=== PATIENT | male | born 1940 | race Caucasian/White ===

== ENCOUNTER 2017-05-16 08:00 | Outpatient (CLI) | payer MEDICARE, OTHER ==
[2017-05-16 19:02] LABS: BASOPHILS % (AUTO) 0.8 %; EOSINOPHILS # (AUTO) 0.1 10^3/uL (0.0-0.7); EOSINOPHILS % (AUTO) 2.8 %; HCT - HEMATOCRIT 45.5 % (42.0-52.0); HGB - HEMOGLOBIN 15.3 g/dL (14.0-18.0); LYMPHOCYTES # (AUTO) 0.7 10^3/uL (1.5-3.5); LYMPHOCYTES % (AUTO) 12.6 %; MEAN CORPUSCULAR HEMOGLOBIN 33.6 pg (27.0-31.0); MEAN CORPUSCULAR HGB CONC 33.7 g/dL (32.0-36.0); MEAN CORPUSCULAR VOLUME 99.6 fL (80.0-94.0); MEAN PLATELET VOLUME 8.8 fL (7.4-11.4); MONOCYTES # (AUTO) 0.6 10^3/uL (0.0-1.0); MONOCYTES % (AUTO) 12.2 %; NEUTROPHILS # (AUTO) 3.8 10^3/uL (1.5-6.6); NEUTROPHILS % (AUTO) 71.6 %; NUCLEATED RED BLOOD CELLS AUTO 0.1 /100WBC; RED BLOOD COUNT 4.57 10^6/uL (4.70-6.10); RED CELL DISTRIBUTION WIDTH 13.9 % (12.0-15.0); UNCORRECTED WHITE BLOOD COUNT 5.3 x10^3/uL; WHITE BLOOD COUNT 5.3 x10^3/uL (4.8-10.8)
[2017-05-16 19:17] LABS: ALBUMIN/GLOBULIN RATIO 1.4 (1.0-2.2); BILIRUBIN,TOTAL 1.1 mg/dL (0.2-1.0); BUN - BLOOD UREA NITROGEN 26 mg/dL (6-20); CALCIUM 9.3 mg/dL (8.5-10.3); CARBON DIOXIDE - CO2 28 mmol/L (21-32); CHLORIDE 99 mmol/L (101-111); CREATININE 1.3 mg/dL (0.6-1.2); GFR - MDRD 53 (>89); GLUCOSE 100 mg/dL (70-100); POTASSIUM 3.3 mmol/L (3.5-5.0); SODIUM 138 mmol/L (135-145); TOTAL PROTEIN 7.3 g/dL (6.7-8.2)
== END 2017-05-16 08:01 | disposition home or self-care (01) ==
LOC: LAB.R 08:00
PROVIDERS: ATTEND Physician Assistant Medical
DX: M25.50 Pain in unspecified joint (principal); M25.511 Pain in right shoulder
CPT/HCPCS: 80053; 85025; 85651; 86140; 86430

== ENCOUNTER 2017-05-17 12:45 | Outpatient (CLI) | payer MEDICARE, OTHER ==
--- NOTE | 2017-05-17 17:34 | XRAY Report ---
TWO-VIEW RIGHT SHOULDER: 05/17/2017 CLINICAL INDICATION: Pain. FINDINGS: Oblique and scapular Y views of the right shoulder demonstrate no evidence of fracture or dislocation. The joint spaces appear unremarkable. No radiopaque foreign body is seen in the soft t issues. IMPRESSION: NORMAL RIGHT SHOULDER. JOB #: [id number] EXT JOB #:[id number]
== END 2017-05-17 12:46 | disposition home or self-care (01) ==
LOC: DI 12:45
PROVIDERS: ATTEND Physician Assistant Medical
DX: M25.511 Pain in right shoulder (principal)

== ENCOUNTER 2017-06-16 09:27 | Outpatient (CLI) | payer MEDICARE, OTHER ==
[2017-06-19 20:02] LABS: ANA SCREEN POSITIVE (NEGATIVE)
== END 2017-06-16 09:28 | disposition home or self-care (01) ==
LOC: LAB.R 09:27
PROVIDERS: ATTEND Internal Medicine
DX: M25.50 Pain in unspecified joint (principal)
CPT/HCPCS: 85651; 86038; 86140; 86200; 86430

== ENCOUNTER 2017-09-29 08:15 | Outpatient (CLI) | payer MEDICARE, OTHER ==
[2017-09-29 09:07] LABS: ALBUMIN 3.9 g/dL (3.2-5.5); ALBUMIN/GLOBULIN RATIO 1.4 (1.0-2.2); BASOPHILS % (AUTO) 0.5 %; CALCIUM 9.3 mg/dL (8.5-10.3); CREATININE 1.4 mg/dL (0.6-1.2); EOSINOPHILS # (AUTO) 0.2 10^3/uL (0.0-0.7); EOSINOPHILS % (AUTO) 2.6 %; HGB - HEMOGLOBIN 15.1 g/dL (14.0-18.0); LYMPHOCYTES # (AUTO) 0.4 10^3/uL (1.5-3.5); MEAN CORPUSCULAR HEMOGLOBIN 33.5 pg (27.0-31.0); MEAN CORPUSCULAR HGB CONC 34.1 g/dL (32.0-36.0); MEAN CORPUSCULAR VOLUME 98.4 fL (80.0-94.0); MEAN PLATELET VOLUME 8.2 fL (7.4-11.4); MONOCYTES # (AUTO) 0.7 10^3/uL (0.0-1.0); MONOCYTES % (AUTO) 10.6 %; NEUTROPHILS % (AUTO) 79.3 %; PLT - PLATELET COUNT 243 10^3/uL (130-450); RED CELL DISTRIBUTION WIDTH 13.7 % (12.0-15.0); TOTAL PROTEIN 6.7 g/dL (6.7-8.2); WHITE BLOOD COUNT 6.3 x10^3/uL (4.8-10.8)
== END 2017-09-29 08:16 | disposition home or self-care (01) ==
LOC: LAB 08:15
PROVIDERS: ATTEND Internal Medicine Rheumatology
DX: M06.09 Rheumatoid arthritis without rheumatoid factor, multiple sites (principal)
CPT/HCPCS: 36415; 80053; 85025

== ENCOUNTER 2017-12-17 07:12 | Inpatient (IN) | payer MEDICARE, OTHER ==
--- NOTE | 2017-12-17 07:20 | ED Physician Documentation ---
PD HPI ABD PAIN - Stated complaint Stated Complaint: ABD PX - History of Present Illness Timing - onset: Last night, Yesterday Timing - details: Gradual onset, Still present, Waxing and waning Quality: Cramping, Aching, Pain Location: Periumbilical, Suprapubic Radiation: No: Chest, Lower back, Left flank, Right flank Improved by: No: Eating Worsened by: No: Eating, Moving, Breathing Associated symptoms: Nausea, Vomiting (few times overnight). No: Fever, Hematemesis, Diarrhea, Constipation, Melena, Hematuria (has urostomy due to prior bladder cancer and surgery. Has had Urostomy for about 10 years without problems.), Loss of appetite Similar symptoms before: Has not had sx before Recently seen: Not recently seen Review of Systems Constitutional: denies: Fever, Chills Nose: denies: Rhinorrhea / runny nose, Congestion Throat: denies: Sore throat Cardiac: denies: Chest pain / pressure Respiratory: denies: Cough GI: reports: Abdominal Pain, Nausea, Vomiting. denies: Abdominal Swelling, Constipation, Diarrhea : denies: Hematuria, Discharge Skin: denies: Rash, Lesions Musculoskeletal: denies: Neck pain, Back pain, Extremity swelling Neurologic: denies: Generalized weakness, Focal weakness, Numbness PD PAST MEDICAL HISTORY - Past Medical History Cardiovascular: None Respiratory: None Neuro: None Endocrine/Autoimmune: None : Other (bladder resection with urostomy) - Present Medications Home Medications: Ambulatory Orders Medication Instructions Recorded Confirmed Amlodipine Besylate [Norvasc] 10 mg PO DAILY 12/17/17 12/17/17 Aspirin [Aspirin EC] 81 mg PO DAILY 12/17/17 12/17/17 Etanercept [Enbrel Sureclick] 50 mg SUBQ Q7D 12/17/17 12/17/17 Metoprolol Succinate 50 mg PO DAILY 12/17/17 12/17/17 Omeprazole 20 mg PO QDAC 12/17/17 12/17/17 Prednisone 10 mg PO DAILY 12/17/17 12/17/17 Telmisartan 80 mg PO DAILY 12/17/17 12/17/17 hydroCHLOROthiazide [Hydrodiuril] 12.5 mg PO DAILY 12/17/17 12/17/17 - Allergies Allergies/Adverse Reactions: Allergies Allergy/AdvReac Type Severity Reaction Status Date / Time No Known Drug Allergies Allergy Verified 12/17/17 13:21 PD ED PE NORMAL - Vitals Vital signs reviewed: Yes - General General: Alert and oriented X 3, Well developed/nourished - HEENT HEENT: Moist mucous membranes, Pharynx benign - Neck Neck: Supple, no meningeal sign, No adenopathy - Cardiac Cardiac: RRR, No murmur - Respiratory Respiratory: Clear bilaterally - Abdomen Abdomen: Normal bowel sounds, Soft, Non distended, No organomegaly, Other ( urostomy draining clear yellow urine. No signs of infection around the stoma opening. Lower abd tender to palpation with some guarding. Midl rebound tender RLQ and suprapubic area. No percussion tenderness. ) Results - Vitals Vitals: Vital Signs - 24 hr 12/17/17 07:18 Temperature 36.7 C Heart Rate 107 H Respiratory 16 Rate Blood Pressure 161/99 H O2 Saturation 97 Oxygen O2 Source Room air - Labs Labs: Laboratory Tests 12/17/17 12/17/17 12/17/17 07:52 07:52 07:52 WBC 8.4 RBC 4.92 Hgb 16.9 Hct 49.3 MCV 100.2 H MCH 34.4 H MCHC 34.3 RDW 14.3 Plt Count 286 MPV 8.4 Neut # 7.1 H Lymph # 0.4 L [place] # 0.8 Eos # 0.0 Baso # 0.0 Absolute Nucleated RBC 0.01 Nucleated RBC % 0.1 Sodium 137 Potassium 3.7 Chloride 100 L Carbon Dioxide 26 Anion Gap 11.0 BUN 21 H Creatinine 1.3 H Estimated GFR (MDRD) 53 L Glucose 128 H Lactic Acid Calcium 9.3 Total Bilirubin 1.0 AST 25 ALT 19 Alkaline Phosphatase 52 Total Protein 7.4 Albumin 4.6 Globulin 2.8 Albumin/Globulin Ratio 1.6 Lipase 24 Urine Color YELLOW Urine Clarity CLEAR Urine pH 7.0 Ur Specific Perry 1.015 Urine Protein 30 H Urine Glucose (UA) NEGATIVE Urine Ketones NEGATIVE Urine Occult Blood MODERATE H Urine Nitrite NEGATIVE Urine Bilirubin NEGATIVE Urine Urobilinogen 0.2 (NORMAL) Ur Leukocyte Esterase NEGATIVE Urine RBC 11-25 H Urine WBC 6-10 H Ur Squamous Epith Cells FEW Squamous Urine Bacteria Few Ur Microscopic Review INDICATED Urine Culture Comments INDICATED 12/17/17 08:03 WBC RBC Hgb Hct MCV MCH MCHC RDW Plt Count MPV Neut # Lymph # [place] # Eos # Baso # Absolute Nucleated RBC Nucleated RBC % Sodium Potassium Chloride Carbon Dioxide Anion Gap BUN Creatinine Estimated GFR (MDRD) Glucose Lactic Acid 1.1 Calcium Total Bilirubin AST ALT Alkaline Phosphatase Total Protein Albumin Globulin Albumin/Globulin Ratio Lipase Urine Color Urine Clarity Urine pH Ur Specific Perry Urine Protein Urine Glucose (UA) Urine Ketones Urine Occult Blood Urine Nitrite Urine Bilirubin Urine Urobilinogen Ur Leukocyte Esterase Urine RBC Urine WBC Ur Squamous Epith Cells Urine Bacteria Ur Microscopic Review Urine Culture Comments - Rads (name of study) abd CT Radiology: Prelim report reviewed (appendix not seen. Inflammatory changes around cecum. Dilated small bowel above point of cecum and decompressed distal c /w SBO. Still consider appendicitis per [facility]. ), EMP read contemporaneously PD MEDICAL DECISION MAKING - ED course Complexity details: reviewed results, considered differential, d/w patient, d/w specialty development consultant (Dr. Dorothea Real - who says that the Urostomy surgery would typically involve appendectomy as well, so would treat as SBO and not likely appendix. ) Departure - Departure Disposition: [facility] DC/Xfer Clinical Impression: Small bowel obstruction due to postoperative adhesions Abdominal pain Qualifiers: Abdominal location: lower abdomen, unspecified Qualified Code(s): R10.30 - Lower abdominal pain, unspecified Condition: Stable Record reviewed to determine appropriate education?: Yes Discharge Date/Time: 12/17/17 11:18
[2017-12-17] MEDS ORDERED: ONDANSETRON 4 MG/2 ML VIAL IVP STA (07:42)
[2017-12-17] MEDS ORDERED: SODIUM CHLORIDE 0.9% 1,000 ML IV ONE (07:42)
[2017-12-17] MEDS ORDERED: ACETAMINOPHEN 1,000 MG/100 ML 100 ML IV STA (07:42)
[2017-12-17 08:05] LABS: BASOPHILS % (AUTO) 0.5 %; BILIRUBIN,URINE NEGATIVE (NEGATIVE); EOSINOPHILS % (AUTO) 0.2 %; GLUCOSE, URINE (UA) NEGATIVE (NEGATIVE); HGB - HEMOGLOBIN 16.9 g/dL (14.0-18.0); KETONES,URINE (UA) NEGATIVE (NEGATIVE); LEUKOCYTE ESTERASE, URINE NEGATIVE (NEGATIVE); LYMPHOCYTES # (AUTO) 0.4 10^3/uL (1.5-3.5); LYMPHOCYTES % (AUTO) 5.2 %; MEAN CORPUSCULAR HEMOGLOBIN 34.4 pg (27.0-31.0); MEAN CORPUSCULAR HGB CONC 34.3 g/dL (32.0-36.0); MEAN CORPUSCULAR VOLUME 100.2 fL (80.0-94.0); MEAN PLATELET VOLUME 8.4 fL (7.4-11.4); MONOCYTES # (AUTO) 0.8 10^3/uL (0.0-1.0); MONOCYTES % (AUTO) 9.7 %; NEUTROPHILS # (AUTO) 7.1 10^3/uL (1.5-6.6); NEUTROPHILS % (AUTO) 84.4 %; NITRITE,URINE NEGATIVE (NEGATIVE); OCCULT BLOOD,URINE MODERATE (NEGATIVE); PLT - PLATELET COUNT 286 10^3/uL (130-450); PROTEIN,URINE 30 mg/dL (NEGATIVE); RED BLOOD COUNT 4.92 10^6/uL (4.70-6.10); RED CELL DISTRIBUTION WIDTH 14.3 % (12.0-15.0); UROBILINOGEN,URINE 0.2 (NORMAL) E.U./dL (NORMAL); WHITE BLOOD COUNT 8.4 x10^3/uL (4.8-10.8)
[2017-12-17 08:06] LABS: CLARITY,URINE CLEAR (CLEAR)
[2017-12-17 08:13] LABS: BACTERIA,URINE Few /HPF (None Seen); SQUAMOUS EPITHELIAL CELL,UR FEW Squamous (<= Few)
[2017-12-17 08:15] LABS: ALBUMIN 4.6 g/dL (3.2-5.5); ALBUMIN/GLOBULIN RATIO 1.6 (1.0-2.2); CALCIUM 9.3 mg/dL (8.5-10.3); CREATININE 1.3 mg/dL (0.6-1.2); TOTAL PROTEIN 7.4 g/dL (6.7-8.2)
[2017-12-17] MEDS ORDERED: IOPAMIDOL-300 100 ML VIAL ONE (08:29)
[2017-12-17] MEDS ORDERED: IOPAMIDOL-300 100 ML VIAL IVP ONE (08:43)
--- NOTE | 2017-12-17 09:25 | CT Report ---
EXAM: CT ABDOMEN AND PELVIS EXAM DATE: 12/17/2017 08:46 AM. CLINICAL HISTORY: Lower abd pain since last evening. History of bladder cancer 15 years ago. COMPARISONS: 08/13/2015. TECHNIQUE: Routine helical CT imaging was performed through the abdomen and pelvis. IV contrast: 75 c c Isovue-300. Enteric contrast: No. Reconstructions: Coronal and sagittal. In accordance with CT protocol optimization, one or more of the following dose reduction techniques w ere utilized for this exam: automated exposure control, adjustment of mA and/or KV based on patient s ize, or use of iterative reconstructive technique. FINDINGS: Lung Bases: There is a 7 mm ovoid nodule at the left lung base adjacent to the minor fissure (series 3 image 6), which was not present on 08/13/2015 Liver: Normal. No masses. Gallbladder/Bile Ducts: Unremarkable. Spleen: Normal. Pancreas: Normal. Adrenal Glands: Normal. Kidneys: There is a nonobstructing punctate calyceal calculus in the interpolar region of the right k idney measuring less than 2 mm (series 3 image 24), unchanged compared to the prior exam. No masses o r hydronephrosis. Peritoneal Cavity/Bowel: There are mildly dilated loops of small bowel in the left side of the abdome n measuring up to 3.0 cm in diameter (series 5 image 15). There is mild adjacent mesenteric fat stran ding, particularly in the pelvis. There appears to be a transition point right lower quadrant adjacen t to the site of some surgical staple lines (series 3 image 64). The distal small bowel is decompress ed. The colon is unremarkable. Colonic stool burden is average. The appendix is not visualized. There is an air-fluid adjacent to cecum to suggest acute appendicitis. Pelvic Organs: As seen on prior exam, there are postoperative changes of cystectomy and diverting ile ostomy. There are multiple surgical clips in the pelvis. No pelvic adenopathy or free fluid. Vasculature: There is moderate atherosclerotic calcification of the abdominal aorta and iliac arterie s. No aneurysm. Bones: No acute osseous abnormality. No lytic or sclerotic lesion. There are mild to moderate degener ative disk changes of the lumbar spine. Other: There are small bilateral fat-containing inguinal hernias. IMPRESSION: 1. Dilated proximal small bowel with a transition point in the right lower quadrant. Findings are sug gestive of small bowel obstruction, likely secondary to adhesions or stricture adjacent to the site o f bowel anastomosis. There is no mesenteric fat stranding adjacent to loops of small bowel in the pel vis. 2. Postoperative changes of cystectomy and diverting ileostomy, unchanged. 3. Right kidney nonobstructing calyceal calculus measuring less than 2 mm, unchanged. 4. Incidentally noted 7 mm solid pulmonary nodule at the left lung base, not present on the prior exa m. Recommend follow-up of the described nodule(s) according to the following guidelines: Fleischner Society Recommendations 2017 MacMahon et al. Radiology 2017 Solid Nodules-Low Risk Patients: <6 mm (single or multiple) - No routine follow-up* 6-8 mm (single) -CT at 6-12 months, then consider CT at 18-24 months 6-8mm (multiple) -CT at 3-6 months, then consider at CT 18-24 months >8 mm (single) -Consider CT, PET/CT, or tissue sampling at 3 months >8 mm (multiple) -CT at 3-6 months, then consider CT at 18-24 months Solid Nodules-High Risk Patients: <6 mm (single or multiple) -Optional CT at 12 months* 6-8 mm (single) -CT at 6-12 months, then CT at 18-24 months 6-8mm (multiple) -CT at 3-6 months, then CT at 18-24 months >8 mm (single) -Consider CT, PET/CT, or tissue sampling at 3 months >8 mm (multiple) -CT at 3-6 months, then at 18-24 months *Nodules < 6mm do not require routine follow-up, but suspicious nodule morphology, upper lobe locatio n, or both may warrant 12 month follow-up [facility] Referring Provider Line: [phone] SITE ID: [id number]
[2017-12-17] MEDS ORDERED: MORPHINE 10 MG/ML VIAL IVP STA (10:20)
[2017-12-17] MEDS ORDERED: SODIUM CHLORIDE FLUSH 0.9% 10 ML SYRINGE IVP PRN (10:41)
--- NOTE | 2017-12-17 11:52 | HISTORY & PHYSICAL EXAMINATION ---
Chief Complaint - Chief Complaint Chief Complaint: abdominal pain. History of Present Illness - Admitted From Admitted From:: ED - History Obtained From Records Reviewed: yes History obtained from: chart review, patient and . Exam Limitations: none - History of Present Illness HPI Comment/Other: Godfrey Byrd is a 77-year old white male with a past medical history of hypertension, hyperlipidemia, CABG x3 vessels in the year ~1999, history of tobacco dependence, RA, current alcohol use, urostomy due to bladder cancer. The patient presented to the ED after about a one week history of low abdominal pain that became worse last evening accompanied by nausea, vomiting and he states that he could not consume his usual amount of wine. Imaging shows a likely SBO and the patient will be admitted for bowel rest and consult to surgery, Dr. Real. 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) Neuro: reports: None Endocrine/Autoimmune: reports: Other (+RA) GI: reports: None [employer] OUTFITTER: reports: None : reports: Other (urostomy d/t bladder CA) HEENT: reports: Chronic vision loss Psych: reports: Other (alcohol dependence.) Musculoskeletal: reports: None Derm: reports: Psoriasis MRSA Hx?: No - Past Surgical History General: reports: Appendectomy, Bowel surgery (urostomy) Cardiovascular: reports: CABG - Family & Social History Family History: Mother: , CVA/TIA ( ), Father: , Alcoholism, Sister: , Parkinson's Disease Living arrangement: At home Living Situation: With spouse/s.o. Social History Notes: The patient is retired, but remains busy at home with projects. He has a history of tobacco dependence-quit in 1999. Denies illicit drug use. Admits to 2-4 alcoholic drinks per day, but states that he could quit if he wanted to. He requests to be a FULL code. - Substance History Use: Uses substance without health or social issues: Alcohol Use Issues: Sleep Disorder Abuse: Recurrent use of substance despite neg consequences: Alcohol Abuse Issues: Sleep Disorder Dependence: Experiences withdrawal or developed tolerances: Alcohol Dependence Issues: Sleep Disorder - POLST Patient has POLST: No POLST Status: Full Code Meds/Allgy - Home Medications Home Medications: Ambulatory Orders Medication Instructions Recorded Confirmed Amlodipine Besylate [Norvasc] 10 mg PO DAILY 12/17/17 12/17/17 Aspirin [Aspirin EC] 81 mg PO DAILY 12/17/17 12/17/17 Etanercept [Enbrel Sureclick] 50 mg SUBQ Q7D 12/17/17 12/17/17 Metoprolol Succinate 50 mg PO DAILY 12/17/17 12/17/17 Omeprazole 20 mg PO QDAC 12/17/17 12/17/17 Prednisone 10 mg PO DAILY 12/17/17 12/17/17 Telmisartan 80 mg PO DAILY 12/17/17 12/17/17 hydroCHLOROthiazide [Hydrodiuril] 12.5 mg PO DAILY 12/17/17 12/17/17 - Allergies Allergies/Adverse Reactions: Allergies Allergy/AdvReac Type Severity Reaction Status Date / Time No Known Drug Allergies Allergy Verified 12/17/17 13:21 Review of Systems - Constitutional Constitutional: reports: Fatigue, Weight loss (Greater than 15 pounds in the past few months.) - Eyes Eyes: reports: Vision loss, Corrective lenses - Ears, Nose & Throat Ears, Nose & Throat: reports: Hearing loss, Dentures - Gastrointestinal Gastrointestinal: reports: Abdominal pain, Change in bowel habits, Nausea, Vomiting, Reflux/heartburn, Poor appetite - Genitourinary Genitourinary: reports: Nocturia - Musculoskeletal Musculoskeletal: reports: Joint swelling (related to RA) - Integumentary Integumentary: reports: Dryness - Neurological Neurological: reports: General weakness, 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) - All Other Systems All Other Systems: reports: Reviewed and negative Exam - Vital Signs Reviewed Vital Signs: Yes Vital Signs: Vital Signs x48h Temp Pulse Pulse Resp BP BP Pulse Ox 12/17/17 11:18 36.3 C L 75 20 167/73 H 98 12/17/17 11:01 71 15 136/87 H 98 - Physical Exam General Appearance: positive: No acute distress, Alert, Anxious (looking at watch frequently during this exam.) Eyes Bilateral: positive: PERRL ENT: positive: ENT inspection nml, Pharynx nml, No signs of dehydration Neck: positive: Nml inspection, Thyroid nml, No JVD, Trachea midline Respiratory: positive: Chest non-tender, No respiratory distress, Breath sounds nml Cardiovascular: positive: Regular rate & rhythm, Systolic murmur (history of rheumatic fever as a child.) Peripheral Pulses: positive: 1+ Abdomen: positive: Tenderness, Guarding, Abnml bowel sounds, Other (urostomy device-CDI, tenderness in both lower quadrants.) Back: positive: Nml inspection Skin: positive: No rash, Warm, Dry Neurologic/Psychiatric: positive: Oriented x3, CN's nml (2-12), Motor nml, Sensation nml, Depressed mood/affect Reflexes: Bicep (R): 3+, Bicep (L): 3+ Conclusion/Plan - Problem List (1) Abdominal pain Conclusion/Plan: The patient began to have progressive abdominal pain while out patient and he went to see his PCP for this who recommended further work up. The patient admits to not taking this advise. A month passed without any abdominal pain. For the past few days the patient admits to increased discomfort which led to him coming to the ED. Once in the ED he was having uncontrolled nausea with vomiting. Plan: Admit to I/P and manage symptoms. Qualifiers: Abdominal location: lower abdomen, unspecified Qualified Code(s): R10.30 - Lower abdominal pain, unspecified (2) Small bowel obstruction due to postoperative adhesions Conclusion/Plan: The patient is post-op urostomy and appendectomy. As per imaging, there are noted adhesions around surgical site, and a likely partial SBO. Plan: Consult general surgery for their recommendations and keep the patient NPO, IV fluids. (3) Tobacco dependence Conclusion/Plan: The patient admits to a history of this, but denies current use. It is suspected that he quit around the time of his CABG in 1999. Plan: Continue to monitor. (4) Rheumatoid arthritis Conclusion/Plan: The patient has a known history of [place] Enbrel at [place] and states that he has not had any new symptoms. Plan: Continue home schedule and monitor for pain. 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 He has a known lung nodule that is seen on imaging upon admission. The patient has seen Dr. Luís Carcamo-Urology for this. His devise is without current complications or signs of infection. He states that he has had no problems lately. Plan: Allow the patient to manage his own devise as at home. I/O monitoring. (6) Alcohol dependence Conclusion/Plan: The patient admits to drinking 2-4 drinks per night and they are mixed drinks. He states that he could quit if he really wanted to. Plan: Follow CBC, add CIWA if needed, and check GGT in AM. - Lab Results Lab results reviewed: Yes Fish Bones: 12/18/17 07:52 12/18/17 07:52 - Diagnostic Imaging Results Diagnostic Imaging Results: positive: Prelim report reviewed, Final report reviewed Diagnostic Imaging Results Comments: EXAM: CT ABDOMEN AND PELVIS EXAM DATE: 12/17/2017 08:46 AM. CLINICAL HISTORY: Lower abd pain since last evening. History of bladder cancer 15 years ago. COMPARISONS: 08/13/2015. TECHNIQUE: Routine helical CT imaging was performed through the abdomen and pelvis. IV contrast: 75 cc Isovue-300. Enteric contrast: No. Reconstructions: Coronal and sagittal. In accordance with CT protocol optimization, one or more of the following dose reduction techniques were utilized for this exam: automated exposure control, adjustment of mA and/or KV based on patient size, or use of iterative reconstructive technique. FINDINGS: Lung Bases: There is a 7 mm ovoid nodule at the left lung base adjacent to the minor fissure (series 3 image 6), which was not present on 08/13 Liver: Normal. No masses. Gallbladder/Bile Ducts: Unremarkable. Spleen: Normal. Pancreas: Normal. Adrenal Glands: Normal. Kidneys: There is a nonobstructing punctate calyceal calculus in the interpolar region of the right kidney measuring less than 2 mm (series 3 image 24), unchanged compared to the prior exam. No masses or hydronephrosis. Peritoneal Cavity/Bowel: There are mildly dilated loops of small bowel in the left side of the abdomen measuring up to 3.0 cm in diameter (series 5 image 15) . There is mild adjacent mesenteric fat stranding, particularly in the pelvis. There appears to be a transition point right lower quadrant adjacent to the site of some surgical staple lines (series 3 image 64). The distal small bowel is decompressed. The colon is unremarkable. Colonic stool burden is average. The appendix is not visualized. There is an air-fluid adjacent to cecum to suggest acute appendicitis. Pelvic Organs: As seen on prior exam, there are postoperative changes of cystectomy and diverting ileostomy. There are multiple surgical clips in the pelvis. No pelvic adenopathy or free fluid. Vasculature: There is moderate atherosclerotic calcification of the abdominal aorta and iliac arteries. No aneurysm. Bones: No acute osseous abnormality. No lytic or sclerotic lesion. There are mild to moderate degenerative disk changes of the lumbar spine. Other: There are small bilateral fat-containing inguinal hernias. IMPRESSION: 1. Dilated proximal small bowel with a transition point in the right lower quadrant. Findings are suggestive of small bowel obstruction, likely secondary to adhesions or stricture adjacent to the site of bowel anastomosis. There is no mesenteric fat stranding adjacent to loops of small bowel in the pelvis. 2. Postoperative changes of cystectomy and diverting ileostomy, unchanged. 3. Right kidney nonobstructing calyceal calculus measuring less than 2 mm, unchanged. 4. Incidentally noted 7 mm solid pulmonary nodule at the left lung base, not present on the prior exam. - EKG Results EKG Interpreted Independently: Yes EKG Comparison: Unchanged from prior EKG Core Measures - Anticipated LOS I expect patient to be DC'd or transferred within 96 hours.: Yes - DVT/VTE - Prophylaxis VTE/DVT Device ordered at admit?: Yes VTE/DVT Prophylaxis med ordered at admit?: No Not Ordered - Medical Reason: Contraindicated - Stroke - Rehab Assessment Rehab services assessment to be ordered?: No Not Ordered - Medical Reason: Contraindicated - AMI - Statin at Admit Aspirin Prescribed on Admit: No Not Ordered - Medical Reason: Contraindicated
[2017-12-17] MEDS ORDERED: MORPHINE 2 MG/ML SYRINGE IVP PRN (12:41)
[2017-12-17] MEDS ORDERED: ACETAMINOPHEN 1,000 MG/100 ML 100 ML IV PRN (12:41)
[2017-12-17] MEDS ORDERED: ONDANSETRON 4 MG/2 ML VIAL IVP PRN (12:41)
[2017-12-17] MEDS: PANTOPRAZOLE 40 MG VIAL IVP SCH ×2 (13:16→21:00)
[2017-12-17] MEDS: METOPROLOL SUCCINATE 50 MG TABLET PO SCH (13:16)
[2017-12-17] MEDS: SODIUM CHLORIDE 0.9% 1,000 ML IV SCH ×2 (13:16→21:00)
[2017-12-17] MEDS: SODIUM CHLORIDE FLUSH 0.9% 10 ML SYRINGE IVP SCH (13:17)
--- NOTE | 2017-12-17 20:00 | CONSULTATION NOTE ---
DATE OF SERVICE: 12/17/2017 Physician: Ron Real MD REFERRING PROVIDER: Loli Guerrero MD REASON FOR REFERRAL: Abdominal pain. HISTORY OF PRESENT ILLNESS: Patient is a 77-year-old male who presents with lower abdominal pain for the last 5 days. It has been waxing and waning since the pain first occurred. He has had nausea and vomiting when it first occurred and then a day prior to admission. He threw up essentially what he ate. The emesis was nonbilious. He has been having several bowel movements a day, but has not had any in the last 24 hours. His history is significant for having bladder cancer, undergoing resection with a urostomy tube placement. He has not had any problems with the urostomy. He has not had this similar pain in the past. PAST MEDICAL HISTORY 1. Bladder cancer. 2. Coronary artery disease. 3. Hyperlipidemia. 4. Gastroesophageal reflux disease. PAST SURGICAL HISTORY 1. Bladder resection with a urostomy tube placement. 2. Coronary artery bypass. MEDICATIONS 1. Enbrel. 2. Omeprazole. 3. Aspirin. 4. Hydrochlorothiazide. 5. Metoprolol. 6. Norvasc. 7. Prednisone. 8. Telmisartan. ALLERGIES TO MEDICATIONS: NONE. SOCIAL HISTORY: The patient is . REVIEW OF SYSTEMS Complete review of systems obtained. Pertinent positives are: GASTROINTESTINAL: Abdominal pain, nausea, vomiting. CONSTITUTIONAL: Not feeling well. MUSCULOSKELETAL: Arthritis. A 12-point review of systems was obtained with pertinent positives discussed and all others being. PHYSICAL EXAMINATION VITAL SIGNS: Temperature is 36.6, heart rate 61, blood pressure 132/74. GENERAL: Patient is lying in bed in no distress at the current time. EYES: Nonicteric. NECK: No lymphadenopathy. HEART: Regular. LUNGS: Clear. BACK: Nontender. ABDOMEN: Soft. Urostomy in the left lower quadrant. No hernias. Mild tenderness in the lower abdominal region. No peritoneal signs. Hyperactive bowel sounds. EXTREMITIES: No edema or cyanosis. NEUROLOGIC: Patient appears to be neurologically intact without any deficits. PSYCHOLOGICAL: Patient is cooperative, pleasant, appears to answer questions fully. LABORATORY DATA: Creatinine of 1.3. White blood cell count of 8.4, hemoglobin 17. IMAGING STUDIES: CT scan of the abdomen and pelvis shows dilated small bowel with a transition in the mid abdomen and pelvis. There is non-filled bowel going into the cecum. There is a small air-fluid level in the right lower quadrant. The appendix is not seen. ASSESSMENT AND PLAN: Abdominal pain, nausea and vomiting. CT scan is suggestive of a partial small-bowel obstruction. He does have stool in his colon. He has had a previous bladder resection and then he developed significant adhesions because of this. I would recommend medical therapy at this time, including n.p.o. and IV fluids. He has had pain for the last 5 days and therefore, this has been ongoing. Because of this, I would recommend getting a small- bowel series in the a.m., to see if he truly has a small-bowel obstruction. He does have a small air-fluid level near the cecum in which the appendix was not seen. There is no inflammation around this area. His white blood cell count is normal at 8. It is highly unlikely that this is inflammatory from appendicitis or cecal diverticulitis. PLAN 1. NPO. 2. IV fluids. 3. Small-bowel series in the a.m. TD: 12/17/2017 19:59 [place]
[2017-12-18] MEDS: SODIUM CHLORIDE 0.9% 1,000 ML IV SCH ×2 (04:20→11:44)
[2017-12-18] MEDS: SODIUM CHLORIDE FLUSH 0.9% 10 ML SYRINGE IVP SCH ×3 (05:38→16:49)
[2017-12-18 08:03] LABS: BASOPHILS # (AUTO) 0.1 10^3/uL (0.0-0.1); BASOPHILS % (AUTO) 1.1 %; EOSINOPHILS # (AUTO) 0.1 10^3/uL (0.0-0.7); EOSINOPHILS % (AUTO) 2.9 %; HGB - HEMOGLOBIN 15.2 g/dL (14.0-18.0); LYMPHOCYTES # (AUTO) 0.9 10^3/uL (1.5-3.5); LYMPHOCYTES % (AUTO) 18.1 %; MEAN CORPUSCULAR HEMOGLOBIN 34.6 pg (27.0-31.0); MEAN CORPUSCULAR VOLUME 101.6 fL (80.0-94.0); MEAN PLATELET VOLUME 8.1 fL (7.4-11.4); MONOCYTES # (AUTO) 0.6 10^3/uL (0.0-1.0); MONOCYTES % (AUTO) 12.7 %; NEUTROPHILS # (AUTO) 3.2 10^3/uL (1.5-6.6); NEUTROPHILS % (AUTO) 65.2 %; PLT - PLATELET COUNT 221 10^3/uL (130-450); RED BLOOD COUNT 4.41 10^6/uL (4.70-6.10); RED CELL DISTRIBUTION WIDTH 14.5 % (12.0-15.0)
[2017-12-18 08:12] LABS: ALBUMIN 3.8 g/dL (3.2-5.5); ALBUMIN/GLOBULIN RATIO 1.7 (1.0-2.2); BILIRUBIN,TOTAL 1.7 mg/dL (0.2-1.0); CALCIUM 8.5 mg/dL (8.5-10.3); CREATININE 1.1 mg/dL (0.6-1.2); TOTAL PROTEIN 6.1 g/dL (6.7-8.2)
[2017-12-18] MEDS: PANTOPRAZOLE 40 MG VIAL IVP SCH (08:20)
[2017-12-18] MEDS: METOPROLOL SUCCINATE 50 MG TABLET PO SCH (08:21)
[2017-12-18 08:33] LABS: HB2 TOTAL 16.3 g/dL; HEMOGLOBIN A1C 0.47 g/dL; HEMOGLOBIN A1C % 4.8 % (4.6-6.2)
[2017-12-18] MEDS ORDERED: POLYETHYLENE GLYCOL 3350 17 GM PACKET PO SCH (09:00)
--- NOTE | 2017-12-18 13:04 | XRAY Report ---
ACUTE ABDOMEN SERIES: 12/18/2017 CLINICAL INDICATION: Pain. COMPARISON: CT 12/17/2017. FINDINGS: Supine, upright views of the abdomen and a frontal view of the chest were obtained. The cardiac silhouette is within normal limits. Postoperative changes are stable. The lungs are clear. No effusion or pneumothorax is present. The bowel gas pattern appears unremarkable. Previously seen gaseous small bowel dilatation is no longer appreciated. No free intraperitoneal gas is seen. Postoperative changes in the pelvis are stable. IMPRESSION: NO EVIDENCE OF ACUTE CARDIOPULMONARY DISEASE. NO DEFINITE GASEOUS SMALL BOWEL DILATATION PERSISTING. NO EVIDENCE OF PERFORATION. TD: 12/18/2017 13:03
[2017-12-18] MEDS ORDERED: BARIUM SULFATE 176 GM BOTTLE PO ONE (14:21)
--- NOTE | 2017-12-18 14:53 | XRAY Report ---
SMALL BOWEL FOLLOW THROUGH: 12/18/2017 CLINICAL INDICATION: Small bowel obstruction on CT. FINDINGS: Acute abdomen series of the same day demonstrates no residual gaseous small bowel dilatation. The patient ingested barium. Contrast passes freely through the proximal and mid small bowel, through the anastomosis in the right lower quadrant, and reaches the cecum at 1 hour. There is mild dilatation of proximal and mid small bowel loops, to the dilated segment in the right lower quadrant at the site of previous anastomosis. Nondilated distal small bowel loops are then seen up to the cecum. IMPRESSION: PARTIAL SMALL-BOWEL OBSTRUCTION, WITH TRANSITION AT THE ANASTOMOTIC SUTURE LINE IN THE RIGHT LOWER QUADRANT, SIMILAR IN APPEARANCE TO CT. Fluoroscopy time: 1 minute, 4 seconds; 3 spot images obtained. TD: 12/18/2017 14:52 [place]
[2017-12-18] MEDS ORDERED: LORazepam 0.5 MG TABLET PO ONE (16:34)
[2017-12-18] MEDS ORDERED: LORazepam 2 MG/ML VIAL IVP PRN (16:46)
[2017-12-18] MEDS ORDERED: amLODIPine 5 MG TABLET PO SCH (16:47)
[2017-12-18] MEDS ORDERED: hydroCHLOROthiazide 12.5 MG CAPSULE PO SCH (17:00)
[2017-12-18 18:17] VITALS: BP 124/65
--- NOTE | 2017-12-18 18:24 | Discharge Plan ---
Discharge Plan Disposition: 01 Home, Self Care Condition: Good Diet: Regular Activity Restrictions: No Restrictions Shower Restrictions: No Driving Restrictions: No Weight Bearing: Full Weight Additional Instructions or Follow Up instructions: You were found to have a partial small bowel obstruction that improved with bowel rest and IV fluids. There is no recommended GI follow up and no further testing is necessary. Please see your PCP within one week. Resume all medications and routines as usual. No Smoking: If you smoke, Please STOP! Call for help. Follow-up with: Natanael Potts MD [Primary Care Provider] -
--- NOTE | 2017-12-18 18:27 | DISCHARGE SUMMARY ---
Discharge Summary Admit Date: 12/17/17 Discharge Date: 12/18/17 Discharging Provider: SEE Fine Primary Care Provider: Natanael Potts Code Status: Attempt Resuscitation Condition at Discharge: Good Discharge Disposition: 01 Home, Self Care - DIAGNOSES Admission Diagnoses: Unspecified intestinal obstruction, unspecified as to partial versus complete obstruction (K56.609) Unspecified abdominal pain (R10.9) Discharge Diagnoses with Status of Each Condition: Partial small bowel obstruction (K56.609)- resolved. Abdominal pain (R10.9)- resolved. 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 CKD (chronic kidney disease), stage III (N18.3)- chronic, stable. History of tobacco abuse (Z87.891)- chronic, stable. Rheumatoid arthritis (M06.9)- chronic, stable. Hypertension (I10)-chronic, stable. Current chronic use of systemic steroids (Z79.52)- chronic stable. - HPI History of Present Illness: Godfrey Byrd is a 77-year old white male with a past medical history of hypertension, hyperlipidemia, CABG x3 vessels in the year ~1999, history of tobacco dependence, RA, current alcohol use, urostomy due to bladder cancer. The patient presented to the ED after about a one week history of low abdominal pain that became worse last evening accompanied by nausea, vomiting and he states that he could not consume his usual amount of wine. Imaging shows a likely SBO and the patient will be admitted for bowel rest and consult to surgery, Dr. Real. - HOSPITAL COURSE Hospital Course: The patient was admitted to inpatient status for a partial small bowel obstruction. The patient was some what resistant to further work up. He was kept NPO, given IV fluids and had a repeat small bowel series imaging on day 2, which showed a resolution of the previous SBO. General surgery, Dr. Jaime Real was involved for a consult. The patient did not have an elevated WBC count, and this was not thought to be from appendicitis or cecal diverticulitis. The patient was resumed on a regular diet, and his pain was resolved at the time of discharge. He was taken home with is via private car. There is no recommended follow up needed as this resolved on its own. The patient did not show signs of alcohol withdrawal during his hospital stay and was encouraged to cut back on the amounts of wine consumed. He was ambulatory and he did not require oxygen. - ALLERGIES Allergies/Adverse Reactions: Allergies Allergy/AdvReac Type Severity Reaction Status Date / Time No Known Drug Allergies Allergy Verified 12/17/17 13:21 - MEDICATIONS Home Medications: Ambulatory Orders Medication Instructions Recorded Confirmed Amlodipine Besylate [Norvasc] 10 mg PO DAILY 12/17/17 12/17/17 Aspirin [Aspirin EC] 81 mg PO DAILY 12/17/17 12/17/17 Etanercept [Enbrel Sureclick] 50 mg SUBQ Q7D 12/17/17 12/17/17 Metoprolol Succinate 50 mg PO DAILY 12/17/17 12/17/17 Omeprazole 20 mg PO QDAC 12/17/17 12/17/17 Prednisone 10 mg PO DAILY 12/17/17 12/17/17 Telmisartan 80 mg PO DAILY 12/17/17 12/17/17 hydroCHLOROthiazide [Hydrodiuril] 12.5 mg PO DAILY 12/17/17 12/17/17 - PHYSICAL EXAM AT DISCHARGE General Appearance: positive: No acute distress, Alert Eyes Bilateral: positive: Normal inspection, PERRL ENT: positive: ENT inspection nml, Pharynx nml, No signs of dehydration Neck: positive: Nml inspection, Thyroid nml, No JVD, Trachea midline Respiratory: positive: Chest non-tender, No respiratory distress, Breath sounds nml Cardiovascular: positive: Regular rate & rhythm, No gallop, Systolic murmur, Decreased pulse(s) Peripheral Pulses: positive: 1+ Abdomen: positive: Non-tender, No organomegaly, Nml bowel sounds, No distention Back: positive: Nml inspection Skin: positive: No rash, Warm, Dry Extremities: positive: Non-tender, Full ROM, Nml appearance Neurologic/Psychiatric: positive: Oriented x3, CN's nml (2-12), Motor nml, Sensation nml, Mood/affect nml Reflexes: Bicep (R): 3+, Bicep (L): 3+ - LABS Result Diagrams: 12/18/17 07:52 12/18/17 07:52 - DIAGNOSTIC IMAGING Diagnostic Imaging Results: Final report reviewed Diagnostic Imaging Results Comments: EXAM: CT ABDOMEN AND PELVIS EXAM DATE: 12/17/2017 08:46 AM. CLINICAL HISTORY: Lower abd pain since last evening. History of bladder cancer 15 years ago. COMPARISONS: 08/13/2015. TECHNIQUE: Routine helical CT imaging was performed through the abdomen and pelvis. IV contrast: 75 cc Isovue-300. Enteric contrast: No. Reconstructions: Coronal and sagittal. In accordance with CT protocol optimization, one or more of the following dose reduction techniques were utilized for this exam: automated exposure control, adjustment of mA and/or KV based on patient size, or use of iterative reconstructive technique. FINDINGS: Lung Bases: There is a 7 mm ovoid nodule at the left lung base adjacent to the minor fissure (series 3 image 6), which was not present on 08/13 Liver: Normal. No masses. Gallbladder/Bile Ducts: Unremarkable. Spleen: Normal. Pancreas: Normal. Adrenal Glands: Normal. Kidneys: There is a nonobstructing punctate calyceal calculus in the interpolar region of the right kidney measuring less than 2 mm (series 3 image 24), unchanged compared to the prior exam. No masses or hydronephrosis. Peritoneal Cavity/Bowel: There are mildly dilated loops of small bowel in the left side of the abdomen measuring up to 3.0 cm in diameter (series 5 image 15) . There is mild adjacent mesenteric fat stranding, particularly in the pelvis. There appears to be a transition point right lower quadrant adjacent to the site of some surgical staple lines (series 3 image 64). The distal small bowel is decompressed. The colon is unremarkable. Colonic stool burden is average. The appendix is not visualized. There is an air-fluid adjacent to cecum to suggest acute appendicitis. Pelvic Organs: As seen on prior exam, there are postoperative changes of cystectomy and diverting ileostomy. There are multiple surgical clips in the pelvis. No pelvic adenopathy or free fluid. Vasculature: There is moderate atherosclerotic calcification of the abdominal aorta and iliac arteries. No aneurysm. Bones: No acute osseous abnormality. No lytic or sclerotic lesion. There are mild to moderate degenerative disk changes of the lumbar spine. Other: There are small bilateral fat-containing inguinal hernias. IMPRESSION: 1. Dilated proximal small bowel with a transition point in the right lower quadrant. Findings are suggestive of small bowel obstruction, likely secondary to adhesions or stricture adjacent to the site of bowel anastomosis. There is no mesenteric fat stranding adjacent to loops of small bowel in the pelvis. 2. Postoperative changes of cystectomy and diverting ileostomy, unchanged. 3. Right kidney nonobstructing calyceal calculus measuring less than 2 mm, unchanged. 4. Incidentally noted 7 mm solid pulmonary nodule at the left lung base, not present on the prior exam. Recommend follow-up of the described nodule(s) according to the following guidelines: Fleischner Society Recommendations 2017 MacMamtahon et al. Radiology 2017 Solid Nodules-Low Risk Patients: <6 mm (single or multiple) - No routine follow- up* 6-8 mm (single) -CT at 6-12 months, then consider CT at 18-24 months 6-8mm (multiple) -CT at 3-6 months, then consider at CT 18-24 months >8 mm (single) -Consider CT, PET/CT, or tissue sampling at 3 months >8 mm (multiple) -CT at 3-6 months, then consider CT at 18-24 months Solid Nodules-High Risk Patients: <6 mm (single or multiple) -Optional CT at 12 months* 6-8 mm (single) -CT at 6-12 months, then CT at 18-24 months 6-8mm (multiple) -CT at 3-6 months, then CT at 18-24 months >8 mm (single) -Consider CT, PET/CT, or tissue sampling at 3 months >8 mm (multiple) -CT at 3-6 months, then at 18-24 months *Nodules < 6mm do not require routine follow-up, but suspicious nodule morphology, upper lobe location, or both may warrant 12 month follow-up SMALL BOWEL FOLLOW THROUGH: 12/18/2017 CLINICAL INDICATION: Small bowel obstruction on CT. FINDINGS: Acute abdomen series of the same day demonstrates no residual gaseous small bowel dilatation. The patient ingested barium. Contrast passes freely through the proximal and mid small bowel, through the anastomosis in the right lower quadrant, and reaches the cecum at 1 hour. There is mild dilatation of proximal and mid small bowel loops, to the dilated segment in the right lower quadrant at the site of previous anastomosis. Nondilated distal small bowel loops are then seen up to the cecum. IMPRESSION: PARTIAL SMALL-BOWEL OBSTRUCTION, WITH TRANSITION AT THE ANASTOMOTIC SUTURE LINE IN THE RIGHT LOWER QUADRANT, SIMILAR IN APPEARANCE TO CT. Fluoroscopy time: 1 minute, 4 seconds; 3 spot images obtained. ACUTE ABDOMEN SERIES: 12/18/2017 CLINICAL INDICATION: Pain. COMPARISON: CT 12/17/2017. FINDINGS: Supine, upright views of the abdomen and a frontal view of the chest were obtained. The cardiac silhouette is within normal limits. Postoperative changes are stable. The lungs are clear. No effusion or pneumothorax is present. The bowel gas pattern appears unremarkable. Previously seen gaseous small bowel dilatation is no longer appreciated. No free intraperitoneal gas is seen. Postoperative changes in the pelvis are stable. IMPRESSION: NO EVIDENCE OF ACUTE CARDIOPULMONARY DISEASE. NO DEFINITE GASEOUS SMALL BOWEL DILATATION PERSISTING. NO EVIDENCE OF PERFORATION. - FOLLOW UP Follow Up: Disposition: 01 Home, Self Care Condition: Good Diet: Regular Activity Restrictions: No Restrictions Shower Restrictions: No Driving Restrictions: No Weight Bearing: Full Weight Additional Instructions or Follow Up instructions: You were found to have a partial small bowel obstruction that improved with bowel rest and IV fluids. There is no recommended GI follow up and no further testing is necessary. Please see your PCP within one week. Resume all medications and routines as usual. - TIME SPENT Time Spent in Discharge (Minutes): 45
[2017-12-19] MEDS ORDERED: hydroCHLOROthiazide 12.5 MG CAPSULE PO SCH (09:00)
--- NOTE | 2018-01-11 11:51 | PROVIDER PROGRESS NOTE ---
Subjective - General Admit Date: 12/17/17 - Review of Systems Gastrointestinal: positive: Flatus, Other (had a bowel movement. No c/o abdominal pain.) All Other Systems: positive: Reviewed and negative Objective - Lab Results Lab Results: 12/18/17 07:52 12/18/17 07:52 - Physical Exam Rectal: positive: Non-tender Impression/Plan - Problem List Problem List: Partial small bowel obstruction clinically has resolved. He does have some mildly dilated small bowel up to his previous small bowel anastomosis. However is is not having any current symptoms related to this. I would recommend starting liquids and advancing his diet. If he tolerates his diet, then may be discharged with f/u with PCP. Explained that his bowel obstruction has a potential to return and if his symptoms return, then will reevaluate him at that time.
== END 2017-12-18 18:00 | disposition home or self-care (01) | DRG 390 ==
LOC: ED 07:12 → MS2 10:41
PROVIDERS: ADMIT Nurse Practitioner; ATTEND Nurse Practitioner
DX: K56.50 Intestinal adhesions [bands], unspecified as to partial versus complete obstruction (principal); I12.9 Hypertensive chronic kidney disease with stage 1 through stage 4 chronic kidney disease, or unspecified chronic kidney disease; N18.3 Chronic kidney disease, stage 3 (moderate); F10.20 Alcohol dependence, uncomplicated; E78.5 Hyperlipidemia, unspecified; R91.1 Solitary pulmonary nodule; M06.9 Rheumatoid arthritis, unspecified; H91.90 Unspecified hearing loss, unspecified ear; H54.7 Unspecified visual loss; K21.9 Gastro-esophageal reflux disease without esophagitis; Z93.50 Unspecified cystostomy status; Z79.82 Long term (current) use of aspirin; Z79.52 Long term (current) use of systemic steroids; Z79.899 Other long term (current) drug therapy; Z85.51 Personal history of malignant neoplasm of bladder; Z90.6 Acquired absence of other parts of urinary tract; Z95.1 Presence of aortocoronary bypass graft; Z87.891 Personal history of nicotine dependence; Z72.89 Other problems related to lifestyle
CPT/HCPCS: 36415; 74022; 74177; 74250; 80053; 81001; 81003; 82150; 82977; 83036; 83605; 83690; 84443; 85025; 87077; 87086; 96361; 96365; 96375; 99283; 99284

== ENCOUNTER 2018-02-09 09:57 | Outpatient (CLI) | payer MEDICARE, OTHER ==
[2018-02-09 10:15] LABS: CREATININE 1.4 mg/dL (0.6-1.2)
[2018-02-09] MEDS ORDERED: IOPAMIDOL-300 100 ML VIAL ONE (11:50)
[2018-02-09] MEDS ORDERED: IOPAMIDOL-300 100 ML VIAL IVP ONE (12:33)
--- NOTE | 2018-02-09 13:26 | CT Report ---
Procedure Date: 02/09/2018 Accession Number: [id number] / [id number] Procedure: CT - IVP CPT Code: FULL RESULT: EXAM: Abdomen and pelvis without and with contrast DATE: 02/09/2018 12:44 PM CLINICAL HISTORY: Follow-up [facility] COMPARISON: 12/17/2017 TECHNIQUE: Routine helical CT imaging was performed through the abdomen and pelvis pre- and post-IV contrast. IV contrast: 100 cc Isovue-300. Enteric contrast: No. Reconstructions: Coronal and sagittal. In accordance with CT protocol optimization, one or more of the following dose reduction techniques were utilized for this exam: automated exposure control, adjustment of mA and/or KV based on patient size, or use of iterative reconstructive technique. FINDINGS: Lung Bases: Slight increase size nodule left lung base, now 1 cm Liver, Gallbladder/Bile Ducts, Spleen, Pancreas, Adrenal Glands: Unchanged. Unremarkable. Kidneys: 2 mm nonobstructing right interpolar calculus. No masses or hydronephrosis. Peritoneal Cavity/Bowel: No free fluid, free air or pathologic adenopathy. No masses or acute inflammatory process. Pelvic Organs: Postoperative cystectomy and diverting ileostomy with multiple surgical clips. Bilateral fat-containing inguinal hernias. Vasculature: No aneurysms. Aortic calcification.. Bones: Degenerative change in the spine including grade 1 anterior listhesis L4 on L5 and grade 1 retrolisthesis of L1 with respect to L2.. Other: None. IMPRESSION: 1. Slight increase in size nodule left lung base, currently 1 cm, sense 12/17/2017 not present 06/15/2015. Metastasis is not excluded. 2. Status post cystectomy and diverting right lower quadrant ileostomy. 3. No findings to suggest metastatic disease in the abdomen or pelvis. RADIA
== END 2018-02-09 09:58 | disposition home or self-care (01) ==
LOC: LAB 09:57 → DI 09:58
PROVIDERS: ATTEND Urology
DX: R91.1 Solitary pulmonary nodule (principal); Z90.6 Acquired absence of other parts of urinary tract; Z85.51 Personal history of malignant neoplasm of bladder; Z93.2 Ileostomy status
CPT/HCPCS: 36415; 74178; 82565; Q9967

== ENCOUNTER 2018-03-09 12:57 | Outpatient (CLI) | payer MEDICARE, OTHER ==
[2018-03-09] MEDS ORDERED: IOPAMIDOL-300 100 ML VIAL ONE (13:53)
[2018-03-09] MEDS: IOPAMIDOL-300 100 ML VIAL IVP ONE (13:58)
--- NOTE | 2018-03-09 14:18 | CT Report ---
Procedure Date: 03/09/2018 Accession Number: [id number] / [id number] Procedure: CT - Chest W/ CPT Code: FULL RESULT: EXAM: Chest W/ DATE: 03/09/2018 1:56 PM CLINICAL HISTORY: HISTORY OF [facility] COMPARISON: CT chest 06/15/[address] abdomen pelvis 02/09/2018. TECHNIQUE: Routine helical CT imaging was performed through the chest. IV contrast: 8 mL Isovue-300 Reconstructions: Coronal and sagittal. In accordance with CT protocol optimization, one or more of the following dose reduction techniques were utilized for this exam: automated exposure control, adjustment of mA and/or KV based on patient size, or use of iterative reconstructive technique. FINDINGS: Lungs/Pleura: Redemonstration of a 1 cm nodule in the left upper lobe, unchanged compared to 02/09/2018 new compared to May 2015. A 5 mm sarah beth fissural nodule in the left lung is felt to represent a pleural lymph node, stable dating back to 2014. There are no additional nodules in either lung. There is no pleural effusion. No consolidation. Mediastinum: The patient is status post CABG. Numerous prominent pretracheal and subcarinal lymph nodes which do not meet size criteria. Bones: No aggressive osseous lesion. Flowing anterior osteophytosis of the lower thoracic spine. Visualized Abdomen: Status post cholecystectomy. Other: None. IMPRESSION: Short-term interval stability of the left lung nodule with no new nodules identified. Since this nodule is new compared to 2014 and the patient has a history of malignancy, tissue diagnosis or PET CT characterization is recommended in the setting of prominent mediastinal lymph nodes which do not meet size criteria. RADIA
== END 2018-03-09 12:58 | disposition home or self-care (01) ==
LOC: DI 12:57
PROVIDERS: ATTEND Urology
DX: R91.1 Solitary pulmonary nodule (principal); Z85.51 Personal history of malignant neoplasm of bladder
CPT/HCPCS: 71260; Q9967

== ENCOUNTER 2018-05-29 08:00 | Outpatient (CLI) | payer MEDICARE, OTHER | END 2018-05-29 08:01 | LOC: LAB.R 08:00 | PROVIDERS: ATTEND Internal Medicine | DX: R68.89 Other general symptoms and signs (principal) | CPT/HCPCS: 84443 ==

== ENCOUNTER 2018-08-31 13:50 | Outpatient (CLI) | payer MEDICARE, OTHER ==
[2018-08-31 14:14] LABS: BASOPHILS % (AUTO) 0.8 %; EOSINOPHILS # (AUTO) 0.2 10^3/uL (0.0-0.7); EOSINOPHILS % (AUTO) 2.7 %; HGB - HEMOGLOBIN 14.5 g/dL (14.0-18.0); LYMPHOCYTES # (AUTO) 0.8 10^3/uL (1.5-3.5); LYMPHOCYTES % (AUTO) 12.8 %; MEAN CORPUSCULAR HEMOGLOBIN 35.3 pg (27.0-31.0); MEAN CORPUSCULAR HGB CONC 34.5 g/dL (32.0-36.0); MEAN CORPUSCULAR VOLUME 102.3 fL (80.0-94.0); MONOCYTES # (AUTO) 0.8 10^3/uL (0.0-1.0); MONOCYTES % (AUTO) 12.9 %; NEUTROPHILS # (AUTO) 4.3 10^3/uL (1.5-6.6); NEUTROPHILS % (AUTO) 70.8 %; PLT - PLATELET COUNT 312 10^3/uL (130-450); RED BLOOD COUNT 4.11 10^6/uL (4.70-6.10); RED CELL DISTRIBUTION WIDTH 13.4 % (12.0-15.0)
[2018-08-31 14:34] LABS: ALBUMIN 3.9 g/dL (3.2-5.5); ALBUMIN/GLOBULIN RATIO 1.5 (1.0-2.2); ALKALINE PHOSPHATASE 47 IU/L (42-121); ALT ALANINE AMINOTRANSFERASE 18 IU/L (10-60); AST ASPARTATE AMINOTRANSFERASE 22 IU/L (10-42); BUN - BLOOD UREA NITROGEN 28 mg/dL (6-20); CARBON DIOXIDE - CO2 29 mmol/L (21-32); CHLORIDE 101 mmol/L (101-111); CREATININE 1.5 mg/dL (0.6-1.2); GFR - MDRD 45 (>89); GLUCOSE 99 mg/dL (70-100); SODIUM 137 mmol/L (135-145); TOTAL PROTEIN 6.5 g/dL (6.7-8.2)
[2018-08-31 14:40] LABS: CRP - C-REACTIVE PROTEIN < 1.0 mg/dL (0-1.0)
== END 2018-08-31 13:51 | disposition home or self-care (01) ==
LOC: LAB 13:50
PROVIDERS: ATTEND Internal Medicine Rheumatology
DX: Z79.899 Other long term (current) drug therapy (principal); M06.9 Rheumatoid arthritis, unspecified
CPT/HCPCS: 36415; 80053; 85025; 86140

== ENCOUNTER 2019-09-10 22:55 | Outpatient (CLI) | payer MEDICARE, OTHER | END 2019-09-10 22:56 | disposition critical access hospital (66) | LOC: EMS 22:55 | PROVIDERS: ATTEND Surgery | DX: S09.93XA Unspecified injury of face, initial encounter (principal); W18.30XA Fall on same level, unspecified, initial encounter; Y93.01 Activity, walking, marching and hiking; Y92.008 Other place in unspecified non-institutional (private) residence as the place of occurrence of the external cause | CPT/HCPCS: A0425; A0429 ==

== ENCOUNTER 2019-09-10 23:04 | Emergency (ER) | payer MEDICARE, OTHER ==
[2019-09-10 23:12] VITALS: BP 139/100
--- NOTE | 2019-09-10 23:39 | ED Physician Documentation ---
PD HPI Fall - Stated complaint Stated Complaint: GLF - Chief complaint Chief Complaint: Trauma Hd/Nk - History obtained from History obtained from: Patient, EMS - History of Present Illness Mechanism of injury: Lost balance. No: Syncope Fall distance: Standing position (he says he has had problems with double vision and blurred vision and balance. Saw his eye doctor and told eyes were okay. Suggested to see Neurologist. Is getting appt with PMD to get referral. He says he misstepped due to not seeing ground well, and fell forward, striking left face. 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 No: Chest, Abdomen Associated symptoms: No: LOC, Amnesia, Weakness, Paresthesias, Nausea / vomiting Contributing factors: Intoxicated. No: Anticoagulated Similar symptoms before: No diagnosis (says he has double vision at times and balance problems. Symtpoms for several weeks to months.) Review of Systems Constitutional: denies: Fever, Chills Nose: denies: Rhinorrhea / runny nose, Congestion, Epistaxis Throat: denies: Sore throat Cardiac: denies: Chest pain / pressure, Palpitations Respiratory: denies: Dyspnea, Cough GI: denies: Abdominal Pain, Nausea, Vomiting, Diarrhea, Bloody / black stool Skin: reports: Abrasion (s) (left cheek) Neurologic: denies: Focal weakness, Numbness, Altered mental status Endocrine: denies: Weight loss, Easy bruising / bleeding PD PAST MEDICAL HISTORY - Past Medical History Past Medical History: Yes Cardiovascular: Hypertension, High cholesterol, Coronary artery disease, Murmur Respiratory: COPD Neuro: None Endocrine/Autoimmune: Other GI: None 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 : Other HEENT: Chronic vision loss Psych: Other Musculoskeletal: None Derm: Psoriasis - Past Surgical History Past Surgical History: Yes General: Appendectomy, Bowel surgery Cardiovascular: CABG - Present Medications Home Medications: Ambulatory Orders Medication Instructions Recorded Confirmed Amlodipine Besylate [Norvasc] 10 mg PO DAILY 12/17/17 12/17/17 Aspirin [Aspirin EC] 81 mg PO DAILY 12/17/17 12/17/17 Etanercept [Enbrel Sureclick] 50 mg SUBQ Q7D 12/17/17 12/17/17 Metoprolol Succinate 50 mg PO DAILY 12/17/17 12/17/17 Omeprazole 20 mg PO QDAC 12/17/17 12/17/17 Prednisone 10 mg PO DAILY 12/17/17 12/17/17 Telmisartan 80 mg PO DAILY 12/17/17 12/17/17 hydroCHLOROthiazide [Hydrodiuril] 12.5 mg PO DAILY 12/17/17 12/17/17 - Allergies Allergies/Adverse Reactions: Allergies Allergy/AdvReac Type Severity Reaction Status Date / Time No Known Drug Allergies Allergy Verified 09/10/19 23:12 - Social History Does the pt smoke?: No Smoking Status: Never smoker Does the pt drink ETOH?: Yes Does the pt have substance abuse?: No - Immunizations Immunizations are current?: Yes - POLST Patient has POLST: No POLST Status: Full Code PD ED PE NORMAL - Vitals Vital signs reviewed: Yes - General General: Alert and oriented X 3, No acute distress, Well developed/nourished - HEENT HEENT: PERRL, EOMI (he claims mild diplopia that does not change with eye movements. ), Pharynx benign, Other (left cheek with abrasions; no laceration. No nasal tenderness. No blood in nares. ) - Neck Neck: Supple, no meningeal sign, No bony TTP, No adenopathy - Cardiac Cardiac: RRR, No murmur - Respiratory Respiratory: Clear bilaterally, Other (no chestwall tenderness. ) - Abdomen Abdomen: Soft, Non tender - Derm Derm: Normal color, Warm and dry - Neuro Neuro: Alert and oriented X 3, outside sales account manager 2-12 intact, No motor deficit, No sensory deficit, Normal speech, Other (mild slurring of speech c/w alcohol. able to walk normally without ataxia here. ) Eye Opening: Spontaneous Motor: Obeys Commands Verbal: Oriented GCS Score: 15 Results - Vitals Vitals: Vital Signs - 24 hr 09/10/19 09/10/19 09/11/19 23:08 23:21 00:08 Temperature 36.5 C Heart Rate 61 Respiratory 17 18 17 Rate Blood Pressure 139/100 H O2 Saturation 97 09/11/19 01:07 Temperature Heart Rate Respiratory 16 Rate Blood Pressure O2 Saturation Oxygen O2 Source Room air - Labs Labs: Laboratory Tests 09/10/19 09/10/19 09/10/19 23:59 23:59 23:59 WBC 7.1 RBC 4.19 L Hgb 14.5 Hct 42.8 MCV 102.1 H MCH 34.6 H MCHC 33.9 RDW 13.3 Plt Count 227 MPV 10.0 Neut # (Auto) 5.4 Lymph # (Auto) 0.7 L Fleming # (Auto) 0.7 Eos # (Auto) 0.2 Baso # (Auto) 0.1 Absolute Nucleated RBC 0.00 Nucleated RBC % 0.0 ESR 2 Sodium 138 Potassium 3.4 L Chloride 103 Carbon Dioxide 22 Anion Gap 13.0 BUN 28 H Creatinine 1.3 H Estimated GFR (MDRD) 53 L Glucose 98 Calcium 8.8 Magnesium 2.0 Total Bilirubin 0.6 AST 26 ALT 17 Alkaline Phosphatase 42 Total Protein 6.5 L Albumin 3.9 Globulin 2.6 Albumin/Globulin Ratio 1.5 Lipase 35 Vitamin B12 TSH Ethyl Alcohol 269.3 09/10/19 23:59 WBC RBC Hgb Hct MCV MCH MCHC RDW Plt Count MPV Neut # (Auto) Lymph # (Auto) Fleming # (Auto) Eos # (Auto) Baso # (Auto) Absolute Nucleated RBC Nucleated RBC % ESR Sodium Potassium Chloride Carbon Dioxide Anion Gap BUN Creatinine Estimated GFR (MDRD) Glucose Calcium Magnesium Total Bilirubin AST ALT Alkaline Phosphatase Total Protein Albumin Globulin Albumin/Globulin Ratio Lipase Vitamin B12 128 L TSH 2.37 Ethyl Alcohol - Rads (name of study) head CT Radiology: Prelim report reviewed (no ICH nor acute changes), See rad report PD MEDICAL DECISION MAKING - ED course Complexity details: considered differential (no CT abnormality. He should follow up with Neurology/PMD regarding complaint of diplopia and some balance problems, but likely MRI and other testing. Strongly suggested that he temper his alcohol use.), d/w patient Departure - Departure Disposition: 01 Home, Self Care Clinical Impression: Double vision Fall from slip, trip, or stumble Qualifiers: Encounter type: initial encounter Qualified Code(s): W01.0XXA - Fall on same level from slipping, tripping and stumbling without subsequent striking against object, initial encounter Alcohol intoxication Qualifiers: Complication of substance-induced condition: uncomplicated Qualified Code(s): F10.920 - Alcohol use, unspecified with intoxication, uncomplicated Facial abrasion Qualifiers: Encounter type: initial encounter Qualified Code(s): S00.81XA - Abrasion of other part of head, initial encounter Condition: Stable Comments: Stay well-hydrated. Use little ointment on your facial abrasions once or twice daily to allow better healing. Tylenol if needed for pains. Avoid excess alcohol as that will worsen your balance and vision problems. Follow-up with your primary care regarding referral to neurology for further evaluation of the double vision and balance problems you have been having. Discharge Date/Time: 09/11/19 01:21
[2019-09-10] MEDS ORDERED: ACETAMINOPHEN 325 MG TABLET PO STA (23:51)
[2019-09-11 00:07] LABS: BASOPHILS # (AUTO) 0.1 10^3/uL (0.0-0.1); BASOPHILS % (AUTO) 0.8 %; EOSINOPHILS # (AUTO) 0.2 10^3/uL (0.0-0.7); EOSINOPHILS % (AUTO) 2.7 %; HGB - HEMOGLOBIN 14.5 g/dL (14.0-18.0); LYMPHOCYTES # (AUTO) 0.7 10^3/uL (1.5-3.5); LYMPHOCYTES % (AUTO) 10.3 %; MEAN CORPUSCULAR HEMOGLOBIN 34.6 pg (27.0-31.0); MEAN CORPUSCULAR HGB CONC 33.9 g/dL (32.0-36.0); MEAN CORPUSCULAR VOLUME 102.1 fL (80.0-94.0); MONOCYTES # (AUTO) 0.7 10^3/uL (0.0-1.0); MONOCYTES % (AUTO) 10.1 %; NEUTROPHILS # (AUTO) 5.4 10^3/uL (1.5-6.6); NEUTROPHILS % (AUTO) 75.7 %; PLT - PLATELET COUNT 227 10^3/uL (130-450); RED BLOOD COUNT 4.19 10^6/uL (4.70-6.10); RED CELL DISTRIBUTION WIDTH 13.3 % (12.0-15.0); WHITE BLOOD COUNT 7.1 x10^3/uL (4.8-10.8)
[2019-09-11 00:33] LABS: ALBUMIN 3.9 g/dL (3.2-5.5); ALBUMIN/GLOBULIN RATIO 1.5 (1.0-2.2); BILIRUBIN,TOTAL 0.6 mg/dL (0.2-1.0); CALCIUM 8.8 mg/dL (8.5-10.3); CREATININE 1.3 mg/dL (0.6-1.2); TOTAL PROTEIN 6.5 g/dL (6.7-8.2)
--- NOTE | 2019-09-11 00:37 | CT Report ---
Reason: fall, face injury Procedure Date: 09/11/2019 Accession Number: [id number] / [id number] Procedure: CT - HEAD WO CPT Code: Final Report FULL RESULT: EXAM: CT HEAD WITHOUT CONTRAST. EXAM DATE: 09/11/2019 12:10 AM. CLINICAL HISTORY: Fall, face injury. COMPARISON: None. TECHNIQUE: Multiaxial CT images were obtained from the foramen magnum to the vertex. Reformats: Sagittal and coronal. IV contrast: None. In accordance with CT protocol optimization, one or more of the following dose reduction techniques were utilized for this exam: automated exposure control, adjustment of mA and/or KV based on patient size, or use of iterative reconstructive technique. FINDINGS: Parenchyma: No intraparenchymal hemorrhage. No evidence of mass, midline shift, or CT findings of infarction. Sanchez-white differentiation is distinct. Extraaxial Spaces: Normal for age. No subdural or epidural collections identified. Ventricles: Normal in size and position. Sinuses and Orbits: Imaged paranasal sinuses, orbits, and mastoids show no significant abnormality. Bones: No evidence of fracture or calvarial defect. Other: None. IMPRESSION: No acute intracranial abnormality. RADIA
[2019-09-11 01:01] LABS: THYROID STIMULATING HORMONE 2.37 uIU/mL (0.34-5.60)
== END 2019-09-11 01:21 | disposition home or self-care (01) ==
LOC: EDUNIT# → ED 23:04
DX: S00.81XA Abrasion of other part of head, initial encounter (principal); W01.0XXA Fall on same level from slipping, tripping and stumbling without subsequent striking against object, initial encounter; Y93.01 Activity, walking, marching and hiking; Y92.009 Unspecified place in unspecified non-institutional (private) residence as the place of occurrence of the external cause; F10.920 Alcohol use, unspecified with intoxication, uncomplicated; H53.2 Diplopia; I10 Essential (primary) hypertension; Z79.82 Long term (current) use of aspirin
CPT/HCPCS: 36415; 70450; 80053; 82607; 83690; 83735; 84443; 85025; 85651; 99284; A9270; 80320

== ENCOUNTER 2020-03-31 06:59 | Outpatient (CLI) | payer MEDICARE, OTHER ==
[2020-03-31 07:48] LABS: CHOLESTEROL 225 mg/dL; HDL CHOLESTEROL 74 mg/dL; LDL CHOLESTEROL,CALCULATED 114 mg/dL; LDL/HDL RATIO 1.5 (<3.6); VLDL CHOLESTEROL 37 mg/dL
== END 2020-03-31 07:00 | disposition home or self-care (01) ==
LOC: LAB 06:59
PROVIDERS: ATTEND Internal Medicine Cardiovascular Disease
DX: Z95.1 Presence of aortocoronary bypass graft (principal); I25.10 Atherosclerotic heart disease of native coronary artery without angina pectoris; R21 Rash and other nonspecific skin eruption
CPT/HCPCS: 36415; 80061; 81599; 82784; 83516; 83520; 83721

== ENCOUNTER 2020-04-14 12:31 | Outpatient (CLI) | payer MEDICARE, OTHER ==
[2020-04-14 12:42] LABS: BASOPHILS # (AUTO) 0.1 10^3/uL (0.0-0.1); BASOPHILS % (AUTO) 1.1 %; EOSINOPHILS # (AUTO) 0.1 10^3/uL (0.0-0.7); EOSINOPHILS % (AUTO) 1.5 %; HGB - HEMOGLOBIN 15.2 g/dL (14.0-18.0); LYMPHOCYTES # (AUTO) 0.4 10^3/uL (1.5-3.5); LYMPHOCYTES % (AUTO) 6.4 %; MEAN CORPUSCULAR HEMOGLOBIN 34.9 pg (27.0-31.0); MEAN CORPUSCULAR HGB CONC 33.3 g/dL (32.0-36.0); MEAN CORPUSCULAR VOLUME 104.8 fL (80.0-94.0); MEAN PLATELET VOLUME 9.8 fL (7.4-11.4); MONOCYTES # (AUTO) 0.6 10^3/uL (0.0-1.0); MONOCYTES % (AUTO) 9.6 %; NEUTROPHILS # (AUTO) 5.3 10^3/uL (1.5-6.6); NEUTROPHILS % (AUTO) 80.5 %; PLT - PLATELET COUNT 257 10^3/uL (130-450); RED BLOOD COUNT 4.35 10^6/uL (4.70-6.10); RED CELL DISTRIBUTION WIDTH 13.2 % (12.0-15.0); WHITE BLOOD COUNT 6.6 x10^3/uL (4.8-10.8)
[2020-04-14 13:05] LABS: ALBUMIN 4.1 g/dL (3.2-5.5); ALBUMIN/GLOBULIN RATIO 1.7 (1.0-2.2); ALKALINE PHOSPHATASE 49 IU/L (42-121); ALT ALANINE AMINOTRANSFERASE 17 IU/L (10-60); AST ASPARTATE AMINOTRANSFERASE 22 IU/L (10-42); BILIRUBIN,TOTAL 1.2 mg/dL (0.2-1.0); BUN - BLOOD UREA NITROGEN 23 mg/dL (6-20); CALCIUM 9.1 mg/dL (8.5-10.3); CARBON DIOXIDE - CO2 31 mmol/L (21-32); CHLORIDE 101 mmol/L (101-111); CREATININE 1.2 mg/dL (0.6-1.2); GLUCOSE 108 mg/dL (70-100); SODIUM 142 mmol/L (135-145); TOTAL PROTEIN 6.5 g/dL (6.7-8.2)
[2020-04-14 13:54] LABS: CRP - C-REACTIVE PROTEIN < 1.0 mg/dL (0-1.0)
== END 2020-04-14 12:32 | disposition home or self-care (01) ==
LOC: LAB 12:31
PROVIDERS: ATTEND Internal Medicine Rheumatology
DX: M06.9 Rheumatoid arthritis, unspecified (principal); Z79.899 Other long term (current) drug therapy
CPT/HCPCS: 36415; 80053; 85025; 86140

== ENCOUNTER 2020-07-06 14:27 | Outpatient (CLI) | payer MEDICARE, OTHER | END 2020-07-06 14:28 | disposition home or self-care (01) | LOC: LAB 14:27 | PROVIDERS: ATTEND Nurse Practitioner Family | DX: M06.9 Rheumatoid arthritis, unspecified (principal); Z79.899 Other long term (current) drug therapy | CPT/HCPCS: 36415; 85651; 86140 ==

== ENCOUNTER 2020-07-07 09:03 | Outpatient (CLI) | payer MEDICARE, OTHER | END 2020-07-07 09:04 | disposition home or self-care (01) | LOC: LAB 09:03 | PROVIDERS: ATTEND Nurse Practitioner Family | DX: M06.9 Rheumatoid arthritis, unspecified (principal); Z79.899 Other long term (current) drug therapy | CPT/HCPCS: 36415; 85651; 86140 ==

== ENCOUNTER 2020-10-16 13:09 | Outpatient (CLI) | payer MEDICARE, OTHER ==
[2020-10-16 13:52] LABS: BASOPHILS # (AUTO) 0.1 10^3/uL (0.0-0.1); BASOPHILS % (AUTO) 1.2 %; EOSINOPHILS # (AUTO) 0.5 10^3/uL (0.0-0.7); EOSINOPHILS % (AUTO) 6.6 %; HCT - HEMATOCRIT 44.2 % (42.0-52.0); HGB - HEMOGLOBIN 14.5 g/dL (14.0-18.0); LYMPHOCYTES # (AUTO) 0.5 10^3/uL (1.5-3.5); LYMPHOCYTES % (AUTO) 6.8 %; MEAN CORPUSCULAR HGB CONC 32.8 g/dL (32.0-36.0); MEAN CORPUSCULAR VOLUME 100.7 fL (80.0-94.0); MONOCYTES # (AUTO) 0.7 10^3/uL (0.0-1.0); MONOCYTES % (AUTO) 10.7 %; NEUTROPHILS # (AUTO) 5.1 10^3/uL (1.5-6.6); NEUTROPHILS % (AUTO) 73.8 %; PLT - PLATELET COUNT 253 10^3/uL (130-450); RED BLOOD COUNT 4.39 10^6/uL (4.70-6.10); RED CELL DISTRIBUTION WIDTH 13.4 % (12.0-15.0); WHITE BLOOD COUNT 6.9 x10^3/uL (4.8-10.8)
[2020-10-16 14:10] LABS: BUN - BLOOD UREA NITROGEN 23 mg/dL (6-20); CALCIUM 9.7 mg/dL (8.5-10.3); CARBON DIOXIDE - CO2 27 mmol/L (21-32); CHLORIDE 100 mmol/L (101-111); CK- CREATINE KINASE 65 IU/L (22-269); CREATININE 1.3 mg/dL (0.6-1.2); GFR - MDRD 53 (>89); GLUCOSE 118 mg/dL (70-100); POTASSIUM 3.7 mmol/L (3.5-5.0); SODIUM 142 mmol/L (135-145)
[2020-10-16 14:21] LABS: CRP - C-REACTIVE PROTEIN < 1.0 mg/dL (0-1.0)
[2020-10-16 14:22] LABS: THYROID STIMULATING HORMONE 0.97 uIU/mL (0.34-5.60)
[2020-10-16 14:33] LABS: FOLATE 9.41 ng/mL (5.90 - >24.8)
[2020-10-16 20:25] LABS: ESTIMATED AVERAGE GLUCOSE 100 mg/dL (70-100); HEMOGLOBIN A1c% 5.1 % (4.27-6.07)
== END 2020-10-16 13:10 | disposition home or self-care (01) ==
LOC: LAB 13:09
DX: Z00.00 Encounter for general adult medical examination without abnormal findings (principal); R53.83 Other fatigue; N18.31 Chronic kidney disease, stage 3a; M06.9 Rheumatoid arthritis, unspecified; R63.4 Abnormal weight loss
CPT/HCPCS: 36415; 80048; 82306; 82550; 82607; 82746; 83036; 84443; 85025; 85651; 86140

== ENCOUNTER 2021-03-12 13:22 | Outpatient (CLI) | payer MEDICARE, OTHER ==
[2021-03-12 14:15] LABS: ALBUMIN 3.8 g/dL (3.2-5.5); ALBUMIN/GLOBULIN RATIO 1.4 (1.0-2.2); BILIRUBIN,TOTAL 0.8 mg/dL (0.2-1.0); CALCIUM 9.2 mg/dL (8.5-10.3); CREATININE 1.4 mg/dL (0.6-1.2); TOTAL PROTEIN 6.5 g/dL (6.7-8.2)
== END 2021-03-12 13:23 | disposition home or self-care (01) ==
LOC: LAB 13:22
PROVIDERS: ATTEND Internal Medicine
DX: Z00.00 Encounter for general adult medical examination without abnormal findings (principal)
CPT/HCPCS: 36415; 80053

== ENCOUNTER 2021-09-29 10:00 | Outpatient (CLI) | payer MEDICARE, OTHER ==
[2021-09-29 10:20] LABS: BASOPHILS # (AUTO) 0.1 10^3/uL (0.0-0.1); BASOPHILS % (AUTO) 0.8 %; EOSINOPHILS # (AUTO) 0.2 10^3/uL (0.0-0.7); EOSINOPHILS % (AUTO) 1.8 %; HCT - HEMATOCRIT 47.1 % (42.0-52.0); HGB - HEMOGLOBIN 15.6 g/dL (14.0-18.0); LYMPHOCYTES # (AUTO) 0.5 10^3/uL (1.5-3.5); LYMPHOCYTES % (AUTO) 5.3 %; MEAN CORPUSCULAR HEMOGLOBIN 32.8 pg (27.0-31.0); MEAN CORPUSCULAR HGB CONC 33.1 g/dL (32.0-36.0); MEAN CORPUSCULAR VOLUME 99.2 fL (80.0-94.0); MONOCYTES % (AUTO) 11.7 %; NEUTROPHILS % (AUTO) 79.7 %; PLT - PLATELET COUNT 249 10^3/uL (130-450); RED BLOOD COUNT 4.75 10^6/uL (4.70-6.10); RED CELL DISTRIBUTION WIDTH 13.9 % (12.0-15.0); WHITE BLOOD COUNT 8.8 x10^3/uL (4.8-10.8)
[2021-09-29 10:39] LABS: ALBUMIN/GLOBULIN RATIO 1.4 (1.0-2.2); ALKALINE PHOSPHATASE 58 IU/L (42-121); ALT ALANINE AMINOTRANSFERASE 23 IU/L (10-60); AST ASPARTATE AMINOTRANSFERASE 26 IU/L (10-42); BUN - BLOOD UREA NITROGEN 24 mg/dL (6-20); CALCIUM 9.3 mg/dL (8.5-10.3); CARBON DIOXIDE - CO2 33 mmol/L (21-32); CHLORIDE 96 mmol/L (101-111); CREATININE 1.3 mg/dL (0.6-1.2); GFR - MDRD 53 (>89); GLUCOSE 108 mg/dL (70-100); POTASSIUM 3.8 mmol/L (3.5-5.0); SODIUM 139 mmol/L (135-145); TOTAL PROTEIN 6.9 g/dL (6.7-8.2)
[2021-09-29 10:40] LABS: CRP - C-REACTIVE PROTEIN < 1.0 mg/dL (0-1.0)
== END 2021-09-29 10:01 | disposition home or self-care (01) ==
LOC: LAB 10:00
PROVIDERS: ATTEND Internal Medicine Rheumatology
DX: M25.511 Pain in right shoulder (principal); M06.9 Rheumatoid arthritis, unspecified
CPT/HCPCS: 36415; 80053; 85025; 86140

== ENCOUNTER 2021-09-29 10:10 | Outpatient (CLI) | payer MEDICARE, OTHER ==
--- NOTE | 2021-09-29 13:13 | XRAY Report ---
PROCEDURE: Shoulder 3 View BILAT INDICATIONS: BILATERAL SHOULDER PAIN TECHNIQUE: 3 views of each shoulder were acquired. COMPARISON: None. FINDINGS: Right shoulder: No fractures or dislocations. No suspicious bony lesions. Moderate acromioclavicul ar and mild glenohumeral joint degeneration. Visualized ribs appear intact. Calcific densities over t he humeral head, likely secondary to rotator cuff calcific tendinitis. Left shoulder: No fractures or dislocations. No suspicious bony lesions. Moderate acromioclavicular and glenohumeral joint degeneration. Visualized ribs appear intact. No suspicious soft tissue calci fications. IMPRESSION: 1. 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 2. Suspect rotator cuff calcific tendinitis of the right shoulder. Reviewed by: Farzana Nash MD on 09/29/2021 1:12 PM PST Approved by: Farzana Nash MD on 09/29/2021 1:12 PM PST Station ID: [id number]
== END 2021-09-29 10:11 | disposition home or self-care (01) ==
LOC: DI 10:10
PROVIDERS: ATTEND Internal Medicine Rheumatology
DX: M06.9 Rheumatoid arthritis, unspecified (principal); M19.012 Primary osteoarthritis, left shoulder; M19.011 Primary osteoarthritis, right shoulder; M25.511 Pain in right shoulder
CPT/HCPCS: 36415; 80053; 85025; 86140

== ENCOUNTER 2021-11-11 05:24 | Outpatient (CLI) | payer MEDICARE, OTHER | END 2021-11-11 05:25 | disposition critical access hospital (66) | LOC: EMS 05:24 | DX: R53.1 Weakness (principal); R50.9 Fever, unspecified; R11.10 Vomiting, unspecified | CPT/HCPCS: A0425; A0427 ==

== ENCOUNTER 2021-11-30 10:37 | Outpatient (CLI) | payer MEDICARE, OTHER ==
[2021-11-30 10:59] LABS: BASOPHILS # (AUTO) 0.1 10^3/uL (0.0-0.1); EOSINOPHILS # (AUTO) 0.1 10^3/uL (0.0-0.7); EOSINOPHILS % (AUTO) 1.3 %; HCT - HEMATOCRIT 42.2 % (42.0-52.0); HGB - HEMOGLOBIN 13.7 g/dL (14.0-18.0); LYMPHOCYTES # (AUTO) 0.4 10^3/uL (1.5-3.5); LYMPHOCYTES % (AUTO) 4.3 %; MEAN CORPUSCULAR HEMOGLOBIN 32.5 pg (27.0-31.0); MEAN CORPUSCULAR HGB CONC 32.5 g/dL (32.0-36.0); MEAN PLATELET VOLUME 9.9 fL (7.4-11.4); MONOCYTES # (AUTO) 0.8 10^3/uL (0.0-1.0); MONOCYTES % (AUTO) 8.4 %; NEUTROPHILS # (AUTO) 7.8 10^3/uL (1.5-6.6); NEUTROPHILS % (AUTO) 84.1 %; PLT - PLATELET COUNT 341 10^3/uL (130-450); RED BLOOD COUNT 4.22 10^6/uL (4.70-6.10); RED CELL DISTRIBUTION WIDTH 13.9 % (12.0-15.0); WHITE BLOOD COUNT 9.3 x10^3/uL (4.8-10.8)
[2021-11-30 11:00] LABS: CALCIUM, IONIZED 1.2 mmol/L (1.15-1.33); VBG PH 7.357 (7.31-7.41)
[2021-11-30 11:11] LABS: BILIRUBIN,URINE NEGATIVE (NEGATIVE); GLUCOSE, URINE (UA) NEGATIVE (NEGATIVE); KETONES,URINE (UA) NEGATIVE (NEGATIVE); LEUKOCYTE ESTERASE, URINE MODERATE (NEGATIVE); NITRITE,URINE NEGATIVE (NEGATIVE); OCCULT BLOOD,URINE TRACE-INTA (NEGATIVE); PROTEIN,URINE NEGATIVE (NEGATIVE); UROBILINOGEN,URINE 0.2 (NORMAL) E.U./dL (NORMAL)
[2021-11-30 11:22] LABS: ALBUMIN 3.7 g/dL (3.2-5.5); ALBUMIN/GLOBULIN RATIO 1.2 (1.0-2.2); ALKALINE PHOSPHATASE 62 IU/L (42-121); ALT ALANINE AMINOTRANSFERASE 18 IU/L (10-60); AST ASPARTATE AMINOTRANSFERASE 16 IU/L (10-42); BILIRUBIN,TOTAL 0.7 mg/dL (0.2-1.0); BUN - BLOOD UREA NITROGEN 35 mg/dL (6-20); CALCIUM 9.4 mg/dL (8.5-10.3); CARBON DIOXIDE - CO2 31 mmol/L (21-32); CHLORIDE 97 mmol/L (101-111); CHOL/HDL RATIO 1.9 (<5.0); CHOLESTEROL 98 mg/dL; CREATININE 1.9 mg/dL (0.6-1.2); GFR - MDRD 34 (>89); GLUCOSE 102 mg/dL (70-100); HDL CHOLESTEROL 52 mg/dL; LDL CHOLESTEROL,CALCULATED 25 mg/dL; LDL/HDL RATIO 0.5 (<3.6); MAGNESIUM 1.9 mg/dL (1.7-2.8); PHOSPHORUS 3.3 mg/dL (2.5-4.6); POTASSIUM 4.1 mmol/L (3.5-5.0); SODIUM 138 mmol/L (135-145); TOTAL PROTEIN 6.8 g/dL (6.7-8.2); TRIGLYCERIDES 103 mg/dL; VLDL CHOLESTEROL 21 mg/dL
[2021-11-30 11:22] LABS: CLARITY,URINE HAZY (CLEAR)
[2021-11-30 11:23] LABS: BACTERIA,URINE Many /HPF (None Seen); EPITHELIAL CELLS,UR RARE Transitional /HPF (<= Few); RBC,URINE 0-5 /HPF (0-5); SQUAMOUS EPITHELIAL CELL,UR RARE Squamous (<= Few); WBC CLUMPS,URINE PRESENT
[2021-11-30 11:24] LABS: CREATININE,URINE 47.3 mg/dL; MICROALBUM/CREATININE RATIO,UR 67.7 ug/mg (<30.0); MICROALBUMIN,URINE 3.2 mg/dL (0-300.0); PROTEIN/CREATININE RATIO,URINE 0.3 (<=0.2)
[2021-11-30 13:48] LABS: ESTIMATED AVERAGE GLUCOSE 114 mg/dL (70-100); HEMOGLOBIN A1c% 5.6 % (4.27-6.07)
[2021-12-01 11:41] LABS: HEPATITIS C ANTIBODY NON-REACTIVE (NON-REACTIVE)
[2021-12-02 23:21] LABS: ABNORMAL PROTEIN BAND 1 0.2 g/dL (NONE DETECTED); ALBUMIN 3.4 g/dL (3.8-4.8); ALPHA 1 GLOBULIN 0.5 g/dL (0.2-0.3); ALPHA 2 GLOBULIN 0.8 g/dL (0.5-0.9); BETA 1 GLOBULIN 0.4 g/dL (0.4-0.6); BETA 2 GLOBULIN 0.4 g/dL (0.2-0.5); GAMMA GLOBULIN 0.9 g/dL (0.8-1.7)
== END 2021-11-30 10:38 | disposition home or self-care (01) ==
LOC: LAB 10:37
PROVIDERS: ATTEND Internal Medicine Nephrology
DX: N18.31 Chronic kidney disease, stage 3a (principal)
CPT/HCPCS: 36415; 80053; 80061; 81001; 81003; 81599; 82043; 82306; 82330; 82570; 82610; 83036; 83721; 83735; 83970; 84100; 84155; 84156; 84165; 84550; 85025; 86335; 86803; 87086; 87181

== ENCOUNTER 2021-12-13 15:22 | Outpatient (CLI) | payer MEDICARE, OTHER ==
--- NOTE | 2021-12-14 18:00 | Ultrasound Report ---
PROCEDURE: Retroperitoneal INDICATIONS: CHRONIC KIDNEY DISEASE TECHNIQUE: Real-time scanning was performed of the retroperitoneal organs, with image documentation. COMPARISON: Correlation is made with abdomen pelvis CT, 11/11/2021. FINDINGS: Kidneys: Kidneys are normal in size. Right kidney measures 9.3 cm long; left kidney measures 9.3 cm long. Right renal cortical thickness is 1.8 cm; left renal cortical thickness is 1.6 cm. No solid masses, hydronephrosis, or nephrolithiasis. Bladder: Surgically removed. Miscellaneous: No free abdominal fluid. IMPRESSION: Unremarkable kidneys, without hydronephrosis. Status post cystectomy. Reviewed by: Des Ogden MD on 12/14/2021 4:59 PM [facility]DT Approved by: Des Ogden MD on 12/14/2021 4:59 PM AKDT Station ID: [id number]
== END 2021-12-13 15:23 | disposition home or self-care (01) ==
LOC: DI 15:22
PROVIDERS: ATTEND Internal Medicine Nephrology
DX: N18.31 Chronic kidney disease, stage 3a (principal); E78.5 Hyperlipidemia, unspecified; Z90.6 Acquired absence of other parts of urinary tract

== ENCOUNTER 2023-06-30 12:07 | Outpatient (CLI) | payer MEDICARE, OTHER ==
--- NOTE | 2023-06-30 13:13 | XRAY Report ---
PROCEDURE: Chest 2 View X-Ray INDICATIONS: ACUTE LOWER RESP TRACT INFECTION TECHNIQUE: 2 views of the chest were acquired. COMPARISON: 11/11/2021.. FINDINGS: Surgical changes and devices: Prior CABG. Lungs and pleura: No pleural effusions or pneumothorax. Lungs are clear. Mediastinum: Mediastinal contours appear normal. Heart size is normal. Bones and chest wall: No suspicious bony lesions. Overlying soft tissues appear unremarkable. IMPRESSION: No acute cardiopulmonary process. Reviewed by: Carlos Cummings MD on 06/30/2023 1:11 PM PST Approved by: Carlos Cummings MD on 06/30/2023 1:11 PM [facility] Station ID: [id number]
== END 2023-06-30 12:08 | disposition home or self-care (01) ==
LOC: DI 12:07
PROVIDERS: ATTEND Physician Assistant Medical
DX: J22 Unspecified acute lower respiratory infection (principal)

== ENCOUNTER 2024-04-18 14:29 | Inpatient (IN) | payer MEDICARE, OTHER ==
[2024-04-18 14:54] LABS: BASOPHILS % (AUTO) 0.5 %; EOSINOPHILS % (AUTO) 0.1 %; HCT - HEMATOCRIT 42.1 % (42.0-52.0); HGB - HEMOGLOBIN 13.3 g/dL (14.0-18.0); LYMPHOCYTES # (AUTO) 0.2 10^3/uL (1.5-3.5); LYMPHOCYTES % (AUTO) 2.4 %; MEAN CORPUSCULAR HEMOGLOBIN 32.8 pg (27.0-31.0); MEAN CORPUSCULAR HGB CONC 31.6 g/dL (32.0-36.0); MEAN CORPUSCULAR VOLUME 103.7 fL (80.0-94.0); MEAN PLATELET VOLUME 11.1 fL (7.4-11.4); MONOCYTES # (AUTO) 0.6 10^3/uL (0.0-1.0); MONOCYTES % (AUTO) 7.5 %; NEUTROPHILS # (AUTO) 6.6 10^3/uL (1.5-6.6); PLT - PLATELET COUNT 229 10^3/uL (130-450); RED BLOOD COUNT 4.06 10^6/uL (4.70-6.10); RED CELL DISTRIBUTION WIDTH 14.6 % (12.0-15.0); WHITE BLOOD COUNT 7.6 x10^3/uL (4.8-10.8)
[2024-04-18] MEDS ORDERED: iohexoL-300 100 ML VIAL ONE (15:13)
--- NOTE | 2024-04-18 15:15 | ED Physician Documentation ---
PD HPI CHEST PAIN - Stated complaint Stated Complaint: CHEST PX,SOA - Chief complaint Chief Complaint: Cardiac - Additional information Additional information: 84-year-old male with complex past medical history, 26 years ago patient had bladder cancer that has been resected as well as a triple bypass. Patient also has rheumatoid arthritis. About 3 weeks ago patient started feeling generalized malaise and unwell feeling with increased fatigue. Today he started noticing left shoulder severe pain as well as chest pain with increased shortness of breath. His weakness and shortness of breath have gotten so severe that he is unable to walk up a very simple hill that he walks abnormally every day. He also endorses that he has been having increased bilateral lower extremity swelling. No recent medication changes no recent illnesses fevers or chills. PD PAST MEDICAL HISTORY - Past Medical History Past Medical History: Yes Cardiovascular: Hypertension, High cholesterol, Coronary artery disease, Murmur Respiratory: COPD Neuro: None Endocrine/Autoimmune: Other GI: None PATIENT FINANCIAL [employer]OC[employer]: None : Other HEENT: Chronic vision loss Psych: Other Musculoskeletal: None Derm: Psoriasis - Past Surgical History Past Surgical History: Yes General: Appendectomy, Bowel surgery Cardiovascular: CABG - Present Medications Home Medications: Ambulatory Orders Medication Instructions Recorded Confirmed Aspirin [Aspirin EC] 81 mg PO DAILY 12/17/17 04/18/24 Metoprolol Succinate 200 mg PO DAILY 12/17/17 04/18/24 Omeprazole 20 mg PO QDAC 12/17/17 04/18/24 hydroCHLOROthiazide [Hydrodiuril] 25 mg PO DAILY 12/17/17 04/18/24 predniSONE [Prednisone] 10 mg PO DAILY 12/17/17 04/18/24 Gabapentin [Neurontin] 600 mg PO QPM 11/11/21 04/18/24 Amlodipine Besylate [Norvasc] 10 mg PO DAILY 11/13/21 04/18/24 Cetirizine [ZyrTEC] 10 mg PO DAILY PRN 11/13/21 04/18/24 DULoxetine [Cymbalta] 20 mg PO DAILY 04/18/24 04/18/24 Dupilumab [Dupixent Pen] 200 mg SQ UD 04/18/24 04/18/24 Evolocumab [Repatha Sureclick] 140 mg SQ UD 04/18/24 04/18/24 Leflunomide 10 mg PO DAILY 04/18/24 04/18/24 Telmisartan 40 mg PO DAILY 04/18/24 04/18/24 traMADol [Ultram] 50 mg PO Q4-6H 04/18/24 04/18/24 - Allergies Allergies/Adverse Reactions: Allergies Allergy/AdvReac Type Severity Reaction Status Date / Time No Known Drug Allergies Allergy Verified 04/18/24 14:34 - Social History Does the pt smoke?: No Smoking Status: Never smoker Does the pt drink ETOH?: Yes Does the pt have substance abuse?: No - Immunizations Immunizations are current?: Yes - POLST Patient has POLST: No POLST Status: Full Code PD ED PE NORMAL - Vitals Vital signs reviewed: Yes - General General: Alert and oriented X 3, No acute distress, Well developed/nourished - HEENT HEENT: Atraumatic, PERRL - Neck Neck: No JVD - Cardiac Cardiac: Other (irregularly irregular) - Respiratory Respiratory: Other (bilateral diminished breath sounds) - Abdomen Abdomen: Normal bowel sounds, Soft, Non tender, No organomegaly - Back Back: No CVA TTP - Derm Derm: Normal color, Warm and dry, No rash - Extremities Extremities: No calf tenderness / cord, Other (bilateral 3+ pitting edema) Results - Vitals Vitals: Vital Signs - 24 hr 04/18/24 04/18/24 04/18/24 14:34 15:06 15:30 Temperature 36.8 C Heart Rate 116 H 102 H 104 H Respiratory 16 21 11 L Rate Blood Pressure 100/60 113/83 H 108/70 O2 Saturation 97 98 95 04/18/24 04/18/24 04/18/24 16:00 16:30 17:00 Temperature Heart Rate 103 H 103 H 103 H Respiratory 12 15 15 Rate Blood Pressure 102/65 120/82 H 120/82 H O2 Saturation 98 95 95 04/18/24 17:30 Temperature Heart Rate 102 H Respiratory 16 Rate Blood Pressure 127/89 H O2 Saturation 98 Oxygen O2 Source Room air - EKG (time done) 1443 EKG releavant findings:: EKG personally interpreted by author of this note. 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0 H* B-Natriuretic Peptide Total Protein 5.6 L Albumin 3.5 Globulin 2.1 Albumin/Globulin Ratio 1.7 Lipase 21 TSH 0.90 04/18/24 15:17 WBC RBC Hgb Hct MCV MCH MCHC RDW Plt Count MPV Neut # (Auto) Lymph # (Auto) Wise # (Auto) Eos # (Auto) Baso # (Auto) Absolute Nucleated RBC Nucleated RBC % Sodium Potassium Chloride Carbon Dioxide Anion Gap BUN Creatinine Estimated GFR (MDRD) Glucose Calcium Total Bilirubin AST ALT Alkaline Phosphatase Troponin I High Sens B-Natriuretic Peptide 1811 H Total Protein Albumin Globulin Albumin/Globulin Ratio Lipase TSH - Rads (name of study) 1 view chest x-ray Relevant Findings:: Final report received, EMP independent interpretation of test, Other (Mildly prominent interstitium and mild opacity of the lung base) Angio chest CT with and without Relevant Findings:: Final report received, EMP independent interpretation of test, Other (Small pleural effusions, multifocal pulmonary opacities, predominantly groundglass with atelectasis most likely infectious/inflammatory. New 5 mm nodule seen at the right upper lobe) PD Medical Decision Making - ED course ED course: 84-year-old male presents emergency department for increased shortness of breath and chest pain Patient also said that he had pain radiating to his left back that was noted today. He was also quite tacky upon arrival to the emergency department and because of this I wanted to rule out possible dissection so CT chest angio was complete and did in fact rule out I considered aortic dissection in this patient. The patient has a much more likely alternative diagnosis. The patient has equal radial and pedal pulses and has no neurologic symptoms. Other differentials to consider were acute coronary syndrome, pulmonary emboli (also ruled out with CT chest angio) heart failure, or pneumonia. EKG showed new onset A-fib patient said that he has never been diagnosed with this before and he is not anticoagulated on any medications. He also denies any recent medication changes. Labs do not reveal any leukocytosis he does appear to have macrocyticanemia. He also appears to have an acute injury on top of chronic kidney disease his BUN is elevated at 49 and GFR is 34 left lobe are about 2 years ago or patient also appeared to have chronic kidney disease GFR in the 30s to 40s but it has been as low as 19. BNP is quite elevated at 1811 which would make sense given his bilateral increased pitting edema. Troponin is also found to be elevated at 31 this is most likely demand ischemia. Patient also have hypoxia with ambulation, patient desatted to 89% on room air. CT chest revealed that patient has pneumonia of the right upper lobe with a new right upper lobe nodule measuring about 5 mm. Given these findings as well as his hypoxia And a high Pesi score patient would greatly benefit from hospitalization. I gave report to FIORDALIZA Hanley who has graciously agreed to admit the patient for observation. 2 sets of blood cultures were complete prior to starting antibiotics he was started on ceftriaxone and doxycycline he is also given a dose of Lovenox for his new onset A-fib. Patient was updated and has agreed to be admitted. Departure - Departure Disposition: ED Place in Observation Clinical Impression: Hypoxia, BRITTANY (acute kidney injury), Afib, Hyperkalemia, Pleural effusion, Pneumonia, Right upper lobe pulmonary nodule Forms: PCP List
[2024-04-18 15:21] LABS: ALBUMIN 3.5 g/dL (3.2-5.5); ALBUMIN/GLOBULIN RATIO 1.7 (1.0-2.2); BILIRUBIN,TOTAL 0.7 mg/dL (0.2-1.0); CALCIUM 9.1 mg/dL (8.5-10.3); CREATININE 1.9 mg/dL (0.6-1.3); POTASSIUM 4.8 mmol/L (3.5-4.5); TOTAL PROTEIN 5.6 g/dL (6.4-8.9)
--- NOTE | 2024-04-18 15:39 | XRAY Report ---
PROCEDURE: Chest 1V INDICATIONS: Chest Pain TECHNIQUE: One view of the chest was acquired. COMPARISON: 06/30/2023 FINDINGS: Surgical changes and devices: Sternotomy wires and mediastinal clips Lungs and pleura: Mildly prominent interstitium. Mild opacity is seen at the left lung base. No drai nable effusions Mediastinum: Heart size is normal and unchanged Bones and chest wall: Degenerative findings IMPRESSION: Mildly prominent interstitium and mild opacity at the lung base may represent infection/inflammation versus edema. Consider future imaging surveillance to assess for resolution. Reviewed by: James James MD on 04/18/2024 3:38 PM PDT Approved by: James James MD on 04/18/2024 3:38 PM PDT Station ID: [id number]
[2024-04-18] MEDS: iohexoL-300 100 ML VIAL IVP ONE (15:47)
--- NOTE | 2024-04-18 16:11 | CT Report ---
PROCEDURE: Angio Chest INDICATIONS: severe back pain, r/o dissection CONTRAST: 80ml omni TECHNIQUE: After the administration of intravenous contrast, 2 mm axial images were acquired from the pulmonary apices to the posterior costophrenic angles during the arterial phase. In addition, 1 mm lung kernel and 5 mm soft tissue kernel reconstructions were performed. 3-dimensional coronal oblique maximum int ensity projection (MIP) reformats, 8 mm axial MIP, and 5 mm coronal and sagittal MPR reformats were t hen performed through the thorax. For radiation dose reduction, the following was used: automated exp osure control, adjustment of mA and/or kV according to patient size. COMPARISON: 03/09/2018 FINDINGS: Image quality: Diagnostic Lungs and pleura:Left lung base mild consolidation. Moderate diffuse groundglass opacities in both rafa ngs. Small pleural effusions Left lower lobe suture lines. Fissural left nodule is again seen, probably a benign lymph node. Right lung nodule (6/37) is new, measuring 5 mm. Mediastinum, heart, and esophagus: No central pulmonary embolism. Apical opacification of the aorta. Coronary calcifications and postsurgical changes. There is no acut e dissection. Mild atherosclerotic calcifications. Prominent lymph nodes throughout the mediastinum again seen, attention on follow-up. Chest wall and thyroid: Unremarkable Upper abdomen: Questionable nodularity in the liver contour suggestive for chronic liver disease. No gross abnormality otherwise in the partially visualized upper abdomen on this arterial phase study Bones: No acute or suspicious osseous finding. There are degenerative changes. Sternotomy wires and postsurgical changes. IMPRESSION: No acute aortic dissection. Mild atherosclerotic calcifications are present. CABG changes. Small pleural effusions. Multifocal pulmonary opacities, predominantly groundglass, with atelectasis. These are probably infectious/inflammatory. Compared to 2018,, a new 5 mm nodule is seen in the right upper lobe (6/37). Given history of malignancy reported previously, follow-up imaging is recommended. Reviewed by: James James MD on 04/18/2024 4:10 PM PDT Approved by: James James MD on 04/18/2024 4:10 PM PDT Station ID: [id number]
[2024-04-18] MEDS: FUROSEMIDE 40 MG/4 ML VIAL IVP STA (16:54)
[2024-04-18] MEDS: cefTRIAXone 1 GM in SODIUM CHLORIDE 0.9% MINIBAG 100 ML IV STA (17:32)
[2024-04-18] MEDS: DOXYCYCLINE INJ 100 MG in SODIUM CHLORIDE 0.9% MINIBAG 100 ML IV STA (18:06)
[2024-04-18 18:17] LABS: B. PARAPERTUSSIS- RESP PCR PAN NOT DETECTED; B. PERTUSSIS- RESP PCR PANEL NOT DETECTED; C. PNEUMONIAE- RESP PCR PANEL NOT DETECTED; CORONAVIRUS 229E-RESP PCR NOT DETECTED; CORONAVIRUS HKU1-RESP PCR NOT DETECTED; CORONAVIRUS NL63-RESP PCR NOT DETECTED; CORONAVIRUS OC43-RESP PCR NOT DETECTED; HUMAN METAPNEUMOVIRUS NOT DETECTED; INFLUENZA A- RESP PCR PANEL NOT DETECTED; INFLUENZA B - RESP PCR PANEL NOT DETECTED; M. PNEUMONIAE- RESP PCR PANEL NOT DETECTED; PARAINFLUENZA VIRUS 1 NOT DETECTED; PARAINFLUENZA VIRUS 2 NOT DETECTED; PARAINFLUENZA VIRUS 3 NOT DETECTED; PARAINFLUENZA VIRUS 4 NOT DETECTED; RHINOVIRUS/ENTEROVIRUS NOT DETECTED; RSV- RESP PCR PANEL NOT DETECTED; SARS-CoV-2 -RESP PCR PANEL NOT DETECTED
--- NOTE | 2024-04-18 18:37 | HISTORY & PHYSICAL EXAMINATION ---
Chief Complaint - Chief Complaint Chief Complaint: malaise, shortness of breath History of Present Illness - Admitted From Admitted From:: ED - History Obtained From Records Reviewed: ED History obtained from: patient - History of Present Illness HPI Comment/Other: 84-year-old male who was in his usual state of health until about 3 weeks ago. Has been experiencing malaise and shortness of breath has noted some ankle swelling for about a week. For several weeks he has noticed that his exercise tolerance is decreasing. It has been much worse over the last 2 to 3 days. Several days ago he could walk 50 yards, today he was unable to walk 15 yards. In the last several weeks he started to use a cane as he had a fall while walking near his home and needed a bystander to help pick him up off the ground. He presented to the emergency department because he was unable to walk 15 yards today. He has not had any fever or chills at home. He notes that he has trouble getting comfortable in bed at night but states that he can lay flat he just has to lay on his left side. He notes that he has had some chest palpitations for several years on and off. He has previously been seen by Dr. 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 He also has more recent history of 2 back surgeries at the [facility] by Dr. Bain but complains of chronic back pain. He states that he is currently on prednisone for his back pain for the last 3 to 4 weeks. He denies a history of diabetes. He does have a history of hypertension and hyperlipidemia as well as rheumatoid arthritis. There is a medication history on the chart. When I mention giving the patient metoprolol he states that he had been on that in the past but is not on that currently. He denies any history of atrial fibrillation. History - Past Medical History Cardiovascular: reports: Hypertension, High cholesterol, Coronary artery disease, Murmur Respiratory: reports: COPD Neuro: reports: None Endocrine/Autoimmune: reports: Other GI: reports: None TECHNICAL LEAD: reports: None : reports: Other HEENT: reports: Chronic vision loss Psych: reports: Other Musculoskeletal: reports: Rheumatoid arthritis Derm: reports: Psoriasis MRSA Hx?: No - Past Surgical History General: reports: Appendectomy, Bowel surgery /TECHNICAL LEAD: reports: Other (Bladder resection for bladder cancer 26 years ago with urostomy.) Cardiovascular: reports: CABG - Family & Social History Family History: Mother: , CVA/TIA ( of old age at age 82), Father: , Alcoholism ( of alcoholism and diabetes at age 52), Sister: , Parkinson's Disease Living arrangement: At home Living Situation: With spouse/s.o. Social History Notes: The patient is retired, but remains busy at home with projects. He has a history of tobacco dependence-quit in 1999. Denies illicit drug use. Admits to 2-4 alcoholic drinks per day, but states that he could quit if he wanted to. He requests to be a DNR.Retired from the [employer]. Has 3 children who live in [facility] in [place]. 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 Lives with his 2 dogs and a cat. - Substance History Use: Uses substance without health or social issues: Alcohol - POLST Patient has POLST: No POLST Status: DNR Meds/Allgy - Home Medications Home Medications: Ambulatory Orders Medication Instructions Recorded Confirmed Aspirin [Aspirin EC] 81 mg PO DAILY 12/17/17 04/18/24 Metoprolol Succinate 200 mg PO DAILY 12/17/17 04/18/24 Omeprazole 20 mg PO QDAC 12/17/17 04/18/24 hydroCHLOROthiazide [Hydrodiuril] 25 mg PO DAILY 12/17/17 04/18/24 predniSONE [Prednisone] 10 mg PO DAILY 12/17/17 04/18/24 Gabapentin [Neurontin] 600 mg PO QPM 11/11/21 04/18/24 Amlodipine Besylate [Norvasc] 10 mg PO DAILY 11/13/21 04/18/24 Cetirizine [ZyrTEC] 10 mg PO DAILY PRN 11/13/21 04/18/24 DULoxetine [Cymbalta] 20 mg PO DAILY 04/18/24 04/18/24 Dupilumab [Dupixent Pen] 200 mg SQ UD 04/18/24 04/18/24 Evolocumab [Repatha Sureclick] 140 mg SQ UD 04/18/24 04/18/24 Leflunomide 10 mg PO DAILY 04/18/24 04/18/24 Telmisartan 40 mg PO DAILY 04/18/24 04/18/24 traMADol [Ultram] 50 mg PO Q4-6H 04/18/24 04/18/24 - Allergies Allergies/Adverse Reactions: Allergies Allergy/AdvReac Type Severity Reaction Status Date / Time No Known Drug Allergies Allergy Verified 04/18/24 14:34 Review of Systems - Constitutional Constitutional: reports: Fatigue, Malaise. denies: Fever, Chills - Eyes Eyes: denies: Pain, Blurred vision - Ears, Nose & Throat Ears, Nose & Throat: denies: Ear pain - Cardiovascular Cariovascular: reports: Irregular heart rate, Palpitations, Edema, Exertional dyspnea, Decr. exercise tolerance. denies: Chest pain, Syncope - Respiratory Respiratory: reports: SOB with exertion. denies: Cough, Sputum production, Wheezing, SOB at rest - Gastrointestinal Gastrointestinal: denies: Abdominal pain, Abdominal distention, Change in bowel habits - Genitourinary Genitourinary: denies: Dysuria - Musculoskeletal Musculoskeletal: reports: Back pain (chronic). denies: Muscle pain - Integumentary Integumentary: denies: Rash - Neurological Neurological: denies: General weakness, Focal weakness, Headache, Dizziness Prior Level of Functionality: independent. until the last week, was walking without assistive devices, but recently has been using a cane Exam - Vital Signs Vital Signs: Vital Signs x48h Temp Pulse Resp BP Pulse Ox 04/18/24 18:00 121 H 9 L 111/85 H 96 04/18/24 17:30 102 H 16 127/89 H 98 04/18/24 17:00 103 H 15 120/82 H 95 04/18/24 16:30 103 H 15 120/82 H 95 04/18/24 16:00 103 H 12 102/65 98 04/18/24 15:30 104 H 11 L 108/70 95 04/18/24 15:06 102 H 21 113/83 H 98 04/18/24 14:34 36.8 C 116 H 16 100/60 97 - Physical Exam General Appearance: positive: No acute distress, Alert Eyes Bilateral: positive: Normal inspection ENT: positive: ENT inspection nml Neck: positive: Nml inspection, No JVD, Trachea midline Respiratory: positive: Chest non-tender, No respiratory distress, Other (decreased breath sounds at the bases) Cardiovascular: positive: Tachycardia (low 100's) Abdomen: positive: Non-tender, Other (urostomy bag with clear, dilute urine) Skin: positive: Color nml, No rash Extremities: positive: Pedal edema (2-3+ to mid sellers) Neurologic/Psychiatric: positive: Oriented x3 Conclusion/Plan - Problem List (1) Pneumonia Conclusion/Plan: Pneumonia seen on CTA of the chest. This patient's oxygen saturation are normal on room air however desaturates to 89% with ambulation. His pneumonia severity index score is 95 points, class IV, hospitalization is recommended based on risk. I have ordered Rocephin x 5 days and azithromycin x 3 days. We will support him with oxygen as needed. Will repeat exercise oxygenation study again tomorrow. His desaturation could be due to his CHF could also be due to his pneumonia. He is not wheezing on exam. Respiratory panel is ordered by the emergency department provider. Result is pending at this time. Blood cultures were ordered by the emergency department provider and are pending at this time. Additionally will repeat CBC in AM. His white blood cell count is normal today. (2) Congestive heart failure Conclusion/Plan: Patient denies history of congestive heart failure. He gives a history of hydrochlorothiazide use at home however I do not see this on his medication list. Will need to update medication reconciliation. He notes a progressive onset of swelling in his ankles and dyspnea. He has not been having any chest pain he has been having some back pain. His BNP is 1811. Pneumonia is also seen on chest imaging. (3) Atrial fibrillation Conclusion/Plan: New onset of atrial fibrillation. Patient denies any history of anticoagulation he does however admit to have been dosed with metoprolol in the past. He has been having palpitations for several years on and off. He has seen Dr. Ochoa of cardiology in the past as an outpatient. 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 I have ordered telemetry monitoring overnight. I have ordered an echocardiogram. I am treating him with metoprolol for rate control overnight. Anticipate transitioning to p.o. metoprolol prior to discharge.This patient will be dosed with therapeutic Lovenox with transition to Eliquis tomorrow. Qualifiers: Atrial fibrillation type: unspecified Qualified Code(s): I48.91 - Unspecified atrial fibrillation (4) Hypoxia Conclusion/Plan: Patient with desaturation on exertion and symptoms of same at home. Could be due to his pneumonia could be due to his acute CHF. We will repeat oxygen desaturation study with exercise tomorrow after diuresis overnight. (5) Hyperkalemia Conclusion/Plan: Potassium is 4.8 on admission. Patient with acute CHF and acute kidney injury. Lasix has been ordered in the emergency department we will check BMP in the a.m. (6) BRITTANY (acute kidney injury) Conclusion/Plan: Has a history of renal insufficiency difficult to say what his baseline creatinine is as we have no values over the last 2 years. Most recently I see a creatinine in May of 10/10/2021 of 1.6. He is 1.9 today. I see values as high as 3.3 in 2021. GFR is in the 30s. I have ordered a repeat BMP in the a.m. I think with rate control and increased perfusion of his kidneys this should resolve. Need to continue to monitor his renal status prior to starting Eliquis. (7) HTN (hypertension) Conclusion/Plan: Telmisartan is on his outpatient medication list although I am in clear on the accuracy of this. His blood pressures in the emergency department are within normal limits around 130 systolic. Will observe blood pressures overnight and treat appropriately. (8) Right upper lobe pulmonary nodule Conclusion/Plan: This is a new finding on CT of the chest as compared to 2021. This will require outpatient follow-up. (9) Rheumatoid arthritis Conclusion/Plan: Longstanding history of rheumatoid arthritis with probable degenerative changes in his lower back requiring several surgeries for lumbar stenosis. 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 He has chronic back pain. He is on immunosuppressive therapy for this with interleukin inhibitors. This affects his immune status with regards to treatment of his pneumonia. - Lab Results Fish Bones: 04/18/24 14:49 04/18/24 15:00 - Diagnostic Imaging Results Diagnostic Imaging Results Comments: CTA chest:Small pleural effusions. Multifocal pulmonary opacities, predominantly groundglass with atelectasis. These are most likely infecti ous/inflammatory changes. Compared to 2018 and new 5 mm nodule is seen in the right upper lobe and follow- up imaging is recommended. Chest x-ray: Mildly prominent interstitium and mild opacity at the lung base may represent infection/inflammatory versus edema - EKG Results EKG Comparison: No prior EKG EKG Findings: Atrial fibrillation. Right bundle branch block. Rate 96.
[2024-04-18] MEDS: METOPROLOL 5 MG/5 ML VIAL IVP SCH (19:36)
[2024-04-18] MEDS: SODIUM CHLORIDE FLUSH 0.9% 10 ML SYRINGE IVP SCH (19:39)
--- NOTE | 2024-04-18 20:37 | PROVIDER PROGRESS NOTE ---
Pest Control Specialist Note - Pest Control Specialist Note Pest Control Specialist Note: RN paged "Pt admitted for PNA/CHF today. Pt has Lovenox 80mg SQ BID ordered. Per Pharmacy, can you please change it to Lovenox 80mg SQ ONCE A DAY because pt's Creatinine Clearance is <30. Thank you." done. changed lovenox 80mg sq once daily. Aquiles Delarosa
[2024-04-18] MEDS ORDERED: ENOXAPARIN 80 MG/0.8 ML SYRINGE SUBQ SCH (21:00)
[2024-04-18] MEDS: ENOXAPARIN 80 MG/0.8 ML SYRINGE SUBQ SCH (21:24)
[2024-04-19] MEDS: HYDROmorphone 0.5 MG/0.5 ML SYRINGE IVP PRN (02:15)
[2024-04-19] MEDS: ACETAMINOPHEN 325 MG TABLET PO PRN (02:17)
[2024-04-19] MEDS: METOPROLOL SUCCINATE 50 MG TABLET PO SCH ×2 (03:29→21:17)
[2024-04-19 05:34] LABS: BASOPHILS % (AUTO) 0.5 %; EOSINOPHILS # (AUTO) 0.1 10^3/uL (0.0-0.7); EOSINOPHILS % (AUTO) 1.4 %; HGB - HEMOGLOBIN 13.1 g/dL (14.0-18.0); LYMPHOCYTES # (AUTO) 0.5 10^3/uL (1.5-3.5); LYMPHOCYTES % (AUTO) 5.6 %; MEAN CORPUSCULAR HEMOGLOBIN 32.7 pg (27.0-31.0); MEAN CORPUSCULAR VOLUME 102.2 fL (80.0-94.0); MEAN PLATELET VOLUME 10.7 fL (7.4-11.4); MONOCYTES # (AUTO) 0.7 10^3/uL (0.0-1.0); MONOCYTES % (AUTO) 8.2 %; NEUTROPHILS # (AUTO) 7.2 10^3/uL (1.5-6.6); NEUTROPHILS % (AUTO) 83.1 %; PLT - PLATELET COUNT 214 10^3/uL (130-450); RED BLOOD COUNT 4.01 10^6/uL (4.70-6.10); RED CELL DISTRIBUTION WIDTH 14.5 % (12.0-15.0); WHITE BLOOD COUNT 8.6 x10^3/uL (4.8-10.8)
[2024-04-19 05:46] LABS: CALCIUM 8.8 mg/dL (8.5-10.3); POTASSIUM 3.9 mmol/L (3.5-4.5)
[2024-04-19] MEDS: FUROSEMIDE 40 MG/4 ML VIAL IVP SCH ×2 (06:09→15:01)
[2024-04-19] MEDS: SODIUM CHLORIDE FLUSH 0.9% 10 ML SYRINGE IVP PRN (06:12)
[2024-04-19] MEDS ORDERED: CETIRIZINE 10 MG TABLET PO PRN (07:48)
[2024-04-19] MEDS ORDERED: ENOXAPARIN 40 MG/0.4 ML SYRINGE SUBQ SCH (09:00)
[2024-04-19] MEDS: predniSONE 5 MG TABLET PO SCH (09:01)
[2024-04-19] MEDS: PANTOPRAZOLE 40 MG TABLET PO SCH (09:01)
[2024-04-19] MEDS: DULoxetine 20 MG CAPSULE PO SCH (09:01)
[2024-04-19] MEDS: AZITHROMYCIN INJ 500 MG in SODIUM CHLORIDE 0.9% 250 ML IV SCH (09:02)
[2024-04-19] MEDS: cefTRIAXone 1 GM in SODIUM CHLORIDE 0.9% MINIBAG 100 ML IV SCH (09:04)
--- NOTE | 2024-04-19 11:37 | PROVIDER PROGRESS NOTE ---
Subjective - Prog Note Date Prog Note Date: 04/19/24 Prog Note Time: 11:34 - Subjective Pt reports feeling: Improved Subjective: This morning he states that he is feeling better and had a good night. This afternoon, however he notes that he is having trouble laying flat. He wants to take a nap, but he ends up sitting up in the bed falling asleep and then falling forward. He has been independently ambulatory in the room. He is not falling out of bed. He is somewhat disappointed that he cannot go home today but he understands that his lower extremity edema is not better, his heart rate is becoming more controlled, but not quite yet, and his renal function is still below baseline. Current Medications - Current Medications Current Medications: Medications Acetaminophen (Acetaminophen 325 Mg Tablet) 650 mg PO Q4HR PRN PRN Reason: Pain 1 to 4, or Fever Last Admin: 04/19/24 02:17 Dose: 650 mg Azithromycin 500 mg/ Sodium (Chloride) 250 mls @ 250 mls/hr IV DAILY [facility] Stop: 04/21/24 09:59 Last Admin: 04/19/24 09:02 Dose: 250 mls/hr Ceftriaxone Sodium 1 gm/ (Sodium Chloride) 100 mls @ 200 mls/hr IV DAILY [facility] Stop: 04/22/24 09:29 Last Admin: 04/19/24 09:04 Dose: 200 mls/hr Cetirizine HCl (Cetirizine 10 Mg Tablet) 10 mg PO DAILY PRN PRN Reason: Allergy Symptoms Duloxetine HCl (Duloxetine 20 Mg Capsule) 20 mg PO DAILY [facility] Last Admin: 04/19/24 09:01 Dose: 20 mg Enoxaparin Sodium (Enoxaparin 80 Mg/0.8 Ml Syringe) 80 mg SUBQ 2100 [facility] Last Admin: 04/18/24 21:24 Dose: 80 mg Gabapentin (Gabapentin 300 Mg Capsule) 600 mg PO QPM [facility] Hydromorphone HCl (Hydromorphone 0.5 Mg/0.5 Ml Syringe) 0.5 mg IVP Q2H PRN PRN Reason: Pain 8 to 10 Last Admin: 04/19/24 11:24 Dose: 0.5 mg Metoprolol Succinate (Metoprolol Succinate 50 Mg Tablet) 200 mg PO DAILY [facility] Last Admin: 04/19/24 08:12 Dose: 200 mg Metoprolol Tartrate (Metoprolol 5 Mg/5 Ml Vial) 5 mg IVP Q6H [facility] Last Admin: 04/19/24 06:04 Dose: 5 mg Pantoprazole Sodium (Pantoprazole 40 Mg Tablet) 40 mg PO QDAC [facility] Last Admin: 04/19/24 09:01 Dose: 40 mg Patient Own Medication (Leflunomide 10 Mg Tablet) 1 each PO DAILY [facility] Last Admin: 04/19/24 10:23 Dose: Not Given Prednisone (Prednisone 5 Mg Tablet) 10 mg PO DAILY [facility] Last Admin: 04/19/24 09:01 Dose: 10 mg Objective - Vital Signs/Intake & Output Vital Signs: Vital Signs x48h Temp Pulse Resp BP BP Pulse Ox 04/19/24 11:15 36.3 C L 79 18 101/73 97 04/19/24 07:30 36.3 C L 113 H 20 124/89 H 97 04/19/24 06:15 124 H 16 113/77 04/19/24 06:04 128/120 H 04/19/24 04:01 36.4 C L 101 H 20 132/87 H 93 Intake & Output: Intake & Output 04/16/24 04/17/24 04/18/24 04/19/24 23:59 23:59 23:59 23:59 Intake Total 580 1060 Output Total 1675 1000 Balance -1095 60 - Objective General Appearance: positive: No acute distress, Alert Eyes Bilateral: positive: Normal inspection ENT: positive: ENT inspection nml Neck: positive: Trachea midline Respiratory: positive: Chest non-tender, Rhonchi (occasional) Cardiovascular: positive: Irregularly irregular, Tachycardia Abdomen: positive: Non-tender, Nml bowel sounds, Other (urostomy bag with copious dilute urine.) Back: positive: Nml inspection Skin: positive: Color nml Extremities: positive: Non-tender, Pedal edema (2-3 + to mid sellers) Neurologic/Psychiatric: positive: Oriented x3, CN's nml (2-12) - Lab Results Fish Bones: 04/19/24 05:06 04/19/24 05:06 Other Labs: Lab Results x24hrs 04/19/24 04/19/24 04/18/24 Range/Units 05:06 05:06 17:00 WBC 8.6 (4.8-10.8) x10^3/uL RBC 4.01 L (4.70-6.10) 10^6/uL Hgb 13.1 L (14.0-18.0) g/dL Hct 41.0 L (42.0-52.0) % MCV 102.2 H (80.0-94.0) fL MCH 32.7 H (27.0-31.0) pg MCHC 32.0 (32.0-36.0) g/dL RDW 14.5 (12.0-15.0) % Plt Count 214 (130-450) 10^3/uL MPV 10.7 (7.4-11.4) fL Neut # (Auto) 7.2 H (1.5-6.6) 10^3/uL Lymph # (Auto) 0.5 L (1.5-3.5) 10^3/uL [place] # (Auto) 0.7 (0.0-1.0) 10^3/uL Eos # (Auto) 0.1 (0.0-0.7) 10^3/uL Baso # (Auto) 0.0 (0.0-0.1) 10^3/uL Absolute Nucleated RBC 0.00 x10^3/uL Nucleated RBC % 0.0 /100WBC Sodium 139 (135-145) mmol/L Potassium 3.9 (3.5-4.5) mmol/L Chloride 100 L (101-111) mmol/L Carbon Dioxide 28 (21-32) mmol/L Anion Gap 11.0 (6-13) BUN 50 H (6-20) mg/dL Creatinine 2.0 H (0.6-1.3) mg/dL Estimated GFR (MDRD) 32 L (>89) Glucose 100 (74-104) mg/dL Calcium 8.8 (8.5-10.3) mg/dL Total Bilirubin (0.2-1.0) mg/dL AST (10-42) IU/L ALT (10-60) IU/L Alkaline Phosphatase (42-121) IU/L Troponin I High Sens (2.3-19.7) ng/L B-Natriuretic Peptide (5-100) pg/mL Total Protein (6.4-8.9) g/dL Albumin (3.2-5.5) g/dL Globulin (2.1-4.2) g/dL Albumin/Globulin Ratio (1.0-2.2) Lipase (11-82) U/L TSH (0.34-5.60) uIU/mL Nasal Adenovirus (PCR) NOT DETECTED Nasal B. parapertussis DNA (PCR) NOT DETECTED Nasal Coronavir 229E PCR NOT DETECTED Nasal Coronavir HKU1 PCR NOT DETECTED Nasal Coronavir NL63 PCR NOT DETECTED Nasal Coronavir OC43 PCR NOT DETECTED Nasal Enterovir/Rhinovir PCR NOT DETECTED Nasal Influenza B PCR NOT DETECTED Nasal Influenza A PCR NOT DETECTED Nasal Parainfluen 1 PCR NOT DETECTED Nasal Parainfluen 2 PCR NOT DETECTED Nasal Parainfluen 3 PCR NOT DETECTED Nasal Parainfluen 4 PCR NOT DETECTED Nasal RSV (PCR) NOT DETECTED Nasal B.pertussis DNA PCR NOT DETECTED Nasal C.pneumoniae (PCR) NOT DETECTED Aly Human Metapneumo PCR NOT DETECTED Nasal M.pneumoniae (PCR) NOT DETECTED Nasal SARS-CoV-2 (PCR) NOT DETECTED 04/18/24 04/18/24 04/18/24 Range/Units 15:17 15:00 15:00 WBC (4.8-10.8) x10^3/uL RBC (4.70-6.10) 10^6/uL Hgb (14.0-18.0) g/dL Hct (42.0-52.0) % MCV (80.0-94.0) fL MCH (27.0-31.0) pg MCHC (32.0-36.0) g/dL RDW (12.0-15.0) % Plt Count (130-450) 10^3/uL MPV (7.4-11.4) fL Neut # (Auto) (1.5-6.6) 10^3/uL Lymph # (Auto) (1.5-3.5) 10^3/uL [place] # (Auto) (0.0-1.0) 10^3/uL Eos # (Auto) (0.0-0.7) 10^3/uL Baso # (Auto) (0.0-0.1) 10^3/uL Absolute Nucleated RBC x10^3/uL Nucleated RBC % /100WBC Sodium 138 (135-145) mmol/L Potassium 4.8 H (3.5-4.5) mmol/L Chloride 101 (101-111) mmol/L Carbon Dioxide 30 (21-32) mmol/L Anion Gap 7.0 (6-13) BUN 49 H (6-20) mg/dL Creatinine 1.9 H (0.6-1.3) mg/dL Estimated GFR (MDRD) 34 L (>89) Glucose 132 H (74-104) mg/dL Calcium 9.1 (8.5-10.3) mg/dL Total Bilirubin 0.7 (0.2-1.0) mg/dL AST 24 (10-42) IU/L ALT 41 (10-60) IU/L Alkaline Phosphatase 98 (42-121) IU/L Troponin I High Sens 31.0 H* (2.3-19.7) ng/L B-Natriuretic Peptide 1811 H (5-100) pg/mL Total Protein 5.6 L (6.4-8.9) g/dL Albumin 3.5 (3.2-5.5) g/dL Globulin 2.1 (2.1-4.2) g/dL Albumin/Globulin Ratio 1.7 (1.0-2.2) Lipase 21 (11-82) U/L TSH 0.90 (0.34-5.60) uIU/mL Nasal Adenovirus (PCR) Nasal B. parapertussis DNA (PCR) Nasal Coronavir 229E PCR Nasal Coronavir HKU1 PCR Nasal Coronavir NL63 PCR Nasal Coronavir OC43 PCR Nasal Enterovir/Rhinovir PCR Nasal Influenza B PCR Nasal Influenza A PCR Nasal Parainfluen 1 PCR Nasal Parainfluen 2 PCR Nasal Parainfluen 3 PCR Nasal Parainfluen 4 PCR Nasal RSV (PCR) Nasal B.pertussis DNA PCR Nasal C.pneumoniae (PCR) Aly Human Metapneumo PCR Nasal M.pneumoniae (PCR) Nasal SARS-CoV-2 (PCR) 04/18/24 Range/Units 14:49 WBC 7.6 (4.8-10.8) x10^3/uL RBC 4.06 L (4.70-6.10) 10^6/uL Hgb 13.3 L (14.0-18.0) g/dL Hct 42.1 (42.0-52.0) % MCV 103.7 H (80.0-94.0) fL MCH 32.8 H (27.0-31.0) pg MCHC 31.6 L (32.0-36.0) g/dL RDW 14.6 (12.0-15.0) % Plt Count 229 (130-450) 10^3/uL MPV 11.1 (7.4-11.4) fL Neut # (Auto) 6.6 (1.5-6.6) 10^3/uL Lymph # (Auto) 0.2 L (1.5-3.5) 10^3/uL [place] # (Auto) 0.6 (0.0-1.0) 10^3/uL Eos # (Auto) 0.0 (0.0-0.7) 10^3/uL Baso # (Auto) 0.0 (0.0-0.1) 10^3/uL Absolute Nucleated RBC 0.00 x10^3/uL Nucleated RBC % 0.0 /100WBC Sodium (135-145) mmol/L Potassium (3.5-4.5) mmol/L Chloride (101-111) mmol/L Carbon Dioxide (21-32) mmol/L Anion Gap (6-13) BUN (6-20) mg/dL Creatinine (0.6-1.3) mg/dL Estimated GFR (MDRD) (>89) Glucose (74-104) mg/dL Calcium (8.5-10.3) mg/dL Total Bilirubin (0.2-1.0) mg/dL AST (10-42) IU/L ALT (10-60) IU/L Alkaline Phosphatase (42-121) IU/L Troponin I High Sens (2.3-19.7) ng/L B-Natriuretic Peptide (5-100) pg/mL Total Protein (6.4-8.9) g/dL Albumin (3.2-5.5) g/dL Globulin (2.1-4.2) g/dL Albumin/Globulin Ratio (1.0-2.2) Lipase (11-82) U/L TSH (0.34-5.60) uIU/mL Nasal Adenovirus (PCR) Nasal B. parapertussis DNA (PCR) Nasal Coronavir 229E PCR Nasal Coronavir HKU1 PCR Nasal Coronavir NL63 PCR Nasal Coronavir OC43 PCR Nasal Enterovir/Rhinovir PCR Nasal Influenza B PCR Nasal Influenza A PCR Nasal Parainfluen 1 PCR Nasal Parainfluen 2 PCR Nasal Parainfluen 3 PCR Nasal Parainfluen 4 PCR Nasal RSV (PCR) Nasal B.pertussis DNA PCR Nasal C.pneumoniae (PCR) Aly Human Metapneumo PCR Nasal M.pneumoniae (PCR) Nasal SARS-CoV-2 (PCR) ABX Reporting Has patient been on IV antibiotics over the past 48 hours?: Yes Sepsis Event Note (H) - Sepsis Criteria Sepsis Criteria: Recorded Heart Rate greater than 90 bpm Assessment/Plan - Problem List (1) Pneumonia Impression: Pneumonia seen on CTA of the chest. This patient's oxygen saturation are normal on room air however desaturates to 89% with ambulation. His pneumonia severity index score is 95 points, class IV, hospitalization is recommended based on risk. I have ordered Rocephin x 5 days and azithromycin x 3 days. We will support him with oxygen as needed. In the emergency department he had oxygen desaturation to 89% with exercise. Today he passes his exercise oxygen test. He has occasional rhonchi on exam today. His respiratory panel is negative. His blood culture showed no growth to date. His white blood cell count is normal. Repeat CBC in AM. I am starting him on steroids this afternoon for inflammation. He is on prednisone 10 mg daily as an outpatient for his rheumatoid arthritis. I am increasing this. Additionally I will start him on albuterol Atrovent nebulizers 4 times daily. (2) Congestive heart failure Conclusion/Plan: Patient denies history of congestive heart failure. He notes a progressive onset of swelling in his ankles and dyspnea. He has not been having any chest pain he has been having some back pain. His BNP is 1811. Due to ongoing dyspnea I repeated his BNP this afternoon it is 2400. I repeated a chest x-ray this afternoon due to his ongoing dyspnea. I see blunting of the costophrenic angle specifically on the left side but otherwise does not show severe pulmonary congestion. Pneumonia is also seen on chest imaging. I have reviewed the chest imaging myself. This continues today despite urine output of greater than 2 L since admission. I am continuing to diurese him with Lasix. I have concerns about the groundglass opacity seen on his chest CT. He denies any history of interstitial lung disease he denies any history of asthma. He states that his dyspnea has come on just over the course of this week. He states that he has difficulty laying down and feels like he cannot breathe when he does lay down. I have reviewed his medication list. He is on interleukin inhibitor that does not have a side effect of pulmonary fibrosis for his rheumatoid arthritis. He is also on monoclonal antibody, Repatha for cholesterol. He is also on leflunomide for his rheumatoid arthritis. I am instituting additional measures to decrease any inflammation with his pulmonary system. He is a [place]. He denies exposure to dust or occupational silica exposure. He quit smoking years before his CABG. (3) Atrial fibrillation Conclusion/Plan: New onset of atrial fibrillation with rapid ventricular response. Patient denies any history of anticoagulation he does however admit to have been dosed with metoprolol in the past. He has been having palpitations for several years on and off. He has seen Dr. Ochoa of cardiology in the past as an outpatient. 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 Echocardiogram result is pending at this time. I treated him with metoprolol IV for rate control overnight. I have transitioned him to metoprolol succinate 100 mg p.o. twice daily. His rate is coming down below 100 this afternoon. He remains in atrial fibrillation on telemetry monitoring. I will continue telemetry monitoring. I have started Eliquis 5 mg twice a day. Qualifiers: Atrial fibrillation type: unspecified Qualified Code(s): I48.91 - Unspecified atrial fibrillation (4) Hypoxia Conclusion/Plan: Resolved. He did pass his oxygen desaturation study today. (5) Hyperkalemia Conclusion/Plan: Potassium is 4.8 on admission, 3.9 today.. Repeat BMP in a.m. I will probably need to give him potassium. (6) BRITTANY (acute kidney injury) Conclusion/Plan: Has a history of renal insufficiency difficult to say what his baseline creatinine is as we have no values over the last 2 years. Most recently I see a creatinine in May of 10/10/2021 of 1.6. He is 1.9 On admission, 2.0 this morning.. I see values as high as 3.3 in 2021. I have ordered a repeat BMP in the a.m. (7) HTN (hypertension) Conclusion/Plan: Telmisartan is on his outpatient medication list although I am in clear on the accuracy of this. Blood pressures are well-controlled on metoprolol today. (8) Right upper lobe pulmonary nodule Conclusion/Plan: This is a new finding on CT of the chest as compared to 2021. This will require outpatient follow-up. (9) Rheumatoid arthritis Conclusion/Plan: Longstanding history of rheumatoid arthritis with probable degenerative changes in his lower back requiring several surgeries for lumbar stenosis. Dr. Bain is his surgeon. He has chronic back pain. He is on immunos uppressive therapy for this with interleukin inhibitors. This affects his immune status with regards to treatment of his pneumonia.
--- NOTE | 2024-04-19 12:26 | PHARMACY PROGRESS NOTE ---
- Best Possible Medication History Admit Date and Time: 04/18/241812 Processed by: Pharmacy Medication History completed: Yes Patient Interview: Completed Secondary Source(s): Physician records (PER PT INTERVIEW AND [facility] AND [facility] RECORDS), Insurance records As the person ultimately responsible for medication therapy, providers are able to order a medication from an existing home medication list in [facility] via the "Reconcile Routine" prior to Confirmation of that medication by manufacturing support engineer. Such practice is discouraged except when the physician, in their clinical judgment, deems that a medical need exists for a medication without regard to previous use.
--- NOTE | 2024-04-19 16:42 | XRAY Report ---
PROCEDURE: Chest 1V INDICATIONS: persistent orthopnea TECHNIQUE: One view of the chest was acquired. COMPARISON: None. FINDINGS: Surgical changes and devices: Sternotomy. Lungs and pleura: Hazy left basilar opacity. Blunting of the left costophrenic angle. Mediastinum: Mediastinal contours appear normal. Heart size is normal. Bones and chest wall: No suspicious bony lesions. Overlying soft tissues appear unremarkable. IMPRESSION: Hazy left basilar opacity, blunting of the left costophrenic angle. Findings suggest infection or ate lectasis with pleural effusion. Reviewed by: Ernst Rivera MD on 04/19/2024 4:41 PM PDT Approved by: Ernst Rivera MD on 04/19/2024 4:41 PM PDT Station ID: [id number]
[2024-04-19] MEDS ORDERED: IPRATROPIUM/ALBUTEROL 3 ML NEB INH PRN (16:53)
[2024-04-19] MEDS: GABAPENTIN 300 MG CAPSULE PO SCH (21:18)
[2024-04-19] MEDS: methylPREDNISolone SUCCINATE 40 MG/ML VIAL IVP SCH (21:18)
[2024-04-19] MEDS: APIXABAN 5 MG TABLET PO SCH (21:18)
[2024-04-20 05:12] LABS: BASOPHILS % (AUTO) 0.3 %; HCT - HEMATOCRIT 46.2 % (42.0-52.0); LYMPHOCYTES # (AUTO) 0.2 10^3/uL (1.5-3.5); LYMPHOCYTES % (AUTO) 2.7 %; MEAN CORPUSCULAR HGB CONC 32.5 g/dL (32.0-36.0); MEAN CORPUSCULAR VOLUME 101.5 fL (80.0-94.0); MEAN PLATELET VOLUME 10.4 fL (7.4-11.4); MONOCYTES # (AUTO) 0.3 10^3/uL (0.0-1.0); MONOCYTES % (AUTO) 4.5 %; NEUTROPHILS # (AUTO) 5.4 10^3/uL (1.5-6.6); NEUTROPHILS % (AUTO) 90.7 %; PLT - PLATELET COUNT 214 10^3/uL (130-450); RED BLOOD COUNT 4.55 10^6/uL (4.70-6.10); RED CELL DISTRIBUTION WIDTH 14.5 % (12.0-15.0)
[2024-04-20 05:28] LABS: ALBUMIN 3.7 g/dL (3.2-5.5); ALBUMIN/GLOBULIN RATIO 1.5 (1.0-2.2); BILIRUBIN,TOTAL 0.8 mg/dL (0.2-1.0); CALCIUM 9.4 mg/dL (8.5-10.3); CREATININE 2.1 mg/dL (0.6-1.3); MAGNESIUM 1.8 mg/dL (1.7-2.3); POTASSIUM 4.4 mmol/L (3.5-4.5); TOTAL PROTEIN 6.2 g/dL (6.4-8.9)
--- NOTE | 2024-04-20 07:28 | PROVIDER PROGRESS NOTE ---
Subjective - Prog Note Date Prog Note Date: 04/20/24 Prog Note Time: 07:22 Objective - Vital Signs/Intake & Output Vital Signs: Vital Signs x48h Temp Pulse Resp BP BP Pulse Ox 04/20/24 05:21 36.8 C 102 H 16 127/89 H 98 04/20/24 02:24 111 H 134/93 H 99 04/20/24 01:45 36.5 C 106 H 14 125/71 95 Intake & Output: Intake & Output 04/17/24 04/18/24 04/19/24 04/20/24 23:59 23:59 23:59 23:59 Intake Total 580 1410 480 Output Total 1675 1600 1000 Balance -1095 -190 -520 - Lab Results Fish Bones: 04/20/24 04:53 04/20/24 04:53 Other Labs: Lab Results x24hrs 04/20/24 04/20/24 04/19/24 Range/Units 04:53 04:53 15:54 WBC 6.0 (4.8-10.8) x10^3/uL RBC 4.55 L (4.70-6.10) 10^6/uL Hgb 15.0 (14.0-18.0) g/dL Hct 46.2 (42.0-52.0) % MCV 101.5 H (80.0-94.0) fL MCH 33.0 H (27.0-31.0) pg MCHC 32.5 (32.0-36.0) g/dL RDW 14.5 (12.0-15.0) % Plt Count 214 (130-450) 10^3/uL MPV 10.4 (7.4-11.4) fL Neut # (Auto) 5.4 (1.5-6.6) 10^3/uL Lymph # (Auto) 0.2 L (1.5-3.5) 10^3/uL [place] # (Auto) 0.3 (0.0-1.0) 10^3/uL Eos # (Auto) 0.0 (0.0-0.7) 10^3/uL Baso # (Auto) 0.0 (0.0-0.1) 10^3/uL Absolute Nucleated RBC 0.00 x10^3/uL Nucleated RBC % 0.0 /100WBC Sodium 142 (135-145) mmol/L Potassium 4.4 (3.5-4.5) mmol/L Chloride 96 L (101-111) mmol/L Carbon Dioxide 35 H (21-32) mmol/L Anion Gap 11.0 (6-13) BUN 50 H (6-20) mg/dL Creatinine 2.1 H (0.6-1.3) mg/dL Estimated GFR (MDRD) 30 L (>89) Glucose 135 H (74-104) mg/dL Calcium 9.4 (8.5-10.3) mg/dL Magnesium 1.8 (1.7-2.3) mg/dL Total Bilirubin 0.8 (0.2-1.0) mg/dL AST 19 (10-42) IU/L ALT 38 (10-60) IU/L Alkaline Phosphatase 114 (42-121) IU/L Troponin I High Sens (2.3-19.7) ng/L B-Natriuretic Peptide 2474 H (5-100) pg/mL Total Protein 6.2 L (6.4-8.9) g/dL Albumin 3.7 (3.2-5.5) g/dL Globulin 2.5 (2.1-4.2) g/dL Albumin/Globulin Ratio 1.5 (1.0-2.2) 04/19/24 Range/Units 15:54 WBC (4.8-10.8) x10^3/uL RBC (4.70-6.10) 10^6/uL Hgb (14.0-18.0) g/dL Hct (42.0-52.0) % MCV (80.0-94.0) fL MCH (27.0-31.0) pg MCHC (32.0-36.0) g/dL RDW (12.0-15.0) % Plt Count (130-450) 10^3/uL MPV (7.4-11.4) fL Neut # (Auto) (1.5-6.6) 10^3/uL Lymph # (Auto) (1.5-3.5) 10^3/uL [place] # (Auto) (0.0-1.0) 10^3/uL Eos # (Auto) (0.0-0.7) 10^3/uL Baso # (Auto) (0.0-0.1) 10^3/uL Absolute Nucleated RBC x10^3/uL Nucleated RBC % /100WBC Sodium (135-145) mmol/L Potassium (3.5-4.5) mmol/L Chloride (101-111) mmol/L Carbon Dioxide (21-32) mmol/L Anion Gap (6-13) BUN (6-20) mg/dL Creatinine (0.6-1.3) mg/dL Estimated GFR (MDRD) (>89) Glucose (74-104) mg/dL Calcium (8.5-10.3) mg/dL Magnesium (1.7-2.3) mg/dL Total Bilirubin (0.2-1.0) mg/dL AST (10-42) IU/L ALT (10-60) IU/L Alkaline Phosphatase (42-121) IU/L Troponin I High Sens 34.6 H* (2.3-19.7) ng/L B-Natriuretic Peptide (5-100) pg/mL Total Protein (6.4-8.9) g/dL Albumin (3.2-5.5) g/dL Globulin (2.1-4.2) g/dL Albumin/Globulin Ratio (1.0-2.2) Sepsis Event Note (H) - Sepsis Criteria Sepsis Criteria: Recorded Heart Rate greater than 90 bpm
[2024-04-20 07:57] VITALS: O2SAT 96
[2024-04-20] MEDS: ISOSORBIDE MONONITRATE ER 30 MG TABLET PO SCH (08:33)
[2024-04-20] MEDS: APIXABAN 2.5 MG TABLET PO SCH (08:33)
--- NOTE | 2024-04-20 11:28 | Discharge Plan ---
Discharge Plan Problem Reviewed?: Yes Disposition: Home, Self Care Prescriptions: Apixaban [Eliquis] 2.5 mg PO BID #60 tab Furosemide [Lasix] 40 mg PO DAILY #30 tablet predniSONE [Prednisone] See Rx Instructions .ROUTE .COMPLEX #21 tab Metoprolol Succinate [Toprol Xl] 100 mg PO BID #60 tab Cefpodoxime Proxetil [Vantin] 100 mg PO Q12H 3 Days #6 tablet Azithromycin [Zithromax] 500 mg PO ONCE #1 tablet Diet: Cardiac Activity Restrictions: No Restrictions Shower Restrictions: No Driving Restrictions: Yes (does not drive at baseline) Assistance Devices: Cane Weight Bearing: Full Weight Instruction Topics: Heart Failure Meds Control, Pneumonia, Atrial Fibrillation Dc, Stroke Prevent Live W Atrial Fib Health Concerns: You came into the hospital because you were not feeling well. You had increasing shortness of breath and were noticing that you could walk less and less. When you were here you had a chest x-ray and CT scan of your chest. It looks like you have some chronic scarring in your chest and you also have a pulmonary nodule. You need follow-up of this with a CT scan of your chest in 3 to 6 months. Your primary care doctor should be able to help you get this done. You also have atrial fibrillation. In talking to you it sounds like this has been going on for quite a few months. I have put you on some medication called metoprolol that should help control your heart rate. I would like you to follow-up with Dr. Ochoa. You have had an ultrasound done on your heart called an echocardiogram. I do not have the results from this yet but this result should get sent to Dr. Ochoa as well so that he can see the results and help determine further treatment. I have also started you on a medication called Eliquis for your atrial fibrillation. This thins your blood and helps prevent strokes that can be associated with atrial fibrillation. For your pneumonia I would like you to finish antibiotics. You have gotten all of your antibiotics for today but I need you to finish azithromycin and cefpodoxime starting tomorrow. These prescriptions have been sent in to [facility]. You have been diagnosed with congestive heart failure. We have given you multiple doses of Lasix while you have been here and it seems that the fluid in your ankles and in your chest is much better. That is why you are able to breathe better and you are more comfortable in bed at this time. Lasix can cause problems with potassium. Your potassium level so far is fine. However, I want you to follow-up with your primary care provider for blood test to make sure that your potassium remains okay. Lastly I am going to put you on a prednisone taper for your lungs. I know you have been on prednisone for your back pain and I want you to take this higher dosing for several days then decrease back down to the dosing that you are taking for your back pain and your rheumatoid arthritis. Plan of Treatment: You can continue on your home medications of Zyrtec, Cymbalta, gabapentin, isosorbide, and you are to injections that you take for cholesterol and rheumatoid arthritis. I want you to stop your hydrochlorothiazide as you are now on Lasix for a water pill. I want you to stop your amlodipine as I am afraid this will make your blood pressure too low in combination with the metoprolol. Assessment: new onset atrial fibrillation R pulmonary nodule pneumonia acute kidney injury Hypertension rheumatoid arthritis high cholesterol No Smoking: If you smoke, Please STOP! Call for help. Follow-up with: LESLEE MILLIGAN MD [Primary Care Provider] - Louis Ochoa MD [Provider Admit Priv/Credential] -
[2024-04-20 11:35] VITALS: BP 109/63
--- NOTE | 2024-04-20 11:59 | DISCHARGE SUMMARY ---
"Discharge Summary Admit Date: 04/18/24 Discharge Date: 04/20/24 Discharging Provider: Dayan Ramos PA-C Primary Care Provider: Iván Guerra Code Status: Do Not Attempt Resuscitation Condition at Discharge: Good Discharge Disposition: 01 Home, Self Care - DIAGNOSES Admission Diagnoses: Pneumonia Congestive heart failure Atrial fibrillation Hypoxia Hyperkalemia Acute kidney injury Hypertension Right upper lobe pulmonary nodule Rheumatoid arthritis Discharge Diagnoses with Status of Each Condition: (1) Pneumonia Impression: Pneumonia seen on CTA of the chest. This patient's oxygen saturation are normal on room air however desaturates to 89% with ambulation at the time of admission. His pneumonia severity index score is 95 points, class IV, hospitalization is recommended based on risk. Rocephin and Flagyl started in the ED for community-acquired pneumonia. He will be discharged home on oral equivalents to complete the therapy. He did not have a requirement for supplemental oxygen. He passed his oxygen saturation exercise test on hospital day 1. White blood cell count was normal respiratory panel was negative blood cultures were taken and have grown nothing to date He was started on steroids for inflammation. This improved his respiratory status greatly and he was discharged to home. He he will continue on a taper of prednisone and then will resume his 10 mg daily of prednisone that he takes for his rheumatoid arthritis. We ordered albuterol Atrovent nebulizers but he did not use these (2) Congestive heart failure Conclusion/Plan: Patient denies history of congestive heart failure. He notes a progressive onset of swelling in his ankles and dyspnea. He has not been having any chest pain he has been having some back pain. His BNP is 1811. Due to ongoing dyspnea I repeated his BNP ; It was 2400. I repeated a chest x-ray due to his ongoing dyspnea. I see blunting of the costophrenic angle specifically on the left side but otherwise does not show severe pulmonary congestion. Pneumonia is also seen on chest imaging. I have reviewed the chest imaging myself. His paroxysmal nocturnal dyspnea resolved with diuresis. I have concerns about the groundglass opacity seen on his chest CT. He denies any history of interstitial lung disease he denies any history of asthma. He states that his dyspnea has come on just over the course of this week. I have reviewed his medication list. He is on interleukin inhibitor that does not have a side effect of pulmonary fibrosis for his rheumatoid arthritis. He is also on monoclonal antibody, Repatha for cholesterol. He is also on leflunomide for his rheumatoid arthritis. He is a [employer]. He denies exposure to dust or occupational silica exposure. He quit smoking years before his CABG. (3) Atrial fibrillation Conclusion/Plan: New onset of atrial fibrillation with rapid ventricular response. Patient denies any history of anticoagulation he does however admit to have been dosed with metoprolol in the past. He has been having palpitations for several years on and off. He has seen Dr. Ochoa of cardiology in the past as an outpatient. 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 Echocardiogram result is pending at the time of discharge I have transitioned him to metoprolol succinate 100 mg p.o. twice daily. His heart rate came down below 100. I have discharged the patient home on Eliquis as well. Qualifiers: Atrial fibrillation type: unspecified Qualified Code(s): I48.91 - Unspecified atrial fibrillation (4) Hypoxia Conclusion/Plan: Resolved. He did pass his oxygen desaturation study today. (5) Hyperkalemia Conclusion/Plan: Potassium is 4.8 on admission, 4.4 on discharge. (6) BRITTANY (acute kidney injury) Conclusion/Plan: Has a history of renal insufficiency difficult to say what his baseline creatinine is as we have no values over the last 2 years. Most recently I see a creatinine in May of 10/10/2021 of 1.6. He is 1.9 On admission, 2.1 on discharge. I see values as high as 3.3 in 2021. I have ordered a repeat BMP in the a.m. (7) HTN (hypertension) Conclusion/Plan: Telmisartan is on his outpatient medication list although I am unclear on the accuracy of this. Blood pressures are well-controlled on metoprolol. I have stopped his amlodipine. (8) Right upper lobe pulmonary nodule Conclusion/Plan: This is a new finding on CT of the chest as compared to 2021. This will require outpatient follow-up. (9) Rheumatoid arthritis Conclusion/Plan: Longstanding history of rheumatoid arthritis with probable degenerative changes in his lower back requiring several surgeries for lumbar stenosis. Dr. Bain is his surgeon. He has chronic back pain. He is on immunosuppressive therapy for this with interleukin inhibitors. This affects his immune status with regards to treatment of his pneumonia. - HPI History of Present Illness: From admission H&P: 84-year-old male who was in his usual state of health until about 3 weeks ago. Has been experiencing malaise and shortness of breath has noted some ankle swelling for about a week. For several weeks he has noticed that his exercise tolerance is decreasing. It has been much worse over the last 2 to 3 days. Several days ago he could walk 50 yards, today he was unable to walk 15 yards. In the last several weeks he started to use a cane as he had a fall while walking near his home and needed a bystander to help pick him up off the ground. He presented to the emergency department because he was unable to walk 15 yards today. He has not had any fever or chills at home. He notes that he has trouble getting comfortable in bed at night but states that he can lay flat he just has to lay on his left side. He notes that he has had some chest palpitations for several years on and off. He has previously been seen by Dr. Ochoa at the [facility] for cardiology as he had a coronary artery bypass graft 26 years ago. He also has more recent history of 2 back surgeries at the [facility] by Dr. Bain but complains of chronic back pain. He states that he is currently on prednisone for his back pain for the last 3 to 4 weeks. He denies a history of diabetes. He does have a history of hypertension and hyperlipidemia as well as rheumatoid arthritis. There is a medication history on the chart. When I mention giving the patient metoprolol he states that he had been on that in the past but is not on that currently. He denies any history of atrial fibrillation. - CONSULTS | PROCEDURES Consultations: none - ALLERGIES Allergies/Adverse Reactions: Allergies Allergy/AdvReac Type Severity Reaction Status Date / Time No Known Drug Allergies Allergy Verified 04/18/24 14:34 - MEDICATIONS Home Medications: Ambulatory Orders Medication Instructions Recorded Confirmed Aspirin [Aspirin EC] 81 mg PO DAILY 12/17/17 04/18/24 Omeprazole 20 mg PO QDAC 12/17/17 04/18/24 Gabapentin [Neurontin] 600 mg PO BID 11/11/21 04/19/24 Cetirizine [ZyrTEC] 10 mg PO DAILY PRN 11/13/21 04/18/24 DULoxetine [Cymbalta] 40 mg PO DAILY 04/18/24 04/19/24 Dupilumab [Dupixent Pen] 200 mg SQ UD 04/18/24 04/18/24 Evolocumab [Repatha Sureclick] 140 mg SQ UD 04/18/24 04/18/24 Leflunomide 10 mg PO DAILY 04/18/24 04/18/24 Telmisartan 40 mg PO DAILY 04/18/24 04/18/24 traMADol [Ultram] 50 mg PO Q4-6H 04/18/24 04/18/24 Isosorbide Mononitrate [Isosorbide 1 tab PO DAILY 04/19/24 04/19/24 Mononitrate ER] Acetaminophen [Tylenol] 650 mg PO Q4HR PRN tab 04/20/24 Apixaban [Eliquis] 2.5 mg PO BID #60 tab 04/20/24 Azithromycin [Zithromax] 500 mg PO ONCE #1 tablet 04/20/24 Cefpodoxime Proxetil [Vantin] 100 mg PO Q12H 3 Days #6 tablet 04/20/24 Furosemide [Lasix] 40 mg PO DAILY #30 tablet 04/20/24 Metoprolol Succinate [Toprol Xl] 100 mg PO BID #60 tab 04/20/24 predniSONE [Prednisone] See Rx Instructions .ROUTE 04/20/24 .COMPLEX #21 tab - PHYSICAL EXAM AT DISCHARGE General Appearance: positive: No acute distress Eyes Bilateral: positive: Normal inspection ENT: positive: ENT inspection nml Neck: positive: Nml inspection Respiratory: positive: No respiratory distress, Breath sounds nml Cardiovascular: positive: Regular rate & rhythm Abdomen: positive: Non-tender Back: positive: Nml inspection Skin: positive: Color nml Extremities: positive: Non-tender, Pedal edema (2+, less than previous) Neurologic/Psychiatric: positive: Oriented x3 - LABS Result Diagrams: 04/20/24 04:53 04/20/24 04:53 - SEPSIS Sepsis Criteria: Recorded Heart Rate greater than 90 bpm - FOLLOW UP Follow Up: PCP at [facility]- Iván Ochoa, cardiology - TIME SPENT Time Spent in Discharge (Minutes): 45"
--- NOTE | 2024-04-20 14:08 | ADVANCE CARE PLANNING NOTE ---
Advance Care Planning - Planning Encounter Date: 04/20/24 Time: 10:00 Purpose: determine desire for care going forward Parties in Attendance: Patient and Dayan Ramos PA-C Decisional Capacity of the Patient: alert and oriented, aware of his situation - Encounter Subjective/Patient's Story: Retired to [place] from [employer]. 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 He is happily and enjoys taking walks. As his illness has progressed over the last several weeks he had an episode where he fell down and was unable to get back up as he was walking outside towards the beach. Fortunately a passerby was able to stop and pick him up. He recognizes that he is declining but feels that he has had a happy and full life Objective/Medical Story: New onset atrial fibrillation and congestive heart failure. There is some suggestion of pulmonary fibrosis as well as a pulmonary nodule on his CT. He has improved here in the hospital with diuresis and will go home on diuretic therapy. He is preparing to follow-up with his primary care doctor at the [facility] as well as his outpatient program coordinator. He has established relationships with these 2 physicians. He continues to have the potential to do well in life but does not want to live in his severely dependent state Goals of Care: To do the things he enjoys. To take walks and make pottery. Plan: His will be his surrogate decision maker. He desires a DO NOT RESUSCITATE status with selective treatment Code Status: Do Not Attempt Resuscitation Time spent on advance care plannin minutes
== END 2024-04-20 13:20 | disposition home or self-care (01) | DRG 194 ==
LOC: ED 14:29 → MS2 18:13 → OBSVTOIN 04-19 13:41
PROVIDERS: ADMIT Physician Assistant Medical; ATTEND Physician Assistant Medical
DX: J18.9 Pneumonia, unspecified organism (principal); J44.0 Chronic obstructive pulmonary disease with (acute) lower respiratory infection; N17.9 Acute kidney failure, unspecified; N18.9 Chronic kidney disease, unspecified; R79.89 Other specified abnormal findings of blood chemistry; I48.91 Unspecified atrial fibrillation; R09.02 Hypoxemia; E87.5 Hyperkalemia; J90 Pleural effusion, not elsewhere classified; I45.10 Unspecified right bundle-branch block; I13.0 Hypertensive heart and chronic kidney disease with heart failure and stage 1 through stage 4 chronic kidney disease, or unspecified chronic kidney disease; I50.9 Heart failure, unspecified; R91.1 Solitary pulmonary nodule; Z20.818 Contact with and (suspected) exposure to other bacterial communicable diseases; Z20.822 Contact with and (suspected) exposure to COVID-19; Z20.828 Contact with and (suspected) exposure to other viral communicable diseases; M06.9 Rheumatoid arthritis, unspecified; E78.00 Pure hypercholesterolemia, unspecified; I25.10 Atherosclerotic heart disease of native coronary artery without angina pectoris; H54.7 Unspecified visual loss; G89.29 Other chronic pain; M54.9 Dorsalgia, unspecified; I11.0 Hypertensive heart disease with heart failure; Z66 Do not resuscitate; Z79.82 Long term (current) use of aspirin; Z79.891 Long term (current) use of opiate analgesic; Z79.899 Other long term (current) drug therapy; Z81.1 Family history of alcohol abuse and dependence; Z82.3 Family history of stroke; Z87.891 Personal history of nicotine dependence; Z95.1 Presence of aortocoronary bypass graft
CPT/HCPCS: 36415; 71045; 71275; 80048; 80053; 83690; 83735; 83880; 84443; 84484; 85025; 87040; 87633; 93005; 93307; 96365; 96372; 96375; 96376; 97165; 99284; 99285; A9270; G0378; J1170; J1650; J7512; Q9967

== ENCOUNTER 2024-05-06 14:22 | Outpatient (CLI) | payer MEDICARE, OTHER | END 2024-05-06 23:59 | disposition critical access hospital (66) | LOC: EMS 14:22 | DX: R53.1 Weakness (principal); R29.6 Repeated falls; I48.91 Unspecified atrial fibrillation; R06.02 Shortness of breath; R42 Dizziness and giddiness; Z79.01 Long term (current) use of anticoagulants | CPT/HCPCS: A0425; A0429 ==

== ENCOUNTER 2024-05-06 14:32 | Emergency (ER) | payer MEDICARE, OTHER ==
--- NOTE | 2024-05-06 14:46 | ED Physician Documentation ---
PD HPI DYSPNEA - Stated complaint Stated Complaint: FALL - History obtained from History obtained from: Patient, EMS - Additional information Additional information: This is an 84-year-old gentleman with history of remote CABG and urostomy for bladder cancer and chronic rheumatoid arthritis maintained on prednisone. He was admitted here on April 18 and discharged April 20. He had pneumonia with hypoxemia and new onset CHF and A-fib. He was discharged home on Eliquis, metoprolol 100 mg p.o. twice daily, antibiotics and Lasix. Since discharge she has become progressively weak with several falls. He did hit his head 2 days ago but does not feel injured per se but since he is on Eliquis was brought in as a modified trauma. He has also had decreased exercise tolerance and FREDERICK with orthopnea and has developed exertional abdominal pain. No significant chest pain with this. He is brought in by ambulance and noted to be in A-fib with RVR with heart rate of 120-130. PD PAST MEDICAL HISTORY - Past Medical History Cardiovascular: Hypertension, High cholesterol, Coronary artery disease, Atrial fibrillation, Murmur Respiratory: COPD Neuro: None Endocrine/Autoimmune: Other GI: None PATROL MOTHER: None : Other HEENT: Chronic vision loss Psych: Other Musculoskeletal: Rheumatoid arthritis Derm: Psoriasis - Past Surgical History Past Surgical History: Yes General: Appendectomy, Bowel surgery Ortho: Spine surgery /PATROL MOTHER: Other Cardiovascular: CABG - Present Medications Home Medications: Ambulatory Orders Medication Instructions Recorded Confirmed Aspirin [Aspirin EC] 81 mg PO DAILY 12/17/17 05/06/24 Gabapentin [Neurontin] 600 mg PO BID 11/11/21 05/06/24 DULoxetine [Cymbalta] 40 mg PO DAILY 04/18/24 05/06/24 Dupilumab [Dupixent Pen] 200 mg SQ UD 04/18/24 05/06/24 Leflunomide 10 mg PO DAILY 04/18/24 05/06/24 Isosorbide Mononitrate [Isosorbide 1 tab PO DAILY 04/19/24 05/06/24 Mononitrate ER] Apixaban [Eliquis] 2.5 mg PO BID #60 tab 04/20/24 05/06/24 Furosemide [Lasix] 40 mg PO DAILY #30 tablet 04/20/24 05/06/24 Metoprolol Succinate [Toprol Xl] 200 mg PO DAILY 05/06/24 05/06/24 - Allergies Allergies/Adverse Reactions: Allergies Allergy/AdvReac Type Severity Reaction Status Date / Time No Known Drug Allergies Allergy Verified 04/18/24 14:34 - Social History Does the pt smoke?: No Smoking Status: Former smoker Does the pt drink ETOH?: Yes Does the pt have substance abuse?: No - Immunizations Immunizations are current?: Yes - POLST Patient has POLST: No POLST Status: DNR PD ED PE NORMAL - Vitals Vital signs reviewed: Yes - General General: Alert and oriented X 3, No acute distress - HEENT HEENT: PERRL, EOMI - Neck Neck: Supple, no meningeal sign, No bony TTP - Cardiac Cardiac: Other (Rapid and irregular without murmur) - Respiratory Respiratory: Other (Mildly labored breathing but speaking in full sentences diminished, diminished at both bases with expiratory wheezes.) - Abdomen Abdomen: Non tender, Other (Urostomy in place in the low abdomen) - Extremities Extremities: Other (1-2+ pitting pedal edema, symmetric) - Neuro Neuro: Alert and oriented X 3 Results - Vitals Vitals: Vital Signs - 24 hr 05/06/24 05/06/24 05/06/24 14:35 14:47 15:17 Temperature 36.5 C Heart Rate 129 H 93 117 H Respiratory 18 16 21 Rate Blood Pressure 126/96 H 129/96 H 138/121 H O2 Saturation 100 97 96 If not protocol : Oxygen Flow, liters/minute 05/06/24 05/06/24 05/06/24 15:47 16:17 16:47 Temperature Heart Rate 115 H 112 H 108 H Respiratory 22 25 H 21 Rate Blood Pressure 122/101 H 112/80 O2 Saturation 98 95 96 If not protocol : Oxygen Flow, liters/minute 05/06/24 05/06/24 17:17 17:26 Temperature Heart Rate 110 H 109 H Respiratory 20 25 H Rate Blood Pressure 133/109 H O2 Saturation 92 93 If not protocol 2 : Oxygen Flow, liters/minute Oxygen O2 Source Nasal cannula - EKG (time done) 1438 EKG releavant findings:: EKG personally interpreted by author of this note. Relevant findings are: Rate: Rate (enter#) (133) Rhythm: Atrial fibrillation Intervals: RBBB Ischemia: ST depression (Anterolateral ST depression). No: ST elevation c/w ischemia Computer interpretation: Disagree with computer - Labs Labs: Laboratory Tests 05/06/24 05/06/24 05/06/24 14:45 14:45 14:45 WBC 9.3 RBC 4.45 L Hgb 14.6 Hct 46.2 MCV 103.8 H MCH 32.8 H MCHC 31.6 L RDW 14.7 Plt Count 211 MPV 11.3 Neut # (Auto) 7.8 H Lymph # (Auto) 0.4 L Union # (Auto) 1.0 Eos # (Auto) 0.0 Baso # (Auto) 0.0 Absolute Nucleated RBC 0.00 Nucleated RBC % 0.0 Sodium 144 Potassium 3.3 L Chloride 96 L Carbon Dioxide 39 H* Anion Gap 9.0 BUN 64 H Creatinine 2.4 H Estimated GFR (MDRD) 26 L Glucose 106 H Calcium 9.5 Magnesium 1.9 Total Bilirubin 0.9 AST 26 ALT 39 Alkaline Phosphatase 102 Troponin I High Sens 57.6 H* B-Natriuretic Peptide Total Protein 5.7 L Albumin 3.9 Globulin 1.8 L Albumin/Globulin Ratio 2.2 05/06/24 14:45 WBC RBC Hgb Hct MCV MCH MCHC RDW Plt Count MPV Neut # (Auto) Lymph # (Auto) Union # (Auto) Eos # (Auto) Baso # (Auto) Absolute Nucleated RBC Nucleated RBC % Sodium Potassium Chloride Carbon Dioxide Anion Gap BUN Creatinine Estimated GFR (MDRD) Glucose Calcium Magnesium Total Bilirubin AST ALT Alkaline Phosphatase Troponin I High Sens B-Natriuretic Peptide 2488 H Total Protein Albumin Globulin Albumin/Globulin Ratio - Rads (name of study) Single view chest x-ray shows mild CHF exacerbation. Relevant Findings:: Final report received, EMP independent interpretation of test CT of the head was without acute disease. He does have some age-related senescent changes. Relevant Findings:: Final report received, EMP independent interpretation of test PD Medical Decision Making - ED course ED course: 84-year-old gentleman with recent diagnosis of new onset A-fib and pneumonia presents with generalized weakness and exertional dyspnea. He is in A-fib with RVR with clinical evidence of CHF and he has got chronic kidney disease a little worse than normal. His CBC is unremarkable. His troponin is elevated, but has had similar readings in the past and his BNP is quite elevated, a little up from the last time it was checked during his prior admission. He was initially given some IV metoprolol, 5 mg for his RVR and there was no substantive change and a small dose of IV diltiazem was ordered. He has had falls with head strikes albeit no obvious injury but given that he is anticoagulated a CT of the head was negative and a chest x-ray showed mild CHF. Discharge summary from prior admission late last month reviewed, also reviewed his echocardiogram from April 19 which showed mild concentric LVH with severe global hypokinesis and EF of 25% with moderate dilatation of the left atrium. Normal RV size with mild to moderate reduced function. Pulmonary pressure normal. Mild MR. Moderate low output aortic stenosis. The combination of severely depressed EF and now worsening renal function is worrisome for cardiorenal syndrome. As such patient was agreeable to transfer to a tertiary facility for cardiology/nephrology consultation. After the diltiazem he was rate controlled. I spoke with Dr. Rivera, cardiology at [facility] at 5:05 PM and presented the case and he agreed we should start a dobutamine drip at 5 mcg/min and transfer him to the hospitalist service which we are awaiting a callback from. He was excepted by the hospitalist, Dr. Thiago Toth at approximately 5:40 PM after case discussion. I am told that I will probably be the morning before he can go due to bed capacity. I did update his who is available by phone at [phone] with disposition and she was appreciative. About 6:30 PM I went in the room and is heart rate had come back up to about 120. I will load him with digoxin. Care to Dr. Redding at 7 PM shift change - Critical Care Time(min): 47 Time Includes: Direct patient care, Review records, Reassess patient, Document care, Coordinate care, Medical consult, Family consult for tx dec Data interpretation: Labs, Pulse ox Procedures included in critical care time: Peripheral IV Procedures excluded from critical care time: EKG Departure - Departure Disposition: 02 Transfer Acute Care Hosp Clinical Impression: Atrial fibrillation Qualifiers: Atrial fibrillation type: persistent (not longstanding) Qualified Code(s): I48.19 - Other persistent atrial fibrillation Congestive heart failure Qualifiers: Heart failure type: systolic Heart failure chronicity: acute on chronic Qualified Code(s): I50.23 - Acute on chronic systolic (congestive) heart failure Cardiomyopathy Qualifiers: Cardiomyopathy type: unspecified Qualified Code(s): I42.9 - Cardiomyopathy, unspecified Cardiorenal syndrome Qualifiers: Heart failure presence: with heart failure Hypertensive chronic kidney disease stage: stage 1-4 or unspecified chronic kidney disease Qualified Code(s): I13.0 - Hypertensive heart and chronic kidney disease with heart failure and stage 1 through stage 4 chronic kidney disease, or unspecified chronic kidney disease Condition: Serious
[2024-05-06] MEDS: METOPROLOL 5 MG/5 ML VIAL IVP STA (14:53)
[2024-05-06 15:02] LABS: BASOPHILS % (AUTO) 0.4 %; EOSINOPHILS % (AUTO) 0.3 %; HCT - HEMATOCRIT 46.2 % (42.0-52.0); HGB - HEMOGLOBIN 14.6 g/dL (14.0-18.0); LYMPHOCYTES # (AUTO) 0.4 10^3/uL (1.5-3.5); LYMPHOCYTES % (AUTO) 4.1 %; MEAN CORPUSCULAR HEMOGLOBIN 32.8 pg (27.0-31.0); MEAN CORPUSCULAR HGB CONC 31.6 g/dL (32.0-36.0); MEAN CORPUSCULAR VOLUME 103.8 fL (80.0-94.0); MEAN PLATELET VOLUME 11.3 fL (7.4-11.4); MONOCYTES % (AUTO) 10.5 %; NEUTROPHILS # (AUTO) 7.8 10^3/uL (1.5-6.6); NEUTROPHILS % (AUTO) 83.6 %; PLT - PLATELET COUNT 211 10^3/uL (130-450); RED BLOOD COUNT 4.45 10^6/uL (4.70-6.10); RED CELL DISTRIBUTION WIDTH 14.7 % (12.0-15.0); WHITE BLOOD COUNT 9.3 x10^3/uL (4.8-10.8)
--- NOTE | 2024-05-06 15:06 | XRAY Report ---
PROCEDURE: Chest 1V INDICATIONS: dyspnea TECHNIQUE: One view of the chest was acquired. COMPARISON: 04/19/2024. FINDINGS: Surgical changes and devices: Unchanged midline sternotomy and numerous mediastinal clips, presumed CABG. Lungs and pleura: No pleural effusions or pneumothorax. Question very mild interstitial pulmonary ed maci. Mediastinum: Mediastinal contours appear normal. Heart size is normal. Bones and chest wall: No suspicious bony lesions. Overlying soft tissues appear unremarkable. IMPRESSION: Question very mild congestive heart failure exacerbation. Reviewed by: Eliezer Morillo MD on 05/06/2024 3:05 PM PDT Approved by: Eliezer Morillo MD on 05/06/2024 3:05 PM PDT Station ID: [id number]
--- NOTE | 2024-05-06 15:25 | CT Report ---
PROCEDURE: Head WO INDICATIONS: head inj TECHNIQUE: Noncontrast 4.5 mm thick angled axial sections acquired from the foramen magnum to the vertex. For r adiation dose reduction, the following was used: automated exposure control, adjustment of mA and/or kV according to patient size. COMPARISON: 09/11/2019 FINDINGS: Image quality: Diagnostic. CSF spaces: Basal cisterns are patent. No extra-axial fluid collections. Ventricles are normal in size and shape. Brain: No midline shift. No intracranial masses or hemorrhage. No mass effect. Sanchez-white matter i nterface is normal. There cerebral volume loss for age with resultant ventricular and sulcal prominen ce. There are periventricular and deep white matter chronic small vessel ischemic changes. Atheroscle rotic calcifications are noted in the intracranial segments of the bilateral internal carotid arterie s. Skull and face: Calvarium and visualized facial bones are intact, without suspicious lesions. Sinuses: Visualized sinuses and mastoids are clear. IMPRESSION: No acute intracranial pathology. No acute calvarial fractures. Age-related senescent changes and sequela of chronic small vessel ischemic disease. Reviewed by: Austin Tran MD on 05/06/2024 2:23 PM KAELA Approved by: Austin Tran MD on 05/06/2024 2:23 PM AKDT Station ID: [id number]
[2024-05-06 15:34] LABS: MAGNESIUM 1.9 mg/dL (1.7-2.3)
[2024-05-06 15:41] LABS: ALBUMIN 3.9 g/dL (3.2-5.5); ALBUMIN/GLOBULIN RATIO 2.2 (1.0-2.2); BILIRUBIN,TOTAL 0.9 mg/dL (0.2-1.0); CALCIUM 9.5 mg/dL (8.5-10.3); CREATININE 2.4 mg/dL (0.6-1.3); POTASSIUM 3.3 mmol/L (3.5-4.5); TOTAL PROTEIN 5.7 g/dL (6.4-8.9)
[2024-05-06] MEDS: diltiaZEM INJ 5 MG/ML VIAL IVP STA (15:53)
[2024-05-06] MEDS: DOBUTamine 500 MG/250 ML 500 MG/250 ML BAG IV STA (17:16)
[2024-05-06] MEDS ORDERED: ACETAMINOPHEN 500 MG TABLET PO PRN (17:50)
[2024-05-06] MEDS ORDERED: ONDANSETRON 4 MG/2 ML VIAL IVP PRN (17:50)
[2024-05-06] MEDS: DIGOXIN 500 MCG/2 ML AMP IVP STA (19:43)
[2024-05-06] MEDS: METOPROLOL SUCCINATE 50 MG TABLET PO SCH (21:16)
[2024-05-06] MEDS: APIXABAN 5 MG TABLET PO SCH (21:17)
[2024-05-07 06:43] LABS: BASOPHILS % (AUTO) 0.3 %; EOSINOPHILS # (AUTO) 0.1 10^3/uL (0.0-0.7); EOSINOPHILS % (AUTO) 0.8 %; HGB - HEMOGLOBIN 13.1 g/dL (14.0-18.0); LYMPHOCYTES # (AUTO) 0.4 10^3/uL (1.5-3.5); LYMPHOCYTES % (AUTO) 5.6 %; MEAN CORPUSCULAR HEMOGLOBIN 32.5 pg (27.0-31.0); MEAN CORPUSCULAR HGB CONC 31.2 g/dL (32.0-36.0); MEAN CORPUSCULAR VOLUME 104.2 fL (80.0-94.0); MEAN PLATELET VOLUME 11.1 fL (7.4-11.4); MONOCYTES # (AUTO) 0.7 10^3/uL (0.0-1.0); MONOCYTES % (AUTO) 10.7 %; NEUTROPHILS # (AUTO) 5.3 10^3/uL (1.5-6.6); NEUTROPHILS % (AUTO) 81.5 %; PLT - PLATELET COUNT 148 10^3/uL (130-450); RED BLOOD COUNT 4.03 10^6/uL (4.70-6.10); RED CELL DISTRIBUTION WIDTH 14.6 % (12.0-15.0); WHITE BLOOD COUNT 6.6 x10^3/uL (4.8-10.8)
[2024-05-07 06:59] LABS: CALCIUM 9.1 mg/dL (8.5-10.3); CREATININE 2.2 mg/dL (0.6-1.3); POTASSIUM 3.5 mmol/L (3.5-4.5)
--- NOTE | 2024-05-07 08:03 | ED Physician Documentation ---
ED Addendum - Addendum Addendum: 05/07/24 08:01 The patient was stable overnight. He remained on the static dose dobutamine. Nursing reports he did have a diuresis of between 5 and 600 mL (they reported over 350 initially and then another 150 and then some more). His blood pressure is good with the last reading 144/72. Repeat labs were done this morning. Main electrolytes are without any notable change. His creatinine has improved slightly from 2.4-2.2. He is comfortable. We are awaiting to hear back from gerri Herrera a low bit later this morning with hopefully opening bed status as they discharge.
[2024-05-07] MEDS: PANTOPRAZOLE 40 MG TABLET PO SCH (08:40)
[2024-05-07] MEDS: DULoxetine 20 MG CAPSULE PO SCH (08:40)
[2024-05-07] MEDS: DOBUTamine 500 MG/250 ML 500 MG/250 ML BAG IV STA (09:18)
--- NOTE | 2024-05-07 13:16 | PHARMACY PROGRESS NOTE ---
- Best Possible Medication History Admit Date and Time: Processed by: Pharmacy Medications reviewed in ED?: Yes Medication History completed: Yes Patient Interview: Completed As the person ultimately responsible for medication therapy, providers are able to order a medication from an existing home medication list in [facility] via the "Reconcile Routine" prior to Confirmation of that medication by customer support assistant. Such practice is discouraged except when the physician, in their clinical judgment, deems that a medical need exists for a medication without regard to previous use.
--- NOTE | 2024-05-07 13:26 | ED Physician Documentation ---
ED Addendum - Addendum Addendum: 05/07/24 13:25 84-year-old Godfrey Byrd is left in my care at shift change anticipating a bed for decompensated heart failure. He has been placed on a dobutamine drip here. He has an accepting physician at [facility] in [place] and a bed has become available today. This afternoon I evaluated the patient and found him to be comfortable breathing well and stable. He is stable for transfer.
[2024-05-07 13:29] VITALS: O2SAT 99
[2024-05-07 15:20] VITALS: BP 121/94
== END 2024-05-07 15:05 | disposition short-term general hospital (02) ==
LOC: EDUNIT# → ED 14:32
DX: I48.19 Other persistent atrial fibrillation (principal); I13.0 Hypertensive heart and chronic kidney disease with heart failure and stage 1 through stage 4 chronic kidney disease, or unspecified chronic kidney disease; I50.23 Acute on chronic systolic (congestive) heart failure; N18.9 Chronic kidney disease, unspecified; Z66 Do not resuscitate; E78.00 Pure hypercholesterolemia, unspecified; I25.10 Atherosclerotic heart disease of native coronary artery without angina pectoris; J44.9 Chronic obstructive pulmonary disease, unspecified; M06.9 Rheumatoid arthritis, unspecified; Z79.01 Long term (current) use of anticoagulants; Z95.1 Presence of aortocoronary bypass graft; Z79.82 Long term (current) use of aspirin; Z79.899 Other long term (current) drug therapy; I42.9 Cardiomyopathy, unspecified
CPT/HCPCS: 36415; 70450; 71045; 80048; 80053; 83735; 83880; 84484; 85025; 93005; 96365; 96366; 96375; 99291; A9270; J1250

== ENCOUNTER 2024-05-07 15:12 | Outpatient (CLI) | payer MEDICARE, OTHER | END 2024-05-07 23:59 | disposition short-term general hospital (02) | LOC: EMS 15:12 | PROVIDERS: ATTEND Emergency Medicine | DX: I13.0 Hypertensive heart and chronic kidney disease with heart failure and stage 1 through stage 4 chronic kidney disease, or unspecified chronic kidney disease (principal); N18.9 Chronic kidney disease, unspecified; I50.9 Heart failure, unspecified; I48.91 Unspecified atrial fibrillation | CPT/HCPCS: A0425; A0426 ==

== ENCOUNTER 2024-05-13 17:47 | Outpatient (CLI) | payer MEDICARE, OTHER | END 2024-05-13 17:48 | disposition left against medical advice (07) | LOC: EMS 17:47 | DX: Z03.89 Encounter for observation for other suspected diseases and conditions ruled out (principal) ==

== ENCOUNTER 2025-06-26 23:23 | Observation (INO) ==
[2025-06-26 23:44] LABS: HCT - HEMATOCRIT 44.8 % (42.0-52.0); HGB - HEMOGLOBIN 13.7 g/dL (14.0-18.0); MEAN PLATELET VOLUME 10.2 fL (7.4-11.4); NRBC ABSOLUTE COUNT (AUTO) 0.00 x10^3/uL; NUCLEATED RED BLOOD CELLS AUTO 0.0 /100WBC; PLT - PLATELET COUNT 204 10^3/uL (130-450); RED CELL DISTRIBUTION WIDTH 18.0 % (12.0-15.0)
--- OUTSIDE RECORDS SUMMARY | 2025-06-26 23:47 | EXTERNAL MEDICAL SUMMARY RPT | Continuity of Care Document ---
Author Organization [facility] Address [address] [place] [id number] Phone Problems date description facility 2025-04-03 14:31 Chronic kidney disease, stage 4 (severe) [employer] [facility] 2025-04-03 16:42 [facility] 2025-04-03 16:42 Other specified soft tissue dis orders [facility] 2025-04-03 16:42 Renal tubulo-interstitial disea ses (N10-N16) [facility] 2025-04-03 16:42 Chronic kidney disease, stage 4 (severe) [facility] 2025-04-03 16:42 [facility], [facility] 2025-04-03 16:42 Cough, unspecified [facility] 2025-04-03 16:42 Chest pain, unspecified [facility] 2025-04-03 16:42 [facility], [facility] 2025-04-03 16:42 Altered mental status, unspecif ied [facility] 2025-04-03 16:42 Weakness [facility] 2025-04-03 16:42 Other fatigue [facility] 2025-04-03 16:42 Unspecified injury of head, ini tial encounter [facility] 2025-05-07 19:03 Persistent atrial fibrillation [facility] 2025-05-07 19:03 Other persistent atrial fibrill ation [facility] 2025-05-09 10:26 Insomnia, unspecified [facility] 2025-05-09 10:26 Persistent atrial fibrillation [facility] 2025-05-09 10:26 Other persistent atrial fibrill ation [facility] 2025-05-09 10:26 Orthopnea [facility] 2025-05-09 10:26 Abnormal weight loss [facility] 2025-05-24 11:36 Hypotension, unspecified [facility] 2025-05-24 11:36 Pruritus, unspecified [facility] 2025-05-24 11:36 Chronic kidney disease, stage 4 (severe) [facility] Results/Labs test date facility value unit notes Result panel 1 NUCLEATED RED BLOOD CELLS AUTO 2025-05-07 16:24 [facility] 0.0 /100wbc (missing) BASOPHILS # (AUTO) 2025-05-07 16:24 [facility] 0.0 10 3/ul (missing) NRBC ABSOLUTE COUNT (AUTO) 2025-05-07 16:24 [facility] 0.00 x10 3/ul (missing) EOSINOPHILS # (AUTO) 2025-05-07 16:24 [facility] 0.1 10 3/ul (missing) LYMPHOCYTES # (AUTO) 2025-05-07 16:24 [facility] 0.5 10 3/ul (missing) BILIRUBIN,TOTAL 2025-05-07 16:24 [facility] 0.8 mg/dl As of February 2023 testing method has changed, this may include reference ranges. MONOCYTES # (AUTO) 2025-05-07 16:24 [facility] 0.9 10 3/ul (missing) ALBUMIN/GLOBULIN RATIO 2025-05-07 16:24 [facility] 1.5 (missing) (missing) CHLORIDE 2025-05-07 16:24 [facility] 104 mmol/l As of February 2023 testing method has changed, this may include reference ranges. GLUCOSE 2025-05-07 16:24 [facility] 108 mg/dl As of February 2023 testing method has changed, this may include reference ranges. LIPASE 2025-05-07 16:24 [facility] 11 u/l As of February 2023 testing method has changed, this may include reference ranges. HGB - HEMOGLOBIN 2025-05-07 16:24 [facility] 12.5 g/dl (missing) ALKALINE PHOSPHATASE 2025-05-07 16:24 [facility] 136 iu/l As of February 2023 testing method has changed, this may include reference ranges. SODIUM 2025-05-07 16:24 [facility] 140 mmol/l (missing) RED CELL DISTRIBUTION WIDTH 2025-05-07 16:24 [facility] 18.6 % (missing) CREATININE 2025-05-07 16:24 [facility] 2.3 mg/dl As of February 2023 testing method has changed, this may include reference ranges. GLOBULIN 2025-05-07 16:24 [facility] 2.7 g/dl (missing) PLT - PLATELET COUNT 2025-05-07 16:24 [facility] 249 10 3/ul (missing) GFR - MDRD 2025-05-07 16:24 [facility] 27 (missing) The IDMS-traceable MDRD Study Equation has been validated extensively in and populations between the ages of 18 and 70 with impaired kidney function (eGFR < 60 mL/min/1.73m2) and has shown good performance for patients with all common causes of kidney disease. Although this equation has not been validated for patients older than 70, an MDRD-derived eGFR may still be a useful tool for providers caring for patients older than 70. References: http://www.nkdep. nih.gov/lab-evalu ation/gfr/creatin ine-stand ardization, last updated October 2011. AST ASPARTATE AMINOTRANSFERASE 2025-05-07 16:24 [facility] 27 iu/l As of February 2023 testing method has changed, this may include reference ranges. CARBON DIOXIDE - CO2 2025-05-07 16:24 [facility] 28 mmol/l As of February 2023 testing method has changed, this may include reference ranges. MEAN CORPUSCULAR HEMOGLOBIN 2025-05-07 16:24 [facility] 29.7 pg (missing) MEAN CORPUSCULAR HGB CONC 2025-05-07 16:24 [facility] 31.2 g/dl (missing) TROPONIN I HIGH SENSITIVITY 2025-05-07 16:24 [facility] 35.7 ng/l Critical result TNIHS 35.7 pg/mL called to and read back by JOSE LUIS/GUADALUPE Nichols RN at 07-May-2025 16:59 by [place]_fannie. A HIGH SENSITIVITY TROPONIN result of >= 14.9 ng/L for females is considered POSITIVE. A HIGH SENSITIVITY TROPONIN result of >= 19.8 ng/L for males is considered POSITIVE. A HIGH SENSITIVITY TROPONIN result of >= 17.9 ng/L for unspecified is considered POSITIVE. ALT ALANINE AMINOTRANSFERASE 2025-05-07 16:24 [facility] 36 iu/l As of February 2023 testing method has changed, this may include reference ranges. ALBUMIN 2025-05-07 16:24 [facility] 4.1 g/dl As of February 2023 testing method has changed, this may include reference ranges. RED BLOOD COUNT 2025-05-07 16:24 [facility] 4.21 10 6/ul (missing) POTASSIUM 2025-05-07 16:24 [facility] 4.3 mmol/l As of February 2023 testing method has changed, this may include reference ranges. HCT - HEMATOCRIT 2025-05-07 16:24 [facility] 40.1 % (missing) BUN - BLOOD UREA NITROGEN 2025-05-07 16:24 [facility] 54 mg/dl As of February 2023 testing method has changed, this may include reference ranges. NEUTROPHILS # (AUTO) 2025-05-07 16:24 [facility] 6.5 10 3/ul (missing) TOTAL PROTEIN 2025-05-07 16:24 [facility] 6.8 g/dl As of February 2023 testing method has changed, this may include reference ranges. ANION GAP 2025-05-07 16:24 [facility] 8.0 (missing) (missing) WHITE BLOOD COUNT 2025-05-07 16:24 [facility] 8.0 x10 3/ul (missing) CALCIUM 2025-05-07 16:24 [facility] 9.5 mg/dl As of February 2023 testing method has changed, this may include reference ranges. MEAN PLATELET VOLUME 2025-05-07 16:24 [facility] 9.7 fl (missing) MEAN CORPUSCULAR VOLUME 2025-05-07 16:24 [facility] 95.2 fl (missing) Result panel 2 TROPONIN I HIGH SENSITIVITY 2025-05-07 18:06 [facility] 29.3 ng/l Critical result TNIHS 29.3 pg/mL called to and read back by JOSE LUIS/GUADALUPE Nichols RN at 07-May-2025 18:42 by _fannie. A HIGH SENSITIVITY TROPONIN result of >= 14.9 ng/L for females is considered POSITIVE. A HIGH SENSITIVITY TROPONIN result of >= 19.8 ng/L for males is considered POSITIVE. A HIGH SENSITIVITY TROPONIN result of >= 17.9 ng/L for unspecified is considered POSITIVE. Social History date description facility
[2025-06-27] LABS: ALT ALANINE AMINOTRANSFERASE 11 IU/L (10-60); AST ASPARTATE AMINOTRANSFERASE 16 IU/L (10-42); BUN - BLOOD UREA NITROGEN 68 mg/dL (6-20); CARBON DIOXIDE - CO2 30 mmol/L (21-32); CREATININE 2.6 mg/dL (0.6-1.3); ETOH - ETHANOL < 10.0 mg/dL; GFR - MDRD 24 (>89)
[2025-06-27 00:41] LABS: OCCULT BLOOD,URINE TRACE (NEGATIVE)
[2025-06-27 00:42] LABS: AMORPHOUS SEDIMENT,UR Few /LPF; AMPHETAMINE SCREEN,URINE NEGATIVE (NEGATIVE); BARBITURATE SCREEN,UR NEGATIVE (NEGATIVE); BENZODIAZEPINES SCREEN, URINE NEGATIVE (NEGATIVE); BUPRENORPHINE SCREEN, URINE NEGATIVE (NEGATIVE); COCAINE SCREEN URINE NEGATIVE (NEGATIVE); GLUCOSE, URINE (UA) 100 mg/dL (NEGATIVE); KETONES,URINE (UA) NEGATIVE (NEGATIVE); METHADONE SCREEN, URINE NEGATIVE (NEGATIVE); METHAMPHETAMINES SCREEN, URINE NEGATIVE (NEGATIVE); OPIATE SCREEN, URINE NEGATIVE (NEGATIVE); SQUAMOUS EPITHELIAL CELL,UR NONE SEEN (<= Few); THC CANNABINOID SCREEN, URINE NEGATIVE (NEGATIVE)
--- NOTE | 2025-06-27 01:00 | ED Physician Documentation ---
History of Present Illness Stated complaint Stated Complaint: AMS/ Chief complaint Chief Complaint: Neuro History obtained from History obtained from: EMS Additonal information Additional information: 85yM presents brought in from home with report of confusion today. patient normally AOX3. states he gets confused when he has a uti. further history limited by patient ams Meds/Allgy Home Medications Ambulatory Orders Medication Instructions Recorded Confirmed duloxetine 20 mg capsule,delayed 40 mg PO DAILY 05/24/25 release leflunomide 10 mg tablet 10 mg PO DAILY 04/18/2412/13 isosorbide mononitrate 60 mg 60 mg PO DAILY 04/19/24 0 05/07/25 tablet,extended release 24 hr Held on 05/24/25. Instructions: Not taking apixaban 2.5 mg tablet (Eliquis) 2.5 mg PO BID #60 tab s 04/20/24 05/24/25 furosemide 40 mg tablet 40 mg PO DAILY edema, CHF #3 0 tabs 04/20/24 05/07/25 Held on 05/24/25. Instructions: Not taking metoprolol succinate 50 mg 50 mg PO BID atrial fibrill ation 05/06/24 05/07/25 tablet,extended release 24 hr Held on 05/24/25. Instructions: Therapy Completed evolocumab 140 mg/mL subcutaneous 140 mg subcut Q14D 0 05/07/24 05/07/25 pen injector (Kapil Gross) Held on 05/24/25. Instructions: Not taking tramadol 50 mg tablet 50 mg PO BID PRN Pain 1-4 05/07/25 Held on 05/24/25. Instructions: Duplicate amlodipine 10 mg tablet 10 mg PO DAILY 06/12/2404/21 Held on 05/24/25. Instructions: Not taking digoxin 125 mcg (0.125 mg) tablet 0.0625 mg PO .EVERY OTHER DAY 06/12/24 05/07/25 Held on 05/24/25. Instructions: Not taking empagliflozin 10 mg tablet 10 mg PO DAILY 06/12/2412/13 (Jardiance) omeprazole 20 mg capsule,delayed 20 mg PO DAILY 05/24/25 release sacubitril 24 mg-valsartan 26 mg 1 tab PO BID 06/12/24 05/07/25 tablet (Entresto) Held on 05/24/25. Instructions: Duplicate metoprolol succinate 50 mg 50 mg PO DAILY #30 tabs tablet,extended release 24 hr Held on 05/24/25. Instructions: Therapy Completed bisacodyl 5 mg tablet,delayed 5 mg PO QDAY 05/24/25 release gabapentin 600 mg tablet 600 mg PO QDAY 05/24/2512/13 hydroxyzine HCl 25 mg tablet 25 mg PO .qhs PRN for itc frandy at 05/24/25 05/24/25 bedtime #30 tabs prednisone 5 mg tablet 5 mg PO QDAY 05/24/25 sacubitril 24 mg-valsartan 26 mg 0.5 tab PO BID 05/24/25 tablet (Entresto) terbinafine HCl 250 mg tablet 250 mg PO QDAY 05/24/25 05/24/25 tramadol 50 mg tablet 50 mg PO Q6H PRN 05/24/25 triamcinolone acetonide 0.025 % 1 applic topical BID P RN for 05/28/25 topical cream itching on back and chest #8 0 grams Allergies Allergies Allergy/AdvReac Type Severity Reaction Status Date / Time No Known Drug Allergies Allergy Verified 06/26/25 23:28 PFSH Active Problems All Active Problems (Updated 06/27/25 @ 01:00 by Shelley Sage MD) Encephalopathy (Acute) Hypotension, unspecified (Acute) Generalized pruritus (Acute) Chronic kidney disease, stage 4 (severe) (Acute) Bladder cancer (Acute) Congestive heart failure (Acute) Right upper lobe pulmonary nodule (Acute) Pneumonia (Acute) Pleural effusion (Acute) Hyperkalemia (Acute) Hypoxia (Acute) Alcohol abuse (Acute) Atrial fibrillation (Acute) Tobacco dependence (Chronic) Rheumatoid arthritis (Chronic) 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 (Date/Year): 50 years ago Number of Years Smoked: 20 Do you dip or chew tobacco?: No Living arrangement: At home Living Condition: With spouse/s.o. Level: Independent Do you feel safe in your home environment?: Yes History of physical, verbal, emotional, or financial abuse?: No POLST Patient has POLST: No Exam Exam Vital Signs: Vital Signs x48h Temp Pulse Resp BP Pulse Ox 06/27/25 00:04 87 23 125/67 98 06/26/25 23:28 36.8 C 72 20 120/64 95 Constitutional elderly appearing HENMT normocephalic, head/scalp atraumatic and oropharynx normal Eyes PERRL and EOMs intact bilaterally Neck/C-Spine visual inspection normal Respiratory breath sounds equal bilaterally, normal respiratory effort and clear to auscultation bilaterally Cardiovascular normal heart rate noted and regular rhythm noted Gastrointestinal abdomen normal to inspection and abdomen soft to palpation suprapubic discomfort to palpation Genitourinary no CVA tenderness Results Vitals Vitals: Vital Signs - 24 hr 06/26/25 23:28 06/27/25 00:04 Temperature 36.8 C Temperature Source Oral Pulse Rate 72 87 Respiratory Rate 20 23 Blood Pressure 120/64 125/67 O2 Saturation 95 98 O2 Source Room air Room air Pain Intensity 0 Oxygen O2 Source Room air Labs Labs: Laboratory Tests 06/26/25 06/26/25 06/27/25 23:37 23:46 00:02 WBC 11.7 H RBC 4.70 Hgb 13.7 L Hct 44.8 MCV 95.3 H MCH 29.1 MCHC 30.6 L RDW 18.0 H Plt Count 204 MPV 10.2 Neut # (Auto) 9.3 H Lymph # (Auto) 0.5 L [place] # (Auto) 1.3 H Eos # (Auto) 0.5 Baso # (Auto) 0.1 Absolute Nucleated RBC 0.00 Nucleated RBC % 0.0 Sodium 139 Potassium 4.1 Chloride 99 L Carbon Dioxide 30 Anion Gap 10.0 BUN 68 H Creatinine 2.6 H Estimated GFR (MDRD) 24 L Glucose 111 H Calcium 9.2 Total Bilirubin 0.9 AST 16 ALT 11 Alkaline Phosphatase 71 Ammonia 36.8 Total Protein 6.8 Albumin 4.0 Globulin 2.8 Albumin/Globulin Ratio 1.4 Lipase < 10 L TSH 2.07 Urine Color YELLOW Urine Clarity HAZY Urine pH 7.0 Ur Specific [place] 1.005 Urine Protein NEGATIVE Urine Glucose (UA) 100 H Urine Ketones NEGATIVE Urine Occult Blood TRACE Urine Nitrite POSITIVE H Urine Bilirubin NEGATIVE Urine Urobilinogen 0.2 (NORMAL) Ur Leukocyte Esterase MODERATE H Urine RBC 11-25 H Urine WBC 11-25 H Ur Squamous Epith Cells NONE SEEN Amorphous Sediment Few Urine Bacteria Many H Urine Culture Comments INDICATED Urine Opiates Screen NEGATIVE Ur Buprenorphine Scrn NEGATIVE Ur Oxycodone Screen NEGATIVE Urine Methadone Screen NEGATIVE Ur Barbiturates Screen NEGATIVE Ur Tricyclics Screen NEGATIVE Ur Phencyclidine Scrn NEGATIVE Ur Amphetamine Screen NEGATIVE U Methamphetamines Scrn NEGATIVE U Benzodiazepines Scrn NEGATIVE Urine Cocaine Screen NEGATIVE U Cannabinoids Screen NEGATIVE Ur Drug Screen Comment CUTOFF CONC BELOW: Ethyl Alcohol < 10.0 PD Medical Decision Making ED course ED course: 85yM p/w confusion , found to have uti on labwork. he has brittany on ckd as well with cre 2.6 (baseline 2.4). plan to admit for iv antibiotics and monitoring. Discharge Plan Discharge Patient Disposition: 66 [facility] DC/Xfer Condition: Fair Clinical Impression: Encephalopathy UTI (urinary tract infection) Qualifiers: Urinary tract infection type: acute pyelonephritis Qualified Code(s): N10 - Acute pyelonephritis Prescriptions: No Action triamcinolone acetonide 0.025 % cream 1 applic topical BID PRN (Reason: for itching on back and chest) Qty: 80 0RF Rx Instructions: ; limit use to 2 weeks leflunomide 10 MG tablet 10 mg PO DAILY duloxetine 20 MG capsule,delayed release(DR/EC) 40 mg PO DAILY Patient Comments: TAKE TWO CAPSULES BY MOUTH ONCE DAILY. CAN TAKE BOTH DOSES AT THE SAME TIME isosorbide mononitrate 60 MG tablet extended release 24 hr 60 mg PO DAILY Eliquis 2.5 MG tablet 2.5 mg PO BID Qty: 60 0RF furosemide 40 MG tablet 40 mg PO DAILY Qty: 30 0RF metoprolol succinate 50 MG tablet extended release 24 hr 50 mg PO BID tramadol 50 MG tablet 50 mg PO BID PRN (Reason: Pain 1-4) Repatha SureClick 140 MG/ML pen injector 140 mg subcut Q14D Rx Instructions: FRIDAYS amlodipine 10 mg tablet 10 mg PO DAILY digoxin 125 mcg (0.125 mg) tablet 0.0625 mg PO .EVERY OTHER DAY Jardiance 10 mg tablet 10 mg PO DAILY omeprazole 20 mg capsule,delayed release(DR/EC) 20 mg PO DAILY Patient Comments: Take 1 capsule by mouth daily 30 minutes prior to a meal. sacubitril-valsartan [Entresto] 24-26 mg tablet 1 tab PO BID gabapentin 600 mg tablet 600 mg PO QDAY Patient Comments: TAKE ONE TABLET BY MOUTH TWICE DAILY metoprolol succinate 50 mg tablet extended release 24 hr 50 mg PO DAILY Qty: 30 2RF prednisone 5 mg tablet 5 mg PO QDAY terbinafine HCl 250 mg tablet 250 mg PO QDAY tramadol 50 mg tablet 50 mg PO Q6H PRN bisacodyl 5 mg tablet,delayed release (DR/EC) 5 mg PO QDAY sacubitril-valsartan [Entresto] 24-26 mg tablet 0.5 tab PO BID hydroxyzine HCl 25 mg tablet 25 mg PO .qhs PRN (Reason: for itching at bedtime) Qty: 30 0RF Print Language: Faroese
[2025-06-27] MEDS ORDERED: cefTRIAXone 1 GM VIAL ONE (01:09)
[2025-06-27] MEDS: cefTRIAXone 1 GM in SODIUM CHLORIDE 0.9% MINIBAG 100 ML IV STA (01:11)
--- NOTE | 2025-06-27 01:50 | HISTORY & PHYSICAL EXAMINATION ---
Chief Complaint Chief Complaint Chief Complaint: altered mental status History of Present Illness History of Present Illness HPI Comment/Other: Mr. 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 He was broughtin to the ED for evalaution of lethargy and confusion. Family noticed a change in his mental status prior to arrival. he did not have any noted precipitating events and was in his usualy state of health prior to this occurance. In the Ed, evaluation was consistent with acute cystitis. he did not have any focal neurologic deficits and vitals were stable. Patient does not endorse any complaints. He is more alert and appears closer to his baseline then initial presentation. This visit was performed using telehealth tools, including phone and live-video. patient provided verbal consent to complete this telemedicine encounter. During the time my interview and evaluation, the patient was located at [facility] in the [facility], I was located in [place]. Review of Systems Status of ROS: 10 or more systems reviewed and unremarkable except as noted in history and below PFSH Active Problems All Active Problems (Updated 06/27/25 @ 01:00 by Shelley Sage MD) Encephalopathy (Acute) Hypotension, unspecified (Acute) Generalized pruritus (Acute) Chronic kidney disease, stage 4 (severe) (Acute) Bladder cancer (Acute) Congestive heart failure (Acute) Right upper lobe pulmonary nodule (Acute) Pneumonia (Acute) Pleural effusion (Acute) Hyperkalemia (Acute) Hypoxia (Acute) Alcohol abuse (Acute) Atrial fibrillation (Acute) Tobacco dependence (Chronic) Rheumatoid arthritis (Chronic) 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 (Date/Year): 50 years ago Number of Years Smoked: 20 Do you dip or chew tobacco?: No Living arrangement: At home Living Condition: With spouse/s.o. Level: Independent Do you feel safe in your home environment?: Yes History of physical, verbal, emotional, or financial abuse?: No POLST Patient has POLST: No Meds/Allgy Home Medications Ambulatory Orders Medication Instructions Recorded Confirmed duloxetine 20 mg capsule,delayed 40 mg PO DAILY 05/24/25 release leflunomide 10 mg tablet 10 mg PO DAILY 04/18/2412/13 isosorbide mononitrate 60 mg 60 mg PO DAILY 04/19/24 0 05/07/25 tablet,extended release 24 hr Held on 05/24/25. Instructions: Not taking apixaban 2.5 mg tablet (Eliquis) 2.5 mg PO BID #60 tab s 04/20/24 05/24/25 furosemide 40 mg tablet 40 mg PO DAILY edema, CHF #3 0 tabs 04/20/24 05/07/25 Held on 05/24/25. Instructions: Not taking metoprolol succinate 50 mg 50 mg PO BID atrial fibrill ation 05/06/24 05/07/25 tablet,extended release 24 hr Held on 05/24/25. Instructions: Therapy Completed evolocumab 140 mg/mL subcutaneous 140 mg subcut Q14D 0 05/07/24 05/07/25 pen injector (Kapil Gross) Held on 05/24/25. Instructions: Not taking tramadol 50 mg tablet 50 mg PO BID PRN Pain 1-4 05/07/25 Held on 05/24/25. Instructions: Duplicate amlodipine 10 mg tablet 10 mg PO DAILY 06/12/2404/21 Held on 05/24/25. Instructions: Not taking digoxin 125 mcg (0.125 mg) tablet 0.0625 mg PO .EVERY OTHER DAY 06/12/24 05/07/25 Held on 05/24/25. Instructions: Not taking empagliflozin 10 mg tablet 10 mg PO DAILY 06/12/2412/13 (Jardiance) omeprazole 20 mg capsule,delayed 20 mg PO DAILY 05/24/25 release sacubitril 24 mg-valsartan 26 mg 1 tab PO BID 06/12/24 05/07/25 tablet (Entresto) Held on 05/24/25. Instructions: Duplicate metoprolol succinate 50 mg 50 mg PO DAILY #30 tabs tablet,extended release 24 hr Held on 05/24/25. Instructions: Therapy Completed bisacodyl 5 mg tablet,delayed 5 mg PO QDAY 05/24/25 release gabapentin 600 mg tablet 600 mg PO QDAY 05/24/2512/13 hydroxyzine HCl 25 mg tablet 25 mg PO .qhs PRN for itc frandy at 05/24/25 05/24/25 bedtime #30 tabs prednisone 5 mg tablet 5 mg PO QDAY 05/24/25 sacubitril 24 mg-valsartan 26 mg 0.5 tab PO BID 05/24/25 tablet (Entresto) terbinafine HCl 250 mg tablet 250 mg PO QDAY 05/24/25 05/24/25 tramadol 50 mg tablet 50 mg PO Q6H PRN 05/24/25 triamcinolone acetonide 0.025 % 1 applic topical BID P RN for 05/28/25 topical cream itching on back and chest #8 0 grams Allergies Allergies Allergy/AdvReac Type Severity Reaction Status Date / Time No Known Drug Allergies Allergy Verified 06/26/25 23:28 Exam Exam Vital Signs: Vital Signs x48h Temp Pulse Resp BP Pulse Ox 06/27/25 00:04 87 23 125/67 98 06/26/25 23:28 36.8 C 72 20 120/64 95 Examination as recorded is based on patient and staff reported information as well as peripheral observation. Constitutional normal general appearance, no apparent distress and limitations noted (altered mental status) [facility] normocephalic Eyes PERRL Cardiovascular normal heart rate noted Neurology no focal motor deficit noted Psychiatry mental status abnormal, orientation abnormal (disoriented to time) and memory abnormal Conclusion/Plan Problem List (1) UTI (urinary tract infection): Plan: UA reviewed. leuk. esterase, nitrite positive. bacteria present. -will continue with empiric antibioitcs: rocephin. monitor for clinical response and toxicity -cultures pending. tailor antibiotics to culture results -trend inflammatory markers of infection -gentle fluids as needed -monitor on telmetry Qualifiers: Urinary tract infection type: acute pyelonephritis Qualified Code(s): N 10 - Acute pyelonephritis (2) Encephalopathy: Plan: metabolic encephalopathy secondary to acute cystitis -no focal neurologic deficits, continue to monitor for improvement towards mentation baseline -avoid medications that would worsen sensorium -fall precuations (3) Chronic kidney disease, stage 4 (severe): Plan: renal funciton at baseline -monitor uop -avoid nephrotoxic regimen as appropriate (4) Atrial fibrillation: Plan: home medications reviewed will resume metoprolol 50mg for rate control -will resume eliquis for anticoagulation, monitor for signs of bleeding Qualifiers: Atrial fibrillation type: persistent (not longstanding) Qualified Code(s): I48.19 - Other persistent atrial fibrillation; I48.1 - Persistent atrial fibrillation Plan Patient will be admitted to the hospitalist service under outpatient-observation status. less than 2 midnights expected for management. Lab Results Lab results reviewed: Yes 06/26/25 23:37 06/26/25 23:37 Core Measures Anticipated LOS I expect patient to be DC'd or transferred within 96 hours.: Yes DVT/VTE - Prophylaxis VTE/DVT Device ordered at admit?: Yes Telemedicine Consult Details Provider Location & Consult Time Telemedicine consultation conducted via videoconferencing?: Yes
[2025-06-27] MEDS ORDERED: SODIUM CHLORIDE FLUSH 0.9% 10 ML SYRINGE IVP PRN (02:20)
[2025-06-27] MEDS ORDERED: ACETAMINOPHEN 325 MG TABLET PO PRN (02:20)
[2025-06-27] MEDS ORDERED: ONDANSETRON 4 MG/2 ML VIAL IVP PRN (02:20)
[2025-06-27] MEDS: SODIUM CHLORIDE 0.9% 1,000 ML IV SCH (02:48)
[2025-06-27] MEDS: SODIUM CHLORIDE 0.9% 500 ML IV ONE (02:48)
[2025-06-27 08:00] LABS: HCT - HEMATOCRIT 45.9 % (42.0-52.0); HGB - HEMOGLOBIN 14.2 g/dL (14.0-18.0); MEAN PLATELET VOLUME 9.4 fL (7.4-11.4); PLT - PLATELET COUNT 199.0 10^3/uL (130-450); RED CELL DISTRIBUTION WIDTH 17.7 % (12.0-15.0)
[2025-06-27] MEDS: APIXABAN 2.5 MG TABLET PO SCH (08:13)
[2025-06-27] MEDS: EMPAGLIFLOZIN 10 MG TABLET PO SCH (08:13)
[2025-06-27] MEDS: METOPROLOL SUCCINATE 50 MG TABLET PO SCH (08:13)
[2025-06-27] MEDS: ISOSORBIDE MONONITRATE ER 30 MG TABLET PO SCH (08:14)
[2025-06-27 08:17] LABS: BUN - BLOOD UREA NITROGEN 66.0 mg/dL (6-20); CARBON DIOXIDE - CO2 35.0 mmol/L (21-32); CREATININE 2.6 mg/dL (0.6-1.3); GFR - MDRD 24.0 (>89)
[2025-06-27 08:22] VITALS: BP 150/92; TEMP 97.5; O2SAT 95
--- NOTE | 2025-06-27 09:13 | Discharge Summary ---
"Discharge Summary Admit Date: 06/27/25 Discharge Date: 06/27/25 Primary Care Provider: Kadeem Coulter - unknown provider Discharge Facility [facility] DIAGNOSES Discharge Diagnoses with Status of Each Condition: Acute metabolic encephalopathy, urinary tract infection UA reviewedleukocyte esterase, nitrate positive, and bacteria were present. Urine culture was sent, and preliminary report suggests a gram-negative jenna with more than 100,000 CFU's. Previous urine cultures have been positive for Citrobacter and E. coli. He received 2 days of IV Rocephin while here, and was discharged home on 5 additional days with cefpodoxime for complicated UTI to complete a 7-day course of antibiotics. This was renally dosed adjusted due to his acute on chronic kidney disease. Acute on chronic kidney injurypatient presented with a creatinine of 2.6. Previously in April, it was around 2.3. It appears it has been this way for a few years. I spoke with the , who states that he has a nephrology consult already in the works. She was encouraged to follow-up with them soon as possible due to his worsening kidney function. Per my understanding, dialysis is not within his goals of care. On discharge, advised to hold Entresto, as well as Lasix as to not worsen his kidney function. He appeared euvolemic. He was advised to follow-up with his PCP or nephrology and recheck his creatinine before resumption of this. This was explained to him and his . Status post TAVR, complete heart block with pacemaker, atrial fibrillation on Eliquis, CAD s/p CABG, hypertension, hyperlipidemia patient has a extensive cardiac history including TAVR in 10/15, follows up closely with cardiology in the outpatient setting, has a repeat echo scheduled and close cardiology follow- up. Continue his home medications including Imdu. Entresto, Lasix held as stated above. Rheumatoid arthritiscontinue home leflunomide and injectable Dupixent every 2 weeks as prescribed in the outpatient setting. Bladder cancer s/p radical resection Continue to maintain adequate hygiene and close monitoring and daily changes. HPI History of Present Illness: Per Keiko Campos: Mr. 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 He was broughtin to the ED for evalaution of lethargy and confusion. Family noticed a change in his mental status prior to arrival. he did not have any noted precipitating events and was in his usualy state of health prior to this occurance. In the Ed, evaluation was consistent with acute cystitis. he did not have any focal neurologic deficits and vitals were stable. Patient does not endorse any complaints. He is more alert and appears closer to his baseline then initial presentation. This visit was performed using telehealth tools, including phone and live-video. patient provided verbal consent to complete this telemedicine encounter. During the time my interview and evaluation, the patient was located at [facility] in the [facility], I was located in [place]. CONSULTS | PROCEDURES Procedures: Blood cultures x 2no growth to date. Urine culture remains pending. HOSPITAL COURSE Hospital Course: Patient is a 85-year-old male with extensive cardiac history including CABG, TAVR, bladder cancer s/p radical resection and ileal conduit and urostomy bag, who presented with altered mentation. was called, and history was taken per her as patient did not recall the events of the previous day. states that they drove a few hours away for a doctor's appointment [facility] the [facility], and after this drive, patient was increasingly lethargic, sleepy, and then started getting confused and agitated. She states that he has had increasing episodes like this in the past few months. She states that they are usually triggered by some type of infection. As such, he was brought to the hospital. Urinalysis was collected from the urostomy bag, so unclear if it is a true, uncontaminated sample. However, with the high risk of infection with this urostomy bag, he was treated as such. He received 2 days of IV Rocephin, and will be discharged home on 5 additional days of cefpodoxime. Urine culture remains pending, but is growing a gram-negative jenna. Previous susceptibilities were reviewed, and he has grown E. coli and Citrobacter in the past. In the morning, his mentation had improved, he was a little confused, but alert and oriented x 3. Spoke with his , who felt comfortable taking him home. He was provided with home health care as well. His creatinine remained elevated during his stay at 2.6. In April of this year, it was around 2.3. Appears to have been slowly increasing up and down for the last few months. was encouraged as well as the patient to make a nephrology appointment, she has already received a consult. They were advised to hold the Lasix and Entresto until creatinine was rechecked in 1 to 2 weeks by primary care provider or calcine furnace tender. They demonstrated understanding of this plan. He was discharged home. ALLERGIES Allergies Allergy/AdvReac Type Severity Reaction Status Date / Time No Known Drug Allergies Allergy Verified 06/26/25 23:28 MEDICATIONS Ambulatory Orders Medication Instructions Recorded Confirmed duloxetine 20 mg capsule,delayed 40 mg PO QPM 04/18/24 06/27/25 release leflunomide 10 mg tablet 10 mg PO DAILY 04/18/2403/14 apixaban 2.5 mg tablet (Eliquis) 2.5 mg PO BID #60 tab s 04/20/24 06/27/25 furosemide 40 mg tablet 40 mg PO DAILY edema, CHF #3 0 tabs 04/20/24 06/27/25 Held on 06/27/25. Instructions: Resume on 07/11/25. Please hold until follow up with PCP/nephrology and recheck of creatinine. empagliflozin 10 mg tablet 10 mg PO DAILY 06/12/2403/14 (Jardiance) omeprazole 20 mg capsule,delayed 20 mg PO BID 06/12/24 06/27/25 release metoprolol succinate 50 mg 50 mg PO DAILY #30 tabs 06/27/25 tablet,extended release 24 hr gabapentin 600 mg tablet 600 mg PO QPM 05/24/2506/27 hydroxyzine HCl 25 mg tablet 25 mg PO .qhs PRN for itc frandy at 05/24/25 06/27/25 bedtime #30 tabs prednisone 5 mg tablet 5 mg PO QDAY 05/24/25 sacubitril 24 mg-valsartan 26 mg 0.5 tab PO BID 06/27/25 tablet (Entresto) Held on 06/27/25. Instructions: Resume on 07/04/25. Please hold until creatinine rechecked with nephro/PCP. tramadol 50 mg tablet 50 mg PO Q6H PRN pain 06/27/25 cefpodoxime 200 mg tablet 200 mg PO DAILY 5 days #5 ta bs 06/27/25 vit C 250 mg-vit E 90 mg-zinc 40 1 tab PO BID 06/27/25 06/27/25 mg-copper 1 [id number] capsule (PreserVision AREDS-2) PHYSICAL EXAM AT DISCHARGE Vital Signs: Vital Signs x48h Temp Pulse Resp BP Pulse Ox 06/27/25 08:19 97.5 F L 62 18 150/92 H 95 06/27/25 05:00 97.3 F L 70 18 145/72 H 93 General Appearance: positive No acute distress and Alert Eyes Bilateral: positive Normal inspection and PERRL ENT: positive ENT inspection nml, Pharynx nml and No signs of dehydration Neck: positive Nml inspection, Thyroid nml and No JVD Respiratory: positive Chest non-tender and No respiratory distress; negative Wheezes, Rales or Rhonchi Cardiovascular: positive No murmur, Irregularly irregular and Other (Paced rhythm) Peripheral Pulses: positive 2+ Abdomen: positive Non-tender, No organomegaly, Nml bowel sounds, No distention and Other (Urostomy bag in place, no erythema or tenderness noted) Back: positive Nml inspection and CVA tenderness (L); negative CVA tenderness (R) Skin: positive Color nml, No rash, Warm and Dry Extremities: positive Non-tender, Full ROM, Nml appearance and No pedal edema Neurologic/Psychiatric: positive Oriented x3, Motor nml and Mood/affect nml LABS 06/27/25 07:54 06/27/25 07:54 DIAGNOSTIC IMAGING Diagnostic Imaging Results: Final report reviewed FOLLOW UP Follow Up: Follow-up with PCP. Follow-up with nephrology. Follow-up with cardiology. TIME SPENT Time Spent in Discharge (Minutes): 35 Discharge Plan Discharge Patient Disposition: 06 Home Health Service Condition: Fair Prescriptions: New cefpodoxime 200 mg tablet 200 mg PO DAILY 5 Days Qty: 5 0RF Rx Instructions: must administer with a meal/food Continued leflunomide 10 MG tablet 10 mg PO DAILY duloxetine 20 MG capsule,delayed release(DR/EC) 40 mg PO QPM Patient Comments: TAKE TWO CAPSULES BY MOUTH ONCE DAILY. CAN TAKE BOTH DOSES AT THE SAME TIME Eliquis 2.5 MG tablet 2.5 mg PO BID Qty: 60 0RF Jardiance 10 mg tablet 10 mg PO DAILY omeprazole 20 mg capsule,delayed release(DR/EC) 20 mg PO BID gabapentin 600 mg tablet 600 mg PO QPM Patient Comments: TAKE ONE TABLET BY MOUTH TWICE DAILY metoprolol succinate 50 mg tablet extended release 24 hr 50 mg PO DAILY Qty: 30 2RF PreserVision AREDS-2 250-90-40-1 mg capsule 1 tab PO BID prednisone 5 mg tablet 5 mg PO QDAY tramadol 50 mg tablet 50 mg PO Q6H PRN (Reason: pain) hydroxyzine HCl 25 mg tablet 25 mg PO .qhs PRN (Reason: for itching at bedtime) Qty: 30 0RF Held furosemide 40 MG tablet 40 mg PO DAILY Qty: 30 0RF Hold Instructions: Resume on 07/11/25. Please hold until follow up with PCP/nephrology and recheck of creatinine. sacubitril-valsartan [Entresto] 24-26 mg tablet 0.5 tab PO BID Hold Instructions: Resume on 07/04/25. Please hold until creatinine rechecked with nephro/PCP. Diet: Cardiac Interventions: Belongings Inventory Last Done: 06/27/25 10:00 Discharge Last Done: 06/27/25 12:51 Discharge Checklist - Nursing Last Done: 06/27/25 12:52 Health Concerns: Discharge Instructions: Cefpodoxime for Complicated Urinary Tract Infection with Kidney Impairment - Take each dose with food to improve absorption. - Duration of therapy will be 5 additional days as you received 2 days of IV antibiotics while here. Additional Guidance: - Do not take antacids or H2 blockers (such as famotidine or ranitidine) within 2 hours of cefpodoxime, as these can reduce drug absorption. - Monitor for side effects: Report any rash, severe diarrhea, or signs of allergic reaction (such as swelling or difficulty breathing) immediately. - Renal monitoring: Periodic assessment of renal function is recommended during therapy. - Complete the full course of antibiotics even if symptoms improve, unless instructed otherwise. - Please continue to change your urostomy bag daily. While you have been here, your kidney numbers have been a little bit worse than your normal. Based on previous labs that I can see, your kidney function is slowly getting worse. I understand that you have referral to a flask fitter, I would like you to see him as soon as possible. I would also like you to hold your Lasix and your Entresto until you either follow-up with your primary care provider or your flask fitter and they recheck your numbers, and make sure that they are not getting worse. Please return if you have increased confusion, shortness of breath, or are accumulating a lot of fluid. I understand the social insurance adviser spoke with you and your , and provided you with resources. We are glad you're feeling better. Thank you for allowing us to take care of you. Print Language: Kosovan Patient Instructions: Urinary Tract Infections in Men Stand Alone Forms: PCP List Vitals documented within 30 minutes of discharge?: Yes"
[2025-06-27] MEDS: SODIUM CHLORIDE FLUSH 0.9% 10 ML SYRINGE IVP SCH (09:21)
--- NOTE | 2025-06-27 11:14 | PHARMACY PROGRESS NOTE ---
Best Possible Medication History Admit Date and Time: 06/27/25 0112 Home Medications Medication Instructions Recorded Confirmed Type duloxetine 20 mg capsule,delayed 40 mg PO QPM 04/18/24 06/27/25 History release leflunomide 10 mg tablet 10 mg PO DAILY 04/18/2403/14 History apixaban 2.5 mg tablet (Eliquis) 2.5 mg PO BID #60 tab s 04/20/24 06/27/25 Rx furosemide 40 mg tablet 40 mg PO DAILY edema, CHF #3 0 tabs 04/20/24 06/27/25 Rx empagliflozin 10 mg tablet 10 mg PO DAILY 06/12/2403/14 History (Jardiance) omeprazole 20 mg capsule,delayed 20 mg PO BID 06/12/24 06/27/25 History release metoprolol succinate 50 mg 50 mg PO DAILY #30 tabs 06/27/25 Rx tablet,extended release 24 hr gabapentin 600 mg tablet 600 mg PO QPM 05/24/2506/27 History hydroxyzine HCl 25 mg tablet 25 mg PO .qhs PRN for itc frandy at 05/24/25 06/27/25 Rx bedtime #30 tabs prednisone 5 mg tablet 5 mg PO QDAY 05/24/25 History sacubitril 24 mg-valsartan 26 mg 0.5 tab PO BID 06/27/25 History tablet (Entresto) tramadol 50 mg tablet 50 mg PO Q6H PRN pain 06/27/25 History vit C 250 mg-vit E 90 mg-zinc 40 1 tab PO BID 06/27/25 06/27/25 History mg-copper 1 [id number] capsule (PreserVision AREDS-2) Processed by: Pharmacy Medications reviewed in ED?: No Medication History completed: Yes Patient Interview: Pt unable to participate Secondary Source(s): Spouse/Significant other, Pharmacy records and Insurance records [facility] Statement: As the person ultimately responsible for medication therapy, providers are able to order a medication from an existing home medication list in [facility] via the "Reconcile Routine" prior to Confirmation of that medication by claims support specialist. Such practice is discouraged except when the physician, in their clinical judgment, deems that a medical need exists for a medication without regard to previous use.
[2025-06-27] MEDS ORDERED: METOPROLOL SUCCINATE 25 MG TABLET PO SCH (21:00)
[2025-06-28] MEDS ORDERED: cefTRIAXone 1 GM VIAL IVP SCH ×2 (01:00)
[2025-06-28] MEDS ORDERED: PANTOPRAZOLE 40 MG TABLET PO SCH (07:00)
== END 2025-06-27 13:35 | disposition home health service (06) ==
LOC: MS3 23:23 → ED 23:23 → MS3 06-27 02:05
PROVIDERS: ADMIT Hospitalist; ATTEND Hospitalist
DX: N17.9 Acute kidney failure, unspecified; I48.19 Other persistent atrial fibrillation; M06.9 Rheumatoid arthritis, unspecified; Z79.84 Long term (current) use of oral hypoglycemic drugs; Z85.51 Personal history of malignant neoplasm of bladder; N10 Acute pyelonephritis; E78.5 Hyperlipidemia, unspecified; Z79.01 Long term (current) use of anticoagulants; Z95.0 Presence of cardiac pacemaker; Z95.1 Presence of aortocoronary bypass graft; E11.22 Type 2 diabetes mellitus with diabetic chronic kidney disease; I13.0 Hypertensive heart and chronic kidney disease with heart failure and stage 1 through stage 4 chronic kidney disease, or unspecified chronic kidney disease; I25.10 Atherosclerotic heart disease of native coronary artery without angina pectoris; N18.4 Chronic kidney disease, stage 4 (severe); N30.00 Acute cystitis without hematuria; Z79.899 Other long term (current) drug therapy; Z93.50 Unspecified cystostomy status; I44.2 Atrioventricular block, complete; Z87.891 Personal history of nicotine dependence; I50.9 Heart failure, unspecified; G93.41 Metabolic encephalopathy; Z95.2 Presence of prosthetic heart valve

== ENCOUNTER 2025-08-04 01:49 | Inpatient (IN) ==
--- NOTE | 2025-08-04 02:05 | ED Physician Documentation ---
History of Present Illness Stated complaint Stated Complaint: AMS Chief complaint Chief Complaint: General Additonal information Additional information: BIBA. HPI from EMS. Patient is unable to contribute to HPI/ROS due to AMS. EMS' HPI is informed by patient's spouse; spouse is not present at the time of this H&P. Reportedly, patient was evaluated by EMS yesterday for AMS, found to have hypoglycemia, treated on scene and improved and patient then refused transfer. Tonight, patient was again exhibiting confusion and lethargy significantly off from his baseline mental status. FSBS 112 on EMS check; He is brought to the ED at this time due to ongoing altered mental status significantly off of his baseline. Similar presentation last month to [facility] ED, admitted for encephalopathy and UTI. [place] Coma Scale Assess Eye opening: To Pain Verbal response: Incomprehensible Motor response: Localizes to Pain Total score: 9 Meds/Allgy Home Medications Ambulatory Orders Medication Instructions Recorded Confirmed duloxetine 20 mg capsule,delayed 40 mg PO QPM 04/18/24 07/22/25 release leflunomide 10 mg tablet 10 mg PO DAILY 04/18/2410/15 apixaban 2.5 mg tablet (Eliquis) 2.5 mg PO BID #60 tab s 04/20/24 07/22/25 furosemide 40 mg tablet 40 mg PO DAILY edema, CHF #3 0 tabs 04/20/24 07/22/25 Held on 06/27/25. Instructions: Resume on 07/11/25. Please hold until follow up with PCP/nephrology and recheck of creatinine. empagliflozin 10 mg tablet 10 mg PO DAILY 06/12/2410/15 (Jardiance) omeprazole 20 mg capsule,delayed 20 mg PO BID 06/12/24 07/22/25 release metoprolol succinate 50 mg 50 mg PO DAILY #30 tabs 07/22/25 tablet,extended release 24 hr gabapentin 600 mg tablet 600 mg PO QPM 05/24/2507/22 hydroxyzine HCl 25 mg tablet 25 mg PO .qhs PRN for itc frandy at 05/24/25 07/22/25 bedtime #30 tabs prednisone 5 mg tablet 5 mg PO QDAY 05/24/25 sacubitril 24 mg-valsartan 26 mg 0.5 tab PO BID 07/22/25 tablet (Entresto) Held on 06/27/25. Instructions: Resume on 07/04/25. Please hold until creatinine rechecked with nephro/PCP. tramadol 50 mg tablet 50 mg PO Q6H PRN pain 07/22/25 cefpodoxime 200 mg tablet 200 mg PO DAILY 5 days #5 ta bs 06/27/25 07/22/25 vit C 250 mg-vit E 90 mg-zinc 40 1 tab PO BID 06/27/25 07/22/25 mg-copper 1 [id number] capsule (PreserVision AREDS-2) Allergies Allergies Allergy/AdvReac Type Severity Reaction Status Date / Time No Known Drug Allergies Allergy Verified 07/22/25 16:33 PFSH Active Problems All Active Problems (Updated 08/04/25 @ 08:17 by Reese Alegria MD) Urine discoloration (Acute) Acute pain of left shoulder (Acute) Hypotension, unspecified (Acute) Generalized pruritus (Acute) Chronic kidney disease, stage 4 (severe) (Acute) Bladder cancer (Acute) Congestive heart failure (Acute) Right upper lobe pulmonary nodule (Acute) Pneumonia (Acute) Pleural effusion (Acute) Hyperkalemia (Acute) Hypoxia (Acute) Atrial fibrillation (Acute) Alcohol abuse (Acute) Bacteremia (Acute) Generalized weakness (Acute) History of urostomy (Chronic) HTN (hypertension) (Chronic) BRITTANY (acute kidney injury) (Acute) Pyelonephritis (Acute) ARF (acute renal failure) (Acute) Sepsis (Acute) UTI (urinary tract infection) (Acute) Alcohol dependence (Chronic) 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 (Date/Year): 50 years ago Number of Years Smoked: 20 Second hand tobacco smoke exposure: No Do you dip or chew tobacco?: No Do you vape?: No Living arrangement: At home Living Condition: With spouse/s.o. Level: Independent Substance Use: denies use POLST Patient has POLST: No Exam Exam Vital Signs: Vital Signs x48h Temp Pulse Resp BP Pulse Ox 08/04/25 07:55 121 H 120/82 08/04/25 07:50 114 H 124/83 08/04/25 07:40 122 H 128/86 08/04/25 07:31 36.8 C 120 H 18 125/65 96 08/04/25 04:06 78 16 120/80 98 08/04/25 04:01 120/80 08/04/25 03:46 98 22 145/106 H 97 08/04/25 02:33 36.8 C 105 H 24 88/60 L 97 08/04/25 01:56 36.0 C L 124 H 16 131/86 H 97 Constitutional no apparent distress and level of alertness abnormal (obtunded) answers questions with unintelligible mumbling, does not follow commands HENMT faint left periorbital and right forehead ecchymosis Eyes PERRL Respiratory breath sounds equal bilaterally and clear to auscultation bilaterally Cardiovascular heart rate abnormal (tachycardic), rhythm abnormal (irregular) and edema noted (BLE pitting edema) Gastrointestinal abdomen soft to palpation, nontender to palpation and nondistended clear yellow urine in urostomy bag Neurology GCS calculation - Eye opening: To Pain Verbal response: Incomprehensible Motor response: Localizes to Pain [place] Coma Scale total score: 9 Psychiatry mental status abnormal (obtunded) Results Vitals Vitals: Vital Signs - 24 hr 08/04/25 01:56 08/04/25 02:33 08/04/25 03:46 Temperature 36.0 C L 36.8 C Temperature Source Tympanic Oral Pulse Rate 124 H 105 H 98 Respiratory Rate 16 24 22 Blood Pressure 131/86 H 88/60 L 145/106 H O2 Saturation 97 97 97 O2 Source Room air Room air Room air Pain Intensity 0 08/04/25 04:01 08/04/25 04:06 08/04/25 06:06 Temperature Temperature Source Pulse Rate 78 Respiratory Rate 16 Blood Pressure 120/80 120/80 O2 Saturation 98 O2 Source Room air Pain Intensity 3 08/04/25 07:31 08/04/25 07:40 08/04/25 07:50 Temperature 36.8 C Temperature Source Pulse Rate 120 H 122 H 114 H Respiratory Rate 18 Blood Pressure 125/65 128/86 124/83 O2 Saturation 96 O2 Source Room air Pain Intensity 0 08/04/25 07:55 Temperature Temperature Source Pulse Rate 121 H Respiratory Rate Blood Pressure 120/82 O2 Saturation O2 Source Pain Intensity Oxygen O2 Source Room air EKG (time done) 02:49: EKG releavant findings:: EKG personally interpreted by author of this note. Relevant findings are: Rate: Rate (enter#) (120) Rhythm: Atrial fibrillation and Wide complex tachycardia (IVCD) [place]: LAD Compare to prior EKG: Unchanged from prior EKG (no significant change vs 05/07/25 including IVCD) Labs Labs: Laboratory Tests 08/04/25 08/04/25 08/04/25 01:55 02:27 03:12 WBC 13.6 H RBC 4.88 Hgb 14.4 Hct 47.3 MCV 96.9 H MCH 29.5 MCHC 30.4 L RDW 17.4 H Plt Count 237 MPV 11.0 Neut # (Auto) 11.1 H Lymph # (Auto) 0.6 L [place] # (Auto) 1.4 H Eos # (Auto) 0.3 Baso # (Auto) 0.1 Absolute Nucleated RBC 0.00 Nucleated RBC % 0.0 Sodium 140 Potassium 4.4 Chloride 98 L Carbon Dioxide 27 Anion Gap 15.0 H BUN 95 H* Creatinine 3.0 H Estimated GFR (MDRD) 20 L Glucose 89 POC Whole Bld Glucose 88 Lactic Acid 1.6 Calcium 9.6 Magnesium 2.6 H Total Bilirubin 1.5 H AST 31 ALT 20 Alkaline Phosphatase 111 Troponin I High Sens 619.3 H* Total Protein 6.5 Albumin 3.9 Globulin 2.6 Albumin/Globulin Ratio 1.5 Lipase < 10 L Urine Color Urine Clarity Urine pH Ur Specific [place] Urine Protein Urine Glucose (UA) Urine Ketones Urine Occult Blood Urine Nitrite Urine Bilirubin Urine Urobilinogen Ur Leukocyte Esterase Urine RBC Urine WBC Ur Squamous Epith Cells Urine Bacteria Ur Microscopic Review Urine Culture Comments Nasal Adenovirus (PCR) Nasal B. parapertussis DNA (PCR) Nasal Coronavir 229E PCR Nasal Coronavir HKU1 PCR Nasal Coronavir NL63 PCR Nasal Coronavir OC43 PCR Nasal Enterovir/Rhinovir PCR Nasal Influenza B PCR Nasal Influenza A PCR Nasal Parainfluen 1 PCR Nasal Parainfluen 2 PCR Nasal Parainfluen 3 PCR Nasal Parainfluen 4 PCR Nasal RSV (PCR) Nasal B.pertussis DNA PCR Nasal C.pneumoniae (PCR) Aly Human Metapneumo PCR Nasal M.pneumoniae (PCR) Nasal SARS-CoV-2 (PCR) Ethyl Alcohol < 10.0 Serum Ketones NEGATIVE 08/04/25 08/04/25 03:37 04:48 WBC RBC Hgb Hct MCV MCH MCHC RDW Plt Count MPV Neut # (Auto) Lymph # (Auto) [place] # (Auto) Eos # (Auto) Baso # (Auto) Absolute Nucleated RBC Nucleated RBC % Sodium Potassium Chloride Carbon Dioxide Anion Gap BUN Creatinine Estimated GFR (MDRD) Glucose POC Whole Bld Glucose Lactic Acid Calcium Magnesium Total Bilirubin AST ALT Alkaline Phosphatase Troponin I High Sens 600.2 H* Total Protein Albumin Globulin Albumin/Globulin Ratio Lipase Urine Color YELLOW Urine Clarity HAZY Urine pH 5.5 Ur Specific [place] 1.015 Urine Protein TRACE Urine Glucose (UA) NEGATIVE Urine Ketones NEGATIVE Urine Occult Blood TRACE-INTACT Urine Nitrite NEGATIVE Urine Bilirubin NEGATIVE Urine Urobilinogen 0.2 (NORMAL) Ur Leukocyte Esterase SMALL H Urine RBC 6-10 H Urine WBC 11-25 H Ur Squamous Epith Cells FEW Squamous Urine Bacteria Many H Ur Microscopic Review INDICATED Urine Culture Comments INDICATED Nasal Adenovirus (PCR) NOT DETECTED Nasal B. parapertussis DNA (PCR) NOT DETECTED Nasal Coronavir 229E PCR NOT DETECTED Nasal Coronavir HKU1 PCR NOT DETECTED Nasal Coronavir NL63 PCR NOT DETECTED Nasal Coronavir OC43 PCR NOT DETECTED Nasal Enterovir/Rhinovir PCR NOT DETECTED Nasal Influenza B PCR NOT DETECTED Nasal Influenza A PCR NOT DETECTED Nasal Parainfluen 1 PCR NOT DETECTED Nasal Parainfluen 2 PCR NOT DETECTED Nasal Parainfluen 3 PCR NOT DETECTED Nasal Parainfluen 4 PCR NOT DETECTED Nasal RSV (PCR) NOT DETECTED Nasal B.pertussis DNA PCR NOT DETECTED Nasal C.pneumoniae (PCR) NOT DETECTED Aly Human Metapneumo PCR NOT DETECTED Nasal M.pneumoniae (PCR) NOT DETECTED Nasal SARS-CoV-2 (PCR) NOT DETECTED Ethyl Alcohol Serum Ketones Rads (name of study) CXR: Relevant Findings:: Prelim report reviewed and See rad report CTH: Relevant Findings:: Prelim report reviewed and See rad report PD Medical Decision Making ED course Complexity details: reviewed results, re-evaluated patient, considered differential and d/w family ED course: Patient presents with altered mental status, rapid atrial fibrillation, and hypotension. 80s SBP early in stay, improved with IV fluids (total of 2 liters given, 30cc/kg). Afebrile, normal lactic acid level. Leukocytosis (WBC 13.6). Abnormal renal function with BUN 95, creatinine 3.0; these are mildly above his baseline, although previous results going back several years indicate CKD. Unremarkable CXR, CTH. UA results are C/W UTI. Patient given cefepime, vancomycin, metronidazole per sepsis protocol. Hs-cTn elevated (619), with 2-hour repeat slightly decreased (600). Late in ED stay, patient became significantly more awake and alert, remains confused. At that point, patient is complaining of chronic back pain, strongly and repeatedly denies any chest pain. I spoke with patient's (over the phone), and she relays that patient had valve replacement surgery (she does not recall which valve but says the procedure was undertaken August 2024 at [facility]). I spoke with Dr. Real (on-call jewelry bench molder for [facility]), agrees patient is appropriate for admission to [facility] as suspicion for ACS is low given no concerning findings on EKG and patient denies CP. I then discussed this case with Dr. Doug Munoz ([facility] hospitalist) who accepts patient to [facility] hospitalist service. Subsequent to resolution of patient's hypotension, he is given 10 mg IV Cardizem, remains tachycardic (110s-130s), and thus was given a second dose 10 mg IV Cardizem late in ED stay. Sepsis Event Sepsis Onset Date: 08/04/25 Sepsis Onset Time: 03:45 Current Stage of Sepsis: Sepsis Initial Hypotension: SBP less than 90 mmHg Possible source of Sepsis: Genitourinary Mental/Cognitive Status: Lethargic and Change from baseline Capillary refill: Greater than 2 seconds Peripheral Pulse Strength: 2+ Slightly Diminished Peripheral Pulse Location: Radial Bedside ultrasound performed: No Discharge Plan Discharge Patient Disposition: [facility] DC/Xfer Condition: Stable Clinical Impression: Sepsis Qualifiers: Sepsis type: sepsis due to unspecified organism Sepsis acute organ dysfunction status: with acute organ dysfunction Severe sepsis acute organ dysfunction type: acute renal failure Acute renal failure type: unspecified Severe sepsis shock status: without septic shock Qualified Code(s): A41.9 - Sepsis, unspecified organism
--- OUTSIDE RECORDS SUMMARY | 2025-08-04 02:54 | EXTERNAL MEDICAL SUMMARY RPT | Continuity of Care Document ---
Author Organization [facility] Address [address] [place] [address] Phone Allergies and Intolerances date description facility reaction severity 2025-04-03 10:00 [id number]^No Known Drug Allergies^^No Known Drug Allergies^^allergy.id [facility] (no reaction) (no severity) 2025-05-07 10:00 [id number]^No Known Drug Allergies^^No Known Drug Allergies^^allergy.id [facility] (no reaction) (no severity) 2025-05-24 10:00 [id number]^No Known Drug Allergies^^No Known Drug Allergies^^allergy.id [facility] (no reaction) (no severity) 2025-06-26 10:00 [id number]^No Known Drug Allergies^^No Known Drug Allergies^^allergy.id [facility] (no reaction) (no severity) 2025-07-22 10:00 [id number]^No Known Drug Allergies^^No Known Drug Allergies^^allergy.id [facility] (no reaction) (no severity) Problems date description facility 2025-05-07 19:03 Persistent atrial fibrillation [facility] 2025-05-07 19:03 Other persistent atrial fibrill ation [facility] 2025-05-09 10:26 Insomnia, unspecified [facility] 2025-05-09 10:26 Persistent atrial fibrillation [facility] 2025-05-09 10:26 Other persistent atrial fibrill ation [facility] 2025-05-09 10:26 Orthopnea [facility] 2025-05-09 10:26 Abnormal weight loss [facility] 2025-05-24 11:36 Hypotension, unspecified [facility] 2025-05-24 11:36 Pruritus, unspecified [facility] 2025-05-24 11:36 Chronic kidney disease, stage 4 (severe) [facility] 2025-06-27 01:40 Encephalopathy, unspecified [facility] 2025-06-27 01:40 Urinary tract infection, site n ot specified [facility] 2025-06-27 02:13 Encephalopathy, unspecified [facility] [employer] 2025-06-27 02:13 Persistent atrial fibrillation [facility] 2025-06-27 02:13 Other persistent atrial fibrill ation [facility] 2025-06-27 02:13 Renal tubulo-interstitial disea ses (N10-N16) [facility] 2025-06-27 02:13 Chronic kidney disease, stage 4 (severe) [facility] 2025-06-27 02:13 Urinary tract infection, site n ot specified [facility] 2025-06-27 12:01 Encephalopathy, unspecified [facility] [employer] 2025-06-27 12:01 Persistent atrial fibrillation [facility] 2025-06-27 12:01 Other persistent atrial fibrill ation [facility] 2025-06-27 12:01 Renal tubulo-interstitial disea ses (N10-N16) [facility] 2025-06-27 12:01 Chronic kidney disease, stage 4 (severe) [facility] 2025-06-27 12:01 Urinary tract infection, site n ot specified [facility] 2025-06-27 12:42 [facility], [facility] 12:42 Persistent atrial fibrillation [facility] 2025-06-27 12:42 Other persistent atrial fibrill ation [facility] 2025-06-27 12:42 Renal tubulo-interstitial disea ses (N10-N16) [facility] 2025-06-27 12:42 Chronic kidney disease, stage 4 (severe) [facility] 2025-06-27 12:42 Urinary tract infection, site n ot specified [facility] 2025-06-27 12:49 Encephalopathy, unspecified [facility] 2025-06-27 12:49 Persistent atrial fibrillation [facility] 2025-06-27 12:49 Other persistent atrial fibrill ation [facility] 2025-06-27 12:49 Renal tubulo-interstitial disea ses (N10-N16) [facility] 2025-06-27 12:49 Chronic kidney disease, stage 4 (severe) [facility] 2025-06-27 12:49 Urinary tract infection, site n ot specified [facility] 2025-06-27 14:02 Encephalopathy, unspecified [facility] 2025-06-27 14:02 Persistent atrial fibrillation [facility] 2025-06-27 14:02 Other persistent atrial fibrill ation [facility] 2025-06-27 14:02 Renal tubulo-interstitial disea ses (N10-N16) [facility] 2025-06-27 14:02 Chronic kidney disease, stage 4 (severe) [facility] 2025-06-27 14:02 Urinary tract infection, site n ot specified [facility] 2025-06-30 10:00 Encephalopathy, unspecified [facility] 2025-06-30 10:00 Persistent atrial fibrillation [facility] 2025-06-30 10:00 Other persistent atrial fibrill ation [facility] 2025-06-30 10:00 Renal tubulo-interstitial disea ses (N10-N16) [facility] 2025-06-30 10:00 Chronic kidney disease, stage 4 (severe) [facility] 2025-06-30 10:00 Urinary tract infection, site n ot specified [facility] 2025-06-30 10:00 Altered mental status, unspecif ied [facility] 2025-07-02 14:23 Auditory hallucinations [facility] 2025-07-07 12:38 Pain in left shoulder [facility] 2025-07-15 10:10 Pain in left shoulder [facility] 2025-07-15 10:10 Other specified soft tissue dis orders [facility] 2025-07-15 10:10 Chest pain, unspecified [facility] 2025-07-22 17:01 Other symptoms and s igns involving the genitourinary system [facility] 2025-07-22 17:05 Urinary tract infection, site n ot specified [facility] 2025-07-22 17:38 Urinary tract infection, site n ot specified [facility] 2025-07-23 00:05 Urinary tract infection, site n ot specified [facility] Results/Labs test date facility value unit notes Result panel 1 NUCLEATED RED BLOOD CELLS AUTO 2025-05-07 16:24 [facility] 0.0 /100wbc (missing) BASOPHILS # (AUTO) 2025-05-07 16:24 [facility] 0.0 10 3/ul (missing) NRBC ABSOLUTE COUNT (AUTO) 2025-05-07 16:24 [facility] 0.00 x10 3/ul (missing) EOSINOPHILS # (AUTO) 2025-05-07 16:24 [facility] 0.1 10 3/ul (missing) LYMPHOCYTES # (AUTO) 2025-05-07 16:24 [facility] 0.5 10 3/ul (missing) BILIRUBIN,TOTAL 2025-05-07 16:24 [facility] 0.8 mg/dl As of February 2023 testing method has changed, this may include reference ranges. MONOCYTES # (AUTO) 2025-05-07 16:24 [facility] 0.9 10 3/ul (missing) ALBUMIN/GLOBULIN RATIO 2025-05-07 16:24 [facility] 1.5 (missing) (missing) CHLORIDE 2025-05-07 16:24 [facility] 104 mmol/l As of February 2023 testing method has changed, this may include reference ranges. GLUCOSE 2025-05-07 16:24 [facility] 108 mg/dl As of February 2023 testing method has changed, this may include reference ranges. LIPASE 2025-05-07 16:24 [facility] 11 u/l As of February 2023 testing method has changed, this may include reference ranges. HGB - HEMOGLOBIN 2025-05-07 16:24 [facility] 12.5 g/dl (missing) ALKALINE PHOSPHATASE 2025-05-07 16:24 [facility] 136 iu/l As of February 2023 testing method has changed, this may include reference ranges. SODIUM 2025-05-07 16:24 [facility] 140 mmol/l (missing) RED CELL DISTRIBUTION WIDTH 2025-05-07 16:24 [facility] 18.6 % (missing) CREATININE 2025-05-07 16:24 [facility] 2.3 mg/dl As of February 2023 testing method has changed, this may include reference ranges. GLOBULIN 2025-05-07 16:24 [facility] 2.7 g/dl (missing) PLT - PLATELET COUNT 2025-05-07 16:24 [facility] 249 10 3/ul (missing) GFR - MDRD 2025-05-07 16:24 [facility] 27 (missing) The IDMS-traceable MDRD Study Equation [...] October 2011. AST ASPARTATE AMINOTRANSFERASE 2025-05-07 16:24 [facility] 27 iu/l As of February 2023 testing method has changed, this may include reference ranges. CARBON DIOXIDE - CO2 2025-05-07 16:24 [facility] 28 mmol/l As of February 2023 testing method has changed, this may include reference ranges. MEAN CORPUSCULAR HEMOGLOBIN 2025-05-07 16:24 [facility] 29.7 pg (missing) MEAN CORPUSCULAR HGB CONC 2025-05-07 16:24 [facility] 31.2 g/dl (missing) TROPONIN I HIGH SENSITIVITY 2025-05-07 16:24 [facility] 35.7 ng/l Critical result [facility] 35.7 pg/mL called to and read back by JOSE LUIS/GUADALUPE Nichols RN at 07-May-2025 16:59 by delores. A HIGH SENSITIVITY TROPONIN result of >= 14.9 ng/L for females is considered POSITIVE. A HIGH SENSITIVITY TROPONIN result of >= 19.8 ng/L for males is considered POSITIVE. A HIGH SENSITIVITY TROPONIN result of >= 17.9 ng/L for unspecified is considered POSITIVE. ALT ALANINE AMINOTRANSFERASE 2025-05-07 16:24 [facility] 36 iu/l As of February 2023 testing method has changed, this may include reference ranges. ALBUMIN 2025-05-07 16:24 [facility] 4.1 g/dl As of February 2023 testing method has changed, this may include reference ranges. RED BLOOD COUNT 2025-05-07 16:24 [facility] 4.21 10 6/ul (missing) POTASSIUM 2025-05-07 16:24 [facility] 4.3 mmol/l As of February 2023 testing method has changed, this may include reference ranges. HCT - HEMATOCRIT 2025-05-07 16:24 [facility] 40.1 % (missing) BUN - BLOOD UREA NITROGEN 2025-05-07 16:24 [facility] 54 mg/dl As of February 2023 testing method has changed, this may include reference ranges. NEUTROPHILS # (AUTO) 2025-05-07 16:24 [facility] 6.5 10 3/ul (missing) TOTAL PROTEIN 2025-05-07 16:24 [facility] 6.8 g/dl As of February 2023 testing method has changed, this may include reference ranges. ANION GAP 2025-05-07 16:24 [facility] 8.0 (missing) (missing) WHITE BLOOD COUNT 2025-05-07 16:24 [facility] 8.0 x10 3/ul (missing) CALCIUM 2025-05-07 16:24 [facility] 9.5 mg/dl As of February 2023 testing method has changed, this may include reference ranges. MEAN PLATELET VOLUME 2025-05-07 16:24 [facility] 9.7 fl (missing) MEAN CORPUSCULAR VOLUME 2025-05-07 16:24 [facility] 95.2 fl (missing) Result panel 2 TROPONIN I HIGH SENSITIVITY 2025-05-07 18:06 [facility] 29.3 ng/l Critical result [facility] 29.3 pg/mL called to and read back by ED/GUADALUPE Nichols RN at 07-May-2025 18:42 by _gaget. A HIGH SENSITIVITY TROPONIN result of >= 14.9 ng/L for females is considered POSITIVE. A HIGH SENSITIVITY TROPONIN result of >= 19.8 ng/L for males is considered POSITIVE. A HIGH SENSITIVITY TROPONIN result of >= 17.9 ng/L for unspecified is considered POSITIVE. Result panel 3 LIPASE 2025-06-26 23:37 [facility] < 10 u/l As of February 2023 testing method has changed, this may include reference ranges. ETOH - ETHANOL 2025-06-26 23:37 [facility] < 10.0 mg/dl Blood Alcohol Levels Level Sporadic Drinkers Chronic drinkers === = 100 mg/dL Legally intoxicated* Minimal signs 200-250 mg/dL Alertness lost, Effort needed to becoming lethargic maintain emotional and motor control 300-350 mg/dL Stupor to coma Drowsy and slow >500 mg/dL Possible Coma *The legal definition of intoxication varies. This assy is for medical decision making only. As of February 2023 testing method has changed, this may include reference ranges. NUCLEATED RED BLOOD CELLS AUTO 2025-06-26 23:37 [facility] 0.0 /100wbc (missing) NRBC ABSOLUTE COUNT (AUTO) 2025-06-26 23:37 [facility] 0.00 x10 3/ul (missing) BASOPHILS # (AUTO) 2025-06-26 23:37 [facility] 0.1 10 3/ul (missing) EOSINOPHILS # (AUTO) 2025-06-26 23:37 [facility] 0.5 10 3/ul (missing) LYMPHOCYTES # (AUTO) 2025-06-26 23:37 [facility] 0.5 10 3/ul (missing) BILIRUBIN,TOTAL 2025-06-26 23:37 [facility] 0.9 mg/dl As of February 2023 testing method has changed, this may include reference ranges. MONOCYTES # (AUTO) 2025-06-26 23:37 [facility] 1.3 10 3/ul (missing) ALBUMIN/GLOBULIN RATIO 2025-06-26 23:37 [facility] 1.4 (missing) (missing) ANION GAP 2025-06-26 23:37 [facility] 10.0 (missing) (missing) MEAN PLATELET VOLUME 2025-06-26 23:37 [facility] 10.2 fl (missing) ALT ALANINE AMINOTRANSFERASE 2025-06-26 23:37 [facility] 11 iu/l As of February 2023 testing method has changed, this may include reference ranges. WHITE BLOOD COUNT 2025-06-26 23:37 [facility] 11.7 x10 3/ul (missing) GLUCOSE 2025-06-26 23:37 [facility] 111 mg/dl As of February 2023 testing method has changed, this may include reference ranges. HGB - HEMOGLOBIN 2025-06-26 23:37 [facility] 13.7 g/dl (missing) SODIUM 2025-06-26 23:37 [facility] 139 mmol/l (missing) AST ASPARTATE AMINOTRANSFERASE 2025-06-26 23:37 [facility] 16 iu/l As of February 2023 testing method has changed, this may include reference ranges. RED CELL DISTRIBUTION WIDTH 2025-06-26 23:37 [facility] 18.0 % (missing) THYROID STIMULATING HORMONE 2025-06-26 23:37 [facility] 2.07 uiu/ml (missing) CREATININE 2025-06-26 23:37 [facility] 2.6 mg/dl As of February 2023 testing method has changed, this may include reference ranges. GLOBULIN 2025-06-26 23:37 [facility] 2.8 g/dl (missing) PLT - PLATELET COUNT 2025-06-26 23:37 [facility] 204 10 3/ul (missing) GFR - MDRD 2025-06-26 23:37 [facility] 24 (missing) The IDMS-traceable MDRD Study Equation has [...] caring for patients older than 70. References: http://www.nkdep.n ih.gov/lab-evaluat ion/gfr/creatinine -stand ardization, last updated October 2011. MEAN CORPUSCULAR HEMOGLOBIN 2025-06-26 23:37 [facility] 29.1 pg (missing) CARBON DIOXIDE - CO2 2025-06-26 23:37 [facility] 30 mmol/l As of February 2023 testing method has changed, this may include reference ranges. MEAN CORPUSCULAR HGB CONC 2025-06-26 23:37 [facility] 30.6 g/dl (missing) ALBUMIN 2025-06-26 23:37 [facility] 4.0 g/dl As of February 2023 testing method has changed, this may include reference ranges. POTASSIUM 2025-06-26 23:37 [facility] 4.1 mmol/l As of February 2023 testing method has changed, this may include reference ranges. RED BLOOD COUNT 2025-06-26 23:37 [facility] 4.70 10 6/ul (missing) HCT - HEMATOCRIT 2025-06-26 23:37 [facility] 44.8 % (missing) TOTAL PROTEIN 2025-06-26 23:37 [facility] 6.8 g/dl As of February 2023 testing method has changed, this may include reference ranges. BUN - BLOOD UREA NITROGEN 2025-06-26 23:37 [facility] 68 mg/dl As of February 2023 testing method has changed, this may include reference ranges. ALKALINE PHOSPHATASE 2025-06-26 23:37 [facility] 71 iu/l As of February 2023 testing method has changed, this may include reference ranges. CALCIUM 2025-06-26 23:37 [facility] 9.2 mg/dl As of February 2023 testing method has changed, this may include reference ranges. NEUTROPHILS # (AUTO) 2025-06-26 23:37 [facility] 9.3 10 3/ul (missing) MEAN CORPUSCULAR VOLUME 2025-06-26 23:37 [facility] 95.3 fl (missing) CHLORIDE 2025-06-26 23:37 [facility] 99 mmol/l As of February 2023 testing method has changed, this may include reference ranges. Result panel 4 AMMONIA 2025-06-26 23:46 [facility] 36.8 umol/l As of February 2023 testing method has changed, this may include reference ranges. Result panel 5 AMPICILLIN 2025-06-27 00:02 [facility] >16 (missing) (missing) CEFAZOLIN 2025-06-27 00:02 [facility] >16 (missing) (missing) AMPICILLIN/SULBACT AM 2025-06-27 00:02 [facility] >16/8 (missing) (missing) TRIMETHOPRIM/SULFA METHOXAZOLE 2025-06-27 00:02 [facility] >2/38 (missing) (missing) TETRACYCLINE 2025-06-27 00:02 [facility] >8 (missing) (missing) CIPROFLOXACIN 2025-06-27 00:02 [facility] <=0.25 (missing) (missing) ERTAPENEM 2025-06-27 00:02 [facility] <=0.25 (missing) (missing) LEVOFLOXACIN 2025-06-27 00:02 [facility] <=0.5 (missing) (missing) MEROPENEM 2025-06-27 00:02 [facility] <=0.5 (missing) (missing) CEFEPIME 2025-06-27 00:02 [facility] <=1 (missing) (missing) CEFTRIAXONE 2025-06-27 00:02 [facility] <=1 (missing) (missing) AZTREONAM 2025-06-27 00:02 [facility] <=2 (missing) (missing) GENTAMICIN 2025-06-27 00:02 [facility] <=2 (missing) (missing) TOBRAMYCIN 2025-06-27 00:02 [facility] <=2 (missing) (missing) AMIKACIN 2025-06-27 00:02 [facility] <=8 (missing) (missing) UROBILINOGEN,URINE 2025-06-27 00:02 [facility] 0.2 (NORMAL) e.u./dl (missing) SPECIFIC GRAVITY,URINE 2025-06-27 00:02 [facility] 1.005 (missing) (missing) GLUCOSE, URINE (UA) 2025-06-27 00:02 [facility] 100 mg/dl (missing) CUL, URINE 2025-06-27 00:02 [facility] 100>100,000 CFU/mL (missing) (missing) WBC,URINE 2025-06-27 00:02 [facility] 11-25 /hpf (missing) RBC,URINE 2025-06-27 00: [facility] 11-25 /hpf (missing) PH,URINE 2025-06-27 00: [facility] 7.0 ph (missing) PIPERACILLIN/TAZOB ACTAM 2025-06-27 00: [facility] 8/4 (missing) (missing) MUDS CUTOFF CONCENTRATIONS 2025-06-27: [facility] CUTOFF CONC BELOW: (missing) [facility] uses the PROFILE-V [employer] Drugs of Abuse Test System. It detects drug classes at the following cutoff concentrations: AMP Amphetamine (d-Amphetamine) 500 ng/mL BAR Barbiturates (Butalbital) 200 ng/mL BZO Benzodiazepines (Nordiazepam) 150 ng/mL BUP Buprenorphine (Buprenorphine) 10 ng/mL XENA Cocaine (Benzoylecgonine) 150 ng/mL MAMP Methamphetamine (d-Methamphetamin e) 500 ng/mL MTD Methadone (Methadone) 200 ng/mL OPI Opiates (Morphine) 100 ng/mL OXY Oxycodone (Oxycodone) 100 ng/mL PCP Phencyclidine (Phencyclidine) 25 ng/mL BUP Buprenorphine (Buprenorphine) 10 ng/mL THC Cannabinoids (06-kkc-1-carboxy -9-THC) 50 ng/mL TCA Tricyclic Antidepressants (Desipramine) 300 ng/mL All drug screen results are unconfirmed. Results are to be used for medical (i.e. treatment) purposes only. Unconfirmed screening results must not be used for non-medical purposes (e.g., employment testing, legal testing). O:ESCCOL 2025-06-27 00: [facility] ESCCOLESCHERICHIA COLIESCHERICHIA COLI (missing) (missing) AMORPHOUS SEDIMENT,UR 2025-06-27 00:02 [facility] Few /lpf (missing) CUL, URINE 2025-06-27 00:02 [facility] GNRGRAM NEGATIVE [place] TO BE FURTHER IDENTIFIED (missing) (missing) CLARITY,URINE 2025-06-27 00:02 [facility] HAZY (missing) (missing) CUL, URINE 2025-06-27 00:02 [facility] IDMIC.1ORG 1 ID/LILIYA COM* (missing) (missing) UR CULTURE IF IND 2025-06-27 00:02 [facility] INDICATED (missing) (missing) LEUKOCYTE ESTERASE, URINE 2025-06-27 00:02 [facility] MODERATE (missing) (missing) BACTERIA,URINE 2025-06-27 00:02 [facility] Many /hpf (missing) AMPHETAMINE SCREEN,URINE 2025-06-27 00:02 [facility] NEGATIVE (missing) (missing) BARBITURATE SCREEN,UR 2025-06-27 00:02 [facility] NEGATIVE (missing) (missing) BENZODIAZEPINES SCREEN, URINE 2025-06-27 00:02 [facility] NEGATIVE (missing) (missing) BUPRENORPHINE SCREEN, URINE 2025-06-27 00:02 [facility] NEGATIVE (missing) (missing) COCAINE SCREEN URINE 2025-06-27 00:02 [facility] NEGATIVE (missing) (missing) METHADONE SCREEN, URINE 2025-06-27 00:02 [facility] NEGATIVE (missing) (missing) METHAMPHETAMINES SCREEN, URINE 2025-06-27 00:02 [facility] NEGATIVE (missing) (missing) OPIATE SCREEN, URINE 2025-06-27 00:02 [facility] NEGATIVE (missing) (missing) OXYCODONE SCREEN, URINE 2025-06-27 00:02 [facility] NEGATIVE (missing) (missing) PHENCYCLIDINE SCREEN, URINE 2025-06-27 00:02 [facility] NEGATIVE (missing) (missing) THC CANNABINOID SCREEN, URINE 2025-06-27 00:02 [facility] NEGATIVE (missing) (missing) TRICYCLIC ANTIDEPRESSANT,URI NE 2025-06-27 00:02 [facility] NEGATIVE (missing) (missing) BILIRUBIN,URINE 2025-06-27 00:02 [facility] NEGATIVE (missing) Bilirubin can be influenced by color interference. Please correlate positive results with clinical presentation KETONES,URINE (UA) 2025-06-27 00:02 [facility] NEGATIVE mg/dl (missing) PROTEIN,URINE 2025-06-27 00:02 [facility] NEGATIVE mg/dl (missing) SQUAMOUS EPITHELIAL CELL,UR 2025-06-27 00:02 [facility] NONE SEEN (missing) (missing) FENTANYL SCREEN, URINE 2025-06-27 00:02 [facility] Negative (missing) [facility] uses LZI Fentanyl (Q) Enzyme Immunoassay. RESULT INTERPRETATION: This assay qualitatively detects norfentanyl in urine which is the major metabolite of fentanyl. A result greater than or equal to 5 ng/mL is considered presumptively positive for fentanyl exposure. CLINICAL SIGNIFICANCE: Presumptive positive results indicate norfentanyl concentrations above the assay cutoff. Due to possible cross-reactivity and potential interference, confirmatory testing by a definitive method (e.g., LC-MS/MS) is recommended for positive or unexpected findings. LIMITATIONS: This test is intended for qualitative screening and is unconfirmed. Concentrations below 5 ng/mL may not be reliably detected. False positives and false negatives are possible. Results are to be used for medical purposes only and can't be used for non-medical or legal purposes. CUL, URINE 2025-06-27 00:02 [facility] ORG.1PRELIM ORG ID* (missing) (missing) NITRITE,URINE 2025-06-27 00:02 [facility] POSITIVE (missing) (missing) CUL, URINE 2025-06-27 00:02 [facility] Pending (missing) (missing) OCCULT BLOOD,URINE 2025-06-27 00:02 [facility] TRACE (missing) (missing) CUL, URINE 2025-06-27 00:02 [facility] 1 CC* (missing) (missing) CUL, URINE 2025-06-27 00:02 [facility].6COLONY COUNT (missing) (missing) COLOR,URINE 2025-06-27 00:02 [facility] YELLOW (missing) URINE CLEAN CATCH CUL, URINE 2025-06-27 00:02 [facility] YIDENTIFICATION AND SENSITIVITIES TO FOLLOW (missing) (missing) Result panel 6 CULTURE, BLOOD #1 2025-06-27 01:06 [facility] NG1D NO GROWTH AFTER 1 DAY (missing) (missing) CULTURE, BLOOD #1 2025-06-27 01:06 [facility] NG2D NO GROWTH AFTER 2 DAYS (missing) (missing) CULTURE, BLOOD #1 2025-06-27 01:06 [facility] NG5D NO GROWTH AFTER 5 DAYS (missing) (missing) Result panel 7 LACTIC ACID, VENOUS 2025-06-27 01:09 [facility] 0.8 mmol/l N As 2022 testing method has changed, this may include reference ranges. CULTURE, BLOOD #2 2025-06-27 01:09 [facility] NG1DNO GROWTH AFTER 1 DAY (missing) (missing) CULTURE, BLOOD #2 2025-06-27 01:09 [facility] NG2DNO GROWTH AFTER 2 DAYS (missing) (missing) CULTURE, BLOOD #2 2025-06-27 01:09 [facility] NG5DNO GROWTH AFTER 5 DAYS (missing) (missing) Result panel 8 HGB - HEMOGLOBIN 2025-06-27 07:54 [facility] 14.2 g /dl (missing) SODIUM 2025-06-27 07:54 [facility] 142 mmol/l (missing) RED CELL DISTRIBUTION WIDTH 2025-06-27 07:54 [facility] 17.7 % (mi ssing) PLT - PLATELET COUNT 2025-06-27 07:54 [facility] 199 10 3/ul (missing) CREATININE 2025-06-27 07:54 [facility] 2.6 mg/dl As of February 2023 testing method has changed, this may include reference ranges. GFR - MDRD 2025-06-27 07:54 [facility] 24 (missin g) The IDMS-traceable MDRD Study Equation has been [...] caring for patients older than 70. References: http://www.nkdep.n ih.gov/lab-evaluat ion/gfr/creatinine -stand ardization, last updated October 2011. MEAN CORPUSCULAR HEMOGLOBIN 2025-06-27 07:54 [facility] 30.0 pg (missing) MEAN CORPUSCULAR HGB CONC 2025-06-27 07:54 [facility] 30.9 g/dl (missing) CARBON DIOXIDE - CO2 2025-06-27 07:54 [facility] 35 mmol/l As of February 2023 testing method has changed, this may include reference ranges. POTASSIUM 2025-06-27 07:54 [facility] 4.3 mmol/l As of February 2023 testing method has changed, this may include reference ranges. RED BLOOD COUNT 2025-06-27 07:54 [facility] 4.74 10 6/ul (missing) HCT - HEMATOCRIT 2025-06-27 07:54 [facility] 45.9 % (missing) BUN - BLOOD UREA NITROGEN 2025-06-27 07:54 [facility] 66 mg/dl As of Feb testing method has changed, this may include reference ranges. ANION GAP 2025-06-27 07:54 [facility] 8.0 (missing ) (missing) WHITE BLOOD COUNT 2025-06-27 07:54 [facility] 8.1 x10 3/ul (missing) CALCIUM 2025-06-27 07:54 [facility] 9.1 mg/dl As of February 2023 testing method has changed, this may include reference ranges. MEAN PLATELET VOLUME 2025-06-27 07:54 [facility] 9.4 fl (missing) MEAN CORPUSCULAR VOLUME 2025-06-27 07:54 [facility] 96.8 fl (missing) GLUCOSE 2025-06-27 07:54 [facility] 97 mg/dl As of February 2023 testing method has changed, this may include reference ranges. CHLORIDE 2025-06-27 07:54 [facility] 99 mmol/l As of February 2023 testing method has changed, this may include reference ranges. Result panel 9 SARS-CoV-2 -RESP PCR PANEL 2025-07-01 13:35 [facility] NOT DETECTED (missing) A negative test result for this test indicates that SARS-CoV-2 RNA was not present in the specimen above the limit of detection. Testing performed on the PlyfeFire RP2.1 Panel, a multiplexed nucleic acid repiratory panel. Negative results do not preclude infection with SARS-CoV-2 virus and should not be the sole basis of a patient management decision. In some patients repeat testing at various time points may be necessary for virus detection. False-negative results may arise from improper sample collection, degradation of viral RNA during shipping or storage, the presence of PCR inhibitors, and/or mutation in the SARS-CoV-2 virus. INFLUENZA A- RESP PCR PANEL 2025-07-01 13:35 [facility] NOT DETECTED (missing) Influenza A including subtypes H1, H3, and H1-2009 not detected by the BioFire RP2.1 Panel, a multiplexed nucleic acid test intended for the simultaneous qualitative detection and differentiation of nucleic acids from multiple viral and bacterial respiratory organisms. B. PARAPERTUSSIS- RESP PCR ULRICH 2025-07-01 13:35 [facility] NOT DETECTED (missing) Negative results for this organism do not preclude infection with this organism and may require additional laboratory testing (e.g., bacterial and viral culture, immunofluorescence, and radiography) when evaluating a patient with possible respiratory tract infection. B. PERTUSSIS- RESP PCR PANEL 2025-07-01 13:35 [facility] NOT DETECTED (missing) Negative results for this organism do not preclude infection with this organism and may require additional laboratory testing (e.g., bacterial and viral culture, immunofluorescence, and radiography) when evaluating a patient with possible respiratory tract infection. C. PNEUMONIAE- RESP PCR PANEL 2025-07-01 13:35 [facility] NOT DETECTED (missing) Negative results for this organism do not preclude infection with this organism and may require additional laboratory testing (e.g., bacterial and viral culture, immunofluorescence, and radiography) when evaluating a patient with possible respiratory tract infection. M. PNEUMONIAE- RESP PCR PANEL 2025-07-01 13:35 [facility] NOT DETECTED (missing) Negative results for this organism do not preclude infection with this organism and may require additional laboratory testing (e.g., bacterial and viral culture, immunofluorescence, and radiography) when evaluating a patient with possible respiratory tract infection. CORONAVIRUS 229E-RESP PCR 2025-07-01 13:35 [facility] NOT DETECTED (missing) Negative results in the setting ofa respiratory illness may be due to infection with pathogens not detected by this test, or lower respiratory tract infection that may not be detected by nasopharyngeal specimen. CORONAVIRUS HKU1-RESP PCR 2025-07-01 13:35 [facility] NOT DETECTED (missing) Negative results in the setting ofa respiratory illness may be due to infection with pathogens not detected by this test, or lower respiratory tract infection that may not be detected by nasopharyngeal specimen. CORONAVIRUS GT80-NEYQ PCR 2025-07-01 13:35 [facility] NOT DETECTED (missing) Negative results in the setting ofa respiratory illness may be due to infection with pathogens not detected by this test, or lower respiratory tract infection that may not be detected by nasopharyngeal specimen. CORONAVIRUS PG10-QDAA PCR 2025-07-01 13:35 [facility] NOT DETECTED (missing) Negative results in the setting ofa respiratory illness may be due to infection with pathogens not detected by this test, or lower respiratory tract infection that may not be detected by nasopharyngeal specimen. HUMAN METAPNEUMOVIRUS 2025-07-01 13:35 [facility] NOT DETECTED (missing) Negative results in the setting ofa respiratory illness may be due to infection with pathogens not detected by this test, or lower respiratory tract infection that may not be detected by nasopharyngeal specimen. INFLUENZA B - RESP PCR PANEL 2025-07-01 13:35 [facility] NOT DETECTED (missing) Negative results in the setting ofa respiratory illness may be due to infection with pathogens not detected by this test, or lower respiratory tract infection that may not be detected by nasopharyngeal specimen. PARAINFLUENZA VIRUS 1 2025-07-01 13:35 [facility] NOT DETECTED (missing) Negative results in the setting ofa respiratory illness may be due to infection with pathogens not detected by this test, or lower respiratory tract infection that may not be detected by nasopharyngeal specimen. PARAINFLUENZA VIRUS 2 2025-07-01 13:35 [facility] NOT DETECTED (missing) Negative results in the setting ofa respiratory illness may be due to infection with pathogens not detected by this test, or lower respiratory tract infection that may not be detected by nasopharyngeal specimen. PARAINFLUENZA VIRUS 3 2025-07-01 13:35 [facility] NOT DETECTED (missing) Negative results in the setting ofa respiratory illness may be due to infection with pathogens not detected by this test, or lower respiratory tract infection that may not be detected by nasopharyngeal specimen. PARAINFLUENZA VIRUS 4 2025-07-01 13:35 [facility] NOT DETECTED (missing) Negative results in the setting ofa respiratory illness may be due to infection with pathogens not detected by this test, or lower respiratory tract infection that may not be detected by nasopharyngeal specimen. RHINOVIRUS/ENTEROVI SHABNAM 2025-07-01 13:35 [facility] NOT DETECTED (missing) Negative results in the setting ofa respiratory illness may be due to infection with pathogens not detected by this test, or lower respiratory tract infection that may not be detected by nasopharyngeal specimen. RSV- RESP PCR PANEL 2025-07-01 13:35 [facility] NOT DETECTED (missing) Negative results in the setting ofa respiratory illness may be due to infection with pathogens not detected by this test, or lower respiratory tract infection that may not be detected by nasopharyngeal specimen. ADENOVIRUS - RESP PCR PANEL 2025-07-01 13:35 [facility] NOT DETECTED (missing) YES Negative results in the setting ofa respiratory illness may be due to infection with pathogens not detected by this test, or lower respiratory tract infection that may not be detected by nasopharyngeal specimen. Result panel 10 NUCLEATED RED BLOOD CELLS AUTO 2025-07-01 14:25 [facility] 0.0 /100wbc (missing) NRBC ABSOLUTE COUNT (AUTO) 2025-07-01 14:25 [facility] 0.00 x10 3/ul (missing) BASOPHILS # (AUTO) 2025-07-01 14:25 [facility] 0.1 10 3/ul (missing) LYMPHOCYTES # (AUTO) 2025-07-01 14:25 [facility] 0.7 10 3/ul (missing) BILIRUBIN,TOTAL 2025-07-01 14:25 [facility] 0.7 mg/dl As of February 2023 testing method has changed, this may include reference ranges. EOSINOPHILS # (AUTO) 2025-07-01 14:25 [facility] 1.0 10 3/ul (missing) ALBUMIN/GLOBULIN RATIO 2025-07-01 14:25 [facility] 1.4 (missing) (missing) MONOCYTES # (AUTO) 2025-07-01 14:25 [facility] 1.7 10 3/ul (missing) LIPASE 2025-07-01 14:25 [facility] 10 u/l As of February 2023 testing method has changed, this may include reference ranges. MEAN PLATELET VOLUME 2025-07-01 14:25 [facility] 10.0 fl (missing) CHLORIDE 2025-07-01 14:25 [facility] 100 mmol/l As of February 2023 testing method has changed, this may include reference ranges. WHITE BLOOD COUNT 2025-07-01 14:25 [facility] 11.8 x10 3/ul (missing) GLUCOSE 2025-07-01 14:25 [facility] 114 mg/dl As of February 2023 testing method has changed, this may include reference ranges. HGB - HEMOGLOBIN 2025-07-01 14:25 [facility] 14.3 g/dl (missing) SODIUM 2025-07-01 14:25 [facility] 141 mmol/l (missing) RED CELL DISTRIBUTION WIDTH 2025-07-01 14:25 [facility] 17.2 % (missing) CREATININE 2025-07-01 14:25 [facility] 2.3 mg/dl As of February 2023 testing method has changed, this may include reference ranges. ALT ALANINE AMINOTRANSFERASE 2025-07-01 14:25 [facility] 21 iu/l As of February 2023 testing method has changed, this may include reference ranges. AST ASPARTATE AMINOTRANSFERASE 2025-07-01 14:25 [facility] 22 iu/l As of February 2023 testing method has changed, this may include reference ranges. PLT - PLATELET COUNT 2025-07-01 14:25 [facility] 236 10 3/ul (missing) GFR - MDRD 2025-07-01 14:25 [facility] 27 (missing) The IDMS-traceable MDRD Study Equation [...] caring for patients older than 70. References: http://www.nkde p.nih.gov/lab-e valuation/gfr/c reatinine-stand ardization, last updated October 2011. TROPONIN I HIGH SENSITIVITY 2025-07-01 14:25 [facility] 28.6 ng/l Critical result TNIHS 28.6 pg/mL called to and read back by ANN-MARIE Acevedo RN/ED at 01-Jul-2025 14:52 by Wang. A HIGH SENSITIVITY TROPONIN result of >= 14.9 ng/L for females is considered POSITIVE. A HIGH SENSITIVITY TROPONIN result of >= 19.8 ng/L for males is considered POSITIVE. A HIGH SENSITIVITY TROPONIN result of >= 17.9 ng/L for unspecified is considered POSITIVE. GLOBULIN 2025-07-01 14:25 [facility] 3.1 g/dl (missing) MEAN CORPUSCULAR HEMOGLOBIN 2025-07-01 14:25 [facility] 30.1 pg (missing) MEAN CORPUSCULAR HGB CONC 2025-07-01 14:25 [facility] 30.6 g/dl (missing) CARBON DIOXIDE - CO2 2025-07-01 14:25 [facility] 32 mmol/l As of February 2023 testing method has changed, this may include reference ranges. ALBUMIN 2025-07-01 14:25 [facility] 4.4 g/dl As of February 2023 testing method has changed, this may include reference ranges. POTASSIUM 2025-07-01 14:25 [facility] 4.4 mmol/l As of February 2023 testing method has changed, this may include reference ranges. RED BLOOD COUNT 2025-07-01 14:25 [facility] 4.75 10 6/ul (missing) HCT - HEMATOCRIT 2025-07-01 14:25 [facility] 46.8 % (missing) BUN - BLOOD UREA NITROGEN 2025-07-01 14:25 [facility] 58 mg/dl As of February 2023 testing method has changed, this may include reference ranges. TOTAL PROTEIN 2025-07-01 14:25 [facility] 7.5 g/dl As of February 2023 testing method has changed, this may include reference ranges. NEUTROPHILS # (AUTO) 2025-07-01 14:25 [facility] 8.3 10 3/ul (missing) ANION GAP 2025-07-01 14:25 [facility] 9.0 (missing) (missing) CALCIUM 2025-07-01 14:25 [facility] 9.6 mg/dl As of February 2023 testing method has changed, this may include reference ranges. ALKALINE PHOSPHATASE 2025-07-01 14:25 [facility] 97 iu/l As of February 2023 testing method has changed, this may include reference ranges. MEAN CORPUSCULAR VOLUME 2025-07-01 14:25 [facility] 98.5 fl (missing) SLIDE REVIEW? 2025-07-01 14:25 [facility] Indicated (missing) (missing) PLATELET ESTIMATE, MANUAL 2025-07-01 14:25 [facility] NORMAL ([phone]) (missing) (missing) PLATELET MORPHOLOGY 2025-07-01 14:25 [facility] NORMAL APPEARANCE (missing) (missing) RBC MORPHOLOGY (MULTIPLE) 2025-07-01 14:25 [facility] NORMAL APPEARANCE (missing) (missing) WBC MORPHOLOGY (MULTIPLE) 2025-07-01 14:25 [facility] NORMAL APPEARANCE (missing) (missing) Result panel 11 ERTAPENEM 2025-07-22 16:45 [facility] >1 (missing) (missing) AMPICILLIN 2025-07-22 16:45 [facility] >16 (missing) (missing) AMPICILLIN/SULBACT AM 2025-07-22 16:45 [facility] >16 (missing) (missing) CEFAZOLIN 2025-07-22 16:45 [facility] >16 (missing) (missing) CEFTRIAXONE 2025-07-22 16:45 [facility] >32 (missing) (missing) NITROFURANTOIN 2025-07-22 16:45 [facility] >64 (missing) (missing) CIPROFLOXACIN 2025-07-22 16:45 [facility] <=0.25 (missing) (missing) LEVOFLOXACIN 2025-07-22 16:45 [facility] <=0.5 (missing) (missing) MEROPENEM 2025-07-22 16:45 [facility] <=0.5 (missing) (missing) TRIMETHOPRIM/SULFA METHOXAZOLE 2025-07-22 16:45 [facility] <=0.5 (missing) (missing) CEFEPIME 2025-07-22 16:45 [facility] <=1 (missing) (missing) GENTAMICIN 2025-07-22 16:45 [facility] <=2 (missing) (missing) TETRACYCLINE 2025-07-22 16:45 [facility] <=2 (missing) (missing) TOBRAMYCIN 2025-07-22 16:45 [facility] <=2 (missing) (missing) AMIKACIN 2025-07-22 16:45 [facility] <=8 (missing) (missing) CUL, URINE 2025-07-22 16:45 [facility] 100>100,000 CFU/mL (missing) (missing) AZTREONAM 2025-07-22 16:45 [facility] 16 (missing) (missing) PIPERACILLIN/TAZOB ACTAM 2025-07-22 16:45 [facility] 32 (missing) (missing) O:ENTCLO 2025-07-22 16:45 [facility] ENTCLOENTEROBACTER CLOACAEENTEROBACTER CLOACAE (missing) (missing) CUL, URINE 2025-07-22 16:45 [facility] NEGAT[facility] [place] TO BE FURTHER IDENTIFIED (missing) (missing) CUL, URINE 2025-07-22 16:45 [facility] IDMIC.1ORG 1 ID/LILIYA COM* (missing) (missing) CUL, URINE 2025-07-22 16:45 [facility] ORG.1PRELIM ORG ID* (missing) (missing) CUL, URINE 2025-07-22 16:45 [facility] Pending (missing) (missing) CUL, URINE 2025-07-22 16:45 [facility] UCC.1ORG 1 CC* (missing) (missing) CUL, URINE 2025-07-22 16:45 [facility] UCC.6COLONY COUNT (missing) (missing) CUL, URINE 2025-07-22 16:45 [facility] YIDENTIFICATION AND SENSITIVITIES TO FOLLOW (missing) (missing) Result panel 12 GLUCOSE, WHOLE BLOOD 2025-08-04 01:55 [facility] 88 (missing) (missing) Social History date description facility
[2025-08-04 02:55] LABS: HCT - HEMATOCRIT 47.3 % (42.0-52.0); HGB - HEMOGLOBIN 14.4 g/dL (14.0-18.0); MEAN PLATELET VOLUME 11.0 fL (7.4-11.4); NRBC ABSOLUTE COUNT (AUTO) 0.00 x10^3/uL; NUCLEATED RED BLOOD CELLS AUTO 0.0 /100WBC; PLT - PLATELET COUNT 237 10^3/uL (130-450); RED CELL DISTRIBUTION WIDTH 17.4 % (12.0-15.0)
[2025-08-04 03:10] LABS: KETONES, SERUM (ACETEST) NEGATIVE (NEGATIVE)
[2025-08-04] MEDS: SODIUM CHLORIDE 0.9% 1,000 ML IV STA (03:12)
[2025-08-04 03:13] LABS: ETOH - ETHANOL < 10.0 mg/dL
[2025-08-04 03:16] LABS: ALT ALANINE AMINOTRANSFERASE 20 IU/L (10-60); AST ASPARTATE AMINOTRANSFERASE 31 IU/L (10-42); BUN - BLOOD UREA NITROGEN 95 mg/dL (6-20); CARBON DIOXIDE - CO2 27 mmol/L (21-32); CREATININE 3.0 mg/dL (0.6-1.3); GFR - MDRD 20 (>89)
[2025-08-04 03:48] LABS: GLUCOSE, URINE (UA) NEGATIVE (NEGATIVE); KETONES,URINE (UA) NEGATIVE (NEGATIVE); OCCULT BLOOD,URINE TRACE-INTACT (NEGATIVE)
[2025-08-04 03:54] LABS: SQUAMOUS EPITHELIAL CELL,UR FEW Squamous (<= Few)
[2025-08-04] MEDS ORDERED: CEFEPIME 2 GM VIAL ONE (03:54)
[2025-08-04] MEDS ORDERED: VANCOMYCIN 1 GM VIAL ONE (03:55)
[2025-08-04] MEDS: VANCOMYCIN INJ 1.25 GM in SODIUM CHLORIDE 0.9% 500 ML IV STA (03:57)
[2025-08-04] MEDS: CEFEPIME 2 GM in SODIUM CHLORIDE 0.9% MINIBAG 100 ML IV STA (03:59)
[2025-08-04 05:00] LABS: B. PARAPERTUSSIS- RESP PCR PAN NOT DETECTED; B. PERTUSSIS- RESP PCR PANEL NOT DETECTED; C. PNEUMONIAE- RESP PCR PANEL NOT DETECTED; CORONAVIRUS 229E-RESP PCR NOT DETECTED; CORONAVIRUS HKU1-RESP PCR NOT DETECTED; CORONAVIRUS NL63-RESP PCR NOT DETECTED; CORONAVIRUS OC43-RESP PCR NOT DETECTED; HUMAN METAPNEUMOVIRUS NOT DETECTED; INFLUENZA A- RESP PCR PANEL NOT DETECTED; INFLUENZA B - RESP PCR PANEL NOT DETECTED; M. PNEUMONIAE- RESP PCR PANEL NOT DETECTED; PARAINFLUENZA VIRUS 1 NOT DETECTED; PARAINFLUENZA VIRUS 2 NOT DETECTED; PARAINFLUENZA VIRUS 4 NOT DETECTED; RHINOVIRUS/ENTEROVIRUS NOT DETECTED; RSV- RESP PCR PANEL NOT DETECTED; SARS-CoV-2 -RESP PCR PANEL NOT DETECTED
[2025-08-04] MEDS: diltiaZEM INJ 5 MG/ML VIAL IVP STA ×2 (05:43→07:45)
[2025-08-04] MEDS: ACETAMINOPHEN 325 MG TABLET PO STA (06:06)
--- NOTE | 2025-08-04 07:51 | CT Report ---
PROCEDURE: CT Head WO INDICATIONS: AMS TECHNIQUE: CT of the head was performed, without intravenous contrast. Reformats: Coronal and sagittal. For radiation dose reduction, the following was used: automated exposure control, adjustment of mA and/or kV according to patient size. COMPARISON: 06/12/2024 FINDINGS: Image quality: Diagnostic. CSF spaces: Basal cisterns are patent. No extra-axial fluid collections. Ventricles are normal in size and shape. Brain: No midline shift. No intracranial mass effect or hemorrhage. Sanchez- white matter interface is normal. Age appropriate volume loss and mild, age- appropriate periventricular white matter hypoattenuation, likely chronic ischemic change. Skull and face: Calvarium and visualized facial bones are intact, without suspicious lesions. Sinuses: Visualized sinuses and mastoids are clear. IMPRESSION: No acute intracranial pathology. Findings are concordant with preliminary interpretation provided by [facility]. Reviewed by: Eliezer Morillo MD on 08/04/2025 7:47 AM PST Approved by: Eliezer Morillo MD on 08/04/2025 7:47 AM PST Station ID: [id number]
--- NOTE | 2025-08-04 08:10 | XRAY Report ---
PROCEDURE: XR Chest 1V INDICATIONS: AMS TECHNIQUE: One view of the chest was acquired. COMPARISON: 07/01/2025 and multiple prior radiographs. FINDINGS: Surgical changes and devices: EKG leads overlie the chest. Lungs and pleura: No pneumothorax or large effusion. Mild perihilar interstitial prominence. Bilateral costophrenic angles are excluded from the [id number]. Prominent skinfold projects over the lateral right thorax. Mediastinum: Mediastinal contours appear normal. Heart size is normal. Atheromatous plaques are noted thoracic aorta. Multilead cardiac device noted with leads in expected position. Previous sternotomy. Status post TAVR procedure. Bones and chest wall: No suspicious bony lesions. Overlying soft tissues appear unremarkable. IMPRESSION: Mild perihilar interstitial prominence may represent mild interstitial edema. Suboptimal technique excluding the bilateral costophrenic angles. Reviewed by: Radha Harrell MD on 08/04/2025 8:07 AM PST Approved by: Radha Harrell MD on 08/04/2025 8:07 AM PST Station ID: [id number]
--- NOTE | 2025-08-04 08:25 | HISTORY & PHYSICAL EXAMINATION ---
Chief Complaint Chief Complaint Chief Complaint: AMS History of Present Illness Admitted From Admitted From:: ED History Obtained From Records Reviewed: [facility] History obtained from: ED Provider, Patient Spouse, Patient Exam Limitations: Patient is somnolent, intermittently engaging History of Present Illness HPI Comment/Other: This is an 85-year-old gentleman with past medical history notable for longstanding persistent atrial fibrillation, CKD 3B, bladder cancer s/p radical cystectomy with ileal conduit in place, hypertension, type II DM, rheumatoid arthritis on immunomodulation, and HFrEF who presents with altered mentation. Patient has some mild cognitive impairment at baseline, but is normally interactive and speaks normally. He has been demonstrating significantly more confusion over the last couple of days. He was evaluated by EMS on 08/03 reported to have hypoglycemia which improved on scene the patient refused transfer to the hospital. He again is presenting with confusion and alteration from his baseline and EMS was again dispatched and this time his blood sugars were normal. He did not return to baseline, was brought in the ED. I called and discussed with his , he says that he has been getting weaker over the past few days. He has been falling asleep during the recent doctors visit. This is unlike him. When he is awake, he will often times be lucid and cogent. However last evening when she called EMS, he was completely altered and unable to adequately communicate. She says his speech was garbled. In the ED, he was found to have evidence of urinary tract infection. He has a leukocytosis to 13.6. BRITTANY, creatinine 3 up from his baseline around 2.5. He has been tachycardic here and in A-fib with RVR up to 128. Was briefly hemodynamically unstable but received some fluids in the ED and is now hypertensive. Got 2 pushes of diltiazem in the ED. Finally in the ED, he was found to have troponin elevation. He has a ventricular paced rhythm, and is read on automatic read of the EKG to have ST elevation. I do not appreciate this, and he does not meet modified Sgarbossa criteria to rule in for STEMI. I personally reviewed his EKG. He is no longer having any chest pain. His troponin was elevated up to 600 and his been stable to downtrending. Of note he was recently seen at the walk-in clinic on 07/22. He was found to have evidence of UTI at that time. His symptoms at that time were dark urine. He denied any systemic symptoms. He was mentating appropriately. He received 7 days of ciprofloxacin. His urine eventually cultured out to Enterobacter cloacae I which has multiple resistances but is sensitive to Cipro, cefepime, meropenem (resistant to ertapenem), tetracycline, tobramycin, and Bactrim. On my interview with the patient, he is more lucid than he apparently was last night. He is already received a dose of antibiotic in the ED. He also received fluids. Denies any chest pain, dyspnea. Denies abdominal pain. Denies any nausea, vomiting or diarrhea. The patient has a DNR/selective treatment POLST that was completed in 2023. He states this is still consistent with his wishes. His is his surrogate decision maker, her name is Christie, and her contact information is in the chart. She very quickly on my interview wants to clarify that the patient is DNR. I discussed with Dr. Alegria in the ED, decided to admit this patient in the setting of sepsis. Will treat for urinary tract infection, broadly covering for the recent Enterobacter infection that was noted in the community. This is sensitive to cefepime. Will follow-up urine cultures, blood cultures. Anticipate discharge in 2 days pending cultures. Meds/Allgy Home Medications Ambulatory Orders Medication Instructions Recorded Confirmed duloxetine 20 mg capsule,delayed 40 mg PO HS 04/18/24 08/04/25 release leflunomide 10 mg tablet 10 mg PO DAILY 04/18/2407/21 apixaban 2.5 mg tablet (Eliquis) 2.5 mg PO BID #60 tab s 04/20/24 08/04/25 furosemide 40 mg tablet 40 mg PO DAILY edema, CHF #3 0 tabs 04/20/24 08/04/25 Held on 06/27/25. Instructions: Resume on 07/11/25. Please hold until follow up with PCP/nephrology and recheck of creatinine. empagliflozin 10 mg tablet 10 mg PO DAILY 06/12/24 (Jardiance) omeprazole 20 mg capsule,delayed 20 mg PO BID 06/12/24 08/04/25 release metoprolol succinate 50 mg 50 mg PO DAILY #30 tabs 08/04/25 tablet,extended release 24 hr gabapentin 600 mg tablet 600 mg PO QPM 05/24/2508/04 prednisone 5 mg tablet 5 mg PO DAILY 05/24/2508/04 sacubitril 24 mg-valsartan 26 mg 0.5 tab PO BID 08/04/25 tablet (Entresto) Held on 06/27/25. Instructions: Resume on 07/04/25. Please hold until creatinine rechecked with nephro/PCP. tramadol 50 mg tablet 50 mg PO Q6H PRN pain 08/04/25 vit C 250 mg-vit E 90 mg-zinc 40 1 tab PO BID 06/27/25 08/04/25 mg-copper 1 [id number] capsule (PreserVision AREDS-2) amlodipine 10 mg tablet 10 mg PO DAILY 08/04/2507/21 hydroxyzine HCl 25 mg tablet 25 mg PO HS PRN for itchi ng at 08/04/25 08/04/25 bedtime Allergies Allergies Allergy/AdvReac Type Severity Reaction Status Date / Time No Known Drug Allergies Allergy Verified 07/22/25 16:33 PFSH Active Problems All Active Problems (Updated 08/04/25 @ 17:22 by Doug Griffiths DO) Depression (Chronic) Urine discoloration (Acute) Acute pain of left shoulder (Acute) Hypotension, unspecified (Acute) Generalized pruritus (Acute) Chronic kidney disease, stage 4 (severe) (Acute) Bladder cancer (Acute) Congestive heart failure (Acute) Right upper lobe pulmonary nodule (Acute) Pneumonia (Acute) Pleural effusion (Acute) Hyperkalemia (Acute) Hypoxia (Acute) Atrial fibrillation (Acute) Alcohol abuse (Acute) Bacteremia (Acute) Generalized weakness (Acute) History of urostomy (Chronic) HTN (hypertension) (Chronic) BRITTANY (acute kidney injury) (Acute) Pyelonephritis (Acute) ARF (acute renal failure) (Acute) Sepsis (Acute) UTI (urinary tract infection) (Acute) Alcohol dependence (Chronic) 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 (Date/Year): 50 years ago Number of Years Smoked: 20 How many cigarettes a day do you smoke? (20 cigarettes=1 Pk): 20 Second hand tobacco smoke exposure: No Do you dip or chew tobacco?: No Do you vape?: No Patient requests smoking cessation consult: No Initiate information on smoking cessation: No Living arrangement: At home Living Condition: With spouse/s.o. Level: Assisted Home Mobility Equipment: Walker Do you feel safe in your home environment?: Yes History of physical, verbal, emotional, or financial abuse?: No Substance Use: denies use POLST Patient has POLST: No Exam Exam Vital Signs: Vital Signs x48h Temp Pulse Pulse Resp BP BP Pulse Ox 08/04/25 16:41 116 H 121/80 08/04/25 14:15 36.6 C 113 H 16 107/71 97 08/04/25 13:00 36.7 C 113 H 16 114/75 97 08/04/25 10:27 128 H 08/04/25 09:37 36.5 C 136 H 12 120/97 H 96 08/04/25 09:18 145 H 18 132/90 H 94 GEN: No acute distress. Frail-appearing. HEENT: NC/AT, normal appearance of external ears and nose. Hearing baseline. Cardiac: Rapid and irregular. No murmurs appreciated. Cannot appreciate a murmur around his aortic valve. Mildly edematous, 1+ pitting edema to his bilateral lower extremities. Pulm: Lungs CTA bilaterally, no cough, no wheezes. No adventitial lung sounds. Abdomen: Soft, nontender, nondistended. No rebound or guarding Extremities: Moves all 4 extremities equally. Normal tone. Neuro: Face symmetric, CN II through XII intact grossly. No focal neurologic deficits. Psych: Mood euthymic. Affect congruent. Reasonable historian. Oriented to person, time and place. Confabulates at times. Sepsis Event Note (H) Evaluation Current Stage of Sepsis: Severe sepsis Possible source of Sepsis: positive Genitourinary Sepsis Criteria Sepsis Criteria: Recorded Heart Rate greater than 90 bpm, WBC count greater than 12,000 or less than 4000 and Renal: urine output less than 0.5ml/kg/hr for 2 hours or creatinine gr Conclusion/Plan Problem List (1) Sepsis: Plan: Patient presents with findings of sepsis. Septic by nature of leukocytosis, tachycardia. He is in atrial fibrillation with RVR as below. He meets sepsis 3 criteria by virtue of BRITTANY supporting evidence of endorgan damage. Had transient hypotension in the ED, resolved briskly with fluids. Consider this may have been a inaccurate reading. Likely source is UTI as below. In the ED, he has been started on cefepime and vancomycin. He received 30 cc/kg of IV fluid. His blood pressure is now robust. - Manage UTI as below - Defer further fluids at this time given his heart failure and hemodynamic stability - Encourage oral hydration - Monitor vitals every 4 hours Qualifiers: Acute renal failure type: unspecified Sepsis acute organ dysfunction status: with acute organ dysfunction Sepsis type: sepsis due to unspecified organism Severe sepsis acute organ dysfunction type: acute renal failure S evere sepsis shock status: without septic shock Qualified Code(s): A41.9 - Sepsis, unspecified organism; R65.20 - Severe sepsis without septic shock; N17.9 - Acute kidney failure, unspecified (2) UTI (urinary tract infection): Plan: Patient with evidence of urinary tract infection on UA. He has a suprapubic cath which may preclude him from having typical symptoms. His urinalysis reveals leukocyte esterase, WBC, many bacteria, and trace blood. He recently had UA in the community that revealed similar findings though more robust. The micro at that time grew Enterobacter cloacae. He was treated with 7 days of ciprofloxacin. He reports he took them. Resistance of prior Enterobacter to ertapenem, ampicillin, aztreonam, cefazolin, ceftriaxone, ertapenem, Macrobid, and Zosyn. - Continue cefepime, which prior Enterobacter is sensitive to - Discontinue vancomycin at this time - Renally dose antibiotics in the setting of his BRITTANY - Careful monitoring for encephalopathy worsening by cefepime - Follow-up urine cultures and blood cultures Qualifiers: Urinary tract infection type: acute pyelonephritis Qualified Code(s): N 10 - Acute pyelonephritis (3) Atrial fibrillation: Plan: In RVR on admission. Heart rate in the 120s. Longstanding history of persistent atrial fibrillation. Normally on metoprolol succinate 50 mg every 24 hours and renally dosed Eliquis. Received 2 pushes of diltiazem in the ED. Has a history of RVR. Was on digoxin when he discharged from [facility] last. - Continue Eliquis 2.5 mg twice daily - Metoprolol tartrate 25 mg every 6 hours with holding parameters - Can consolidate 24-hour dose tomorrow - Consider cardioversion if hemodynamically unstable Qualifiers: Atrial fibrillation type: persistent (not longstanding) Qualified Code(s): I48.19 - Other persistent atrial fibrillation; I48.1 - Persistent atrial fibrillation (4) Chronic kidney disease, stage 4 (severe): (5) BRITTANY (acute kidney injury): Plan: Present on admission. Creatinine on admission 3.0. Patient's baseline creatinine seems to be around 2.5. He has CKD 4 at baseline. Baseline GFR tends to run 25-30. He is supposed to start following with [facility] in the community. He has an appointment apparently on August 24. - Will monitor creatinine again this afternoon - BMP a.m. - Avoid nephrotoxins as able - Renally dose medications as appropriate. (6) Congestive heart failure: Plan: Patient with history of HFrEF. He is on GDMT with Toprol, Entresto, Jardiance. He is not on an MRA for unclear reasons. His blood pressure has been reasonable today. His says he has not dealt with much edema over the last few months. Did well after his TAVR in August. He has a complex heart history otherwise. CAD s/p CABG. Complete heart block with permanent pacemaker. Persistent atrial fibrillation as above. His bilateral lower extremity edema. This may be contributed to by amlodipine 10 mg which he takes at home as well as gabapentin. - Continue metoprolol as above - Hold Jardiance, consider discontinuation in setting of recurrent UTI - Consideration to start on spironolactone, GFR is borderline appropriate - Follow-up BMP a.m. - Resume Entresto half tab in the morning - Pending a.m. labs, consideration to start back on diuretics tomorrow - Sodium restricted diet. 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 He is s/p ileal conduit. He follows locally with urology, last saw Dr. Russo in March. Dr. Russo's note also recommends since his progressive kidney dysfunction. Dr. Russo was who sent his nephrology referral. - Noted (8) Rheumatoid arthritis: Plan: Patient with history of rheumatoid arthritis. He is on leflunomide and prednisone 5 mg daily. - Holding leflunomide in the setting of active infection - Reasonable to continue prednisone 5 mg as he has been on this chronically - Consider stress dose steroids if he is hemodynamically unstable (9) Generalized pruritus: Plan: Longstanding issue of generalized pruritus. Of unclear etiology. He is using pulsed doses of clobetasol cream at home. They typically use 1 dose before bedtime. He was previously on hydroxyzine, no longer using this. - Topical barrier creams as needed - Clobetasol twice daily (10) Depression: Plan: Stable on [employer] duloxetine. Continued. Plan By problem as above. I spent a total of 92 minutes in the care of this patient today. This time was spent reviewing labs, vital signs, imaging, interviewing and examining the patient, and discussing plan of care with them and their other care providers. Extensive time discussing with family. Patient is admitted with acute illness threatening life or bodily function in the setting of sepsis. Decision was made to admit the patient to inpatient service. [id number]. Lab Results 08/04/25 02:27 08/04/25 14:07
--- OUTSIDE RECORDS SUMMARY | 2025-08-04 08:51 | EXTERNAL MEDICAL SUMMARY RPT | Continuity of Care Document ---
Author Organization [facility] Address [address] [place] [id number] Phone Allergies and Intolerances date description facility reaction severity 2025-04-03 10:00 [id number]^No Known Drug Allergies^^No Known Drug Allergies^^allergy.id [facility] (no reaction) (no severity) 2025-05-07 10:00 [id number]^No Known Drug Allergies^^No Known Drug Allergies^^allergy.id [facility] (no reaction) (no severity) 2025-05-24 10:00 [id number]^No Known Drug Allergies^^No Known Drug Allergies^^allergy.id [facility] (no reaction) (no severity) 2025-06-26 10:00 [id number]^No Known Drug Allergies^^No Known Drug Allergies^^allergy.id [facility] (no reaction) (no severity) 2025-07-22 10:00 [id number]^No Known Drug Allergies^^No Known Drug Allergies^^allergy.id [facility] (no reaction) (no severity) Problems date description facility 2025-05-07 19:03 Persistent atrial fibrillation [facility] 2025-05-07 19:03 Other persistent atrial fibrill ation [facility] 2025-05-09 10:26 Insomnia, unspecified [facility] 2025-05-09 10:26 Persistent atrial fibrillation [facility] 2025-05-09 10:26 Other persistent atrial fibrill ation [facility] 2025-05-09 10:26 Orthopnea [facility] 2025-05-09 10:26 Abnormal weight loss [facility] 2025-05-24 11:36 Hypotension, unspecified [facility] 2025-05-24 11:36 Pruritus, unspecified [facility] 2025-05-24 11:36 [facility], [facility] 4 [facility]25-[facility] 01:40 Encephalopathy, unspecified [facility] [employer] 2025-06-27 01:40 Urinary tract infection, site n ot specified [facility] 2025-06-27 02:13 Encephalopathy, unspecified [facility] [employer] 2025-06-27 02:13 Persistent atrial fibrillation [facility] 2025-06-27 02:13 Other persistent atrial fibrill ation [facility] 2025-06-27 02:13 Renal tubulo-interstitial disea ses (N10-N16) [facility] 2025-06-27 02:13 Chronic kidney disease, stage 4 (severe) [facility] 2025-06-27 02:13 Urinary tract infection, site n ot specified [facility] 2025-06-27 12:01 Encephalopathy, unspecified [facility] [employer] 2025-06-27 12:01 Persistent atrial fibrillation [facility] 2025-06-27 12:01 Other persistent atrial fibrill ation [facility] 2025-06-27 12:01 Renal tubulo-interstitial disea ses (N10-N16) [facility] 2025-06-27 12:01 Chronic kidney disease, stage 4 (severe) [facility] 2025-06-27 12:01 Urinary tract infection, site n ot specified [facility] 2025-06-27 12:42 [facility], [facility] 12:42 Persistent [facility] 2025-06-27 12:42 Other persistent atrial fibrill ation [facility] 2025-06-27 12:42 Renal tubulo-interstitial disea ses (N10-N16) [facility] 2025-06-27 12:42 Chronic kidney disease, stage 4 (severe) [facility] 2025-06-27 12:42 Urinary tract infection, site n ot specified [facility] 2025-06-27 12:49 Encephalopathy, unspecified [facility] [employer] 2025-06-27 12:49 Persistent atrial fibrillation [facility] 2025-06-27 12:49 Other persistent atrial fibrill ation [facility] 2025-06-27 12:49 Renal tubulo-interstitial disea ses (N10-N16) [facility] 2025-06-27 12:49 Chronic kidney disease, stage 4 (severe) [facility] 2025-06-27 12:49 Urinary tract infection, site n ot specified [facility] 2025-06-27 14:02 Encephalopathy, unspecified [facility] 2025-06-27 14:02 Persistent atrial fibrillation [facility] 2025-06-27 14:02 Other persistent atrial fibrill ation [facility] 2025-06-27 14:02 Renal tubulo-interstitial disea ses (N10-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) [facility] 2025-06-27 14:02 Chronic kidney disease, stage 4 (severe) [facility] 2025-06-27 14:02 Urinary tract infection, site n ot specified [facility] 2025-06-30 10:00 Encephalopathy, unspecified [facility] 2025-06-30 10:00 Persistent atrial fibrillation [facility] 2025-06-30 10:00 Other persistent atrial fibrill ation [facility] 2025-06-30 10:00 Renal tubulo-interstitial disea ses (N10-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) [facility] 2025-06-30 10:00 Chronic kidney disease, stage 4 (severe) [facility] 2025-06-30 10:00 Urinary tract infection, site n ot specified [facility] 2025-06-30 10:00 Altered mental status, unspecif ied [facility] 2025-07-02 14:23 Auditory hallucinations [facility] 2025-07-07 12:38 [facility] 2025-07-15 10:10 [facility] 2025-07-15 10:10 Other specified soft tissue dis orders [facility] 2025-07-15 10:10 Chest pain, unspecified [facility] 2025-07-22 17:01 Other symptoms and s igns involving the genitourinary system [facility] 2025-07-22 17:05 Urinary tract infection, site n ot specified [facility] 2025-07-22 17:38 Urinary tract infection, site n ot specified [facility] 2025-07-23 00:05 Urinary tract infection, site n ot specified [facility] 2025-08-04 08:17 Sepsis, unspecified organism [facility] Results/Labs test date facility value unit notes Result panel 1 NUCLEATED RED BLOOD CELLS AUTO 2025-05-07 16:24 [facility] 0.0 /100wbc (missing) BASOPHILS # (AUTO) 2025-05-07 16:24 [facility] 0.0 10 3/ul (missing) NRBC ABSOLUTE COUNT (AUTO) 2025-05-07 16:24 [facility] 0.00 x10 3/ul (missing) EOSINOPHILS # (AUTO) 2025-05-07 16:24 [facility] 0.1 10 3/ul (missing) LYMPHOCYTES # (AUTO) 2025-05-07 16:24 [facility] 0.5 10 3/ul (missing) BILIRUBIN,TOTAL 2025-05-07 16:24 [facility] 0.8 mg/dl As of February 2023 testing method has changed, this may include reference ranges. MONOCYTES # (AUTO) 2025-05-07 16:24 [facility] 0.9 10 3/ul (missing) ALBUMIN/GLOBULIN RATIO 2025-05-07 16:24 [facility] 1.5 (missing) (missing) CHLORIDE 2025-05-07 16:24 [facility] 104 mmol/l As of February 2023 testing method has changed, this may include reference ranges. GLUCOSE 2025-05-07 16:24 [facility] 108 mg/dl As of February 2023 testing method has changed, this may include reference ranges. LIPASE 2025-05-07 16:24 [facility] 11 u/l As of February 2023 testing method has changed, this may include reference ranges. HGB - HEMOGLOBIN 2025-05-07 16:24 [facility] 12.5 g/dl (missing) ALKALINE PHOSPHATASE 2025-05-07 16:24 [facility] 136 iu/l As of February 2023 testing method has changed, this may include reference ranges. SODIUM 2025-05-07 16:24 [facility] 140 mmol/l (missing) RED CELL DISTRIBUTION WIDTH 2025-05-07 16:24 [facility] 18.6 % (missing) CREATININE 2025-05-07 16:24 [facility] 2.3 mg/dl As of February 2023 testing method has changed, this may include reference ranges. GLOBULIN 2025-05-07 16:24 [facility] 2.7 g/dl (missing) PLT - PLATELET COUNT 2025-05-07 16:24 [facility] 249 10 3/ul (missing) GFR - MDRD 2025-05-07 16:24 [facility] 27 (missing) The IDMS-traceable MDRD Study Equation [...] October 2011. AST ASPARTATE AMINOTRANSFERASE 2025-05-07 16:24 [facility] 27 iu/l As of February 2023 testing method has changed, this may include reference ranges. CARBON DIOXIDE - CO2 2025-05-07 16:24 [facility] 28 mmol/l As of February 2023 testing method has changed, this may include reference ranges. MEAN CORPUSCULAR HEMOGLOBIN 2025-05-07 16:24 [facility] 29.7 pg (missing) MEAN CORPUSCULAR HGB CONC 2025-05-07 16:24 [facility] 31.2 g/dl (missing) TROPONIN I HIGH SENSITIVITY 2025-05-07 16:24 [facility] 35.7 ng/l Critical result TNIHS 35.7 pg/mL called to and read back by JOSE LUIS/GUADALUPE Nichols RN at 07-May-2025 16:59 by [email or web address]. A HIGH SENSITIVITY TROPONIN result of >= 14.9 ng/L for females is considered POSITIVE. A HIGH SENSITIVITY TROPONIN result of >= 19.8 ng/L for males is considered POSITIVE. A HIGH SENSITIVITY TROPONIN result of >= 17.9 ng/L for unspecified is considered POSITIVE. ALT ALANINE AMINOTRANSFERASE 2025-05-07 16:24 [facility] 36 iu/l As of February 2023 testing method has changed, this may include reference ranges. ALBUMIN 2025-05-07 16:24 [facility] 4.1 g/dl As of February 2023 testing method has changed, this may include reference ranges. RED BLOOD COUNT 2025-05-07 16:24 [facility] 4.21 10 6/ul (missing) POTASSIUM 2025-05-07 16:24 [facility] 4.3 mmol/l As of February 2023 testing method has changed, this may include reference ranges. HCT - HEMATOCRIT 2025-05-07 16:24 [facility] 40.1 % (missing) BUN - BLOOD UREA NITROGEN 2025-05-07 16:24 [facility] 54 mg/dl As of February 2023 testing method has changed, this may include reference ranges. NEUTROPHILS # (AUTO) 2025-05-07 16:24 [facility] 6.5 10 3/ul (missing) TOTAL PROTEIN 2025-05-07 16:24 [facility] 6.8 g/dl As of February 2023 testing method has changed, this may include reference ranges. ANION GAP 2025-05-07 16:24 [facility] 8.0 (missing) (missing) WHITE BLOOD COUNT 2025-05-07 16:24 [facility] 8.0 x10 3/ul (missing) CALCIUM 2025-05-07 16:24 [facility] 9.5 mg/dl As of February 2023 testing method has changed, this may include reference ranges. MEAN PLATELET VOLUME 2025-05-07 16:24 [facility] 9.7 fl (missing) MEAN CORPUSCULAR VOLUME 2025-05-07 16:24 [facility] 95.2 fl (missing) Result panel 2 TROPONIN I HIGH SENSITIVITY 2025-05-07 18:06 [facility] 29.3 ng/l Critical result TNIHS 29.3 pg/mL called to and read back by JOSE LUIS/GUADALUPE Nichols RN at 07-May-2025 18:42 by [email or web address]. A HIGH SENSITIVITY TROPONIN result of >= 14.9 ng/L for females is considered POSITIVE. A HIGH SENSITIVITY TROPONIN result of >= 19.8 ng/L for males is considered POSITIVE. A HIGH SENSITIVITY TROPONIN result of >= 17.9 ng/L for unspecified is considered POSITIVE. Result panel 3 LIPASE 2025-06-26 23:37 [facility] < 10 u/l As of February 2023 testing method has changed, this may include reference ranges. ETOH - ETHANOL 2025-06-26 23:37 [facility] < 10.0 mg/dl Blood Alcohol Levels [...] NUCLEATED RED BLOOD CELLS AUTO 2025-06-26 23:37 [facility] 0.0 /100wbc (missing) NRBC ABSOLUTE COUNT (AUTO) 2025-06-26 23:37 [facility] 0.00 x10 3/ul (missing) BASOPHILS # (AUTO) 2025-06-26 23:37 [facility] 0.1 10 3/ul (missing) EOSINOPHILS # (AUTO) 2025-06-26 23:37 [facility] 0.5 10 3/ul (missing) LYMPHOCYTES # (AUTO) 2025-06-26 23:37 [facility] 0.5 10 3/ul (missing) BILIRUBIN,TOTAL 2025-06-26 23:[address] [facility] 0.9 mg/dl As of February 2023 testing method has changed, this may include reference ranges. MONOCYTES # (AUTO) 2025-06-26 23:37 [facility] 1.3 10 3/ul (missing) ALBUMIN/GLOBULIN RATIO 2025-06-26 23:37 [facility] 1.4 (missing) (missing) ANION GAP 2025-06-26 23:37 [facility] 10.0 (missing) (missing) MEAN PLATELET VOLUME 2025-06-26 23:37 [facility] 10.2 fl (missing) ALT ALANINE AMINOTRANSFERASE 2025-06-26 23:37 [facility] 11 iu/l As of February 2023 testing method has changed, this may include reference ranges. WHITE BLOOD COUNT 2025-06-26 23:37 [facility] 11.7 x10 3/ul (missing) GLUCOSE 2025-06-26 23:37 [facility] 111 mg/dl As of February 2023 testing method has changed, this may include reference ranges. HGB - HEMOGLOBIN 2025-06-26 23:37 [facility] 13.7 g/dl (missing) SODIUM 2025-06-26 23:37 [facility] 139 mmol/l (missing) AST ASPARTATE AMINOTRANSFERASE 2025-06-26 23:37 [facility] 16 iu/l As of February 2023 testing method has changed, this may include reference ranges. RED CELL DISTRIBUTION WIDTH 2025-06-26 23:37 [facility] 18.0 % (missing) THYROID STIMULATING HORMONE 2025-06-26 23:37 [facility] 2.07 uiu/ml (missing) CREATININE 2025-06-26 23:37 [facility] 2.6 mg/dl As of February 2023 testing method has changed, this may include reference ranges. GLOBULIN 2025-06-26 23:37 [facility] 2.8 g/dl (missing) PLT - PLATELET COUNT 2025-06-26 23:37 [facility] 204 10 3/ul (missing) GFR - MDRD 2025-06-26 23:37 [facility] 24 (missing) The IDMS-traceable MDRD Study Equation [...] October 2011. MEAN CORPUSCULAR HEMOGLOBIN 2025-06-26 23:37 [facility] 29.1 pg (missing) CARBON DIOXIDE - CO2 2025-06-26 23:37 [facility] 30 mmol/l As of February 2023 testing method has changed, this may include reference ranges. MEAN CORPUSCULAR HGB CONC 2025-06-26 23:37 [facility] 30.6 g/dl (missing) ALBUMIN 2025-06-26 23:37 [facility] 4.0 g/dl As of February 2023 testing method has changed, this may include reference ranges. POTASSIUM 2025-06-26 23:37 [facility] 4.1 mmol/l As of February 2023 testing method has changed, this may include reference ranges. RED BLOOD COUNT 2025-06-26 23:37 [facility] 4.70 10 6/ul (missing) HCT - HEMATOCRIT 2025-06-26 23:37 [facility] 44.8 % (missing) TOTAL PROTEIN 2025-06-26 23:37 [facility] 6.8 g/dl As of February 2023 testing method has changed, this may include reference ranges. BUN - BLOOD UREA NITROGEN 2025-06-26 23:37 [facility] 68 mg/dl As of February 2023 testing method has changed, this may include reference ranges. ALKALINE PHOSPHATASE 2025-06-26 23:37 [facility] 71 iu/l As of February 2023 testing method has changed, this may include reference ranges. CALCIUM 2025-06-26 23:37 [facility] 9.2 mg/dl As of February 2023 testing method has changed, this may include reference ranges. NEUTROPHILS # (AUTO) 2025-06-26 23:37 [facility] 9.3 10 3/ul (missing) MEAN CORPUSCULAR VOLUME 2025-06-26 23:37 [facility] 95.3 fl (missing) CHLORIDE 2025-06-26 23:37 [facility] 99 mmol/l As of February 2023 testing [...] (missing) (missing) GLUCOSE, URINE (UA) 2025-06-27 00:02 [facility] 100 mg/dl (missing) CUL, URINE 2025-06-27 00:02 [facility] 100>100,000 CFU/mL (missing) (missing) WBC,URINE 2025-06-27 00:02 [facility] 11-25 /hpf (missing) RBC,URINE 2025-06-27 00:02 [facility] 11-25 /hpf (missing) PH,URINE 2025-06-27 00:02 [facility] 7.0 ph (missing) PIPERACILLIN/TAZOB ACTAM 2025-06-27 00:02 [facility] 8/4 (missing) (missing) MUDS CUTOFF CONCENTRATIONS 2025-06-27 00: [facility] CUTOFF CONC BELOW: (missing) [facility] uses the [employer] Drugs of Abuse Test System. It detects [...] BUP Buprenorphine (Buprenorphine) 10 ng/mL THC Cannabinoids (43-pkz-8-carboxy -9-THC) 50 ng/mL TCA Tricyclic Antidepressants (Desipramine) 300 ng/mL All drug screen results are unconfirmed. Results are to be used for medical (i.e. treatment) purposes only. Unconfirmed screening results must not be used for non-medical purposes (e.g., employment testing, legal testing). O:ESCCOL 2025-06-27 00:02 [facility] ESCCOLESCHERICHIA COLIESCHERICHIA COLI (missing) (missing) AMORPHOUS SEDIMENT,UR 2025-06-27 00:02 [facility] Few /lpf (missing) CUL, URINE 2025-06-27 00:02 [facility] GNRGRAM NEGATIVE [place] TO BE FURTHER IDENTIFIED (missing) (missing) CLARITY,URINE 2025-06-27 00:02 [facility] HAZY (missing) (missing) CUL, URINE 2025-06-27 00:02 [facility] IDMIC.1ORG 1 ID/LILIYA COM* (missing) (missing) UR CULTURE IF IND 2025-06-27 00:02 [facility] INDICATED (missing) (missing) LEUKOCYTE ESTERASE, URINE 2025-06-27 00:02 [facility] MODERATE (missing) (missing) BACTERIA,URINE 2025-06-27 00:02 [facility] Many /hpf (missing) AMPHETAMINE SCREEN,URINE 2025-06-27 00:02 [facility] NEGATIVE (missing) (missing) BARBITURATE SCREEN,UR 2025-06-27 00:02 [facility] NEGATIVE (missing) (missing) BENZODIAZEPINES SCREEN, URINE 2025-06-27 00:02 [facility] NEGATIVE (missing) (missing) BUPRENORPHINE SCREEN, URINE 2025-06-27 00:02 [facility] NEGATIVE (missing) (missing) COCAINE SCREEN URINE 2025-06-27 00:02 [facility] NEGATIVE (missing) (missing) METHADONE SCREEN, URINE 2025-06-27 00:02 [facility] NEGATIVE (missing) (missing) METHAMPHETAMINES SCREEN, URINE 2025-06-27 00:02 [facility] NEGATIVE (missing) (missing) OPIATE SCREEN, URINE 2025-06-27 00:02 [facility] NEGATIVE (missing) (missing) OXYCODONE SCREEN, URINE 2025-06-27 00:02 [facility] NEGATIVE (missing) (missing) PHENCYCLIDINE SCREEN, URINE 2025-06-27 00:02 [facility] NEGATIVE (missing) (missing) THC CANNABINOID SCREEN, URINE 2025-06-27 00:02 [facility] NEGATIVE (missing) (missing) TRICYCLIC ANTIDEPRESSANT,URI NE 2025-06-27 00:02 [facility] NEGATIVE (missing) (missing) BILIRUBIN,URINE 2025-06-27 00:02 [facility] NEGATIVE (missing) Bilirubin can be influenced by color interference. Please correlate positive results with clinical presentation KETONES,URINE (UA) 2025-06-27 00:02 [facility] NEGATIVE mg/dl (missing) PROTEIN,URINE 2025-06-27 00: [facility] NEGATIVE mg/dl (missing) SQUAMOUS EPITHELIAL CELL,UR 2025-06-27 00:02 [facility] NONE SEEN (missing) (missing) FENTANYL SCREEN, URINE 2025-06-27 00: [facility] Negative (missing) [facility] uses LZI Fentanyl (Q) Enzyme Immunoassay. RESULT [...] or legal purposes. CUL, URINE 2025-06-27 00:02 [facility] ORG.1PRELIM ORG ID* (missing) (missing) NITRITE,URINE 2025-06-27 00:02 [facility] POSITIVE (missing) (missing) CUL, URINE 2025-06-27 00:02 [facility] Pending (missing) (missing) OCCULT BLOOD,URINE 2025-06-27 00:02 [facility] TRACE (missing) (missing) CUL, URINE 2025-06-27 00:02 [facility]G 1 CC* (missing) (missing) CUL, URINE 2025-06-27 00:02 [facility].6COLONY COUNT (missing) (missing) COLOR,URINE 2025-06-27 00:02 [facility] YELLOW (missing) URINE CLEAN CATCH CUL, URINE 2025-06-27 00:02 [facility] YIDENTIFICATION AND SENSITIVITIES TO FOLLOW (missing) (missing) Result panel 6 CULTURE, BLOOD #1 2025-06-27 01:06 [facility] NG1D NO GROWTH AFTER 1 DAY (missing) (missing) CULTURE, BLOOD #1 2025-06-27 01:06 [facility] NG2D NO GROWTH AFTER 2 DAYS (missing) (missing) CULTURE, BLOOD #1 2025-06-27 01:06 [facility] NG5D NO GROWTH AFTER 5 DAYS (missing) (missing) Result panel 7 LACTIC ACID, VENOUS 2025-06-27 01:09 [facility] 0.8 mmol/l N As 2022 testing method has changed, this may include reference ranges. CULTURE, BLOOD #2 2025-06-27 01:09 [facility] NG1DNO GROWTH AFTER 1 DAY (missing) (missing) CULTURE, BLOOD #2 2025-06-27 01:09 [facility] NG2DNO GROWTH AFTER 2 DAYS (missing) (missing) CULTURE, BLOOD #2 2025-06-27 01:09 [facility] NG5DNO GROWTH AFTER 5 DAYS (missing) (missing) Result panel 8 HGB - HEMOGLOBIN 2025-06-27 07:54 [facility] 14.2 g /dl (missing) SODIUM 2025-06-27 07:54 [facility] 142 mmol/l (missing) RED CELL DISTRIBUTION WIDTH 2025-06-27 07:54 [facility] 17.7 % (mi ssing) PLT - PLATELET COUNT 2025-06-27 07:54 [facility] 199 10 3/ul (missing) CREATININE 2025-06-27 07:54 [facility] 2.6 mg/dl As of February 2023 testing method has changed, this may include reference ranges. GFR - MDRD 2025-06-27 07:54 [facility] 24 (missin g) The IDMS-traceable MDRD Study [...] October 2011. MEAN CORPUSCULAR HEMOGLOBIN 2025-06-27 07:54 [facility] 30.0 pg (missing) MEAN CORPUSCULAR HGB CONC 2025-06-27 07:54 [facility] 30.9 g/dl (missing) CARBON DIOXIDE - CO2 2025-06-27 07:54 [facility] 35 mmol/l As of February 2023 testing method has changed, this may include reference ranges. POTASSIUM 2025-06-27 07:54 [facility] 4.3 mmol/l As of February 2023 testing method has changed, this may include reference ranges. RED BLOOD COUNT 2025-06-27 07:54 [facility] 4.74 10 6/ul (missing) HCT - HEMATOCRIT 2025-06-27 07:54 [facility] 45.9 % (missing) BUN - BLOOD UREA NITROGEN 2025-06-27 07:54 [facility] 66 mg/dl As of Feb testing method has changed, this may include reference ranges. ANION GAP 2025-06-27 07:54 [facility] 8.0 (missing ) (missing) WHITE BLOOD COUNT 2025-06-27 07:54 [facility] 8.1 x10 3/ul (missing) CALCIUM 2025-06-27 07:54 [facility] 9.1 mg/dl As of February 2023 testing method has changed, this may include reference ranges. MEAN PLATELET VOLUME 2025-06-27 07:54 [facility] 9.4 fl (missing) MEAN CORPUSCULAR VOLUME 2025-06-27 07:54 [facility] 96.8 fl (missing) GLUCOSE 2025-06-27 07:54 [facility] 97 mg/dl As of February 2023 testing method has changed, this may include reference ranges. CHLORIDE 2025-06-27 07:54 [facility] 99 mmol/l As of February 2023 testing method has changed, this may include reference ranges. Result panel 9 SARS-CoV-2 -RESP PCR PANEL 2025-07-01 13:35 [facility] NOT DETECTED (missing) A negative test result for this test indicates that SARS-CoV-2 RNA was not present in the specimen above the limit of detection. Testing performed on the [employer] RP2.1 Panel, a multiplexed nucleic acid repiratory [...] INFLUENZA A- RESP PCR PANEL 2025-07-01 13:35 [facility] NOT DETECTED (missing) Influenza A including subtypes H1, H3, and H1-2009 not detected by the [employer] RP2.1 Panel, a multiplexed nucleic acid test intended for the simultaneous qualitative detection and differentiation of nucleic acids from multiple viral and bacterial respiratory organisms. B. PARAPERTUSSIS- RESP PCR ULRICH 2025-07-01 13:35 [facility] NOT DETECTED (missing) Negative results for this organism do not preclude infection with this organism and may require additional laboratory testing (e.g., bacterial and viral culture, immunofluorescence, and radiography) when evaluating a patient with possible respiratory tract infection. B. PERTUSSIS- RESP PCR PANEL 2025-07-01 13:35 [facility] NOT DETECTED (missing) Negative results for this organism do not preclude infection with this organism and may require additional laboratory testing (e.g., bacterial and viral culture, immunofluorescence, and radiography) when evaluating a patient with possible respiratory tract infection. C. PNEUMONIAE- RESP PCR PANEL 2025-07-01 13:35 [facility] NOT DETECTED (missing) Negative results for this organism do not preclude infection with this organism and may require additional laboratory testing (e.g., bacterial and viral culture, immunofluorescence, and radiography) when evaluating a patient with possible respiratory tract infection. M. PNEUMONIAE- RESP PCR PANEL 2025-07-01 13:35 [facility] NOT DETECTED (missing) Negative results for [...] not be detected by nasopharyngeal specimen. CORONAVIRUS [id number] PCR 2025-07-01 13:35 [facility] NOT DETECTED (missing) Negative results in the setting ofa respiratory illness may be due to infection with pathogens not detected by this test, or lower respiratory tract infection that may not be detected by nasopharyngeal specimen. CORONAVIRUS [id number] PCR 2025-07-01 13:35 [facility] NOT DETECTED [...] specimen. PARAINFLUENZA VIRUS 3 2025-07-01 13:35 [facility] NOT DETECTED (missing) Negative results in the setting ofa respiratory illness may be due to infection with pathogens not detected by this test, or lower respiratory tract infection that may not be detected by nasopharyngeal specimen. PARAINFLUENZA VIRUS 4 2025-07-01 13:35 [facility] NOT DETECTED (missing) Negative results in the setting ofa respiratory illness may be due to infection with pathogens not detected by this test, or lower respiratory tract infection that may not be detected by nasopharyngeal specimen. RHINOVIRUS/ENTEROVI SHABNAM 2025-07-01 13:35 [facility] NOT DETECTED (missing) Negative results in the setting ofa respiratory illness may be due to infection with pathogens not detected by this test, or lower respiratory tract infection that may not be detected by nasopharyngeal specimen. RSV- RESP PCR PANEL 2025-07-01 13:35 [facility] Negative results in the setting ofa respiratory illness may be due to infection with pathogens not detected by this test, or lower respiratory tract infection that may not be detected by nasopharyngeal specimen. ADENOVIRUS - RESP PCR PANEL 2025-07-01 13:35 [facility] NOT DETECTED (missing) YES Negative results in the setting ofa respiratory illness may be due to infection with pathogens not detected by this test, or lower respiratory tract infection that may not be detected by nasopharyngeal specimen. Result panel 10 NUCLEATED RED BLOOD CELLS AUTO 2025-07-01 14:25 [facility] 0.0 /100wbc (missing) NRBC ABSOLUTE COUNT (AUTO) 2025-07-01 14:25 [facility] 0.00 x10 3/ul (missing) BASOPHILS # (AUTO) 2025-07-01 14:25 [facility] 0.1 10 3/ul (missing) LYMPHOCYTES # (AUTO) 2025-07-01 14:25 [facility] 0[facility]7 10 3/ul (missing) BILIRUBIN,TOTAL 2025-07-01 14:25 [facility] 0.7 mg/dl As of February 2023 testing method has changed, this may include reference ranges. EOSINOPHILS # (AUTO) 2025-07-01 14:25 [facility] 1[facility]0 10 3/ul (missing) ALBUMIN/GLOBULIN RATIO 2025-07-01 14:25 [employer] 1.4 (missing) (missing) MONOCYTES # (AUTO) 2025-07-01 14:25 [facility] 1.7 10 3/ul (missing) LIPASE 2025-07-01 14:25 [employer] 10 u/l As of February 2023 testing method has changed, this may include reference ranges. MEAN PLATELET VOLUME 2025-07-01 14:25 [employer] 10.0 fl (missing) CHLORIDE 2025-07-01 14:25 [employer] 100 mmol/l As of February 2023 testing method has changed, this may include reference ranges. WHITE BLOOD COUNT 2025-07-01 14:25 [employer] 11.8 x10 3/ul (missing) GLUCOSE 2025-07-01 14:25 [employer] 114 mg/dl As of February 2023 testing method has changed, this may include reference ranges. HGB - HEMOGLOBIN 2025-07-01 14:25 [employer] 14.3 g/dl (missing) SODIUM 2025-07-01 14:25 [facility] [employer] 141 mmol/l (missing) RED CELL DISTRIBUTION WIDTH 2025-07-01 14:25 [employer] 17.2 % (missing) CREATININE 2025-07-01 14:25 [facility] 2.3 mg/dl As of February 2023 testing method has changed, this may include reference ranges. ALT ALANINE AMINOTRANSFERASE 2025-07-01 14:25 [employer] 21 iu/l As of February 2023 testing method has changed, this may include reference ranges. AST ASPARTATE AMINOTRANSFERASE 2025-07-01 14:25 [employer] 22 iu/l As of February 2023 testing method has changed, this may include reference ranges. PLT - PLATELET COUNT 2025-07-01 14:25 [employer] 236 10 3/ul (missing) GFR - MDRD 2025-07-01 14:25 [employer] 27 (missing) The IDMS-traceable MDRD Study Equation [...] older than 70. References: http://www.nkde p.nih.gov/lab-e valuation/gfr/c darion-cornelia ardization, last updated October 2011. TROPONIN I HIGH SENSITIVITY 2025-07-01 14:25 [employer] 28.6 ng/l Critical result TNIHS 28.6 pg/mL [...] unspecified is considered POSITIVE. GLOBULIN 2025-07-01 14:25 [employer] 3.1 g/dl (missing) MEAN CORPUSCULAR HEMOGLOBIN 2025-07-01 14:25 [employer] 30.1 pg (missing) MEAN CORPUSCULAR HGB CONC 2025-07-01 14:25 [employer] 30.6 g/dl (missing) CARBON DIOXIDE - CO2 2025-07-01 14:25 [employer] 32 mmol/l As of February 2023 testing method has changed, this may include reference ranges. ALBUMIN 2025-07-01 14:25 [employer] 4.4 g/dl As of February 2023 testing method has changed, this may include reference ranges. POTASSIUM 2025-07-01 14:25 [employer] 4.4 mmol/l As of February 2023 testing method has changed, this may include reference ranges. RED BLOOD COUNT 2025-07-01 14:25 [employer] 4.75 10 6/ul (missing) HCT - HEMATOCRIT 2025-07-01 14:25 [employer] 46.8 % (missing) BUN - BLOOD UREA NITROGEN 2025-07-01 14:25 [employer] 58 mg/dl As of February 2023 testing method has changed, this may include reference ranges. TOTAL PROTEIN 2025-07-01 14:25 [employer] 7.5 g/dl As of February 2023 testing method has changed, this may include reference ranges. NEUTROPHILS # (AUTO) 2025-07-01 14:25 [facility] 8.3 10 3/ul (missing) ANION GAP 2025-07-01 14:25 [facility] 9.0 (missing) (missing) CALCIUM 2025-07-01 14:25 [facility] 9.6 mg/dl As of February 2023 testing method has changed, this may include reference ranges. ALKALINE PHOSPHATASE 2025-07-01 14:25 [facility] 97 iu/l As of February 2023 testing method has changed, this may include reference ranges. MEAN CORPUSCULAR VOLUME 2025-07-01 14:25 [facility] 98.5 fl (missing) SLIDE REVIEW? 2025-07-01 14:25 [facility] Indicated (missing) (missing) PLATELET ESTIMATE, MANUAL 2025-07-01 14:25 [facility] NORMAL (130-450,000) (missing) (missing) PLATELET MORPHOLOGY 2025-07-01 14:25 [facility] NORMAL APPEARANCE (missing) (missing) RBC MORPHOLOGY (MULTIPLE) 2025-07-01 14:25 [facility] NORMAL APPEARANCE (missing) (missing) WBC MORPHOLOGY (MULTIPLE) 2025-07-01 14:25 [facility] NORMAL APPEARANCE (missing) (missing) Result panel [...] <=8 (missing) (missing) CUL, URINE 2025-07-22 16:45 [facility] 100>100,000 CFU/mL (missing) (missing) AZTREONAM 2025-07-22 16:45 [facility] 16 (missing) (missing) PIPERACILLIN/TAZOB ACTAM 2025-07-22 16:45 [facility] 32 (missing) (missing) O:ENTCLO 2025-07-22 16:45 [facility] ENTCLOENTEROBACTER CLOACAEENTEROBACTER CLOACAE (missing) (missing) CUL, URINE 2025-07-22 16:45 [facility] GNRGRAM NEGATIVE ELMER TO BE FURTHER IDENTIFIED (missing) (missing) CUL, URINE 2025-07-22 16:45 [facility] ID[facility].1ORG 1 ID/LILIYA COM* (missing) (missing) CUL, URINE 2025-07-22 16:45 [employer] ORG.1PRELIM ORG ID* (missing) (missing) CUL, URINE 2025-07-22 16:45 [facility] Pending (missing) (missing) CUL, URINE 2025-07-22 16:45 [facility] UCC.1ORG 1 CC* (missing) (missing) CUL, URINE 2025-07-22 16:45 [employer] UCC.6COLONY COUNT (missing) (missing) CUL, URINE 2025-07-22 16:45 [facility] YIDENTIFICATION AND SENSITIVITIES TO FOLLOW (missing) (missing) Result panel 12 GLUCOSE, WHOLE BLOOD 2025-08-04 01:55 [facility] 88 (missing) (missing) Result panel 13 LIPASE 2025-08-04 02:27 [facility] < 10 u/l As of February 2023 testing method has changed, this may include reference ranges. ETOH - ETHANOL 2025-08-04 02:27 [facility] < 10.0 mg/dl Blood Alcohol Levels Level Sporadic Drinkers Chronic drinkers ==== == 100 mg/dL Legally intoxicated* Minimal signs 200-250 [...] reference ranges. NUCLEATED RED BLOOD CELLS AUTO 2025-08-04 02:27 [facility] 0.0 /100wbc (missing) NRBC ABSOLUTE COUNT (AUTO) 2025-08-04 02:27 [facility] 0.00 x10 3/ul (missing) BASOPHILS # (AUTO) 2025-08-04 02:27 [facility] 0.1 10 3/ul (missing) EOSINOPHILS # (AUTO) 2025-08-04 02:27 [facility] 0.3 10 3/ul (missing) LYMPHOCYTES # (AUTO) 2025-08-04 02:27 [facility] 0.6 10 3/ul (missing) MONOCYTES # (AUTO) 2025-08-04 02:27 [facility] 1.4 10 3/ul (missing) ALBUMIN/GLOBULIN RATIO 2025-08-04 02:27 [facility] 1.5 (missing ) (missing) BILIRUBIN,TOTAL 2025-08-04 02:27 [facility] 1.5 mg/dl As of February 2023 testing method has changed, this may include reference ranges. MEAN PLATELET VOLUME 2025-08-04 02: [employer] 11.0 fl (missing) NEUTROPHILS # (AUTO) 2025-08-04 02: [facility] [employer] 11.1 10 3/ul (missing) ALKALINE PHOSPHATASE 2025-08-04 02: [employer] 111 iu/l As of February 2023 testing method has changed, this may include reference ranges. WHITE BLOOD COUNT 2025-08-04 02: [employer] 13.6 x10 3/ul (missing) HGB - HEMOGLOBIN 2025-08-04 02: [employer] 14.4 g/dl (missing) SODIUM 2025-08-04: [facility] 140 mmol/l (missing) ANION GAP 2025-08-04: [employer] 15.0 (missing ) (missing) RED CELL DISTRIBUTION WIDTH 2025-08-04: [employer] 17.4 % (missing) GLOBULIN 2025-08-04 02: [facility] [employer] 2.6 g/dl (missing) MAGNESIUM 2025-08-04: [facility] 2.6 mg/dl As of February 2023 testing method has changed, this may include reference ranges. GFR - MDRD 2025-08-04: [employer] 20 (missing ) The IDMS-traceable MDRD Study Equation has been [...] ation/gfr/creatin ine-stand ardization, last updated October 2011. ALT ALANINE AMINOTRANSFERASE 2025-08-04 02: [employer] 20 iu/l As of February 2023 testing method has changed, this may include reference ranges. PLT - PLATELET COUNT 2025-08-04 02: [employer] 237 10 3/ul (missing) CARBON DIOXIDE - CO2 2025-08-04 02:27 [facility] 27 mmol/l As of February 2023 testing method has changed, this may include reference ranges. MEAN CORPUSCULAR HEMOGLOBIN 2025-08-04 02:[address] [facility] [facility] [address] 29.5 pg (missing) CREATININE 2025-08-04 02: [facility] 3.0 mg/dl As of February 2023 testing method has changed, this may include reference ranges. ALBUMIN 2025-08-04 02: [facility] 3.9 g/dl As of February 2023 testing method has changed, this may include reference ranges. MEAN CORPUSCULAR HGB CONC 2025-08-04 02:27 [facility] 30.4 g/dl (missing) AST ASPARTATE AMINOTRANSFERASE 2025-08-04 02: [facility] 31 iu/l As of February 2023 testing method has changed, this may include reference ranges. POTASSIUM 2025-08-04 02: [facility] 4.4 mmol/l As of February 2023 testing method has changed, this may include reference ranges. RED BLOOD COUNT 2025-08-04 02: [facility] 4.88 10 6/ul (missing) HCT - HEMATOCRIT 2025-08-04 02:27 [facility] 47.3 % (missing) TOTAL PROTEIN 2025-08-04 02: [facility] 6.5 g/dl As of February 2023 testing method has changed, this may include reference ranges. TROPONIN I HIGH SENSITIVITY 2025-08-04 02:27 [facility] 619.3 ng/l Critical result TNIHS 619.3 pg/mL called to and read back by ED / SEYMOUR Rasmussen RN at 04-Aug-2025 03:24 by raquel. A HIGH SENSITIVITY TROPONIN result of >= 14.9 ng/L for females is considered POSITIVE. A HIGH SENSITIVITY TROPONIN result of >= 19.8 ng/L for males is considered POSITIVE. A HIGH SENSITIVITY TROPONIN result of >= 17.9 ng/L for unspecified is considered POSITIVE. GLUCOSE 2025-08-04 02: [facility] 89 mg/dl As of February 2023 testing method has changed, this may include reference ranges. CALCIUM 2025-08-04 02: [employer] 9.6 mg/dl As of February 2023 testing method has changed, this may include reference ranges. BUN - BLOOD UREA NITROGEN 2025-08-04 02:27 [facility] 95 mg/dl Critical result BUN 95 mg/dL called to and read back by ED / SEYMOUR Rasmussen RN at 04-Aug-2025 03:15 by raquel. As of February 2023 testing method has changed, this may include reference ranges. MEAN CORPUSCULAR VOLUME 2025-08-04 02:27 [facility] 96.9 fl (missing) CHLORIDE 2025-08-04 02:27 [facility] 98 mmol/l As of February 2023 testing method has changed, this may include reference ranges. KETONES, SERUM (ACETEST) 2025-08-04 02:27 [facility] [employer] NEGATIVE (missing ) (missing) Result panel 14 LACTIC ACID, VENOUS 2025-08-04 03:12 [facility] 1.6 mmol/l N As of February 2023 testing method has changed, this may include reference ranges. Result panel 15 UROBILINOGEN,URINE 2025-08-04 03:37 [facility] 0.2 (NORMAL) e.u./dl (missing) SPECIFIC GRAVITY,URINE 2025-08-04 03:37 [facility] 1.015 (missing) (missing) WBC,URINE 2025-08-04 03:37 [facility] 11-25 /hpf (missing) PH,URINE 2025-08-04 03:37 [facility] 5.5 ph (missing) RBC,URINE 2025-08-04 03:37 [facility] 6-10 /hpf (missing) SQUAMOUS EPITHELIAL CELL,UR 2025-08-04 03:37 [facility] FEW [employer] (missing) (missing) CLARITY,URINE 2025-08-04 03:37 [facility] HAZY (missing) (missing) UR CULTURE IF IND 2025-08-04 03:37 [facility] INDICATED (missing) (missing) URINE MICROSCOPIC INDICATED? 2025-08-04 03:37 [facility] INDICATED (missing) (missing) BACTERIA,URINE 2025-08-04 03:37 [facility] Many /hpf (missing) NITRITE,URINE 2025-08-04 03:37 [facility] NEGATIVE (missing) (missing) BILIRUBIN,URINE 2025-08-04 03:37 [facility] NEGATIVE (missing) Bilirubin can be influenced by color interference. Please correlate positive results with clinical presentation GLUCOSE, URINE (UA) 2025-08-04 03:37 [facility] NEGATIVE mg/dl (missing) KETONES,URINE (UA) 2025-08-04 03:37 [facility] NEGATIVE mg/dl (missing) SARS-CoV-2 -RESP PCR PANEL 2025-08-04 03:37 [facility] NOT DETECTED (missing) A negative test result for this test indicates that SARS-CoV-2 RNA was not present in the specimen above the limit of detection. Testing performed on the 5 CUPS and some sugare RP2.1 Panel, a multiplexed nucleic acid repiratory [...] SARS-CoV-2 virus. INFLUENZA A- RESP PCR PANEL 2025-08-04 03:37 [facility] NOT DETECTED (missing) Influenza A including subtypes H1, H3, and H1-2009 not detected by the [employer] RP2.1 Panel, a multiplexed nucleic acid test intended for the simultaneous qualitative detection and differentiation of nucleic acids from multiple viral and bacterial respiratory organisms. B. PARAPERTUSSIS- RESP PCR ULRICH 2025-08-04 03:37 [facility] NOT DETECTED (missing) Negative results for this organism do not preclude infection with this organism and may require additional laboratory testing (e.g., bacterial and viral culture, immunofluorescence , and radiography) when evaluating a patient with possible respiratory tract infection. B. PERTUSSIS- RESP PCR PANEL 2025-08-04 03:37 [facility] NOT DETECTED (missing) Negative results for this organism do not preclude infection with this organism and may require additional laboratory testing (e.g., bacterial and viral culture, immunofluorescence , and radiography) when evaluating a patient with possible respiratory tract infection. C. PNEUMONIAE- RESP PCR PANEL 2025-08-04 03:37 [facility] NOT DETECTED (missing) Negative results for this organism do not preclude infection with this organism and may require additional laboratory testing (e.g., bacterial and viral culture, immunofluorescence , and radiography) when evaluating a patient with possible respiratory tract infection. M. PNEUMONIAE- RESP PCR PANEL 2025-08-04 03:37 [facility] NOT DETECTED (missing) Negative results for this organism do not preclude infection with this organism and may require additional laboratory testing (e.g., bacterial and viral culture, immunofluorescence , and radiography) when evaluating a patient with possible respiratory tract infection. CORONAVIRUS 229E-RESP PCR 2025-08-04 03:37 [facility] NOT DETECTED (missing) Negative results in the setting ofa respiratory illness may be due to infection with pathogens not detected by this test, or lower respiratory tract infection that may not be detected by nasopharyngeal specimen. CORONAVIRUS HKU1-RESP PCR 2025-08-04 03:37 [facility] NOT DETECTED (missing) Negative results in the setting ofa respiratory illness may be due to infection with pathogens not detected by this test, or lower respiratory tract infection that may not be detected by nasopharyngeal specimen. CORONAVIRUS IS90-QBLW PCR 2025-08-04 03:37 [facility] NOT DETECTED (missing) Negative results in the setting ofa respiratory illness may be due to infection with pathogens not detected by this test, or lower respiratory tract infection that may not be detected by nasopharyngeal specimen. CORONAVIRUS OB47-UTSX PCR 2025-08-04 03:37 [facility] NOT DETECTED (missing) Negative results in the setting ofa respiratory illness may be due to infection with pathogens not detected by this test, or lower respiratory tract infection that may not be detected by nasopharyngeal specimen. HUMAN METAPNEUMOVIRUS 2025-08-04 03:37 [facility] NOT DETECTED (missing) Negative results in the setting ofa respiratory illness may be due to infection with pathogens not detected by this test, or lower respiratory tract infection that may not be detected by nasopharyngeal specimen. INFLUENZA B - RESP PCR PANEL 2025-08-04 03:37 [facility] NOT DETECTED (missing) Negative results in the setting ofa respiratory illness may be due to infection with pathogens not detected by this test, or lower respiratory tract infection that may not be detected by nasopharyngeal specimen. PARAINFLUENZA VIRUS 1 2025-08-04 03:37 [facility] NOT DETECTED (missing) Negative results in the setting ofa respiratory illness may be due to infection with pathogens not detected by this test, or lower respiratory tract infection that may not be detected by nasopharyngeal specimen. PARAINFLUENZA VIRUS 2 2025-08-04 03:37 [facility] NOT DETECTED (missing) Negative results in the setting ofa respiratory illness may be due to infection with pathogens not detected by this test, or lower respiratory tract infection that may not be detected by nasopharyngeal specimen. PARAINFLUENZA VIRUS 3 2025-08-04 03:37 [facility] NOT DETECTED (missing) Negative results in the setting ofa respiratory illness may be due to infection with pathogens not detected by this test, or lower respiratory tract infection that may not be detected by nasopharyngeal specimen. PARAINFLUENZA VIRUS 4 2025-08-04 03:37 [facility] NOT DETECTED (missing) Negative results in the setting ofa respiratory illness may be due to infection with pathogens not detected by this test, or lower respiratory tract infection that may not be detected by nasopharyngeal specimen. RHINOVIRUS/ENTEROVIRUS 2025-08-04 03:37 [facility] NOT DETECTED (missing) Negative results in the setting ofa respiratory illness may be due to infection with pathogens not detected by this test, or lower respiratory tract infection that may not be detected by nasopharyngeal specimen. RSV- RESP PCR PANEL 2025-08-04 03:37 [facility] NOT DETECTED (missing) Negative results in the setting ofa respiratory illness may be due to infection with pathogens not detected by this test, or lower respiratory tract infection that may not be detected by nasopharyngeal specimen. ADENOVIRUS - RESP PCR PANEL 2025-08-04 03:37 [facility] NOT DETECTED (missing) Y Negative results in the setting ofa respiratory illness may be due to infection with pathogens not detected by this test, or lower respiratory tract infection that may not be detected by nasopharyngeal specimen. LEUKOCYTE ESTERASE, URINE 2025-08-04 03:37 [facility] SMALL (missing) (missing) PROTEIN,URINE 2025-08-04 03:37 [facility] TRACE mg/dl (missing) OCCULT BLOOD,URINE 2025-08-04 03:37 [facility] [employer] TRACE-INTACT (missing) (missing) COLOR,URINE 2025-08-04 03:37 [facility] YELLOW (missing) URINE RANDOM Result panel 16 TROPONIN I HIGH SENSITIVITY 2025-08-04 04:48 [facility] 600.2 ng/l Critical result TNIHS 600.2 pg/mL called to and read back by ED / CLAUDIA Galvez RN at 04-Aug-2025 05:15 by raquel. A HIGH SENSITIVITY TROPONIN result of >= 14.9 ng/L for females is considered POSITIVE. A HIGH SENSITIVITY TROPONIN result of >= 19.8 ng/L for males is considered POSITIVE. A HIGH SENSITIVITY TROPONIN result of >= 17.9 ng/L for unspecified is considered POSITIVE. Social History date description facility
[2025-08-04] MEDS ORDERED: oxyCODONE 5 MG TABLET PO PRN (10:00)
[2025-08-04] MEDS ORDERED: SODIUM CHLORIDE FLUSH 0.9% 10 ML SYRINGE IVP PRN (10:00)
[2025-08-04] MEDS ORDERED: ONDANSETRON ODT 4 MG TABLET TL PRN (10:00)
[2025-08-04] MEDS ORDERED: ONDANSETRON 4 MG/2 ML VIAL IVP PRN (10:00)
[2025-08-04] MEDS: APIXABAN 2.5 MG TABLET PO SCH (10:23)
[2025-08-04] MEDS: EMPAGLIFLOZIN 10 MG TABLET PO SCH (10:24)
[2025-08-04] MEDS: oxyCODONE 5 MG TABLET PO PRN (10:24)
[2025-08-04] MEDS: SODIUM CHLORIDE FLUSH 0.9% 10 ML SYRINGE IVP SCH (10:25)
[2025-08-04] MEDS: METOPROLOL TARTRATE 25 MG TABLET PO SCH (10:27)
[2025-08-04] MEDS: METOPROLOL SUCCINATE 50 MG TABLET PO SCH (10:28)
[2025-08-04 14:41] LABS: BUN - BLOOD UREA NITROGEN 80.0 mg/dL (6-20); CARBON DIOXIDE - CO2 25.0 mmol/L (21-32); CREATININE 2.4 mg/dL (0.6-1.3); GFR - MDRD 26.0 (>89); TROPONIN I HIGH SENSITIVITY 376.4 ng/L (2.3-19.7)
--- NOTE | 2025-08-04 16:03 | PHARMACY PROGRESS NOTE ---
[facility] Medication History Admit Date and Time: 08/04/25 0812 Home Medications Medication Instructions Recorded Confirmed Type duloxetine 20 mg capsule,delayed 40 mg PO HS 04/18/24 08/04/25 History release leflunomide 10 mg tablet 10 mg PO DAILY 04/18/2407/21 History apixaban 2.5 mg tablet (Eliquis) 2.5 mg PO BID #60 tab s 04/20/24 08/04/25 Rx furosemide 40 mg tablet 40 mg PO DAILY edema, CHF #3 0 tabs 04/20/24 08/04/25 Rx Held on 06/27/25. Instructions: Resume on 07/11/25. Please hold until follow up with PCP/nephrology and recheck of creatinine. empagliflozin 10 mg tablet 10 mg PO DAILY 06/12/24 History (Jardiance) omeprazole 20 mg capsule,delayed 20 mg PO BID 06/12/24 08/04/25 History release metoprolol succinate 50 mg 50 mg PO DAILY #30 tabs 08/04/25 Rx tablet,extended release 24 hr gabapentin 600 mg tablet 600 mg PO QPM 05/24/2508/04 History prednisone 5 mg tablet 5 mg PO DAILY 05/24/2508/04 History sacubitril 24 mg-valsartan 26 mg 0.5 tab PO BID 08/04/25 History tablet (Entresto) Held on 06/27/25. Instructions: Resume on 07/04/25. Please hold until creatinine rechecked with nephro/PCP. tramadol 50 mg tablet 50 mg PO Q6H PRN pain 08/04/25 History vit C 250 mg-vit E 90 mg-zinc 40 1 tab PO BID 06/27/25 08/04/25 History mg-copper 1 [id number]-tipoqk capsule ([employer] AREDS-2) amlodipine 10 mg tablet 10 mg PO DAILY 08/04/2507/21 History hydroxyzine HCl 25 mg tablet 25 mg PO HS PRN for itchi ng at 08/04/25 08/04/25 History bedtime Processed by: Pharmacy Medications reviewed in ED?: Yes Medication History completed: Yes Patient Interview: Pt unable to participate Secondary Source(s): Insurance records [facility] Statement: As the person ultimately responsible for medication therapy, providers are able to order a medication from an existing home medication list in [facility] via the "Reconcile Routine" prior to Confirmation of that medication by business support specialist. Such practice is discouraged except when the physician, in their clinical judgment, deems that a medical need exists for a medication without regard to previous use.
[2025-08-04] MEDS ORDERED: CALAMINE/ZINC OXIDE 177 ML BOTTLE TOP PRN (16:54)
[2025-08-04] MEDS ORDERED: ZINC OXIDE 12% OINT 57 GM TUBE TOP PRN (17:05)
[2025-08-04] MEDS: CLOBETASOL 0.05% OINT 15 GM TUBE TOP SCH (20:31)
[2025-08-04] MEDS: GABAPENTIN 300 MG CAPSULE PO SCH (20:31)
[2025-08-05] MEDS: ACETAMINOPHEN 325 MG TABLET PO PRN (04:21)
[2025-08-05 05:07] LABS: HCT - HEMATOCRIT 41.6 % (42.0-52.0); HGB - HEMOGLOBIN 12.7 g/dL (14.0-18.0); MEAN PLATELET VOLUME 10.2 fL (7.4-11.4); NRBC ABSOLUTE COUNT (AUTO) 0.00 x10^3/uL; NUCLEATED RED BLOOD CELLS AUTO 0.0 /100WBC; PLT - PLATELET COUNT 194 10^3/uL (130-450); RED CELL DISTRIBUTION WIDTH 18.0 % (12.0-15.0)
[2025-08-05 05:29] LABS: BUN - BLOOD UREA NITROGEN 74.0 mg/dL (6-20); CARBON DIOXIDE - CO2 27.0 mmol/L (21-32); CREATININE 2.3 mg/dL (0.6-1.3); GFR - MDRD 27.0 (>89)
[2025-08-05] MEDS: CEFEPIME 2 GM in SODIUM CHLORIDE 0.9% MINIBAG 100 ML IV SCH (09:38)
--- NOTE | 2025-08-05 11:31 | PROVIDER PROGRESS NOTE ---
Subjective Subjective Subjective: Patient states that he's feeling better - he denies fevers, chills, shortness of breath, urinary symptoms including dysuria, urinary incontinence, urinary frequency. He also denies feeling any palpitations, feelings of his heart racing or chest pain. He is alert and oriented x 3, but has some difficulty with recall of the events of the last 24-48 hours. Current Medications Current Medications Current Medications: Current Medications Generic Name Dose Route Start Last Admin Trade Name Freq PRN Reason Stop Dose Admin Acetaminophen 650 mg 08/04/25 10:00 08/05/25 04:21 Acetaminophen 325 Mg Tablet PO 650 mg Q4HR PRN Administration Pain 1 to 4, or Fever Apixaban 2.5 mg 08/04/25 10:00 08/05/25 09:38 Apixaban 2.5 Mg Tablet PO 2.5 mg BID EMILY Administration Clobetasol Propionate 1 applic 08/04/25 21:00 08/05/25 09:42 Clobetasol 0.05% Oint 15 Gm Tube TOP 1 applic BID EMILY Administration Duloxetine HCl 40 mg 08/04/25 21:00 08/04/25 20:31 Duloxetine 20 Mg Capsule PO 40 mg HS EMILY Administration Gabapentin 600 mg 08/04/25 21:00 08/04/25 20:31 Gabapentin 300 Mg Capsule PO 600 mg QPM EMILY Administration Cefepime HCl 2 gm/ Sodium 100 mls @ 200 mls/hr 08/05/25 09:00 08/05/25 10:11 Chloride IV Infused DAILY EMILY Infusion Metoprolol Tartrate 25 mg 08/04/25 11:00 08/05/25 10:54 Metoprolol Tartrate 25 Mg Tablet PO 25 mg Q6H EMILY Administration Multi-Ingredient Ointment 1 applic 08/04/25 17:05 Zinc Oxide 12% Oint 57 Gm Tube TOP Q6HR PRN ITCHING Ondansetron HCl 4 mg 08/04/25 10:00 Ondansetron Odt 4 Mg Tablet TL Q6HR PRN Nausea / Vomiting Ondansetron HCl 4 mg 08/04/25 10:00 Ondansetron 4 Mg/2 Ml Vial IVP Q6HR PRN Nausea / Vomiting Oxycodone HCl 5 mg 08/04/25 10:00 08/05/25 01:19 Oxycodone 5 Mg Tablet PO 5 mg Q4HR PRN Administration Pain 5 to 7 Oxycodone HCl 10 mg 08/04/25 10:00 Oxycodone 5 Mg Tablet PO Q4HR PRN Pain 8 to 10 Patient Own Med [ 0.5 each 08/04/25 21:00 08/05/25 09:38 Entresto] 24-26 Mg PO Not Given Tablet BID [facility] Prednisone 5 mg 08/05/25 09:00 08/05/25 09:38 Prednisone 5 Mg Tablet PO 5 mg DAILY EMILY Administration Sodium Chloride 10 ml 08/04/25 10:00 Sodium Chloride Flush 0.9% 10 Ml Syringe IVP PRN PRN NEEDED PER PROVIDER ORDERS Sodium Chloride 10 ml 08/04/25 10:00 08/05/25 09:39 Sodium Chloride Flush 0.9% 10 Ml Syringe IVP 10 ml 0100,[id number],1700 [facility] Administration Objective Vital Signs/Intake & Output Reviewed Vital Signs: Yes Vital Signs: Vital Signs x48h Temp Pulse Pulse Resp BP BP Pulse Ox 08/05/25 08:21 98.2 F 118 H 16 101/66 99 08/05/25 05:14 120 H 117/86 Intake & Output: Intake & Output 08/02/25 08/03/25 08/04/25 08/05/25 23:59 23:59 23:59 23:59 Intake Total 3842 / 3842 460 / 460 Output Total 700 / 700 550 / 550 Balance 3142 / 3142 -90 / -90 Weight (kg) 65 kg 65 kg Objective General Appearance: positive No acute distress and Alert; negative Anxious Eyes Bilateral: positive Normal inspection, PERRL and EOMI ENT: positive ENT inspection nml, Pharynx nml and No signs of dehydration Neck: positive Nml inspection, Thyroid nml and No JVD Respiratory: positive Chest non-tender, No respiratory distress and Breath sounds nml; negative Wheezes, Rales or Rhonchi Cardiovascular: positive No murmur, No gallop, Irregularly irregular and Tachycardia; negative Systolic murmur Abdomen: positive Non-tender, No organomegaly and No distention; negative Guarding or Splenomegaly Back: positive Nml inspection; negative CVA tenderness (R) or CVA tenderness (L) Skin: positive Color nml, No rash, Warm and Dry Extremities: positive Non-tender, Full ROM, Nml appearance and No pedal edema Neurologic/Psychiatric: positive Oriented x3, Motor nml and Mood/affect nml Lab Results 08/05/25 04:38 08/05/25 04:38 Other Labs: Lab Results x24hrs 08/05/25 08/04/25 Range/Units 04:38 14:07 WBC 9.6 (4.8-10.8) x10^3/uL RBC 4.32 L (4.70-6.10) 10^6/uL Hgb 12.7 L (14.0-18.0) g/dL Hct 41.6 L (42.0-52.0) % MCV 96.3 H (80.0-94.0) fL MCH 29.4 (27.0-31.0) pg MCHC 30.5 L (32.0-36.0) g/dL RDW 18.0 H (12.0-15.0) % Plt Count 194 (130-450) 10^3/uL MPV 10.2 (7.4-11.4) fL Neut # (Auto) 7.3 H (1.5-6.6) 10^3/uL Lymph # (Auto) 0.5 L (1.5-3.5) 10^3/uL Harris # (Auto) 1.3 H (0.0-1.0) 10^3/uL Eos # (Auto) 0.4 (0.0-0.7) 10^3/uL Baso # (Auto) 0.1 (0.0-0.1) 10^3/uL Absolute Nucleated RBC 0.00 x10^3/uL Nucleated RBC % 0.0 /100WBC Sodium 140 141 (135-145) mmol/L Potassium 3.9 3.7 (3.5-4.5) mmol/L Chloride 104 107 (101-111) mmol/L Carbon Dioxide 27 25 (21-32) mmol/L Anion Gap 9.0 9.0 (6-13) BUN 74 H 80 H* (6-20) mg/dL Creatinine 2.3 H 2.4 H (0.6-1.3) mg/dL Estimated GFR (MDRD) 27 L 26 L (>89) Glucose 87 90 (74-104) mg/dL Calcium 8.5 8.0 L (8.5-10.3) mg/dL Troponin I High Sens 376.4 H* (2.3-19.7) ng/L Sepsis Event Note (H) Evaluation Current Stage of Sepsis: Severe sepsis Possible source of Sepsis: positive Genitourinary Sepsis Criteria Sepsis Criteria: Recorded Heart Rate greater than 90 bpm, WBC count greater than 12,000 or less than 4000 and Renal: urine output less than 0.5ml/kg/hr for 2 hours or creatinine gr Assessment/Plan Problem List (1) Sepsis: Qualifiers: Acute renal failure type: unspecified Sepsis acute organ dysfunction status: with acute organ dysfunction Sepsis type: sepsis due to unspecified organism Severe sepsis acute organ dysfunction type: acute renal failure S evere sepsis shock status: without septic shock Qualified Code(s): A41.9 - Sepsis, unspecified organism; R65.20 - Severe sepsis without septic shock; N17.9 - Acute kidney failure, unspecified (2) UTI (urinary tract infection): Impression: The following plan is for the above two assessments: Patient presented with leukocytosis, and tachycardia. He is in atrial fibrillation with RVR. Leukocytosis has resolved. He continues to be tachycardic with heart rate improving to 110-120. Source is likely urinary tract infection. Patient has had multiple UTIs in the past, with varying organisms including Enterobacter clocae. Continue cefepime at this time, which previous Enterobacter was sensitive to. Urine culture remains pending. Blood cultures x 2 with no growth to date. Continue to encourage p.o. intake, p.o. hydration. Qualifiers: Urinary tract infection type: acute pyelonephritis Qualified Code(s): N 10 - Acute pyelonephritis (3) Atrial fibrillation: Impression: Patient with a longstanding history of persistent atrial fibrillation. Normally on metoprolol succinate 50 mg daily. Yesterday, he received 2 pushes of diltiazem. Continue the metoprolol tartrate 25 mg every 6 hours. Heart rate is improving. Continue renally dosed Eliquis. Qualifiers: Atrial fibrillation type: persistent (not longstanding) Qualified Code(s): I48.19 - Other persistent atrial fibrillation; I48.1 - Persistent atrial fibrillation (4) Chronic kidney disease, stage 4 (severe): (5) BRITTANY (acute kidney injury): Impression: The following plan is for the above two assessments: Baseline creatinine is around 2.3-2.5. He has CKD stage IV. Creatinine on admission was 3, and improved overnight to 2.3. Continue outpatient nephrology follow-up. He has an appointment on August 24. (6) Congestive heart failure: Impression: Patient with a history of heart failure with reduced ejection fraction. Had a TAVR completed in August. 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 Continue metoprolol. Resume Entresto. Hold Jardiance. Consider spirnolactone. 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 Follows locally with Dr. Russo. (8) Rheumatoid arthritis: Impression: Continue prednisone. Hold leflunomide until antibiotic course completed. (9) Generalized pruritus: Impression: Continue clobetasol twice daily. (10) Depression: Impression: Continue duloxetine.
[2025-08-05] MEDS: FUROSEMIDE 40 MG/4 ML VIAL IVP ONE (15:08)
[2025-08-05] MEDS: METOPROLOL TARTRATE 25 MG TABLET PO SCH (20:34)
[2025-08-06 05:27] LABS: HCT - HEMATOCRIT 43.6 % (42.0-52.0); HGB - HEMOGLOBIN 13.6 g/dL (14.0-18.0); MEAN PLATELET VOLUME 10.7 fL (7.4-11.4); NRBC ABSOLUTE COUNT (AUTO) 0.00 x10^3/uL; NUCLEATED RED BLOOD CELLS AUTO 0.0 /100WBC; PLT - PLATELET COUNT 221 10^3/uL (130-450); RED CELL DISTRIBUTION WIDTH 18.6 % (12.0-15.0)
[2025-08-06 05:48] LABS: BUN - BLOOD UREA NITROGEN 75.0 mg/dL (6-20); CARBON DIOXIDE - CO2 26.0 mmol/L (21-32); CREATININE 2.4 mg/dL (0.6-1.3); GFR - MDRD 26.0 (>89)
--- NOTE | 2025-08-06 07:54 | PROVIDER PROGRESS NOTE ---
Current Medications Current Medications Current Medications: Current Medications Generic Name Dose Route Start Last Admin Trade Name Freq PRN Reason Stop Dose Admin Acetaminophen 650 mg 08/04/25 10:00 08/05/25 18:59 Acetaminophen 325 Mg Tablet PO 650 mg Q4HR PRN Administration Pain 1 to 4, or Fever Apixaban 2.5 mg 08/04/25 10:00 08/05/25 20:33 Apixaban 2.5 Mg Tablet PO 2.5 mg BID EMILY Administration Clobetasol Propionate 1 applic 08/04/25 21:00 08/05/25 20:33 Clobetasol 0.05% Oint 15 Gm Tube TOP 1 applic BID EMILY Administration Duloxetine HCl 40 mg 08/04/25 21:00 08/05/25 20:33 Duloxetine 20 Mg Capsule PO 40 mg HS EMILY Administration Gabapentin 600 mg 08/04/25 21:00 08/05/25 20:33 Gabapentin 300 Mg Capsule PO 600 mg QPM EMILY Administration Cefepime HCl 2 gm/ Sodium 100 mls @ 200 mls/hr 08/05/25 09:00 08/05/25 10:11 Chloride IV Infused DAILY EMILY Infusion Lidocaine 1 patch 08/05/25 19:49 08/05/25 19:51 Lidocaine Patch 4% TOP 1 patch DAILY EMILY Administration Metoprolol Tartrate 25 mg 08/05/25 21:00 08/05/25 20:34 Metoprolol Tartrate 25 Mg Tablet PO 25 mg BID EMILY Administration Multi-Ingredient Ointment 1 applic 08/04/25 17:05 Zinc Oxide 12% Oint 57 Gm Tube TOP Q6HR PRN ITCHING Ondansetron HCl 4 mg 08/04/25 10:00 Ondansetron Odt 4 Mg Tablet TL Q6HR PRN Nausea / Vomiting Ondansetron HCl 4 mg 08/04/25 10:00 Ondansetron 4 Mg/2 Ml Vial IVP Q6HR PRN Nausea / Vomiting Oxycodone HCl 5 mg 08/04/25 10:00 08/05/25 23:55 Oxycodone 5 Mg Tablet PO 5 mg Q4HR PRN Administration Pain 5 to 7 Oxycodone HCl 10 mg 08/04/25 10:00 Oxycodone 5 Mg Tablet PO Q4HR PRN Pain 8 to 10 Patient Own Med [ 0.5 each 08/04/25 21:00 08/05/25 20:34 Entresto] 24-26 Mg PO 0.5 each Tablet BID EMILY Administration Prednisone 5 mg 08/05/25 09:00 08/05/25 09:38 Prednisone 5 Mg Tablet PO 5 mg DAILY EMILY Administration Sodium Chloride 10 ml 08/04/25 10:00 Sodium Chloride Flush 0.9% 10 Ml Syringe IVP PRN PRN NEEDED PER PROVIDER ORDERS Sodium Chloride 10 ml 08/04/25 10:00 08/05/25 23:55 Sodium Chloride Flush 0.9% 10 Ml Syringe IVP 10 ml 0100,0900,1700 EMILY Administration Objective Vital Signs/Intake & Output Vital Signs: Vital Signs x48h Temp Pulse Resp BP Pulse Ox 08/06/25 05:33 97.9 F 65 16 126/92 H 94 Intake & Output: Intake & Output 08/03/25 08/04/25 08/05/25 08/06/25 23:59 23:59 23:59 23:59 Intake Total 3842 / 3842 1150 / 1150 300 / 300 Output Total 700 / 700 1075 / 1075 400 / 400 Balance 3142 / 3142 75 / 75 -100 / -100 Weight (kg) 65 kg 65 kg 65 kg Lab Results 08/06/25 05:08 08/06/25 05:08 Other Labs: Lab Results x24hrs 08/06/25 Range/Units 05:08 WBC 8.7 (4.8-10.8) x10^3/uL RBC 4.50 L (4.70-6.10) 10^6/uL Hgb 13.6 L (14.0-18.0) g/dL Hct 43.6 (42.0-52.0) % MCV 96.9 H (80.0-94.0) fL MCH 30.2 (27.0-31.0) pg MCHC 31.2 L (32.0-36.0) g/dL RDW 18.6 H (12.0-15.0) % Plt Count 221 (130-450) 10^3/uL MPV 10.7 (7.4-11.4) fL Neut # (Auto) 6.2 (1.5-6.6) 10^3/uL Lymph # (Auto) 0.7 L (1.5-3.5) 10^3/uL Allen # (Auto) 1.1 H (0.0-1.0) 10^3/uL Eos # (Auto) 0.5 (0.0-0.7) 10^3/uL Baso # (Auto) 0.1 (0.0-0.1) 10^3/uL Absolute Nucleated RBC 0.00 x10^3/uL Nucleated RBC % 0.0 /100WBC Sodium 140 (135-145) mmol/L Potassium 4.3 (3.5-4.5) mmol/L Chloride 103 (101-111) mmol/L Carbon Dioxide 26 (21-32) mmol/L Anion Gap 11.0 (6-13) BUN 75 H (6-20) mg/dL Creatinine 2.4 H (0.6-1.3) mg/dL Estimated GFR (MDRD) 26 L (>89) Glucose 104 (74-104) mg/dL Calcium 8.9 (8.5-10.3) mg/dL Magnesium 2.6 H (1.7-2.3) mg/dL Sepsis Event Note (H) Evaluation Current Stage of Sepsis: Severe sepsis Possible source of Sepsis: positive Genitourinary Sepsis Criteria Sepsis Criteria: Recorded Heart Rate greater than 90 bpm, WBC count greater than 12,000 or less than 4000 and Renal: urine output less than 0.5ml/kg/hr for 2 hours or creatinine gr Assessment/Plan Problem List (1) Sepsis: Qualifiers: Acute renal failure type: unspecified Sepsis acute organ dysfunction status: with acute organ dysfunction Sepsis type: sepsis due to unspecified organism Severe sepsis acute organ dysfunction type: acute renal failure S evere sepsis shock status: without septic shock Qualified Code(s): A41.9 - Sepsis, unspecified organism; R65.20 - Severe sepsis without septic shock; N17.9 - Acute kidney failure, unspecified (2) UTI (urinary tract infection): Qualifiers: Urinary tract infection type: acute pyelonephritis Qualified Code(s): N 10 - Acute pyelonephritis (3) Atrial fibrillation: Qualifiers: Atrial fibrillation type: persistent (not longstanding) Qualified Code(s): I48.19 - Other persistent atrial fibrillation; I48.1 - Persistent atrial fibrillation (4) Chronic kidney disease, stage 4 (severe): (5) BRITTANY (acute kidney injury): (6) Congestive heart failure: Qualifiers: Heart failure type: systolic Heart failure chronicity: acute on chronic Qualified Code(s): I50.23 - Acute on chronic systolic (congestive) heart failure (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
[2025-08-06] MEDS: LINEZOLID 600 MG TABLET PO SCH (10:06)
--- NOTE | 2025-08-06 10:26 | Discharge Summary ---
"Discharge Summary Admit Date: 08/04/25 Discharge Date: 08/06/25 Discharging Provider: Dr. Yokasta Luna Primary Care Provider: Kadeem Coulter - unknown provider Code Status: Do Not Attempt Resuscitation Discharge Facility Name: Home, self care DIAGNOSES Discharge Diagnoses with Status of Each Condition: Sepsis, UTIpatient presented with leukocytosis and atrial fibrillation with rapid ventricular response. Leukocytosis has resolved, as has RVR. Patient has multiple UTIs in the past, with varying organisms. This time urine culture grew Enterococcus faecalis. This is resistant to ampicillin. Will complete a 5-day course of Zyvox. Advised to hold Jardiance as he has been having frequent UTIs since starting it. Blood cultures have been no growth to date. Continue to encourage p.o. intake. Atrial fibrillationcontinue home Eliquis, as well as metoprolol succinate. CKD/AKIpatient's creatinine is now back at his baseline of 2.3-2.5. Follow-up outpatient with nephrology, has an appointment scheduled for August 24. 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 Continue metoprolol and Entresto. Hold Jardiance. Bladder cancer with metastasis to the lungfollows locally with Dr. Russo. Rheumatoid arthritiscontinue prednisone. Hold leflunomide until antibiotic course is completed. Generalized prurituscontinue clobetasol. Depressioncontinue duloxetine. HPI History of Present Illness: Per Dr. Doug Griffiths: This is an 85-year-old gentleman with past medical history notable for longstanding persistent atrial fibrillation, CKD 3B, bladder cancer s/p radical cystectomy with ileal conduit in place, hypertension, type II DM, rheumatoid arthritis on immunomodulation, and HFrEF who presents with altered mentation. Patient has some mild cognitive impairment at baseline, but is normally interactive and speaks normally. He has been demonstrating significantly more confusion over the last couple of days. He was evaluated by EMS on 08/03 reported to have hypoglycemia which improved on scene the patient refused transfer to the hospital. He again is presenting with confusion and alteration from his baseline and EMS was again dispatched and this time his blood sugars were normal. He did not return to baseline, was brought in the ED. I called and discussed with his , he says that he has been getting weaker over the past few days. He has been falling asleep during the recent doctors visit. This is unlike him. When he is awake, he will often times be lucid and cogent. However last evening when she called EMS, he was completely altered and unable to adequately communicate. She says his speech was garbled. In the ED, he was found to have evidence of urinary tract infection. He has a leukocytosis to 13.6. BRITTANY, creatinine 3 up from his baseline around 2.5. He has been tachycardic here and in A-fib with RVR up to 128. Was briefly hemodynamically unstable but received some fluids in the ED and is now hypertensive. Got 2 pushes of diltiazem in the ED. Finally in the ED, he was found to have troponin elevation. He has a ventricular paced rhythm, and is read on automatic read of the EKG to have ST elevation. I do not appreciate this, and he does not meet modified Sgarbossa criteria to rule in for STEMI. I personally reviewed his EKG. He is no longer having any chest pain. His troponin was elevated up to 600 and his been stable to downtrending. Of note he was recently seen at the walk-in clinic on 07/22. He was found to have evidence of UTI at that time. His symptoms at that time were dark urine. He denied any systemic symptoms. He was mentating appropriately. He received 7 days of ciprofloxacin. His urine eventually cultured out to Enterobacter cloacae I which has multiple resistances but is sensitive to Cipro, cefepime, meropenem (resistant to ertapenem), tetracycline, tobramycin, and Bactrim. On my interview with the patient, he is more lucid than he apparently was last night. He is already received a dose of antibiotic in the ED. He also received fluids. Denies any chest pain, dyspnea. Denies abdominal pain. Denies any nausea, vomiting or diarrhea. The patient has a DNR/selective treatment POLST that was completed in 2023. He states this is still consistent with his wishes. His is his surrogate decision maker, her name is Christie, and her contact information is in the chart. She very quickly on my interview wants to clarify that the patient is DNR. I discussed with Dr. Alegria in the ED, decided to admit this patient in the setting of sepsis. Will treat for urinary tract infection, broadly covering for the recent Enterobacter infection that was noted in the community. This is sensitive to cefepime. Will follow-up urine cultures, blood cultures. Anticipate discharge in 2 days pending cultures. CONSULTS | PROCEDURES Procedures: Chest x-raymild perihilar interstitial prominence. Head CTno acute intracranial pathology. HOSPITAL COURSE Hospital Course: Patient is a 85-year-old male with a history of persistent atrial fibrillation, CKD stage IIIb, bladder cancer s/p radial cystectomy with ileal conduit in place, rheumatoid arthritis and heart failure with reduced ejection fraction who presented for altered mentation. Head CT was negative. Urinalysis was positive for an infection. This grew Enterococcus faecalis. He was originally placed on cefepime, and then was switched to Zyvox, he will complete an oral course in the outpatient. He had an BRITTANY originally, which resolved with fluids. He was also in atrial fibrillation with rapid ventricular response, and this responded to 2 pushes of diltiazem, as well as oral metoprolol. He had some episodes of delirium while here, which when spoken with , she states is common when he's sick or hospitalized. She is in the process of getting him neurocognitive testing done in the outpatient. Overall, on discharge, patient was mentating appropriately, alert and oriented x 4. His heart rate was within normal limits, between 60-80. He was discharged on oral antibiotics, which were sensitive to his Enterococcus. He was advised to hold his Jardiance until further conversations with cardiology due to his frequent urinary tract infections. He was also advised to continue to hold leflunomide until his antibiotic course was completed. He was advised continued and close monitoring with his network relations consultant, primary care provider, color maker dyer, as well as his urologist. ALLERGIES Allergies Allergy/AdvReac Type Severity Reaction Status Date / Time adalimumab Allergy Mild Rash Verified 08/06/25 02:18 atorvastatin AdvReac Mild gi upset Verified 08/06/25 02:18 pravastatin AdvReac Mild myalgia Verified 08/06/25 02:18 rosuvastatin AdvReac Mild myalgia Verified 08/06/25 02:18 MEDICATIONS Ambulatory Orders Medication Instructions Recorded Confirmed duloxetine 20 mg capsule,delayed 40 mg PO HS 04/18/24 08/04/25 release leflunomide 10 mg tablet 10 mg PO DAILY 04/18/2407/21 Held on 08/06/25. Instructions: Resume on 08/11/25. Please resume after completion of antibiotic course. apixaban 2.5 mg tablet (Eliquis) 2.5 mg PO BID #60 tab s 04/20/24 08/04/25 furosemide 40 mg tablet 40 mg PO DAILY edema, CHF #3 0 tabs 04/20/24 08/04/25 empagliflozin 10 mg tablet 10 mg PO DAILY 06/12/24 (Jardiance) Held on 08/06/25. Instructions: Resume on 08/20/25. Please hold until further discussion with PCP - this can cause frequent UTIs. omeprazole 20 mg capsule,delayed 20 mg PO BID 06/12/24 08/04/25 release metoprolol succinate 50 mg 50 mg PO DAILY #30 tabs 08/04/25 tablet,extended release 24 hr gabapentin 600 mg tablet 600 mg PO QPM 05/24/2508/04 prednisone 5 mg tablet 5 mg PO DAILY 05/24/2508/04 sacubitril 24 mg-valsartan 26 mg 0.5 tab PO BID 08/04/25 tablet (Entresto) tramadol 50 mg tablet 50 mg PO Q6H PRN pain 08/04/25 vit C 250 mg-vit E 90 mg-zinc 40 1 tab PO BID 06/27/25 08/04/25 mg-copper 1 [id number] capsule (PreserVision AREDS-2) amlodipine 10 mg tablet 10 mg PO DAILY 08/04/2507/21 hydroxyzine HCl 25 mg tablet 25 mg PO HS PRN for itchi ng at 08/04/25 08/04/25 bedtime linezolid 600 mg tablet 600 mg PO BID 5 days #9 tabs 08/06/25 PHYSICAL EXAM AT DISCHARGE Vital Signs: Vital Signs x48h Temp Pulse Pulse Resp BP BP Pulse Ox 08/06/25 08:17 97.7 F 74 16 125/94 H 94 08/06/25 08:07 75 124/95 H 08/06/25 05:33 97.9 F 65 16 126/92 H 94 General Appearance: positive No acute distress and Alert; negative Anxious Eyes Bilateral: positive Normal inspection, PERRL and EOMI ENT: positive ENT inspection nml, Pharynx nml and No signs of dehydration Neck: positive Nml inspection, Thyroid nml and No JVD Respiratory: positive Chest non-tender, No respiratory distress and Breath sounds nml; negative Wheezes, Rales or Rhonchi Cardiovascular: positive No murmur, No gallop, Irregularly irregular and Tachycardia; negative Systolic murmur Abdomen: positive Non-tender, No organomegaly and No distention; negative Guarding or Splenomegaly Back: positive Nml inspection; negative CVA tenderness (R) or CVA tenderness (L) Skin: positive Color nml, No rash, Warm and Dry Extremities: positive Non-tender, Full ROM, Nml appearance and No pedal edema Neurologic/Psychiatric: positive Oriented x3, Motor nml and Mood/affect nml LABS 08/06/25 05:08 08/06/25 05:08 DIAGNOSTIC IMAGING Diagnostic Imaging Results: Final report reviewed SEPSIS Current Stage of Sepsis: Resolved Possible source of Sepsis: Genitourinary Sepsis Criteria: Recorded Heart Rate greater than 90 bpm, WBC count greater than 12,000 or less than 4000 and Renal: urine output less than 0.5ml/kg/hr for 2 hours or creatinine gr FOLLOW UP Follow Up: Follow-up with urology on bladder cancer. Follow-up with cardiology on continuation of Jardiance. Follow-up with primary care provider and further neurocognitive testing. Follow up with nephrology for chronic kidney disease. TIME SPENT Time Spent in Discharge (Minutes): 35 Discharge Plan Discharge Patient Disposition: Home, Self Care Condition: Stable Prescriptions: New linezolid 600 mg Tablet 600 mg PO BID 5 Days Qty: 9 0RF Continued duloxetine 20 MG capsule,delayed release(DR/EC) 40 mg PO HS Patient Comments: TAKE TWO CAPSULES BY MOUTH ONCE DAILY. CAN TAKE BOTH DOSES AT THE SAME TIME Eliquis 2.5 MG tablet 2.5 mg PO BID Qty: 60 0RF furosemide 40 MG tablet 40 mg PO DAILY Qty: 30 0RF omeprazole 20 mg capsule,delayed release(DR/EC) 20 mg PO BID gabapentin 600 mg tablet 600 mg PO QPM Patient Comments: TAKE ONE TABLET BY MOUTH TWICE DAILY metoprolol succinate 50 mg tablet extended release 24 hr 50 mg PO DAILY Qty: 30 2RF PreserVision AREDS-2 250-90-40-1 mg capsule 1 tab PO BID amlodipine 10 mg tablet 10 mg PO DAILY hydroxyzine HCl 25 mg tablet 25 mg PO HS PRN (Reason: for itching at bedtime) prednisone 5 mg tablet 5 mg PO DAILY tramadol 50 mg tablet 50 mg PO Q6H PRN (Reason: pain) sacubitril-valsartan [Entresto] 24-26 mg tablet 0.5 tab PO BID Held leflunomide 10 MG tablet 10 mg PO DAILY Hold Instructions: Resume on 08/11/25. Please resume after completion of antibiotic course. Jardiance 10 mg tablet 10 mg PO DAILY Hold Instructions: Resume on 08/20/25. Please hold until further discussion with PCP - this can cause frequent UTIs. Activity Restrictions: Activity as Tolerated Diet: Regular Health Concerns: You were hospitalized with confusion caused by a urinary tract infection (UTI) from bacteria called Enterococcus faecium. You are now being discharged home to continue treatment with an antibiotic called Zyvox (linezolid). While you have been here, you have had some increasing confusion at night, a condition called delirium. This can often happen when you are in an unfamiliar environment like a hospital. We can also be a manifestation of some kind of underlying neurocognitive decline like dementia. I would like you to follow-up with a neurologist in the outpatient setting. How to Take Your Medication - Take Zyvox exactly as prescribed, even if you start feeling better. - You can take this medication with or without food. - Do not skip doses or stop taking the medication early, as this can make the infection harder to treat and allow bacteria to become resistant to antibiotics. - Complete the full course of treatment as directed by your physician. Important Warnings Seek immediate medical attention if you experience: - Repeated nausea or vomiting - Confusion, extreme drowsiness, or weakness - Vision changes or eye problems - Muscle pain, tenderness, weakness, or dark-colored urine - Severe diarrhea, especially if bloody - Signs of low blood sugar if you have diabetes: sweating, shakiness, or trembling Drug and Food Interactions - Avoid foods high in tyramine while taking Zyvox, including aged cheeses, fermented or air-dried meats, sauerkraut, soy sauce, tap beers, and red leila. - Tell your physician about all medications you take, especially: - Antidepressants (SSRIs, tricyclics, bupropion) - Cold medicines containing pseudoephedrine or decongestants - Blood pressure medications - Diabetes medications (insulin or pills) - Pain medications, especially opioids Special Precautions - If you have diabetes, monitor your blood sugar closely as Zyvox can cause low blood sugar. - If you have a history of seizures, inform your physician immediately. - If you have high blood pressure, monitor it regularly while taking this medication. Follow-Up Care - Attend all scheduled follow-up appointments. - Your physician may order blood tests to monitor your blood counts and sodium levels. - Contact your physician if your symptoms do not improve or if they worsen. When to Call Your Physician Contact your physician if you develop: - New or worsening confusion - Persistent nausea or vomiting - Any vision problems - Severe headache or high fever - Watery or bloody diarrhea - Any other concerning symptoms Questions? If you have any questions about your medication or recovery, contact your physician's office. Thank you for allowing us to take care of you; we are glad you're feeling better. Print Language: Armenian Patient Instructions: Linezolid Stand Alone Forms: PCP List Follow-up Care: Ama Tinsley PA-C [Primary Care Provider, Family Practice] Vitals documented within 30 minutes of discharge?: Yes"
[2025-08-06 12:15] VITALS: BP 117/86; TEMP 98.6; O2SAT 100
== END 2025-08-06 12:28 | disposition home or self-care (01) | DRG 871 ==
LOC: ED 01:49 → MS2 08:12
PROVIDERS: ADMIT Student in an Organized Health Care Education/Training Program; ATTEND Student in an Organized Health Care Education/Training Program
DX: I25.10 Atherosclerotic heart disease of native coronary artery without angina pectoris; F32.A Depression, unspecified; M54.9 Dorsalgia, unspecified; C67.9 Malignant neoplasm of bladder, unspecified; R53.1 Weakness; R41.82 Altered mental status, unspecified; G89.29 Other chronic pain; I13.0 Hypertensive heart and chronic kidney disease with heart failure and stage 1 through stage 4 chronic kidney disease, or unspecified chronic kidney disease; Z95.2 Presence of prosthetic heart valve; E11.22 Type 2 diabetes mellitus with diabetic chronic kidney disease; N18.9 Chronic kidney disease, unspecified; I48.11 Longstanding persistent atrial fibrillation; Z79.01 Long term (current) use of anticoagulants; Z95.0 Presence of cardiac pacemaker; I95.9 Hypotension, unspecified; N18.32 Chronic kidney disease, stage 3b; Z95.1 Presence of aortocoronary bypass graft; Z79.84 Long term (current) use of oral hypoglycemic drugs; R65.20 Severe sepsis without septic shock; A41.9 Sepsis, unspecified organism; M06.9 Rheumatoid arthritis, unspecified; I50.23 Acute on chronic systolic (congestive) heart failure; N10 Acute pyelonephritis; A41.81 Sepsis due to Enterococcus; Z66 Do not resuscitate; C78.00 Secondary malignant neoplasm of unspecified lung; I48.91 Unspecified atrial fibrillation; N17.9 Acute kidney failure, unspecified; L29.9 Pruritus, unspecified

== ENCOUNTER 2025-08-08 10:52 | Inpatient (IN) ==
--- OUTSIDE RECORDS SUMMARY | 2025-08-08 10:59 | EXTERNAL MEDICAL SUMMARY RPT | Continuity of Care Document ---
Author Organization [place] Address [address] [place] [id number] Phone Allergies and Intolerances date description facility reaction severity 2025-05-07 10:00 [id number]^No Known Drug Allergies^^No Known Drug Allergies^^allergy.id [facility] (no reaction) (no severity) 2025-05-24 10:00 [id number]^No Known Drug Allergies^^No Known Drug Allergies^^allergy.id [facility] (no reaction) (no severity) 2025-06-26 10:00 [id number]^No Known Drug Allergies^^No Known Drug Allergies^^allergy.id [facility] (no reaction) (no severity) 2025-07-22 10:00 [id number]^No Known Drug Allergies^^No Known Drug Allergies^^allergy.id [facility] (no reaction) (no severity) 2025-08-06 10:00 [id number]^pravastat in^^p ravastatin^^allergy.id [facility] myalgia (no severity) 2025-08-06 10:00 [id number]^atorvasta tin^^ atorvastatin^^allergy.id [facility] gi upset (no severity) 2025-08-06 10:00 [id number]^adalimuma b^^ad alimumab^^allergy.id [facility] Rash (no severity) 2025-08-06 10:00 [id number]^rosuvasta tin^^ rosuvastatin^^allergy.id [facility] myalgia (no severity) Problems date description facility 2025-05-24 11:36 Hypotension, unspecified [facility] 2025-05-24 11:36 Pruritus, unspecified [facility] 2025-05-24 11:36 Chronic kidney disease, stage 4 (severe) [facility] 2025-06-27 01:40 Encephalopathy, unspecified [facility] [employer] 2025-06-27 01:40 Urinary tract infection, site n ot specified [facility] 2025-06-27 02:13 Encephalopathy, unspecified [facility] 2025-06-27 02:13 Persistent atrial fibrillation [facility] 2025-06-27 02:13 Other persistent atrial fibrill ation [facility] 2025-06-27 02:13 Renal tubulo-interstitial disea ses (N10-N16) [facility] 02:13 Chronic kidney disease, stage 4 (severe) [facility] 2025-06-27 02:13 Urinary tract infection, site n ot specified [facility] 2025-06-27 12:01 Encephalopathy, unspecified [facility] [employer] 2025-06-27 12:01 Persistent atrial fibrillation [facility]25-[facility]-27 12:01 Other persistent atrial fibrill ation [facility] 2025-06-27 12:01 Renal tubulo-interstitial disea ses (N10-N16) [facility] 2025-06-27 12:01 Chronic kidney disease, stage 4 (severe) [facility] 2025-06-27 12:01 Urinary tract infection, site n ot specified [facility] 2025-06-27 12:42 [facility], [facility] 12:42 Persistent atrial fibrillation [facility] 2025-06-27 12:42 Other persistent atrial fibrill ation [facility] 2025-06-27 12:42 Renal tubulo-interstitial disea ses (N10-N16) [facility] 2025-06-27 12:42 Chronic kidney disease, stage 4 (severe) [facility] 2025-06-27 12:42 Urinary tract infection, site n ot specified [facility] 2025-06-27 12:49 [facility]opathy, [facility] 12:49 Persistent atrial fibrillation [facility] 2025-06-27 12:49 Other persistent atrial fibrill ation [facility] 2025-06-27 12:49 Renal tubulo-interstitial disea ses (N10-N16) [facility] 2025-06-27 12:49 Chronic kidney disease, stage 4 (severe) [facility] 2025-06-27 12:49 Urinary tract infection, site n ot specified [facility] 2025-06-27 14:02 Encephalopathy, unspecified [facility] [employer] 2025-06-27 14:02 Persistent atrial fibrillation [facility] 2025-06-27 14:02 Other persistent atrial fibrill ation [facility] 2025-06-27 14:02 Renal tubulo-interstitial disea ses (N10-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) [facility] 2025-06-27 14:02 Chronic kidney disease, stage 4 (severe) [facility] 2025-06-27 14:02 Urinary tract infection, site n ot specified [facility] 2025-06-30 10:00 Encephalopathy, unspecified [facility] [facility] 2025-06-30 10:00 Persistent atrial fibrillation [facility] 2025-06-30 10:00 Other persistent atrial fibrill ation [facility] 2025-06-30 10:00 Renal tubulo-interstitial disea ses (N10-N16) [facility] 2025-06-30 10:00 Chronic kidney disease, stage 4 (severe) [facility] 2025-06-30 10:00 Urinary tract infection, site n ot specified [facility] 2025-06-30 10:00 Altered mental status, unspecif ied [facility] 2025-07-02 14:23 Auditory hallucinations [facility] 2025-07-07 12:38 Pain in left shoulder [facility] 2025-07-15 10:10 Pain in left shoulder [facility] 2025-07-15 10:10 Other specified soft tissue dis orders [facility] 2025-07-15 10:10 Chest pain, unspecified [facility] 2025-07-22 17:01 Other symptoms and s igns involving the genitourinary system [facility] 2025-07-22 17:05 Urinary tract infection, site n ot specified [facility] 2025-07-22 17:38 Urinary tract infection, site n ot specified [facility] 2025-07-23 00:05 Urinary tract infection, site n ot [facility] 2025-08-04 08:17 Sepsis, unspecified [facility] 2025-08-04 08:[address], [address] [facility] 2025-08-04 10:[address], [address] [facility] 2025-08-04 12:[address], [facility] 2025-08-05 05:50 Sepsis, unspecified organism [facility] 2025-08-05 05:50 Malignant neoplasm of bladder, unspecified [facility] 2025-08-05 05:50 Secondary malignant neoplasm of unspecified lung [facility] 2025-08-05 05:50 Depression, unspecified [facility] 2025-08-05 05:50 Insomnia, unspecified [facility] 2025-08-05 05:50 Persistent atrial fibrillation [facility] 2025-08-05 05:50 Other persistent atrial fibrill ation [facility] 2025-08-05 05:50 Acute on chronic systolic (raimundo estive) heart failure [facility] 2025-08-05 05:50 Pruritus, unspecified [facility] 2025-08-05 05:50 Rheumatoid arthritis, unspecifi ed [facility] 2025-08-05 05:50 Pain in left shoulder [facility] 2025-08-05 05:50 Other specified soft tissue dis orders [facility] 2025-08-05 05:50 Renal tubulo-interstitial disea ses (N10-N16) [facility] 2025-08-05 05:50 Acute kidney failure, unspecifi ed [facility] 2025-08-05 05:50 Chronic kidney disease, stage 4 (severe) [facility] 2025-08-05 05:50 Tachycardia, unspecified [facility] 2025-08-05 05:50 Cough, unspecified [employer] [facility] 2025-08-05 05:50 Orthopnea [facility] 2025-08-05 05:50 Chest pain, unspecified [employer] [facility] 2025-08-05 05:50 Vomiting, unspecified [facility] 2025-08-05 05:50 Altered mental status, unspecif ied [facility] 2025-08-05 05:50 Weakness [facility] 2025-08-05 05:50 Other fatigue [facility] 2025-08-05 05:50 Abnormal weight loss [facility] 2025-08-05 05:50 Severe sepsis without septic sh ock [employer] [facility] 2025-08-05 05:50 Unspecified injury of head, ini tial encounter [facility] 2025-08-06 02:18 Sepsis, unspecified [facility] 2025-08-06 02:18 Malignant neoplasm of bladder, unspecified [employer] [facility] 2025-08-06 02:18 Secondary malignant neoplasm of unspecified lung [facility] [employer] [facility] 2025-08-06 02:18 Depression, unspecified [employer] [facility] 2025-08-06 02:18 Persistent atrial fibrillation [facility] 2025-08-06 02:18 Other persistent atrial fibrill ation [employer] [facility] 2025-08-06 02:18 Acute on chronic systolic (raimundo estive) heart failure [facility] 2025-08-06 02:18 Pruritus, unspecified [facility] 2025-08-06 02:18 Rheumatoid arthritis, unspecifi ed [employer] [facility] 2025-08-06 02:18 Renal tubulo-interstitial disea ses (N10-N16) [facility] 2025-08-06 02:18 Acute kidney failure, unspecifi ed [employer] [facility] 2025-08-06 02:18 Chronic kidney disease, stage 4 (severe) [employer] [facility] 2025-08-06 02:18 Severe sepsis without septic sh ock [employer] [facility] 2025-08-06 10:26 Sepsis, unspecified [facility] 2025-08-06 10:26 Malignant neoplasm of bladder, unspecified [employer] [facility] 2025-08-06 10:26 Secondary malignant neoplasm of unspecified lung [facility] 2025-08-06 10:26 Depression, unspecified [facility] 2025-08-06 10:26 Persistent atrial fibrillation [facility] 2025-08-06 10:26 Other persistent atrial fibrill ation [facility] 2025-08-06 10:26 Acute on chronic systolic (raimundo estive) heart failure [facility] 2025-08-06 10:26 Pruritus, unspecified [facility] 2025-08-06 10:26 Rheumatoid arthritis, unspecifi ed [employer] [facility] 2025-08-06 10:26 Renal tubulo-interstitial disea ses (N10-N16) [facility] 2025-08-06 10:26 Acute kidney failure, unspecifi ed [facility] 2025-08-06 10:26 Chronic kidney disease, stage 4 (severe) [facility] 2025-08-06 10:26 Severe sepsis without septic sh ock [facility] 2025-08-06 10:50 Sepsis, unspecified organism [facility] 2025-08-06 10:50 Malignant neoplasm of bladder, unspecified [facility] 2025-08-06 10:50 Secondary malignant neoplasm of unspecified lung [facility] 2025-08-06 10:50 Depression, unspecified [facility] 2025-08-06 10:50 Persistent atrial fibrillation [facility] 2025-08-06 10:50 Other persistent atrial fibrill ation [facility] 2025-08-06 10:50 Acute on chronic systolic (raimundo estive) heart failure [facility] 2025-08-06 10:50 Pruritus, unspecified [facility] 2025-08-06 10:50 Rheumatoid arthritis, unspecifi ed [facility] 2025-08-06 10:50 Renal tubulo-interstitial disea ses (N10-N16) [facility] 2025-08-06 10:50 Acute kidney failure, unspecifi ed [facility] 2025-08-06 10:50 Chronic kidney disease, stage 4 (severe) [facility] 2025-08-06 10:50 Severe sepsis without septic sh ock [facility] 2025-08-06 12:28 Sepsis, unspecified organism [facility] 2025-08-06 12:28 Malignant neoplasm of bladder, unspecified [facility] 2025-08-06 12:28 Secondary malignant neoplasm of unspecified lung [facility] 2025-08-06 12:28 Depression, unspecified [facility] 2025-08-06 12:28 Persistent atrial fibrillation [facility] 2025-08-06 12:28 Other persistent atrial fibrill ation [facility] 2025-08-06 12:28 Acute on chronic systolic (raimundo estive) heart failure [facility] 2025-08-06 12:28 Pruritus, unspecified [facility] 2025-08-06 12:28 Rheumatoid arthritis, unspecifi ed [facility] 2025-08-06 12:28 Renal tubulo-interstitial disea ses (N10-N16) [facility] 2025-08-06 12:28 Acute kidney failure, unspecifi ed [facility] 2025-08-06 12:28 Chronic kidney disease, stage 4 (severe) [facility] 2025-08-06 12:28 Severe sepsis without septic sh ock [facility] 2025-08-07 12:50 Sepsis, unspecified organism [facility] 2025-08-07 12:50 Malignant neoplasm of bladder, unspecified [facility] 2025-08-07 12:50 Secondary malignant neoplasm of unspecified lung [facility] 2025-08-07 12:50 Depression, unspecified [facility] 2025-08-07 12:50 Persistent atrial fibrillation [facility] 2025-08-07 12:50 Other persistent atrial fibrill ation [facility] 2025-08-07 12:50 Acute on chronic systolic (raimundo estive) heart failure [facility] 2025-08-07 12:50 Pruritus, unspecified [facility] 2025-08-07 12:50 Rheumatoid arthritis, unspecifi ed [facility] 2025-08-07 12:50 Renal tubulo-interstitial disea ses (N10-N16) [facility] 2025-08-07 12:50 Acute kidney failure, unspecifi ed [facility] 2025-08-07 12:50 Chronic kidney disease, stage 4 (severe) [facility] 2025-08-07 12:50 Altered mental status, unspecif ied [facility] 2025-08-07 12:50 Other fatigue [facility] 2025-08-07 12:50 Severe sepsis without septic sh ock [facility] 2025-08-07 13:33 Sepsis, unspecified organism [employer] 2025-08-07 13:33 Malignant neoplasm of bladder, unspecified [facility] 2025-08-07 13:33 Secondary malignant neoplasm of unspecified lung [facility] 2025-08-07 13:33 Depression, unspecified [facility] 2025-08-07 13:33 Persistent atrial fibrillation [facility] 2025-08-07 13:33 Other persistent atrial fibrill ation [facility] 2025-08-07 13:33 Acute on chronic systolic (raimundo estive) heart failure [facility] 2025-08-07 13:33 Pruritus, unspecified [employer] [facility] 2025-08-07 13:33 Rheumatoid arthritis, unspecifi ed [facility] 2025-08-07 13:33 Renal tubulo-interstitial disea ses (N10-N16) [facility] 2025-08-07 13:33 Acute kidney failure, unspecifi ed [facility] 2025-08-07 13:33 Chronic kidney disease, stage 4 (severe) [facility] 2025-08-07 13:33 Altered mental status, unspecif ied [facility] 2025-08-07 13:33 Other fatigue [facility] 2025-08-07 13:33 Severe sepsis without septic sh ock [facility] Results/Labs test date facility value unit notes Result panel 1 LIPASE 2025-06-26 23:37 [facility] < 10 u/l As of February 2023 testing method has changed, this may include reference ranges. ETOH - ETHANOL 2025-06-26 23:37 [facility] < 10.0 mg/dl Blood Alcohol Levels Level [...] NUCLEATED RED BLOOD CELLS AUTO 2025-06-26 23:37 [facility] 0.0 /100wbc (missing) NRBC ABSOLUTE COUNT (AUTO) 2025-06-26 23:37 [facility] 0.00 x10 3/ul (missing) BASOPHILS # (AUTO) 2025-06-26 23:37 [facility] 0.1 10 3/ul (missing) EOSINOPHILS # (AUTO) 2025-06-26 23:37 [facility] 0.5 10 3/ul (missing) LYMPHOCYTES # (AUTO) 2025-06-26 23:37 [facility] 0.5 10 3/ul (missing) BILIRUBIN,TOTAL 2025-06-26 23:37 [facility] 0.9 mg/dl As of February 2023 testing method has changed, this may include reference ranges. MONOCYTES # (AUTO) 2025-06-26 23:37 [facility] 1.3 10 3/ul (missing) ALBUMIN/GLOBULIN RATIO 2025-06-26 23:37 [facility] 1.4 (missing) (missing) ANION GAP 2025-06-26 23:37 [facility] 10.0 (missing) (missing) MEAN PLATELET VOLUME 2025-06-26 23:37 [facility] 10.2 fl (missing) ALT ALANINE AMINOTRANSFERASE 2025-06-26 23:37 [facility] 11 iu/l As of February 2023 testing method has changed, this may include reference ranges. WHITE BLOOD COUNT 2025-06-26 23:37 [facility] 11.7 x10 3/ul (missing) GLUCOSE 2025-06-26 23:37 [facility] 111 mg/dl As of February 2023 testing method has changed, this may include reference ranges. HGB - HEMOGLOBIN 2025-06-26 23:37 [facility] 13.7 g/dl (missing) SODIUM 2025-06-26 23:37 [facility] 139 mmol/l (missing) AST ASPARTATE AMINOTRANSFERASE 2025-06-26 23:37 [facility] 16 iu/l As of February 2023 testing method has changed, this may include reference ranges. RED CELL DISTRIBUTION WIDTH 2025-06-26 23:37 [facility] 18.0 % (missing) THYROID STIMULATING HORMONE 2025-06-26 23:37 [facility] 2.07 uiu/ml (missing) CREATININE 2025-06-26 23:37 [facility] 2.6 mg/dl As of February 2023 testing method has changed, this may include reference ranges. GLOBULIN 2025-06-26 23:37 [facility] 2.8 g/dl (missing) PLT - PLATELET COUNT 2025-06-26 23:37 [facility] 204 10 3/ul (missing) GFR - MDRD 2025-06-26 23:37 [facility] 24 (missing) The IDMS-traceable MDRD Study Equation [...] October 2011. MEAN CORPUSCULAR HEMOGLOBIN 2025-06-26 23:37 [facility] 29.1 pg (missing) CARBON DIOXIDE - CO2 2025-06-26 23:37 [facility] 30 mmol/l As of February 2023 testing method has changed, this may include reference ranges. MEAN CORPUSCULAR HGB CONC 2025-06-26 23:37 [facility] 30.6 g/dl (missing) ALBUMIN 2025-06-26 23:37 [facility] 4.0 g/dl As of February 2023 testing method has changed, this may include reference ranges. POTASSIUM 2025-06-26 23:37 [facility] 4.1 mmol/l As of February 2023 testing method has changed, this may include reference ranges. RED BLOOD COUNT 2025-06-26 23:37 [facility] 4.70 10 6/ul (missing) HCT - HEMATOCRIT 2025-06-26 23:37 [facility] 44.8 % (missing) TOTAL PROTEIN 2025-06-26 23:37 [facility] 6.8 g/dl As of February 2023 testing method has changed, this may include reference ranges. BUN - BLOOD UREA NITROGEN 2025-06-26 23:37 [facility] 68 mg/dl As of February 2023 testing method has changed, this may include reference ranges. ALKALINE PHOSPHATASE 2025-06-26 23:37 [facility] 71 iu/l As of February 2023 testing method has changed, this may include reference ranges. CALCIUM 2025-06-26 23:37 [facility] 9.2 mg/dl As of February 2023 testing method has changed, this may include reference ranges. NEUTROPHILS # (AUTO) 2025-06-26 23:37 [facility] 9.3 10 3/ul (missing) MEAN CORPUSCULAR VOLUME 2025-06-26 23:37 [facility] 95.3 fl (missing) CHLORIDE 2025-06-26 23:37 [facility] 99 mmol/l As of February 2023 testing method has changed, this may include reference ranges. Result panel 2 AMMONIA 2025-06-26 23:46 [facility] 36.8 umol/l As of February 2023 testing method has changed, this may include reference ranges. Result panel 3 AMPICILLIN 2025-06-27 00:02 [facility] >16 (missing) (missing) CEFAZOLIN 2025-06-27 00:02 [facility] >16 (missing) (missing) AMPICILLIN/SULBACT AM 2025-06-27 00:02 [facility] >16/8 (missing) (missing) TRIMETHOPRIM/SULFA METHOXAZOLE 2025-06-27 00:02 [facility] >2/38 (missing) (missing) TETRACYCLINE 2025-06-27 00:02 [...] [facility] <=8 (missing) (missing) UROBILINOGEN,URINE 2025-06-27 00:02 [facility] 0.2 (NORMAL) e.u./dl (missing) SPECIFIC GRAVITY,URINE 2025-06-27 00:02 [facility] 1.005 (missing) (missing) GLUCOSE, URINE (UA) 2025-06-27 00:02 [facility] 100 mg/dl (missing) CUL, URINE 2025-06-27 00:02 [facility] 100>100,000 CFU/mL (missing) (missing) WBC,URINE 2025-06-27 00:02 [facility] 11-25 /hpf (missing) RBC,URINE 2025-06-27 00:02 [facility] 11-25 /hpf (missing) PH,URINE 2025-06-27 00:02 [facility] 7.0 ph (missing) PIPERACILLIN/TAZOB ACTAM 2025-06-27 00:02 [facility] 8/4 (missing) (missing) MUDS CUTOFF CONCENTRATIONS 2025-06-27 00:02 [facility] CUTOFF CONC BELOW: (missing) [facility] uses the PROFILE-V [employer] Drugs of Abuse Test System. It detects [...] BUP Buprenorphine (Buprenorphine) 10 ng/mL THC Cannabinoids (20-iea-1-carboxy -9-THC) 50 ng/mL TCA Tricyclic Antidepressants (Desipramine) 300 ng/mL All drug screen results are unconfirmed. Results are to be used for medical (i.e. treatment) purposes only. Unconfirmed screening results must not be used for non-medical purposes (e.g., employment testing, legal testing). O:ESCCOL 2025-06-27 00:02 [facility] ESCCOLESCHERICHIA COLIESCHERICHIA COLI (missing) (missing) AMORPHOUS SEDIMENT,UR 2025-06-27 00:02 [facility] Few /lpf (missing) CUL, URINE 2025-06-27 00:02 [facility] GNRGRAM NEGATIVE [place]MER TO BE FURTHER IDENTIFIED (missing) (missing) CLARITY,URINE 2025-06-27 00:02 [employer] [facility] HAZY (missing) (missing) CUL, URINE 2025-06-27 00:02 [employer] [facility] IDMIC.1ORG 1 ID/LILIYA COM* (missing) (missing) UR CULTURE IF IND 2025-06-27 00:02 [facility] INDICATED (missing) (missing) LEUKOCYTE ESTERASE, URINE 2025-06-27 00:02 [facility] MODERATE (missing) (missing) BACTERIA,URINE 2025-06-27 00:02 [facility] Many /hpf (missing) AMPHETAMINE SCREEN,URINE 2025-06-27 00:02 [facility] NEGATIVE (missing) (missing) BARBITURATE SCREEN,UR 2025-06-27 00:02 [facility] NEGATIVE (missing) (missing) BENZODIAZEPINES SCREEN, URINE 2025-06-27 00:02 [facility] NEGATIVE (missing) (missing) BUPRENORPHINE SCREEN, URINE 2025-06-27 00:02 [facility] NEGATIVE (missing) (missing) COCAINE SCREEN URINE 2025-06-27 00:02 [facility] NEGATIVE (missing) (missing) METHADONE SCREEN, URINE 2025-06-27 00:02 [facility] NEGATIVE (missing) (missing) METHAMPHETAMINES SCREEN, URINE 2025-06-27 00:02 [facility] NEGATIVE (missing) (missing) OPIATE SCREEN, URINE 2025-06-27 00:02 [facility] NEGATIVE (missing) (missing) OXYCODONE SCREEN, URINE 2025-06-27 00:02 [facility] NEGATIVE (missing) (missing) PHENCYCLIDINE SCREEN, URINE 2025-06-27 00:02 [facility] NEGATIVE (missing) (missing) THC CANNABINOID SCREEN, URINE 2025-06-27 00:02 [facility] NEGATIVE (missing) (missing) TRICYCLIC ANTIDEPRESSANT,URI NE 2025-06-27 00:02 [facility] NEGATIVE (missing) (missing) BILIRUBIN,URINE 2025-06-27 00:02 [facility] NEGATIVE (missing) Bilirubin can be influenced by color interference. Please correlate positive results with clinical presentation KETONES,URINE (UA) 2025-06-27 00:02 [facility] NEGATIVE mg/dl (missing) PROTEIN,URINE 2025-06-27 00:02 [email or web address] NEGATIVE mg/dl (missing) SQUAMOUS EPITHELIAL CELL,UR 2025-06-27 00:02 [facility] NONE SEEN (missing) (missing) FENTANYL SCREEN, URINE 2025-06-27 00:02 [email or web address] Negative (missing) Jini uses LZI Fentanyl (Q) Enzyme Immunoassay. RESULT [...] or legal purposes. CUL, URINE 2025-06-27 00:02 [facility] ORG.1PRELIM ORG ID* (missing) (missing) NITRITE,URINE 2025-06-27 00:02 [facility] POSITIVE (missing) (missing) CUL, URINE 2025-06-27 00:02 [facility] Pending (missing) (missing) OCCULT BLOOD,URINE 2025-06-27 00:02 [facility] TRACE (missing) (missing) CUL, URINE 2025-06-27 00:02 [facility] [place].1ORG 1 CC* (missing) (missing) CUL, URINE 2025-06-27 00:02 [facility] [place].6COLONY COUNT (missing) (missing) COLOR,URINE 2025-06-27 00:02 [facility] YELLOW (missing) URINE CLEAN CATCH CUL, URINE 2025-06-27 00:02 [facility] YIDENTIFICATION AND SENSITIVITIES TO FOLLOW (missing) (missing) Result panel 4 CULTURE, BLOOD #1 2025-06-27 01:06 [facility] NG1D NO GROWTH AFTER 1 DAY (missing) (missing) CULTURE, BLOOD #1 2025-06-27 01:06 [facility] NG2D NO GROWTH AFTER 2 DAYS (missing) (missing) CULTURE, BLOOD #1 2025-06-27 01:06 [facility] NG5D NO GROWTH AFTER 5 DAYS (missing) (missing) Result panel 5 LACTIC ACID, VENOUS 2025-06-27 01:09 [facility] 0.8 mmol/l N As of 2022 testing method has changed, this may include reference ranges. CULTURE, BLOOD #2 2025-06-27 01:09 [facility] NG1DNO GROWTH AFTER 1 DAY (missing) (missing) CULTURE, BLOOD #2 2025-06-27 01:09 [employer] NG2DNO GROWTH AFTER 2 DAYS (missing) (missing) CULTURE, BLOOD #2 2025-06-27 01:09 [facility] [employer] [facility] NG5DNO GROWTH AFTER 5 DAYS (missing) (missing) Result panel 6 HGB - HEMOGLOBIN 2025-06-27 07:54 [facility] 14.2 g /dl (missing) SODIUM 2025-06-27 07:54 [facility] 142 mmol/l (missing) RED CELL DISTRIBUTION WIDTH 2025-06-27 07:54 [facility] 17.7 % (mi ssing) PLT - PLATELET COUNT 2025-06-27 07:54 [facility] 199 10 3/ul (missing) CREATININE 2025-06-27 07:54 [facility] 2.6 mg/dl As of February 2023 testing method has changed, this may include reference ranges. GFR - MDRD 2025-06-27 07:54 [facility] 24 (in g) The IDMS-traceable MDRD Study Equation has [...] October 2011. MEAN CORPUSCULAR HEMOGLOBIN 2025-06-27 07:54 [facility] 30.0 pg (missing) MEAN CORPUSCULAR HGB CONC 2025-06-27 07:54 [facility] 30.9 g/dl (missing) CARBON DIOXIDE - CO2 2025-06-27 07:54 [facility] 35 mmol/l As of February 2023 testing method has changed, this may include reference ranges. POTASSIUM 2025-06-27 07:54 [facility] 4.3 mmol/l As of February 2023 testing method has changed, this may include reference ranges. RED BLOOD COUNT 2025-06-27 07:54 [facility] 4.74 10 6/ul (missing) HCT - HEMATOCRIT 2025-06-27 07:54 [facility] 45.9 % (missing) BUN - BLOOD UREA NITROGEN 2025-06-27 07:54 [facility] 66 mg/dl As of Feb testing method has changed, this may include reference ranges. ANION GAP 2025-06-27 07:54 [employer] 8.0 (missing ) (missing) WHITE BLOOD COUNT 2025-06-27 07:54 [facility] 8.1 x10 3/ul (missing) CALCIUM 2025-06-27 07:54 [facility] 9.1 mg/dl As of February 2023 testing method has changed, this may include reference ranges. MEAN PLATELET VOLUME 2025-06-27 07:54 [facility] 9.4 fl (missing) MEAN CORPUSCULAR VOLUME 2025-06-27 07:54 [facility] 96.8 fl (missing) GLUCOSE 2025-06-27 07:54 [facility] 97 mg/dl As of February 2023 testing method has changed, this may include reference ranges. CHLORIDE 2025-06-27 07:54 [facility] 99 mmol/l As of February 2023 testing method has changed, this may include reference ranges. Result panel 7 SARS-CoV-2 -RESP PCR PANEL 2025-07-01 13:35 [facility] NOT DETECTED (missing) A negative test result for this test indicates that SARS-CoV-2 RNA was not present in the specimen above the limit of detection. Testing performed on the [employer] RP2.1 Panel, a multiplexed nucleic acid repiratory [...] INFLUENZA A- RESP PCR PANEL 2025-07-01 13:35 [facility] NOT DETECTED (missing) Influenza A including subtypes H1, H3, and H1-2009 not detected by the [employer] RP2.1 Panel, a multiplexed nucleic acid test [...] not be detected by nasopharyngeal specimen. CORONAVIRUS WQ62-SEUX PCR 2025-07-01 13:35 [facility] NOT DETECTED (missing) Negative results in the setting ofa respiratory illness may be due to infection with pathogens not detected by this test, or lower respiratory tract infection that may not be detected by nasopharyngeal specimen. CORONAVIRUS GU01-EZJW PCR 2025-07-01 13:35 [facility] NOT DETECTED [...] be detected by nasopharyngeal specimen. Result panel 8 NUCLEATED RED BLOOD CELLS AUTO 2025-07-01 14:25 [facility] 0.0 /100wbc (missing) NRBC ABSOLUTE COUNT (AUTO) 2025-07-01 14:25 [facility] 0.00 x10 3/ul (missing) BASOPHILS # (AUTO) 2025-07-01 14:25 [facility] 0.1 10 3/ul (missing) LYMPHOCYTES # (AUTO) 2025-07-01 14:25 [facility] 0.7 10 3/ul (missing) BILIRUBIN,TOTAL 2025-07-01 14:25 [facility] 0.7 mg/dl As of February 2023 testing method has changed, this may include reference ranges. EOSINOPHILS # (AUTO) 2025-07-01 14:25 [facility] 1.0 10 3/ul (missing) ALBUMIN/GLOBULIN RATIO 2025-07-01 14:25 [facility] 1.4 (missing) (missing) MONOCYTES # (AUTO) 2025-07-01 14:25 [facility] 1.7 10 3/ul (missing) LIPASE 2025-07-01 14:25 [facility] 10 u/l As of February 2023 testing method has changed, this may include reference ranges. MEAN PLATELET VOLUME 2025-07-01 14:25 [facility] 10.0 fl (missing) CHLORIDE 2025-07-01 14:25 [facility] 100 mmol/l As of February 2023 testing method has changed, this may include reference ranges. WHITE BLOOD COUNT 2025-07-01 14:25 [facility] 11.8 x10 3/ul (missing) GLUCOSE 2025-07-01 14:25 [facility] 114 mg/dl As of February 2023 testing method has changed, this may include reference ranges. HGB - HEMOGLOBIN 2025-07-01 14:25 [facility] 14.3 g/dl (missing) SODIUM 2025-07-01 14:25 [facility] 141 mmol/l (missing) RED CELL DISTRIBUTION WIDTH 2025-07-01 14:25 [facility] 17.2 % (missing) CREATININE 2025-07-01 14:25 [facility] 2.3 mg/dl As of February 2023 testing method has changed, this may include reference ranges. ALT ALANINE AMINOTRANSFERASE 2025-07-01 14:25 [facility] 21 iu/l As of February 2023 testing method has changed, this may include reference ranges. AST ASPARTATE AMINOTRANSFERASE 2025-07-01 14:25 [facility] 22 iu/l As of February 2023 testing method has changed, this may include reference ranges. PLT - PLATELET COUNT 2025-07-01 14:25 [facility] 236 10 3/ul (missing) GFR - MDRD 2025-07-01 14:25 [facility] 27 (missing) The IDMS-traceable MDRD Study Equation [...] 2011. TROPONIN I HIGH SENSITIVITY 2025-07-01 14:25 [facility] 28.6 ng/l Critical result TNI[facility] 28.6 pg/mL called to and read back by ANN-MARIE Acevedo RN/ED at 01-Jul-2025 14:52 by edenilson. A HIGH SENSITIVITY TROPONIN result of >= 14.9 ng/L for females is considered POSITIVE. A HIGH SENSITIVITY TROPONIN result of >= 19.8 ng/L for males is considered POSITIVE. A HIGH SENSITIVITY TROPONIN result of >= 17.9 ng/L for unspecified is considered POSITIVE. GLOBULIN 2025-07-01 14:25 [facility] 3.1 g/dl (missing) MEAN CORPUSCULAR HEMOGLOBIN 2025-07-01 14:25 [facility] 30.1 pg (missing) MEAN CORPUSCULAR HGB CONC 2025-07-01 14:25 [facility] 30.6 g/dl (missing) CARBON DIOXIDE - CO2 2025-07-01 14:25 [facility] 32 mmol/l As of February 2023 testing method has changed, this may include reference ranges. ALBUMIN 2025-07-01 14:25 [facility] 4.4 g/dl As of February 2023 testing method has changed, this may include reference ranges. POTASSIUM 2025-07-01 14:25 [facility] 4.4 mmol/l As of February 2023 testing method has changed, this may include reference ranges. RED BLOOD COUNT 2025-07-01 14:25 [facility] 4.75 10 6/ul (missing) HCT - HEMATOCRIT 2025-07-01 14:25 [facility] 46.8 % (missing) BUN - BLOOD UREA NITROGEN 2025-07-01 14:25 [facility] 58 mg/dl As of February 2023 testing method has changed, this may include reference ranges. TOTAL PROTEIN 2025-07-01 14:25 [facility] 7.5 g/dl As of February 2023 testing method has changed, this may include reference ranges. NEUTROPHILS # (AUTO) 2025-07-01 14:25 [facility] 8.3 10 3/ul (missing) ANION GAP 2025-07-01 14:25 [facility] 9.0 (missing) (missing) CALCIUM 2025-07-01 14:25 [facility] 9.6 mg/dl As of February 2023 testing method has changed, this may include reference ranges. ALKALINE PHOSPHATASE 2025-07-01 14:25 [facility] 97 iu/l As of February 2023 testing method has changed, this may include reference ranges. MEAN CORPUSCULAR VOLUME 2025-07-01 14:25 [facility] 98.5 fl (missing) SLIDE REVIEW? 2025-07-01 14:25 [facility] Indicated (missing) (missing) PLATELET ESTIMATE, MANUAL 2025-07-01 14:25 [facility] NORMAL (130-450,000) (missing) (missing) PLATELET MORPHOLOGY 2025-07-01 14:25 [facility] NORMAL APPEARANCE (missing) (missing) RBC MORPHOLOGY (MULTIPLE) 2025-07-01 14:25 [facility] NORMAL APPEARANCE (missing) (missing) WBC MORPHOLOGY (MULTIPLE) 2025-07-01 14:25 [facility] NORMAL APPEARANCE (missing) (missing) Result panel 9 ERTAPENEM 2025-07-22 16:45 [facility] >1 (missing) [...] Health <=2 (missing) (missing) AMIKACIN 2025-07-22 16:45 [facility] <=8 (missing) (missing) CUL, URINE 2025-07-22 16:45 [facility] 100>100,000 CFU/mL (missing) (missing) AZTREONAM 2025-07-22 16:45 [facility] 16 (missing) (missing) PIPERACILLIN/TAZOB ACTAM 2025-07-22 16:45 [facility] 32 (missing) (missing) O:ENTCLO 2025-07-22 16:45 [facility] ENTCLOENTEROBACTER CLOACAEENTEROBACTER CLOACAE (missing) (missing) CUL, URINE 2025-07-22 16:45 [facility] GNRGRAM NEGATIVE [place] TO BE FURTHER IDENTIFIED (missing) (missing) CUL, URINE 2025-07-22 16:45 [facility] IDMIC.1ORG 1 ID/LILIYA COM* (missing) (missing) CUL, URINE 2025-07-22 16:45 [facility] ORG.1PRELIM ORG ID* (missing) (missing) CUL, URINE 2025-07-22 16:45 [facility] Pending (missing) (missing) CUL, URINE 2025-07-22 16:45 [facility] UCC.1ORG 1 CC* (missing) (missing) CUL, URINE 2025-07-22 16:45 [facility] UCC.6COLONY COUNT (missing) (missing) CUL, URINE 2025-07-22 16:45 [facility] YIDENTIFICATION AND SENSITIVITIES TO FOLLOW (missing) (missing) Result panel 10 GLUCOSE, WHOLE BLOOD 2025-08-04 01:55 [facility] 88 (missing) (missing) Result panel 11 LIPASE 2025-08-04 02:27 [facility] < 10 u/l As of February 2023 testing method has changed, this may include reference ranges. ETOH - ETHANOL 2025-08-04 02:27 [facility] < 10.0 mg/dl Blood Alcohol Levels Level [...] ranges. NUCLEATED RED BLOOD CELLS AUTO 2025-08-04 02: [employer] [facility] 0.0 /100wbc (missing) NRBC ABSOLUTE COUNT (AUTO) 2025-08-04 02: [employer] [facility] 0.00 x10 3/ul (missing) BASOPHILS # (AUTO) 2025-08-04 02:27 [facility] 0.1 10 3/ul (missing) EOSINOPHILS # (AUTO) 2025-08-04 02: [facility] 0.3 10 3/ul (missing) LYMPHOCYTES # (AUTO) 2025-08-04 02:27 [facility] 0.6 10 3/ul (missing) MONOCYTES # (AUTO) 2025-08-04 02:27 [facility] 1.4 10 3/ul (missing) ALBUMIN/GLOBULIN RATIO 2025-08-04 02: [facility] 1.5 (missing ) (missing) BILIRUBIN,TOTAL 2025-08-04 02: [employer] [facility] 1.5 mg/dl As of February 2023 testing method has changed, this may include reference ranges. MEAN PLATELET VOLUME 2025-08-04 02: [facility] 11.0 fl (missing) NEUTROPHILS # (AUTO) 2025-08-04 02:27 [facility] 11.1 10 3/ul (missing) ALKALINE PHOSPHATASE 2025-08-04 02: [facility] 111 iu/l As of February 2023 testing method has changed, this may include reference ranges. WHITE BLOOD COUNT 2025-08-04 02: [facility] 13.6 x10 3/ul (missing) HGB - HEMOGLOBIN 2025-08-04 02: [facility] 14.4 g/dl (missing) SODIUM 2025-08-04 02:27 [facility] 140 mmol/l (missing) ANION GAP 2025-08-04 02: [facility] 15.0 (missing ) (missing) RED CELL DISTRIBUTION WIDTH 2025-08-04 02: [facility] 17.4 % (missing) GLOBULIN 2025-08-04 02:27 [facility] 2.6 g/dl (missing) MAGNESIUM 2025-08-04 02: [facility] 2.6 mg/dl As of February 2023 testing method has changed, this may include reference ranges. GFR - MDRD 2025-08-04 02: [facility] 20 (missing ) The IDMS-traceable MDRD Study [...] last updated October 2011. ALT ALANINE AMINOTRANSFERASE 2025-08-04: [facility] 20 iu/l As of February 2023 testing method has changed, this may include reference ranges. PLT - PLATELET COUNT 2025-08-04: [facility] 237 10 3/ul (missing) CARBON DIOXIDE - CO2 2025-08-04: [facility] 27 mmol/l As of February 2023 testing method has changed, this may include reference ranges. MEAN CORPUSCULAR HEMOGLOBIN 2025-08-04 02: [facility] 29.5 pg (missing) CREATININE 2025-08-04 02: [facility] 3.0 mg/dl As of February 2023 testing method has changed, this may include reference ranges. ALBUMIN 2025-08-04 02: [facility] 3.9 g/dl As of February 2023 testing method has changed, this may include reference ranges. MEAN CORPUSCULAR HGB CONC 2025-08-04 02:27 [facility] 30.4 g/dl (missing) AST ASPARTATE AMINOTRANSFERASE 2025-08-04 02: [facility] 31 iu/l As of February 2023 testing method has changed, this may include reference ranges. POTASSIUM 2025-08-04 02:27 [facility] 4.4 mmol/l As of February 2023 testing method has changed, this may include reference ranges. RED BLOOD COUNT 2025-08-04 02: [facility] 4.88 10 6/ul (missing) HCT - HEMATOCRIT 2025-08-04 02: [facility] 47.3 % (missing) TOTAL PROTEIN 2025-08-04 02: [facility] 6.5 g/dl As of February 2023 testing method has changed, this may include reference ranges. TROPONIN I HIGH SENSITIVITY 2025-08-04 02: [facility] 619.3 ng/l Critical result TNI[facility] 619.3 pg/mL [...] unspecified is considered POSITIVE. GLUCOSE 2025-08-04 02: [facility] 89 mg/dl As of February 2023 testing method has changed, this may include reference ranges. CALCIUM 2025-08-04: [facility] 9.6 mg/dl As of February 2023 testing method has changed, this may include reference ranges. BUN - BLOOD UREA NITROGEN 2025-08-04 02: [facility] 95 mg/dl Critical result BUN 95 mg/dL called to and read back by ED / SEYMOUR Rasmussen RN at 04-Aug-2025 03:15 by raquel. As of February 2023 testing method has changed, this may include reference ranges. MEAN CORPUSCULAR VOLUME 2025-08-04 02:27 [facility] 96.9 fl (missing) CHLORIDE 2025-08-04 02: [facility] 98 mmol/l As of February 2023 testing method has changed, this may include reference ranges. KETONES, SERUM (ACETEST) 2025-08-04 02:27 [facility] NEGATIVE (missing ) (missing) Result panel 12 CULTURE, BLOOD #1 2025-08-04 03:05 [facility] NG1D NO GROWTH AFTER 1 DAY (missing) (missing) CULTURE, BLOOD #1 2025-08-04 03:05 [facility] NG2D NO GROWTH AFTER 2 DAYS (missing) (missing) Result panel 13 LACTIC ACID, VENOUS 2025-08-04 03:12 [facility] 1.6 mmol/l N As of 2022 testing method has changed, this may include reference ranges. CULTURE, BLOOD #2 2025-08-04 03:12 [facility] NG1DNO GROWTH AFTER 1 DAY (missing) (missing) CULTURE, BLOOD #2 2025-08-04 03:12 [facility] NG2DNO GROWTH AFTER 2 DAYS (missing) (missing) Result panel 14 STREPTOMYCIN SYNERGY 2025-08-04 03:37 [facility] >1000 (missing) (missing) LEVOFLOXACIN 2025-08-04 03:37 [facility] >4 (missing) (missing) GENTAMICIN SYNERGY 2025-08-04 03:37 [facility] >500 (missing) (missing) AMPICILLIN 2025-08-04 03:37 [facility] >8 (missing) (missing) PENICILLIN 2025-08-04 03:37 [facility] >8 (missing) (missing) TETRACYCLINE 2025-08-04 03:37 [facility] >8 (missing) (missing) VANCOMYCIN 2025-08-04 03:37 [facility] <=0.5 (missing) (missing) LINEZOLID 2025-08-04 03:37 [facility] <=1 (missing) (missing) UROBILINOGEN,URIN E 2025-08-04 03:37 [facility] 0.2 (NORMAL) e.u./dl (missing) SPECIFIC GRAVITY,URINE 2025-08-04 03:37 [facility] 1.015 (missing) (missing) CUL, URINE 2025-08-04 03:37 [facility] 100>100,000 CFU/mL (missing) (missing) WBC,URINE 2025-08-04 03:37 [facility] 11-25 /hpf (missing) PH,URINE 2025-08-04 03:37 [facility] 5.5 ph (missing) RBC,URINE 2025-08-04 03:37 [facility] 6-10 /hpf (missing) SQUAMOUS EPITHELIAL CELL,UR 2025-08-04 03:37 [facility] FEW [employer] (missing) (missing) CUL, URINE 2025-08-04 03:37 [facility] GPCGRAM POSITIVE COCCI TO BE FURTHER IDENTIFIED (missing) (missing) CLARITY,URINE 2025-08-04:37 [facility] HAZY (missing) (missing) UR CULTURE IF IND 2025-08-04:37 [facility] INDICATED (missing) (missing) URINE MICROSCOPIC INDICATED? 2025-08-04 03:37 [facility] INDICATED (missing) (missing) BACTERIA,URINE 2025-08-04 03:37 [facility] Many /hpf (missing) NITRITE,URINE 2025-08-04 03:37 [facility] NEGATIVE (missing) (missing) BILIRUBIN,URINE 2025-08-04 03:37 [facility] NEGATIVE (missing) Bilirubin can be influenced by color interference. Please correlate positive results with clinical presentation GLUCOSE, URINE (UA) 2025-08-04 03:37 [facility] NEGATIVE mg/dl (missing) KETONES,URINE (UA) 2025-08-04 03:37 [facility] NEGATIVE mg/dl (missing) SARS-CoV-2 -RESP PCR PANEL 2025-08-04 03:37 [facility] NOT DETECTED (missing) A negative test result for this test indicates that SARS-CoV-2 RNA was not present in the specimen above the limit of detection. Testing performed on the [employer] RP2.1 Panel, a multiplexed nucleic acid repiratory [...] INFLUENZA A- RESP PCR PANEL 2025-08-04 03:37 [facility] NOT DETECTED (missing) Influenza A including subtypes H1, H3, and H1-2009 not detected by the [employer] RP2.1 Panel, a multiplexed nucleic acid test intended for the simultaneous qualitative detection and differentiation of nucleic acids from multiple viral and bacterial respiratory organisms. B. PARAPERTUSSIS- RESP PCR ULRICH 2025-08-04 03:37 [facility] NOT DETECTED (missing) Negative results for this organism do not preclude infection with this organism and may require additional laboratory testing (e.g., bacterial and viral culture, immunofluorescen ce, and radiography) when evaluating a patient with possible respiratory tract infection. B. PERTUSSIS- RESP PCR PANEL 2025-08-04 03:37 [facility] NOT DETECTED (missing) Negative results for this organism do not preclude infection with this organism and may require additional laboratory testing (e.g., bacterial and viral culture, immunofluorescen ce, and radiography) when evaluating a patient with possible respiratory tract infection. C. PNEUMONIAE- RESP PCR PANEL 2025-08-04 03:37 [facility] NOT DETECTED (missing) Negative results for this organism do not preclude infection with this organism and may require additional laboratory testing (e.g., bacterial and viral culture, immunofluorescen ce, and radiography) when evaluating a patient with possible respiratory tract infection. M. PNEUMONIAE- RESP PCR PANEL 2025-08-04 03:37 [facility] NOT DETECTED (missing) Negative results for this organism do not preclude infection with this organism and may require additional laboratory testing (e.g., bacterial and viral culture, immunofluorescen ce, and radiography) when evaluating a patient with [...] not be detected by nasopharyngeal specimen. CORONAVIRUS NI30-CFXZ PCR 2025-08-04 03:37 [facility] NOT DETECTED (missing) Negative results in the setting ofa respiratory illness may be due to infection with pathogens not detected by this test, or lower respiratory tract infection that may not be detected by nasopharyngeal specimen. CORONAVIRUS PG27-MYAL PCR 2025-08-04 03:37 [facility] NOT DETECTED [...] may not be detected by nasopharyngeal specimen. RHINOVIRUS/ENTERO VIRUS 2025-08-04 03:37 [facility] NOT DETECTED (missing) Negative results in the setting ofa respiratory illness may be due to infection with pathogens not detected by this test, or lower respiratory tract infection that may not be detected by nasopharyngeal specimen. RSV- RESP PCR PANEL 2025-08-04 03:37 [facility] NOT DET[facility]ED (missing) Negative results in the setting ofa respiratory illness may be due to infection with pathogens not detected by this test, or lower respiratory tract infection that may not be detected by nasopharyngeal specimen. ADENOVIRUS - RESP PCR PANEL 2025-08-04 03:37 [facility] NOT DETECTED (missing) Y Negative results in the setting ofa respiratory illness may be due to infection with pathogens not detected by this test, or lower respiratory tract infection that may not be detected by nasopharyngeal specimen. CUL, URINE 2025-08-04 03:37 [facility] ORG.1PRELIM ORG ID* (missing) (missing) LEUKOCYTE ESTERASE, URINE 2025-08-04 03:37 [facility] SMALL (missing) (missing) O:STRFAC 2025-08-04 03:37 [facility] STRFACENTEROCOCCUS FAECIUMENTEROCOCCUS FAECIUM (missing) (missing) PROTEIN,URINE 2025-08-04 03:37 [facility] TRACE mg/dl (missing) OCCULT BLOOD,URINE 2025-08-04 03:37 [facility] TRACE-INTACT (missing) (missing) CUL, URINE 2025-08-04 03:37 [facility]G 1 CC* (missing) (missing) CUL, URINE 2025-08-04 03:37 [facility].6COLONY COUNT (missing) (missing) COLOR,URINE 2025-08-04 03:37 [facility] YELLOW (missing) URINE RANDOM Result panel 15 TROPONIN I HIGH SENSITIVITY 2025-08-04 04:48 [facility] 600.2 ng/l Critical result [facility]NI[facility] 600.2 pg/mL called to and read back by JOSE LUIS / CLAUDIA Galvez RN at 04-Aug-2025 05:15 by raquel. A HIGH SENSITIVITY TROPONIN result of >= 14.9 ng/L for females is considered POSITIVE. A HIGH SENSITIVITY TROPONIN result of >= 19.8 ng/L for males is considered POSITIVE. A HIGH SENSITIVITY TROPONIN result of >= 17.9 ng/L for unspecified is considered POSITIVE. Result panel 16 CHLORIDE 2025-08-04 14:07 [facility] 107 mmol/l As of February 2023 testing method has changed, this may include reference ranges. SODIUM 2025-08-04 14:07 [facility] 141 mmol/l (missing) CREATININE 2025-08-04 14:07 [facility] 2.4 mg/dl As of February 2023 testing method has changed, this may include reference ranges. CARBON DIOXIDE - CO2 2025-08-04 14:07 [facility] 25 mmol/l As of Feb testing method has changed, this may include reference ranges. GFR - MDRD 2025-08-04 14:07 [facility] 26 (corinna caban) The IDMS-traceable MDRD Study Equation has been [...] ion/gfr/creatinine -stand ardization, last updated October 2011. POTASSIUM 2025-08-04 14:07 [facility] 3.7 mmol/l As of February 2023 testing method has changed, this may include reference ranges. TROPONIN I HIGH SENSITIVITY 2025-08-04 14:07 [facility] 376.4 ng/l Critical result [facility] 376.4 pg/mL called to and read back by HOLLY Glass/MELL/MS at 04-Aug-2025 14:40 by joan. A HIGH SENSITIVITY TROPONIN result of >= 14.9 ng/L for females is considered POSITIVE. A HIGH SENSITIVITY TROPONIN result of >= 19.8 ng/L for males is considered POSITIVE. A HIGH SENSITIVITY TROPONIN result of >= 17.9 ng/L for unspecified is considered POSITIVE. CALCIUM 2025-08-04 14:07 [facility] 8.0 mg/dl As of February 2023 testing method has changed, this may include reference ranges. BUN - BLOOD UREA NITROGEN 2025-08-04 14:07 [facility] 80 mg/dl Critical result BUN 80 mg/dL called to and read back by HOLLY Glass/RN/MS at 04-Aug-2025 14:40 by _[email or web address]. As of February 2023 testing method has changed, this may include reference ranges. ANION GAP 2025-08-04 14:07 [facility] 9.0 (missing ) (missing) GLUCOSE 2025-08-04 14:07 [facility] 90 mg/dl As of February 2023 testing method has changed, this may include reference ranges. Result panel 17 NUCLEATED RED BLOOD CELLS AUTO 2025-08-05 04:38 [facility] 0.0 /100wbc (missing) NRBC ABSOLUTE COUNT (AUTO) 2025-08-05 04:38 [facility] 0.00 x10 3/ul (missing) BASOPHILS # (AUTO) 2025-08-05 04:38 [facility] 0.1 10 3/ul (missing) EOSINOPHILS # (AUTO) 2025-08-05 04:38 [facility] 0.4 10 3/ul (missing) LYMPHOCYTES # (AUTO) 2025-08-05 04:38 [facility] 0.5 10 3/ul (missing) MONOCYTES # (AUTO) 2025-08-05 04:38 [facility] 1.3 10 3/ul (missing) MEAN PLATELET VOLUME 2025-08-05 04:38 [facility] 10.2 fl (missing) CHLORIDE 2025-08-05 04:38 [facility] 104 mmol/l As of February 2023 testing method has changed, this may include reference ranges. HGB - HEMOGLOBIN 2025-08-05 04:38 [facility] 12.7 g /dl (missing) SODIUM 2025-08-05 04:38 [facility] 140 mmol/l (missing) RED CELL DISTRIBUTION WIDTH 2025-08-05 04:38 [facility] 18.0 % (mi ssing) PLT - PLATELET COUNT 2025-08-05 04:38 [facility] 194 10 3/ul (missing) CREATININE 2025-08-05 04:38 [facility] 2.3 mg/dl As of February 2023 testing method has changed, this may include reference ranges. GFR - MDRD 2025-08-05 04:38 [facility] 27 (corinna caban) The [facility]-traceable MDRD Study Equation has been [...] ion/gfr/creatinine -stand ardization, last updated October 2011. CARBON DIOXIDE - CO2 2025-08-05 04:38 [facility] 27 mmol/l As of February 2023 testing method has changed, this may include reference ranges. MEAN CORPUSCULAR HEMOGLOBIN 2025-08-05 04:38 [facility] 29.4 pg (missing) POTASSIUM 2025-08-05 04:38 [facility] 3.9 mmol/l As of February 2023 testing method has changed, this may include reference ranges. MEAN CORPUSCULAR HGB CONC 2025-08-05 04:38 [facility] 30.5 g/dl (missing) RED BLOOD COUNT 2025-08-05 04:38 [facility] 4.32 10 6/ul (missing) HCT - HEMATOCRIT 2025-08-05 04:38 [facility] 41.6 % (missing) NEUTROPHILS # (AUTO) 2025-08-05 04:38 [facility] 7.3 10 3/ul (missing) BUN - BLOOD UREA NITROGEN 2025-08-05 04:38 [facility] 74 mg/dl As of Feb testing method has changed, this may include reference ranges. CALCIUM 2025-08-05 04:38 [facility] 8.5 mg/dl As of February 2023 testing method has changed, this may include reference ranges. GLUCOSE 2025-08-05 04:38 [facility] 87 mg/dl As of February 2023 testing method has changed, this may include reference ranges. ANION GAP 2025-08-05 04:38 [email or web address] 9.0 (missing ) (missing) WHITE BLOOD COUNT 2025-08-05 04:38 [email or web address] 9.6 x10 3/ul (missing) MEAN CORPUSCULAR VOLUME 2025-08-05 04:38 [email or web address] 96.3 fl (missing) Result panel 18 NUCLEATED RED BLOOD CELLS AUTO 2025-08-06 05:08 [email or web address] 0.0 /100wbc (missing) NRBC ABSOLUTE COUNT (AUTO) 2025-08-06 05:08 [email or web address] 0.00 x10 3/ul (missing) BASOPHILS # (AUTO) 2025-08-06 05:08 [email or web address] 0.1 10 3/ul (missing) EOSINOPHILS # (AUTO) 2025-08-06 05:08 [email or web address] 0.5 10 3/ul (missing) LYMPHOCYTES # (AUTO) 2025-08-06 05:08 [email or web address] 0.7 10 3/ul (missing) MONOCYTES # (AUTO) 2025-08-06 05:08 [email or web address] 1.1 10 3/ul (missing) MEAN PLATELET VOLUME 2025-08-06 05:08 [email or web address] 10.7 fl (missing) CHLORIDE 2025-08-06 05:08 [email or web address] 103 mmol/l As of February 2023 testing method has changed, this may include reference ranges. GLUCOSE 2025-08-06 05:08 [facility] 104 mg/dl As of February 2023 testing method has changed, this may include reference ranges. ANION GAP 2025-08-06 05:08 [email or web address] 11.0 (missing ) (missing) HGB - HEMOGLOBIN 2025-08-06 05:08 [email or web address] 13.6 g /dl (missing) SODIUM 2025-08-06 05:08 [email or web address] 140 mmol/l (missing) RED CELL DISTRIBUTION WIDTH 2025-08-06 05:08 [email or web address] 18.6 % (mi ssing) CREATININE 2025-08-06 05:08 [email or web address] 2.4 mg/dl As of February 2023 testing method has changed, this may include reference ranges. MAGNESIUM 2025-08-06 05:08 [facility] 2.6 mg/dl As of February 2023 testing method has changed, this may include reference ranges. PLT - PLATELET COUNT 2025-08-06 05:08 [facility] 221 10 3/ul (missing) GFR - MDRD 2025-08-06 05:08 [facility] 26 (corinna caban) The [facility]-traceable MDRD Study Equation has been validated extensively [...] ion/gfr/creatinine -stand ardization, last updated October 2011. CARBON DIOXIDE - CO2 2025-08-06 05:08 [facility] 26 mmol/l As of February 2023 testing method has changed, this may include reference ranges. MEAN CORPUSCULAR HEMOGLOBIN 2025-08-06 05:08 [facility] 30.2 pg (missing) MEAN CORPUSCULAR HGB CONC 2025-08-06 05:08 [facility] 31.2 g/dl (missing) POTASSIUM 2025-08-06 05:08 [facility] 4.3 mmol/l As of February 2023 testing method has changed, this may include reference ranges. RED BLOOD COUNT 2025-08-06 05:08 [facility] 4.50 10 6/ul (missing) HCT - HEMATOCRIT 2025-08-06 05:08 [facility] 43.6 % (missing) NEUTROPHILS # (AUTO) 2025-08-06 05:08 [facility] 6.2 10 3/ul (missing) BUN - BLOOD UREA NITROGEN 2025-08-06 05:08 [facility] 75 mg/dl As of Feb testing method has changed, this may include reference ranges. WHITE BLOOD COUNT 2025-08-06 05:08 [facility] 8.7 x10 3/ul (missing) CALCIUM 2025-08-06 05:08 [facility] 8.9 mg/dl As of February 2023 testing method has changed, this may include reference ranges. MEAN CORPUSCULAR VOLUME 2025-08-06 05:08 [facility] 96.9 fl (missing) Social History date description facility
--- NOTE | 2025-08-08 11:01 | ED Physician Documentation ---
PD HPI Fall Stated complaint Stated Complaint: WEAKNESS Chief complaint Chief Complaint: Cardiac History obtained from History obtained from: Patient and EMS History of Present Illness Mechanism of injury: Unknown Meds/Allgy Home Medications Ambulatory Orders Medication Instructions Recorded Confirmed duloxetine 20 mg capsule,delayed 40 mg PO HS 04/18/24 08/08/25 release leflunomide 10 mg tablet 10 mg PO DAILY 04/18/2407/21 Held on 08/06/25. Instructions: Resume on 08/11/25. Please resume after completion of antibiotic course. apixaban 2.5 mg tablet (Eliquis) 2.5 mg PO BID #60 tab s 04/20/24 08/08/25 furosemide 40 mg tablet 40 mg PO DAILY edema, CHF #3 0 tabs 04/20/24 08/08/25 empagliflozin 10 mg tablet 10 mg PO DAILY 06/12/24 (Jardiance) Held on 08/06/25. Instructions: Resume on 08/20/25. Please hold until further discussion with PCP - this can cause frequent UTIs. omeprazole 20 mg capsule,delayed 20 mg PO DAILY 08/08/25 release metoprolol succinate 50 mg 50 mg PO DAILY #30 tabs 08/08/25 tablet,extended release 24 hr gabapentin 600 mg tablet 600 mg PO QPM 05/24/2508/08 prednisone 5 mg tablet 5 mg PO DAILY 05/24/2508/08 sacubitril 24 mg-valsartan 26 mg 0.5 tab PO BID 08/08/25 tablet (Entresto) tramadol 50 mg tablet 50 mg PO Q6H PRN pain 08/08/25 vit C 250 mg-vit E 90 mg-zinc 40 1 tab PO BID 06/27/25 08/08/25 mg-copper 1 [id number] capsule (PreserVision AREDS-2) amlodipine 10 mg tablet 10 mg PO DAILY 08/04/2507/21 hydroxyzine HCl 25 mg tablet 25 mg PO HS PRN for itchi ng at 08/04/25 08/08/25 bedtime linezolid 600 mg tablet 600 mg PO BID 5 days #9 tabs 08/06/25 08/08/25 Allergies Allergies Allergy/AdvReac Type Severity Reaction Status Date / Time adalimumab Allergy Mild Rash Verified 08/08/25 11:06 atorvastatin AdvReac Mild gi upset Verified 08/08/25 11:06 pravastatin AdvReac Mild myalgia Verified 08/08/25 11:06 rosuvastatin AdvReac Mild myalgia Verified 08/08/25 11:06 PFSH Active Problems All Active Problems (Updated 08/08/25 @ 17:08 by Yokasta Luna MD) L2 vertebral fracture (Acute) T12 vertebral fracture (Acute) Acute dehydration (Acute) Atrial fibrillation with RVR (Chronic) Vertebral compression fracture (Acute) Closed fracture of transverse process of lumbar vertebra (Acute) General weakness (Acute) Frequent falls (Acute) Depression (Chronic) Urine discoloration (Acute) Acute pain of left shoulder (Acute) Hypotension, unspecified (Acute) Generalized pruritus (Acute) Chronic kidney disease, stage 4 (severe) (Acute) Bladder cancer (Acute) Congestive heart failure (Acute) Right upper lobe pulmonary nodule (Acute) Pneumonia (Acute) Pleural effusion (Acute) Hyperkalemia (Acute) Hypoxia (Acute) Atrial fibrillation (Acute) Alcohol abuse (Acute) Bacteremia (Acute) Generalized weakness (Acute) History of urostomy (Chronic) HTN (hypertension) (Chronic) Pyelonephritis (Acute) ARF (acute renal failure) (Acute) UTI (urinary tract infection) (Acute) Alcohol dependence (Chronic) 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) Rheumatoid arthritis (Chronic) Tobacco dependence (Chronic) Medical History Medical History Insomnia Diabetes mellitus CAD (coronary artery disease) Stomach cancer Pacemaker Aortic valve stenosis Lumbar spinal stenosis Macular degeneration Hypermetropia Asthma BPPV (benign paroxysmal positional vertigo) Hyperlipidemia History of transcatheter aortic valve replacement (TAVR) Midline sternotomy scar Decompensated heart failure Surgical History Surgical History History of appendectomy History of ileal conduit History of total cystectomy History of lumbar laminectomy L2 and L3 Hx of CABG Status post transcatheter aortic valve replacement Social History Social History Smoking Status: Unknown if ever smoked If you are a former smoker, when did you quit? (Date/Year): 50 years ago Number of Years Smoked: 20 How many cigarettes a day do you smoke? (20 cigarettes=1 Pk): 20 Second hand tobacco smoke exposure: No Do you dip or chew tobacco?: No Do you vape?: No Patient requests smoking cessation consult: No Initiate information on smoking cessation: No Living arrangement: At home Living Condition: With spouse/s.o. Level: Dependent Home Mobility Equipment: Wheelchair Do you feel safe in your home environment?: Yes History of physical, verbal, emotional, or financial abuse?: No Substance Use: denies use POLST Patient has POLST: No Exam Exam Vital Signs: Vital Signs x48h Pulse Resp BP Pulse Ox 08/08/25 14:08 109 H 25 H 122/86 95 08/08/25 13:21 109 H 24 117/95 H 95 Constitutional abnormal general appearance (disheveled) and (frail appearing) and abnormal body habitus (thin) and (underweight) HENMT head/scalp traumatic (tenderness) and (contusion) (right bahai area) and oral mucous membranes abnormal (dry) Eyes PERRL and EOMs intact bilaterally Neck/C-Spine cervical spine nontender, cervical full ROM noted and supple Lymph no lymphadenopathy noted Chest palpation of chest normal Respiratory normal respiratory effort Cardiovascular heart rate abnormal (tachycardic), rhythm abnormal (irregular), no JVD and edema noted (moderate edema and dusky coloring both lower legs and feet, with tenderness) Gastrointestinal abdomen soft to palpation and nontender to palpation Back/Pelvis thoracic spine tenderness noted (tender in thoracolumbar and upper lumbar area midline without deformity. ) Extremities tenderness noted (tender to palpation of skin both lower legs he states due to neuropathy.) Neurology no focal motor deficit noted, no sensory deficits noted and speech normal Psychiatry mental status abnormal (somnolent), thought process normal and cooperative Skin skin color normal Results Vitals Vitals: Vital Signs - 24 hr 08/08/25 10:58 08/08/25 13:21 08/08/25 14:08 Temperature 36.8 C Temperature Source Temporal Artery Scan Pulse Rate 131 H 109 H 109 H Respiratory Rate 18 24 25 H Blood Pressure 117/91 H 117/95 H 122/86 O2 Saturation 95 95 95 O2 Source Room air Room air Room air Pain Intensity 3 Oxygen O2 Source Room air EKG (time done) 10:59: EKG releavant findings:: EKG personally interpreted by author of this note. Relevant findings are: Rate: Rate (enter#) (119) Rhythm: Atrial fibrillation QRS: RBBB Compare to prior EKG: Unchanged from prior EKG Computer interpretation: Agree with computer Labs Labs: Laboratory Tests 08/08/25 08/08/25 11:00 11:48 WBC 12.6 H RBC 4.66 L Hgb 14.0 Hct 45.9 MCV 98.5 H MCH 30.0 MCHC 30.5 L RDW 19.2 H Plt Count 231 MPV 10.8 Neut # (Auto) 10.1 H Lymph # (Auto) 0.5 L [place] # (Auto) 1.5 H Eos # (Auto) 0.3 Baso # (Auto) 0.1 Absolute Nucleated RBC 0.02 Nucleated RBC % 0.2 PT 17.4 H INR 1.6 H Sodium 142 Potassium 4.8 H Chloride 106 Carbon Dioxide 24 Anion Gap 12.0 BUN 80 H* Creatinine 2.7 H Estimated GFR (MDRD) 23 L Glucose 88 Calcium 9.4 Magnesium 2.7 H Total Bilirubin 1.2 H AST 35 ALT 24 Alkaline Phosphatase 146 H Troponin I High Sens 264.8 H* Total Protein 6.1 L Albumin 3.6 Globulin 2.5 Albumin/Globulin Ratio 1.4 Lipase < 10 L Urine Color YELLOW Urine Clarity HAZY Urine pH 6.0 Ur Specific [place] 1.010 Urine Protein 30 H Urine Glucose (UA) NEGATIVE Urine Ketones NEGATIVE Urine Occult Blood SMALL H Urine Nitrite NEGATIVE Urine Bilirubin NEGATIVE Urine Urobilinogen 0.2 (NORMAL) Ur Leukocyte Esterase SMALL H Urine RBC 0-5 Urine WBC 6-10 H Ur Squamous Epith Cells RARE Squamous Urine Bacteria Few Urine Casts 0-2 Hyaline Casts Urine Yeast PRESENT Urine Culture Comments INDICATED Rads (name of study) head CT: Relevant Findings:: Final report received and EMP independent interpretation of test (no ICH seen) Interpretation: EXAM: [id number] CT/HEADWO ([id number]) PROCEDURE: CT Head WO INDICATIONS: fall, on eliquis TECHNIQUE: CT of the head was performed, without intravenous contrast. Reformats: Coronal and sagittal. For radiation dose reduction, the following was used: automated exposure control, adjustment of mA and/or kV according to patient size. COMPARISON: 08/04/2025 FINDINGS: Image quality: Diagnostic. CSF spaces: Basal cisterns are patent. No extra-axial fluid collections. Ventricles are normal in size and shape. Brain: No midline shift. No intracranial mass effect or hemorrhage. Sanchez- white matter interface is normal. Age appropriate volume loss and periventricular white matter hypoattenuation, likely chronic ischemic change. Skull and face: Calvarium and visualized facial bones are intact, without suspicious lesions. Sinuses: Visualized sinuses and mastoids are clear. IMPRESSION: No acute intracranial pathology. Reviewed by: Eliezer Morillo MD on 08/08/2025 12:[address]: Relevant Findings:: Final report received Interpretation: EXAM: [id number] CT/CSPWO ([id number]) PROCEDURE: CT Cervical Spine WO INDICATIONS: fall, some neck pain TECHNIQUE: Noncontrast images acquired from the skull base to the T4 level. Sagittal and coronal reformats were then constructed. For radiation dose reduction, the following was used: automated exposure control, adjustment of mA and/or kV according to patient size. COMPARISON: 06/12/2024 FINDINGS: Image quality: Excellent. Bones: No fractures or dislocations. Visualized superior ribs are intact. Soft tissues: Prevertebral soft tissues are normal in thickness. No paravertebral hematomas. No apical pneumothoraxes. IMPRESSION: No acute, displaced fracture or traumatic subluxation. chest CT: Relevant Findings:: Final report received Interpretation: EXAM: [id number] CT/CHTWO ([id number]) PROCEDURE: CT Chest WO INDICATIONS: fall, some pain right posterior TECHNIQUE: A CT scan of the chest was performed. Intravenous contrast media was not administered. Images were recorded and evaluated at appropriate window settings. Reformats: axial MIP of the chest, coronal and sagittal. For radiation dose reduction, the following was used: automated exposure control, adjustment of mA and/or kV according to patient size. COMPARISON: CT angiogram of the chest dated 04/18/2024 FINDINGS: Image quality: Diagnostic. Chest wall and lower neck: No thyroid nodule which requires sonographic follow up. No axillary or supraclavicular adenopathy by size. Lungs and pleura: Mild left pleural effusion with left basilar compressive atelectasis. No focal pulmonary infiltrate.. No suspicious pulmonary nodules which require follow up. Calcified granuloma, right upper lobe. Mediastinum: Cardiomegaly. Percutaneous aortic valve. Pacemaker. Severe coronary artery calcifications. No large vessel abnormality. No mediastinal adenopathy by size criteria. Bones: Acute T12 superior endplate compression fracture.. Upper Abdomen: Unremarkable. IMPRESSION: 1. Acute T12 superior endplate compression fracture. 2. No other significant sequelae of acute trauma in the chest. 3. Small left pleural effusion with associated compressive atelectasis. 4. Cardiomegaly, coronary artery disease. Reviewed by: Eliezer Morillo MD on 08/08/2025 12:25 PM PST abd/pelvic CT: Relevant Findings:: Final report received Interpretation: EXAM: [id number] CT/ABPEWO ([id number]) PROCEDURE: CT Abdomen/Pelvis WO INDICATIONS: fall, pain thoracolumbar TECHNIQUE: A CT scan of the abdomen and pelvis was performed without the use of intravenous contrast. Images were recorded and evaluated at appropriate window settings. Reformats: coronal and sagittal. For radiation dose reduction, the following was used: automated exposure control, adjustment of mA and/or kV according to patient size. COMPARISON: CT chest from today, CT abdomen and pelvis without contrast dated 11/11/2021 FINDINGS: Image quality: Diagnostic. Lower chest: Mild left pleural effusion with compressive left basilar atel ectasis. Cardiomegaly, percutaneous aortic valve, pacemaker. Minimal right basilar atelectasis.. Liver: No contour-deforming mass. Gallbladder: No radiopaque stones or wall thickening. Biliary tree: No intrahepatic or extrahepatic dilation, accounting for age. Spleen: No splenomegaly. Pancreas: No pancreatic ductal dilation. Adrenals: No adrenal nodule. Kidneys and ureters: No hydronephrosis. No contour-deforming mass. Stomach, bowel and peritoneum: No gastric or small bowel dilation. No abnormal wall thickening. No pathologic free fluid. Lymph nodes: No central or retroperitoneal adenopathy. Vessels: No infrarenal aortic aneurysm. Reproductive organs: Unremarkable. Bladder: No abnormal bladder wall thickening. No calcified bladder stones. Pelvic lymph nodes: No adenopathy by size criteria. Bones: Acute T12 superior endplate compression. Tip of left transverse process fracture of L2. Remote lower lumbar posterior decompression and posterior lateral fusion. Resolution of previous large L5-S1 disc protrusion. Multilevel posterior lumbar decompression. Posterior lateral jenna and pedicle screw fixation at L4-L5. Other: No significant ventral or inguinal hernia. IMPRESSION: 1. Acute T12 superior endplate compression. 2. Tip of left L2 transverse process fracture. 3. No other significant sequelae of acute trauma in the abdomen and pelvis. 4. Cardiomegaly. 5. Small left pleural effusion with left basilar atelectasis. Reviewed by: Eliezer Morillo MD on 08/08/2025 12:44 PM [facility] Medical Decision Making ED course Complexity details: reviewed results (CT scan of the head neck chest and abdomen were done with findings acutely of apparent T12 compression fracture and an L2 transverse process fracture. No signs of organ bleeding or intracranial bleeding.), considered differential (General Weakness with falls. He has had a few. He is on blood thinners and did strike his head so we will get CT scans. He is having pain in his lower back so scan imaging there as well.) and d/w family (The patient's states he has not been able to get up on his own and has been falling several times. They had to call EMS twice yesterday for lift assist. He fell again today this morning. Some back pain. He has had little oral intake over the past day or 2.) ED course: I talked with the and she describes him having general weakness and unable to get up on his own without falling. He has fallen several times in the last couple of days. Having back pain today with fall. Some bruising on his forehead. He is on blood thinner and seems to be a little confused. She states regular medication. Little oral intake the last couple of days. Has increased Creatinine over recent with it 2.7 now. HR 110-120 showing rapid RVR of atrial fib with RBBB, similar to recent. Given IV metoprolol to slow it down to below 110. BP was adequate. Discharge Plan Discharge Patient Disposition: ED Place in Observation Condition: Stable Clinical Impression: Frequent falls, General weakness, Atrial fibrillation with RVR Closed fracture of transverse process of lumbar vertebra Qualifiers: Encounter type: initial encounter Qualified Code(s): S32.009A - Unspecified fracture of unspecified lumbar vertebra, initial encounter for closed fracture Vertebral compression fracture Qualifiers: Encounter type: initial encounter Fracture of vertebra location: thoracic Thoracic vertebra fracture level: T12 Qualified Code(s): S22.080A - Wedge compression fracture of T11-T12 vertebra, initial encounter for closed fracture Interventions: ED Admission Assessment Last Done: 08/08/25 14:20 Vitals documented within 30 minutes of discharge?: Yes
[2025-08-08 11:17] LABS: HCT - HEMATOCRIT 45.9 % (42.0-52.0); HGB - HEMOGLOBIN 14.0 g/dL (14.0-18.0); MEAN PLATELET VOLUME 10.8 fL (7.4-11.4); NRBC ABSOLUTE COUNT (AUTO) 0.02 x10^3/uL; NUCLEATED RED BLOOD CELLS AUTO 0.2 /100WBC; PLT - PLATELET COUNT 231 10^3/uL (130-450); RED CELL DISTRIBUTION WIDTH 19.2 % (12.0-15.0)
[2025-08-08 11:24] LABS: INR 1.6 (0.8-1.2); PT - PROTHROMBIN TIME 17.4 secs (9.9-12.6)
[2025-08-08 11:35] LABS: ALT ALANINE AMINOTRANSFERASE 24 IU/L (10-60); AST ASPARTATE AMINOTRANSFERASE 35 IU/L (10-42); BUN - BLOOD UREA NITROGEN 80 mg/dL (6-20); CARBON DIOXIDE - CO2 24 mmol/L (21-32); CREATININE 2.7 mg/dL (0.6-1.3); GFR - MDRD 23 (>89); TROPONIN I HIGH SENSITIVITY 264.8 ng/L (2.3-19.7)
[2025-08-08 12:05] LABS: GLUCOSE, URINE (UA) NEGATIVE (NEGATIVE); KETONES,URINE (UA) NEGATIVE (NEGATIVE); OCCULT BLOOD,URINE SMALL (NEGATIVE)
[2025-08-08 12:14] LABS: SQUAMOUS EPITHELIAL CELL,UR RARE Squamous (<= Few)
[2025-08-08] MEDS: METOPROLOL 5 MG/5 ML VIAL IVP STA ×3 (12:14→18:55)
[2025-08-08 12:15] LABS: CASTS, URINE 0-2 Hyaline Casts /LPF; YEAST,URINE PRESENT
--- NOTE | 2025-08-08 12:16 | CT Report ---
PROCEDURE: CT Head WO INDICATIONS: fall, on eliquis TECHNIQUE: CT of the head was performed, without intravenous contrast. Reformats: Coronal and sagittal. For radiation dose reduction, the following was used: automated exposure control, adjustment of mA and/or kV according to patient size. COMPARISON: 08/04/2025 FINDINGS: Image quality: Diagnostic. CSF spaces: Basal cisterns are patent. No extra-axial fluid collections. Ventricles are normal in size and shape. Brain: No midline shift. No intracranial mass effect or hemorrhage. Sanchez- white matter interface is normal. Age appropriate volume loss and periventricular white matter hypoattenuation, likely chronic ischemic change. Skull and face: Calvarium and visualized facial bones are intact, without suspicious lesions. Sinuses: Visualized sinuses and mastoids are clear. IMPRESSION: No acute intracranial pathology. Reviewed by: Eliezer Morillo MD on 08/08/2025 12:13 PM PST Approved by: Eliezer Morillo MD on 08/08/2025 12:13 PM PST Station ID: [id number]
--- NOTE | 2025-08-08 12:18 | CT Report ---
PROCEDURE: CT Cervical Spine WO INDICATIONS: fall, some neck pain TECHNIQUE: Noncontrast images acquired from the skull base to the T4 level. Sagittal and coronal reformats were then constructed. For radiation dose reduction, the following was used: automated exposure control, adjustment of mA and/or kV according to patient size. COMPARISON: 06/12/2024 FINDINGS: Image quality: Excellent. Bones: No fractures or dislocations. Visualized superior ribs are intact. Soft tissues: Prevertebral soft tissues are normal in thickness. No paravertebral hematomas. No apical pneumothoraxes. IMPRESSION: No acute, displaced fracture or traumatic subluxation. Reviewed by: Eliezer Morillo MD on 08/08/2025 12:15 PM PST Approved by: Eliezer Morillo MD on 08/08/2025 12:15 PM PST Station ID: [id number]
--- NOTE | 2025-08-08 12:28 | CT Report ---
PROCEDURE: CT Chest WO INDICATIONS: fall, some pain right posterior TECHNIQUE: A CT scan of the chest was performed. Intravenous contrast media was not administered. Images were recorded and evaluated at appropriate window settings. Reformats: axial MIP of the chest, coronal and sagittal. For radiation dose reduction, the following was used: automated exposure control, adjustment of mA and/or kV according to patient size. COMPARISON: CT angiogram of the chest dated 04/18/2024 FINDINGS: Image quality: Diagnostic. Chest wall and lower neck: No thyroid nodule which requires sonographic follow up. No axillary or supraclavicular adenopathy by size. Lungs and pleura: Mild left pleural effusion with left basilar compressive atelectasis. No focal pulmonary infiltrate.. No suspicious pulmonary nodules which require follow up. Calcified granuloma, right upper lobe. Mediastinum: Cardiomegaly. Percutaneous aortic valve. Pacemaker. Severe coronary artery calcifications. No large vessel abnormality. No mediastinal adenopathy by size criteria. Bones: Acute T12 superior endplate compression fracture.. Upper Abdomen: Unremarkable. IMPRESSION: 1. Acute T12 superior endplate compression fracture. 2. No other significant sequelae of acute trauma in the chest. 3. Small left pleural effusion with associated compressive atelectasis. 4. Cardiomegaly, coronary artery disease. Reviewed by: Eliezer Morillo MD on 08/08/2025 12:25 PM PST Approved by: Eliezer Morillo MD on 08/08/2025 12:25 PM PST Station ID: [id number]
--- NOTE | 2025-08-08 12:48 | CT Report ---
PROCEDURE: CT Abdomen/Pelvis WO INDICATIONS: fall, pain thoracolumbar TECHNIQUE: A CT scan of the abdomen and pelvis was performed without the use of intravenous contrast. Images were recorded and evaluated at appropriate window settings. Reformats: coronal and sagittal. For radiation dose reduction, the following was used: automated exposure control, adjustment of mA and/or kV according to patient size. COMPARISON: CT chest from today, CT abdomen and pelvis without contrast dated 11/11/2021 FINDINGS: Image quality: Diagnostic. Lower chest: Mild left pleural effusion with compressive left basilar atelectasis. Cardiomegaly, percutaneous aortic valve, pacemaker. Minimal right basilar atelectasis.. Liver: No contour-deforming mass. Gallbladder: No radiopaque stones or wall thickening. Biliary tree: No intrahepatic or extrahepatic dilation, accounting for age. Spleen: No splenomegaly. Pancreas: No pancreatic ductal dilation. Adrenals: No adrenal nodule. Kidneys and ureters: No hydronephrosis. No contour-deforming mass. Stomach, bowel and peritoneum: No gastric or small bowel dilation. No abnormal wall thickening. No pathologic free fluid. Lymph nodes: No central or retroperitoneal adenopathy. Vessels: No infrarenal aortic aneurysm. Reproductive organs: Unremarkable. Bladder: No abnormal bladder wall thickening. No calcified bladder stones. Pelvic lymph nodes: No adenopathy by size criteria. Bones: Acute T12 superior endplate compression. Tip of left transverse process fracture of L2. Remote lower lumbar posterior decompression and posterior lateral fusion. Resolution of previous large L5-S1 disc protrusion. Multilevel posterior lumbar decompression. Posterior lateral jenna and pedicle screw fixation at L4-L5. Other: No significant ventral or inguinal hernia. IMPRESSION: 1. Acute T12 superior endplate compression. 2. Tip of left L2 transverse process fracture. 3. No other significant sequelae of acute trauma in the abdomen and pelvis. 4. Cardiomegaly. 5. Small left pleural effusion with left basilar atelectasis. Reviewed by: Eliezer Morillo MD on 08/08/2025 12:44 PM PST Approved by: Eliezer Morillo MD on 08/08/2025 12:44 PM PST Station ID: [id number]
--- NOTE | 2025-08-08 13:38 | HISTORY & PHYSICAL EXAMINATION ---
Chief Complaint Chief Complaint Chief Complaint: Falls, atrial fibrillation with RVR History of Present Illness Admitted From Admitted From:: ED History Obtained From Records Reviewed: [facility] History obtained from: ED Provider, Patient Spouse, Patient Exam Limitations: Patient is somnolent, intermittently engaging History of Present Illness HPI Comment/Other: Patient is a 85-year-old male with a history of atrial fibrillation, CKD stage 3B, bladder cancer s/p radical cystectomy with ileal conduit in place, in remission, hypertension, rheumatoid arthritis, chronic back pain s/p fusion, heart failure with reduced ejection fraction who presents with confusion, as well as a generalized decline in overall functional status. He was just here, and discharged 2 days ago. At that time, he was treated for an Enterococcus UTI, as well as sepsis. He was discharged on Zyvox, which the states that he has been taking as prescribed. His describes an overall decline since December of this year. He has been hospitalized about 5 or 6 times, each for varying reasons. Usually, it is for lethargy and confusion. He is often hydrated, treated for urinary tract infection, and then insists on going home. states as soon as he gets home, he is fatigued, tired, and falls frequently. This time around, he was falling asleep on the couch. He would walk a few steps, and then get tired and sit down, and then passed out. She recalls multiple episodes of him falling off the side of the bed. The states that he has expressed feelings of hopelessness, and a depressed mood with his generalized decline. He has inquired about with dignity. He has also expressed interest with hospice. We also talked about alternative options including assisted living. His thinks that this would be a great idea for him, but he has expressed some resistance in the past when he is more lucid. At this time, patient is confused, able to tell me his name and not much more. He appears to be in discomfort and pain. Medical history includes atrial fibrillation, CKD stage IV, bladder cancer s/p radical cystectomy with ileal conduit in place, currently in remission, hypertension, rheumatoid arthritis, chronic back pain s/p fusion, depression. Medications include amlodipine, Eliquis, duloxetine, gabapentin, metoprolol, omeprazole, prednisone. He has no drug allergies, but some side effects listed. Surgical history includes spinal fusion, ileal conduit placement. Denies any alcohol, tobacco, recreational drug use. Lives with . 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 POLST was reviewed with , as patient is altered, and he is still DNR. Meds/Allgy Home Medications Ambulatory Orders Medication Instructions Recorded Confirmed duloxetine 20 mg capsule,delayed 40 mg PO HS 04/18/24 08/08/25 release leflunomide 10 mg tablet 10 mg PO DAILY 04/18/2407/21 Held on 08/06/25. Instructions: Resume on 08/11/25. Please resume after completion of antibiotic course. apixaban 2.5 mg tablet (Eliquis) 2.5 mg PO BID #60 tab s 04/20/24 08/08/25 furosemide 40 mg tablet 40 mg PO DAILY edema, CHF #3 0 tabs 04/20/24 08/08/25 empagliflozin 10 mg tablet 10 mg PO DAILY 06/12/24 (Jardiance) Held on 08/06/25. Instructions: Resume on 08/20/25. Please hold until further discussion with PCP - this can cause frequent UTIs. omeprazole 20 mg capsule,delayed 20 mg PO DAILY 08/08/25 release metoprolol succinate 50 mg 50 mg PO DAILY #30 tabs 08/08/25 tablet,extended release 24 hr gabapentin 600 mg tablet 600 mg PO QPM 05/24/2508/08 prednisone 5 mg tablet 5 mg PO DAILY 05/24/2508/08 sacubitril 24 mg-valsartan 26 mg 0.5 tab PO BID 08/08/25 tablet (Entresto) tramadol 50 mg tablet 50 mg PO Q6H PRN pain 08/08/25 vit C 250 mg-vit E 90 mg-zinc 40 1 tab PO BID 06/27/25 08/08/25 mg-copper 1 [id number] capsule (PreserVision AREDS-2) amlodipine 10 mg tablet 10 mg PO DAILY 08/04/2507/21 hydroxyzine HCl 25 mg tablet 25 mg PO HS PRN for itchi ng at 08/04/25 08/08/25 bedtime linezolid 600 mg tablet 600 mg PO BID 5 days #9 tabs 08/06/25 08/08/25 Allergies Allergies Allergy/AdvReac Type Severity Reaction Status Date / Time adalimumab Allergy Mild Rash Verified 08/08/25 11:06 atorvastatin AdvReac Mild gi upset Verified 08/08/25 11:06 pravastatin AdvReac Mild myalgia Verified 08/08/25 11:06 rosuvastatin AdvReac Mild myalgia Verified 08/08/25 11:06 [facility] Active Problems All Active Problems (Updated 08/08/25 @ 17:08 by Yokasta Luna MD) L2 vertebral fracture (Acute) T12 vertebral fracture (Acute) Acute dehydration (Acute) Atrial fibrillation with RVR (Chronic) Vertebral compression fracture (Acute) Closed fracture of transverse process of lumbar vertebra (Acute) General weakness (Acute) Frequent falls (Acute) Depression (Chronic) Urine discoloration (Acute) Acute pain of left shoulder (Acute) Hypotension, unspecified (Acute) Generalized pruritus (Acute) Chronic kidney disease, stage 4 (severe) (Acute) Bladder cancer (Acute) Congestive heart failure (Acute) Right upper lobe pulmonary nodule (Acute) Pneumonia (Acute) Pleural effusion (Acute) Hyperkalemia (Acute) Hypoxia (Acute) Atrial fibrillation (Acute) Alcohol abuse (Acute) Bacteremia (Acute) Generalized weakness (Acute) History of urostomy (Chronic) HTN (hypertension) (Chronic) Pyelonephritis (Acute) ARF (acute renal failure) (Acute) UTI (urinary tract infection) (Acute) Alcohol dependence (Chronic) 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) Rheumatoid arthritis (Chronic) Tobacco dependence (Chronic) Medical History Medical History Insomnia Diabetes mellitus CAD (coronary artery disease) Stomach cancer Pacemaker Aortic valve stenosis Lumbar spinal stenosis Macular degeneration Hypermetropia Asthma BPPV (benign paroxysmal positional vertigo) Hyperlipidemia History of transcatheter aortic valve replacement (TAVR) Midline sternotomy scar Decompensated heart failure Surgical History Surgical History History of appendectomy History of ileal conduit History of total cystectomy History of lumbar laminectomy L2 and L3 Hx of CABG Status post transcatheter aortic valve replacement Social History Social History Smoking Status: Unknown if ever smoked If you are a former smoker, when did you quit? (Date/Year): 50 years ago Number of Years Smoked: 20 How many cigarettes a day do you smoke? (20 cigarettes=1 Pk): 20 Second hand tobacco smoke exposure: No Do you dip or chew tobacco?: No Do you vape?: No Patient requests smoking cessation consult: No Initiate information on smoking cessation: No Living arrangement: At home Living Condition: With spouse/s.o. Level: Dependent Home Mobility Equipment: Wheelchair Do you feel safe in your home environment?: Yes History of physical, verbal, emotional, or financial abuse?: No Substance Use: denies use POLST Patient has POLST: Yes POLST on file?: Yes POLST CPR Status: Do Not Attempt Resuscitation (DNAR) / Allow Natural Level of Medical Intervention: Selective Treatment Review of Systems Status of ROS: unobtainable due to medical condition and unobtainable due to mental status Prior Level of Functionality: Dependent on for most ADLs. Exam Exam Vital Signs: Vital Signs x48h Temp Pulse Pulse Resp BP BP Pulse Ox 08/08/25 14:52 97.2 F L 110 H 18 109/77 94 08/08/25 14:08 109 H 25 H 122/86 95 08/08/25 13:21 109 H 24 117/95 H 95 08/08/25 10:58 98.2 F 131 H 18 117/91 H 95 GEN: No acute distress. Frail-appearing. HEENT: NC/AT, normal appearance of external ears and nose. Hearing baseline. Cardiac: Rapid and irregular. No murmurs appreciated. Mildly edematous, 1+ pitting edema to his bilateral lower extremities. Pulm: Lungs CTA bilaterally, no cough, no wheezes. No adventitial lung sounds. Abdomen: Soft, nontender, nondistended. No rebound or guarding Extremities: Moves all 4 extremities equally. Normal tone. Neuro: Face symmetric, CN II through XII intact grossly. No focal neurologic deficits. Psych: Confused, altered. Able to tell me his name. Sepsis Event Note (H) Evaluation Current Stage of Sepsis: Severe sepsis Possible source of Sepsis: positive Genitourinary Sepsis Criteria Sepsis Criteria: Recorded Heart Rate greater than 90 bpm, WBC count greater than 12,000 or less than 4000 and Renal: urine output less than 0.5ml/kg/hr for 2 hours or creatinine gr Conclusion/Plan Problem List (1) Acute dehydration: (2) Frequent falls: (3) T12 vertebral fracture: Qualifiers: Encounter type: initial encounter Fracture type: closed Fracture morphology: other fracture Qualified Code(s): S22.088A - Other fracture of T11- T12 vertebra, initial encounter for closed fracture (4) L2 vertebral fracture: Plan: The following plan is for the above for assessments: Patient presents with for generalized decline. He was just admitted here 2 days ago, and discharged home after treatment for a urinary tract infection. Since being discharged, he has been increasingly lethargic, and has had frequent falls, as well as worsened altered mentation at home. Has not been eating or drinking well. Abdomen/pelvis CT show T12 fracture, as well as L2 transverse fracture. Continue pain control with tramadol as needed, will escalate as necessary. Continue gentle IV fluid rehydration. Close monitoring of respiratory status with underlying congestive heart failure. PT evaluation has been ordered. Patient was altered, but overall goals of care discussion was had with . She is interested in possibly speaking with hospice and seeing if he would be eligible. She is also interested in possible assisted living. Social work consulted. Qualifiers: Encounter type: initial encounter Fracture type: closed Fracture morphology: unspecified fracture morphology Qualified Code(s): S32.029A - Unspecified fracture of second lumbar vertebra, initial encounter for closed fracture (5) UTI (urinary tract infection): Plan: Continue Zyvox that patient was sent home with to complete course for Enterococcus urinary tract infection. Qualifiers: Urinary tract infection type: acute pyelonephritis Qualified Code(s): N 10 - Acute pyelonephritis (6) Atrial fibrillation: Plan: Patient presented with rapid ventricular response. Improved with 1 dose of IV metoprolol. Continue oral metoprolol succinate 50 mg every day. Continue cardiac telemetry monitoring. Continue Eliquis 2.5 mg twice a day. Qualifiers: Atrial fibrillation type: persistent (not longstanding) Qualified Code(s): I48.19 - Other persistent atrial fibrillation; I48.1 - Persistent atrial fibrillation (7) Chronic kidney disease, stage 4 (severe): Plan: Patient with a baseline creatinine of 2.5. Presents with creatinine of 2.7. Slight worsening likely attributed to acute kidney injury. Continue gentle IV fluid rehydration as above. (8) Congestive heart failure: Plan: Patient with history of heart failure with reduced ejection fraction. Continue metoprolol, Entresto. Jardiance held at last visit due to his frequent urinary tract infections. 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 Qualifiers: Heart failure chronicity: acute on chronic Heart failure type: systolic Qualified Code(s): I50.23 - Acute on chronic systolic (congestive) heart failure (9) Bladder cancer metastasized to lung: Plan: Patient with history of metastatic bladder cancer. He is s/p ileal conduit. Now in remission, per . He follows locally with urology, last saw Dr. Russo in March. Dr. Russo's note also recommends since his progressive kidney dysfunction. Dr. Russo was who sent his nephrology referral. (10) Rheumatoid arthritis: Plan: Patient with history of rheumatoid arthritis. He is on leflunomide and prednisone 5 mg daily. Holding leflunomide in the setting of active infection. Reasonable to continue prednisone 5 mg as he has been on this chronically (11) Depression: Plan: Continue duloxetine. (12) HTN (hypertension): Plan: Continue metoprolol, Entresto, amlodipine. Lab Results Lab results reviewed: Yes 08/08/25 11:00 08/08/25 11:00 Diagnostic Imaging Results Diagnostic Imaging Results: positive Final report reviewed Core Measures Anticipated LOS I expect patient to be DC'd or transferred within 96 hours.: Yes DVT/VTE - Prophylaxis VTE/DVT Device ordered at admit?: No VTE/DVT Prophylaxis med ordered at admit?: Yes AMI - Statin at Admit Aspirin Prescribed on Admit: No Not Ordered - Medical Reason: Not indicated
[2025-08-08] MEDS ORDERED: ONDANSETRON 4 MG/2 ML VIAL IVP PRN (14:39)
[2025-08-08] MEDS ORDERED: ONDANSETRON ODT 4 MG TABLET TL PRN (14:39)
[2025-08-08] MEDS: LACTATED RINGERS 1,000 ML IV SCH (15:06)
--- NOTE | 2025-08-08 16:45 | PHARMACY PROGRESS NOTE ---
Best Possible Medication History Admit Date and Time: 08/08/25 [id number] Home Medications Medication Instructions Recorded Confirmed Type duloxetine 20 mg capsule,delayed 40 mg PO HS 04/18/24 08/08/25 History release leflunomide 10 mg tablet 10 mg PO DAILY 04/18/2407/21 History Held on 08/06/25. Instructions: Resume on 08/11/25. Please resume after completion of antibiotic course. apixaban 2.5 mg tablet (Eliquis) 2.5 mg PO BID #60 tab s 04/20/24 08/08/25 Rx furosemide 40 mg tablet 40 mg PO DAILY edema, CHF #3 0 tabs 04/20/24 08/08/25 Rx empagliflozin 10 mg tablet 10 mg PO DAILY 06/12/24 History (Jardiance) Held on 08/06/25. Instructions: Resume on 08/20/25. Please hold until further discussion with PCP - this can cause frequent UTIs. omeprazole 20 mg capsule,delayed 20 mg PO DAILY 08/08/25 History release metoprolol succinate 50 mg 50 mg PO DAILY #30 tabs 08/08/25 Rx tablet,extended release 24 hr gabapentin 600 mg tablet 600 mg PO QPM 05/24/2508/08 History prednisone 5 mg tablet 5 mg PO DAILY 05/24/2508/08 History sacubitril 24 mg-valsartan 26 mg 0.5 tab PO BID 08/08/25 History tablet (Entresto) tramadol 50 mg tablet 50 mg PO Q6H PRN pain 08/08/25 History vit C 250 mg-vit E 90 mg-zinc 40 1 tab PO BID 06/27/25 08/08/25 History mg-copper 1 [id number] capsule (PreserVision AREDS-2) amlodipine 10 mg tablet 10 mg PO DAILY 08/04/2507/21 History hydroxyzine HCl 25 mg tablet 25 mg PO HS PRN for itchi ng at 08/04/25 08/08/25 History bedtime linezolid 600 mg tablet 600 mg PO BID 5 days #9 tabs 12/17/25 12/19/25 Rx Processed by: Pharmacy Medications reviewed in ED?: Yes Medication History completed: Yes Patient Interview: Completed Secondary Source(s): Insurance records [facility] Statement: As the person ultimately responsible for medication therapy, providers are able to order a medication from an existing home medication list in [facility] via the "Reconcile Routine" prior to Confirmation of that medication by software support engineer. Such practice is discouraged except when the physician, in their clinical judgment, deems that a medical need exists for a medication without regard to previous use.
[2025-08-08] MEDS: SODIUM CHLORIDE FLUSH 0.9% 10 ML SYRINGE IVP SCH (17:14)
[2025-08-08] MEDS: METOPROLOL TARTRATE 25 MG TABLET PO SCH (19:08)
[2025-08-08] MEDS: LINEZOLID 600 MG TABLET PO SCH (21:14)
[2025-08-08] MEDS: GABAPENTIN 300 MG CAPSULE PO SCH (21:14)
[2025-08-08] MEDS: APIXABAN 2.5 MG TABLET PO SCH (21:14)
[2025-08-09 05:11] LABS: HCT - HEMATOCRIT 39.9 % (42.0-52.0); HGB - HEMOGLOBIN 12.4 g/dL (14.0-18.0); MEAN PLATELET VOLUME 10.7 fL (7.4-11.4); PLT - PLATELET COUNT 202.0 10^3/uL (130-450); RED CELL DISTRIBUTION WIDTH 18.8 % (12.0-15.0)
[2025-08-09 05:28] LABS: ALT ALANINE AMINOTRANSFERASE 18.0 IU/L (10-60); AST ASPARTATE AMINOTRANSFERASE 21.0 IU/L (10-42); BUN - BLOOD UREA NITROGEN 72.0 mg/dL (6-20); CARBON DIOXIDE - CO2 23.0 mmol/L (21-32); CREATININE 2.6 mg/dL (0.6-1.3); GFR - MDRD 24.0 (>89)
[2025-08-09] MEDS: PANTOPRAZOLE 40 MG TABLET PO SCH (06:33)
--- NOTE | 2025-08-09 07:45 | PROVIDER PROGRESS NOTE ---
Subjective Subjective Subjective: Today, patient is less confused. He is alert and oriented x 1. He understands that he is in the hospital, but does not know why. He is a little bit more with that than he was last night, but is still not back at his baseline. He appears frustrated that he is unable to do things. RN states that he is unable to feed himself, due to a tremor. Current Medications Current Medications Current Medications: Current Medications Generic Name Dose Route Start Last Admin Trade Name Freq PRN Reason Stop Dose Admin Acetaminophen 650 mg 08/08/25 17:36 Acetaminophen 325 Mg Tablet PO Q4HR PRN Pain or Fever > 38C (100.4F) Amlodipine Besylate 10 mg 08/09/25 09:00 Amlodipine 5 Mg Tablet PO DAILY EMILY Apixaban 2.5 mg 08/08/25 21:00 08/08/25 21:14 Apixaban 2.5 Mg Tablet PO 2.5 mg BID EMILY Administration Duloxetine HCl 40 mg 08/08/25 21:00 08/08/25 21:14 Duloxetine 20 Mg Capsule PO 40 mg HS EMILY Administration Gabapentin 600 mg 08/08/25 21:00 08/08/25 21:14 Gabapentin 300 Mg Capsule PO 600 mg QPM EMILY Administration Hydroxyzine Pamoate 25 mg 08/08/25 17:02 Hydroxyzine Pamoate 25 Mg Capsule PO HS PRN for itching at bedtime Linezolid 600 mg 08/08/25 21:00 08/08/25 21:14 Linezolid 600 Mg Tablet PO 600 mg BID EMILY Administration Metoprolol Tartrate 25 mg 08/08/25 19:00 08/09/25 07:11 Metoprolol Tartrate 25 Mg Tablet PO 25 mg Q6H EMILY Administration Ondansetron HCl 4 mg 08/08/25 14:39 Ondansetron Odt 4 Mg Tablet TL Q6HR PRN Nausea / Vomiting Ondansetron HCl 4 mg 08/08/25 14:39 Ondansetron 4 Mg/2 Ml Vial IVP Q6HR PRN Nausea / Vomiting Pantoprazole Sodium 40 mg 08/09/25 07:00 08/09/25 06:33 Pantoprazole 40 Mg Tablet PO 40 mg QDAC EMILY Administration Prednisone 5 mg 08/09/25 09:00 Prednisone 5 Mg Tablet PO DAILY EMILY Sodium Chloride 10 ml 08/08/25 14:39 Sodium Chloride Flush 0.9% 10 Ml Syringe IVP PRN PRN NEEDED PER PROVIDER ORDERS Sodium Chloride 10 ml 08/08/25 17:00 08/09/25 01:14 Sodium Chloride Flush 0.9% 10 Ml Syringe IVP Not Given 0100,0900,1700 EMILY Tramadol HCl 50 mg 08/08/25 18:14 Tramadol 50 Mg Tablet PO Q12H PRN pain Objective Vital Signs/Intake & Output Vital Signs: Vital Signs x48h Temp Pulse Pulse Resp BP BP Pulse Ox 08/09/25 07:11 71 122/76 08/09/25 06:44 74 94/47 L 08/09/25 04:00 98.4 F 92 18 102/87 96 08/09/25 01:13 71 118/88 08/08/25 23:56 97.7 F 111 H 16 118/88 97 Intake & Output: Intake & Output 08/06/25 08/07/25 08/08/25 08/09/25 23:59 23:59 23:59 23:59 Intake Total 50 / 50 1000 / 1000 Output Total 300 / 300 300 / 300 Balance -250 / -250 700 / 700 Weight (kg) 65.5 kg Objective Comments/Other: GEN: No acute distress. Frail-appearing. HEENT: NC/AT, normal appearance of external ears and nose. Hearing baseline. Cardiac: Rapid and irregular. No murmurs appreciated. Mildly edematous, 1+ pitting edema to his bilateral lower extremities. Discoloration of bilateral feet, left > right. Pulm: Lungs CTA bilaterally, no cough, no wheezes. No adventitial lung sounds. Abdomen: Soft, nontender, nondistended. No rebound or guarding Extremities: Moves all 4 extremities equally. Normal tone. Slighit tremor noted of right upper arm. Neuro: Face symmetric, CN II through XII intact grossly. No focal neurologic deficits. Psych: Confused, altered. Able to tell me his name. Lab Results 08/09/25 04:37 08/09/25 04:37 Other Labs: Lab Results x24hrs 08/09/25 08/08/25 08/08/25 Range/Units 04:37 11:48 11:00 WBC 10.5 12.6 H (4.8-10.8) x10^3/uL RBC 4.15 L 4.66 L (4.70-6.10) 10^6/uL Hgb 12.4 L 14.0 (14.0-18.0) g/dL Hct 39.9 L 45.9 (42.0-52.0) % MCV 96.1 H 98.5 H (80.0-94.0) fL MCH 29.9 30.0 (27.0-31.0) pg MCHC 31.1 L 30.5 L (32.0-36.0) g/dL RDW 18.8 H 19.2 H (12.0-15.0) % Plt Count 202 231 (130-450) 10^3/uL MPV 10.7 10.8 (7.4-11.4) fL Neut # (Auto) 10.1 H (1.5-6.6) 10^3/uL Lymph # (Auto) 0.5 L (1.5-3.5) 10^3/uL [place] # (Auto) 1.5 H (0.0-1.0) 10^3/uL Eos # (Auto) 0.3 (0.0-0.7) 10^3/uL Baso # (Auto) 0.1 (0.0-0.1) 10^3/uL Absolute Nucleated RBC 0.02 x10^3/uL Nucleated RBC % 0.2 /100WBC PT 17.4 H (9.9-12.6) secs INR 1.6 H (0.8-1.2) Sodium 144 142 (135-145) mmol/L Potassium 4.7 H 4.8 H (3.5-4.5) mmol/L Chloride 111 106 (101-111) mmol/L Carbon Dioxide 23 24 (21-32) mmol/L Anion Gap 10.0 12.0 (6-13) BUN 72 H 80 H* (6-20) mg/dL Creatinine 2.6 H 2.7 H (0.6-1.3) mg/dL Estimated GFR (MDRD) 24 L 23 L (>89) Glucose 88 88 (74-104) mg/dL Calcium 9.3 9.4 (8.5-10.3) mg/dL Magnesium 2.6 H 2.7 H (1.7-2.3) mg/dL Total Bilirubin 1.1 H 1.2 H (0.2-1.0) mg/dL AST 21 35 (10-42) IU/L ALT 18 24 (10-60) IU/L Alkaline Phosphatase 106 146 H (42-121) IU/L Troponin I High Sens 264.8 H* (2.3-19.7) ng/L Total Protein 5.0 L 6.1 L (6.4-8.9) g/dL Albumin 3.1 L 3.6 (3.2-5.5) g/dL Globulin 1.9 L 2.5 (2.1-4.2) g/dL Albumin/Globulin Ratio 1.6 1.4 (1.0-2.2) Lipase < 10 L (11-82) U/L Urine Color YELLOW Urine Clarity HAZY (CLEAR) Urine pH 6.0 (5.0-7.5) PH Ur Specific [place] 1.010 (1.002-1.030) Urine Protein 30 H (NEGATIVE) mg/dL Urine Glucose (UA) NEGATIVE (NEGATIVE) mg/dL Urine Ketones NEGATIVE (NEGATIVE) mg/dL Urine Occult Blood SMALL H (NEGATIVE) Urine Nitrite NEGATIVE (NEGATIVE) Urine Bilirubin NEGATIVE (NEGATIVE) Urine Urobilinogen 0.2 (NORMAL) (NORMAL) E.U./dL Ur Leukocyte Esterase SMALL H (NEGATIVE) Urine RBC 0-5 (0-5) /HPF Urine WBC 6-10 H (0-3) /HPF Ur Squamous Epith Cells RARE Squamous (<= Few) Urine Bacteria Few (None Seen) /HPF Urine Casts 0-2 Hyaline Casts /LPF Urine Yeast PRESENT Urine Culture Comments INDICATED Sepsis Event Note (H) Evaluation Current Stage of Sepsis: Severe sepsis Possible source of Sepsis: positive Genitourinary Sepsis Criteria Sepsis Criteria: Recorded Heart Rate greater than 90 bpm, WBC count greater than 12,000 or less than 4000 and Renal: urine output less than 0.5ml/kg/hr for 2 hours or creatinine gr Assessment/Plan Problem List (1) Acute dehydration: (2) Frequent falls: (3) T12 vertebral fracture: Qualifiers: Encounter type: initial encounter Fracture morphology: other fracture Fracture type: closed Qualified Code(s): S22.088A - Other fracture of T11-T12 vertebra, initial encounter for closed fracture (4) L2 vertebral fracture: Impression: The following plan is for the above for assessments: Patient presents with for generalized decline. He was just admitted here 2 days ago, and discharged home after treatment for a urinary tract infection. Since being discharged, he has been increasingly lethargic, and has had frequent falls, as well as worsened altered mentation at home. Has not been eating or drinking well. Abdomen/pelvis CT show T12 fracture, as well as L2 transverse fracture. Continue pain control with tramadol as needed, will escalate as necessary. Continue gentle IV fluid rehydration. Close monitoring of respiratory status with underlying congestive heart failure. PT evaluation has been ordered. Patient was altered, but overall goals of care discussion was had with . She is interested in possibly speaking with hospice and seeing if he would be eligible. She is also interested in possible assisted living. Social work consulted. Qualifiers: Encounter type: initial encounter Fracture morphology: unspecified fracture morphology Fracture type: closed Qualified Code(s): S32.029A - Unspecified fracture of second lumbar vertebra, initial encounter for closed fracture (5) UTI (urinary tract infection): Impression: Continue Zyvox that patient was sent home with to complete course for Enterococcus urinary tract infection. EOT should be 08/10. Qualifiers: Urinary tract infection type: acute pyelonephritis Qualified Code(s): N 10 - Acute pyelonephritis (6) Atrial fibrillation: Impression: Patient presented with rapid ventricular response. Improved with 1 dose of IV metoprolol. Continue oral metoprolol succinate 50 mg every day. Continue cardiac telemetry monitoring. Continue Eliquis 2.5 mg twice a day. Qualifiers: Atrial fibrillation type: persistent (not longstanding) Qualified Code(s): I48.19 - Other persistent atrial fibrillation; I48.1 - Persistent atrial fibrillation (7) Chronic kidney disease, stage 4 (severe): Impression: Patient with a baseline creatinine of 2.5. Presented with creatinine of 2.7, improved with IVF. Continue gentle IV fluid rehydration as above. (8) Congestive heart failure: Impression: Patient with history of heart failure with reduced ejection fraction. Continue metoprolol. Jardiance held at last visit due to his frequent urinary tract infections. 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 He is s/p ileal conduit. Now in remission, per . He follows locally with urology, last saw Dr. Russo in March. Dr. Russo's note also recommends since his progressive kidney dysfunction. Dr. Russo was who sent his nephrology referral. (10) Rheumatoid arthritis: Impression: Patient with history of rheumatoid arthritis. He is on leflunomide and prednisone 5 mg daily. Holding leflunomide in the setting of active infection. Reasonable to continue prednisone 5 mg as he has been on this chronically. (11) Depression: Impression: Continue duloxetine. (12) HTN (hypertension): Impression: Continue metoprolol, amlodipine.
[2025-08-09] MEDS ORDERED: METOPROLOL SUCCINATE 50 MG TABLET PO SCH (09:00)
[2025-08-09] MEDS: METOPROLOL SUCCINATE 50 MG TABLET PO SCH (16:30)
[2025-08-10 05:11] LABS: HCT - HEMATOCRIT 44.8 % (42.0-52.0); HGB - HEMOGLOBIN 13.7 g/dL (14.0-18.0); MEAN PLATELET VOLUME 10.8 fL (7.4-11.4); PLT - PLATELET COUNT 187.0 10^3/uL (130-450); RED CELL DISTRIBUTION WIDTH 19.8 % (12.0-15.0)
[2025-08-10 05:25] LABS: ALT ALANINE AMINOTRANSFERASE 30.0 IU/L (10-60); AST ASPARTATE AMINOTRANSFERASE 42.0 IU/L (10-42); BUN - BLOOD UREA NITROGEN 71.0 mg/dL (6-20); CARBON DIOXIDE - CO2 22.0 mmol/L (21-32); CREATININE 2.6 mg/dL (0.6-1.3); GFR - MDRD 24.0 (>89)
[2025-08-10] MEDS: ACETAMINOPHEN 325 MG TABLET PO PRN (08:26)
--- NOTE | 2025-08-10 09:03 | PROVIDER PROGRESS NOTE ---
Subjective Subjective Subjective: This morning, patient is able to answer some questions appropriately. He is tremulous at times. He is following commands. He states that he is feeling better than yesterday, but is clearly not back at his baseline mentation. Current Medications Current Medications Current Medications: Current Medications Generic Name Dose Route Start Last Admin Trade Name Freq PRN Reason Stop Dose Admin Acetaminophen 650 mg 08/08/25 17:36 08/10/25 08:26 Acetaminophen 325 Mg Tablet PO 650 mg Q4HR PRN Administration Pain or Fever > 38C (100.4F) Amlodipine Besylate 10 mg 08/09/25 09:00 08/10/25 08:26 Amlodipine 5 Mg Tablet PO 10 mg DAILY EMILY Administration Apixaban 2.5 mg 08/08/25 21:00 08/10/25 08:27 Apixaban 2.5 Mg Tablet PO 2.5 mg BID EMILY Administration Duloxetine HCl 40 mg 08/08/25 21:00 08/09/25 20:44 Duloxetine 20 Mg Capsule PO 40 mg HS EMILY Administration Gabapentin 600 mg 08/08/25 21:00 08/09/25 20:43 Gabapentin 300 Mg Capsule PO 600 mg QPM EMILY Administration Hydroxyzine Pamoate 25 mg 08/08/25 17:02 08/09/25 20:44 Hydroxyzine Pamoate 25 Mg Capsule PO 25 mg HS PRN Administration for itching at bedtime Linezolid 600 mg 08/08/25 21:00 08/10/25 08:27 Linezolid 600 Mg Tablet PO 600 mg BID EMILY Administration Metoprolol Succinate 50 mg 08/09/25 13:25 08/09/25 16:30 Metoprolol Succinate 50 Mg Tablet PO 50 mg DAILY EMILY Administration Ondansetron HCl 4 mg 08/08/25 14:39 Ondansetron Odt 4 Mg Tablet TL Q6HR PRN Nausea / Vomiting Ondansetron HCl 4 mg 08/08/25 14:39 Ondansetron 4 Mg/2 Ml Vial IVP Q6HR PRN Nausea / Vomiting Pantoprazole Sodium 40 mg 08/09/25 07:00 08/10/25 06:12 Pantoprazole 40 Mg Tablet PO 40 mg QDAC EMILY Administration Prednisone 5 mg 08/09/25 09:00 08/10/25 08:27 Prednisone 5 Mg Tablet PO 5 mg DAILY EMILY Administration Sodium Chloride 10 ml 08/08/25 14:39 Sodium Chloride Flush 0.9% 10 Ml Syringe IVP PRN PRN NEEDED PER PROVIDER ORDERS Sodium Chloride 10 ml 08/08/25 17:00 08/09/25 23:41 Sodium Chloride Flush 0.9% 10 Ml Syringe IVP 10 ml 0100,0900,1700 EMILY Administration Tramadol HCl 50 mg 08/08/25 18:14 Tramadol 50 Mg Tablet PO Q12H PRN pain Objective Vital Signs/Intake & Output Vital Signs: Vital Signs x48h Temp Pulse Resp BP Pulse Ox 08/10/25 08:02 98.1 F 119 H 20 128/83 92 08/10/25 03:22 97.9 F 81 20 116/71 95 Intake & Output: Intake & Output 08/07/25 08/08/25 08/09/25 08/10/25 23:59 23:59 23:59 23:59 Intake Total 50 / 50 1370 / 1370 Output Total 300 / 300 845 / 845 550 / 550 Balance -250 / -250 525 / 525 -550 / -550 Weight (kg) 65.5 kg Objective Comments/Other: GEN: No acute distress. Frail-appearing. HEENT: NC/AT, normal appearance of external ears and nose. Hearing baseline. Cardiac: Rapid and irregular. No murmurs appreciated. Mildly edematous, 1+ pitting edema to his bilateral lower extremities. Discoloration of bilateral feet, left > right. DP and PT pulses intat. Pulm: Lungs CTA bilaterally, no cough, no wheezes. No adventitial lung sounds. Abdomen: Soft, nontender, nondistended. No rebound or guarding Extremities: Moves all 4 extremities equally. Normal tone. Slighit tremor noted of right upper arm. Neuro: Face symmetric, CN II through XII intact grossly. No focal neurologic deficits. Following commands. Psych: Confused, altered. Able to tell me his name. Tells me his 's name. Unable to form complete sentences. Lab Results 08/10/25 04:13 08/10/25 04:13 Other Labs: Lab Results x24hrs 08/10/25 Range/Units 04:13 WBC 10.5 (4.8-10.8) x10^3/uL RBC 4.53 L (4.70-6.10) 10^6/uL Hgb 13.7 L (14.0-18.0) g/dL Hct 44.8 (42.0-52.0) % MCV 98.9 H (80.0-94.0) fL MCH 30.2 (27.0-31.0) pg MCHC 30.6 L (32.0-36.0) g/dL RDW 19.8 H (12.0-15.0) % Plt Count 187 (130-450) 10^3/uL MPV 10.8 (7.4-11.4) fL Sodium 145 (135-145) mmol/L Potassium 5.1 H (3.5-4.5) mmol/L Chloride 111 (101-111) mmol/L Carbon Dioxide 22 (21-32) mmol/L Anion Gap 12.0 (6-13) BUN 71 H (6-20) mg/dL Creatinine 2.6 H (0.6-1.3) mg/dL Estimated GFR (MDRD) 24 L (>89) Glucose 104 (74-104) mg/dL Calcium 9.5 (8.5-10.3) mg/dL Magnesium 2.8 H (1.7-2.3) mg/dL Total Bilirubin 1.4 H (0.2-1.0) mg/dL AST 42 (10-42) IU/L ALT 30 (10-60) IU/L Alkaline Phosphatase 164 H (42-121) IU/L Total Protein 5.7 L (6.4-8.9) g/dL Albumin 3.5 (3.2-5.5) g/dL Globulin 2.2 (2.1-4.2) g/dL Albumin/Globulin Ratio 1.6 (1.0-2.2) Sepsis Event Note (H) Evaluation Current Stage of Sepsis: Severe sepsis Possible source of Sepsis: positive Genitourinary Sepsis Criteria Sepsis Criteria: Recorded Heart Rate greater than 90 bpm, WBC count greater than 12,000 or less than 4000 and Renal: urine output less than 0.5ml/kg/hr for 2 hours or creatinine gr Assessment/Plan Problem List (1) Acute dehydration: (2) Frequent falls: (3) T12 vertebral fracture: Qualifiers: Encounter type: initial encounter Fracture morphology: other fracture Fracture type: closed Qualified Code(s): S22.088A - Other fracture of T11-T12 vertebra, initial encounter for closed fracture (4) L2 vertebral fracture: Impression: The following plan is for the above for assessments: Patient presents with for generalized decline. He was just admitted here 2 days prior to re- admission, discharged home after treatment for a urinary tract infection. Since being discharged, he has been increasingly lethargic, and has had frequent falls, as well as worsened mentation at home. Has not been eating or drinking well. Abdomen/pelvis CT show T12 fracture, as well as L2 transverse fracture. Continue pain control with tramadol as needed, will escalate as necessary. Patient is now a one-to-one feed, with thickened liquids. Speech evaluation has been ordered. PT evaluation has been ordered. Patient was altered, but overall goals of care discussion was had with . She is interested in possibly speaking with hospice and seeing if he would be eligible. She is also interested in possible assisted living. Social work consulted. Altered mentation could be due to the following: delirium in setting of likely underlying progressive neurological dysfunction, urinary tract infection, linezolid associated encephalopathy. CT head has been negative. MRI is unable to be completed at this facility due to pacemaker. No focal neurological deficits noted. Continue frequent reorientation, family at bedside, lights on during the day. Completed linezolid course; will see if stopping this helps with improvement in mentation. Qualifiers: Encounter type: initial encounter Fracture morphology: unspecified fracture morphology Fracture type: closed Qualified Code(s): S32.029A - Unspecified fracture of second lumbar vertebra, initial encounter for closed fracture (5) UTI (urinary tract infection): Impression: Completed Zyvox that patient was sent home with to complete course for Enterococcus urinary tract infection. Qualifiers: Urinary tract infection type: acute pyelonephritis Qualified Code(s): N 10 - Acute pyelonephritis (6) Atrial fibrillation: Impression: Patient presented with rapid ventricular response. Improved with 1 dose of IV metoprolol. Continue oral metoprolol tartrate 25mg every 8 hours at this time. Continue cardiac telemetry monitoring. Continue Eliquis 2.5 mg twice a day. Qualifiers: Atrial fibrillation type: persistent (not longstanding) Qualified Code(s): I48.19 - Other persistent atrial fibrillation; I48.1 - Persistent atrial fibrillation (7) Chronic kidney disease, stage 4 (severe): Impression: Patient's creatinine around baseline now after some IVF. Hold Entresto at this time due to BRITTANY. (8) Congestive heart failure: Impression: Patient with history of heart failure with reduced ejection fraction. Continue metoprolol. Jardiance held at last visit due to his frequent urinary tract infections. 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 He is s/p ileal conduit. Now in remission, per . He follows locally with urology, last saw Dr. Russo in March. Dr. Russo's note also recommends since his progressive kidney dysfunction. Dr. Russo was who sent his nephrology referral. (10) Rheumatoid arthritis: Impression: Patient with history of rheumatoid arthritis. He is on leflunomide and prednisone 5 mg daily. Holding leflunomide in the setting of active infection. Reasonable to continue prednisone 5 mg as he has been on this chronically. (11) Depression: Impression: Continue duloxetine. (12) HTN (hypertension): Impression: Continue metoprolol, amlodipine.
[2025-08-10] MEDS: METOPROLOL TARTRATE 25 MG TABLET PO SCH (09:10)
[2025-08-11 04:42] LABS: HCT - HEMATOCRIT 46.4 % (42.0-52.0); HGB - HEMOGLOBIN 13.7 g/dL (14.0-18.0); MEAN PLATELET VOLUME 10.9 fL (7.4-11.4); PLT - PLATELET COUNT 180.0 10^3/uL (130-450); RED CELL DISTRIBUTION WIDTH 19.6 % (12.0-15.0)
[2025-08-11 04:54] LABS: BUN - BLOOD UREA NITROGEN 76.0 mg/dL (6-20); CARBON DIOXIDE - CO2 24.0 mmol/L (21-32); CREATININE 2.9 mg/dL (0.6-1.3); GFR - MDRD 21.0 (>89)
[2025-08-11] MEDS: LACTATED RINGERS 1,000 ML IV SCH (07:37)
[2025-08-11] MEDS: SODIUM ZIRCONIUM CYCLOSILICATE 5 GM PACKET PO SCH (08:17)
--- NOTE | 2025-08-11 11:26 | Speech Therapy Plan of Care ---
DIAGNOSIS Date of Service Date of Service: 08/11/25 Diagnosis: WEAKNESS MEDICAL/SURGICAL PAST HISTORY Past History Medical History Insomnia Diabetes mellitus CAD (coronary artery disease) Stomach cancer Pacemaker Aortic valve stenosis Lumbar spinal stenosis Macular degeneration Hypermetropia Asthma BPPV (benign paroxysmal positional vertigo) Hyperlipidemia History of transcatheter aortic valve replacement (TAVR) Midline sternotomy scar Decompensated heart failure Surgical History History of appendectomy History of ileal conduit History of total cystectomy History of lumbar laminectomy L2 and L3 Hx of CABG Status post transcatheter aortic valve replacement SPEECH ASSESSMENT Assessment: Subjective Mr. Byrd is a pleasantly confused 85 y/o male with history of heart failure with reduced ejection fraction (HFrEF); Jardiance held at last visit due to recurrent urinary tract infections. Medical history also significant for metastatic bladder cancer status post ileal conduit. Patient presented to ED with spouse on 08/08 for generalized functional decline. He was admitted two days prior for treatment of a urinary tract infection and discharged home; since discharge, spouse reports increasing lethargy, frequent falls, worsened mentation, and poor oral intake. RN reports patient was observed coughing/choking with thin liquids at bedside prior to CERAMICS MACHINE OPERATOR evaluation. MD placed patient on minced and moist solids with mildly thick (nectar) liquids. Patient unable to provide reliable subjective report due to altered mental status. Objective Mental Status / Behavior: Patient seen in bed. Drowsy with eyes frequently closed; confused with fluctuating level of alertness and inconsistent ability to follow simple one- step commands. Oriented to self and month. Speech intermittently garbled with noted confabulations. RN and MACHINE FILLER present. Evaluation briefly paused to allow MACHINE FILLER to collect urine sample via ileal conduit; evaluation then resumed. Oral Mechanism Examination: Limited due to fluctuating arousal, confusion, and inability to reliably follow commands. Formal assessment of strength, range of motion, and coordination not possible. PO Trials: PO trials limited to mildly thick (nectar) liquids only due to impaired mental status and safety concerns. Patient unable to feed self and required 100% assistance. No solid trials attempted due to high aspiration risk in the setting of reduced alertness and impaired swallow initiation. Clinical Swallow Findings: Moderately delayed swallow initiation Suspected premature bolus spillage to the level of the valleculae prior to swallow Swallow palpation suggests reduced strength with suspected incomplete bolus clearance Clinical signs concerning for penetration and possible silent aspiration, given delayed swallow initiation, reduced airway protective response, and weak/delayed cough Weak, delayed cough observed following trials Assessment Patient presents with moderatesevere oropharyngeal dysphagia. Aspiration risk is high due to decreased arousal, altered mentation, inconsistent command following, and significant medical complexity. Current cognitive and alertness status significantly compromise swallow safety and airway protection during oral intake. An instrumental swallow study (MBSS) is not appropriate at this time due to fluctuating alertness, inconsistent command following, and limited ability to safely and meaningfully participate, which would significantly reduce diagnostic reliability. Prognosis for return to oral intake is guarded and dependent on improvement in mental status and medical stability. Plan Recommend NPO at this time, including medications Recommend alternative means of nutrition, hydration, and medication administration Maintain strict aspiration precautions and close nursing monitoring CERAMICS MACHINE OPERATOR to follow for ongoing dysphagia management and reassessment as mental status and medical condition improve CAREGIVER/PATIENT GOALS Patient/Caregiver Goals: Unable to verbalize. SPEECH SHORT TERM GOALS Dysphagia: ST short term goal: Patient will safely tolerate the least restrictive diet and liquid consistency, without overt signs or symptoms of aspiration or respiratory compromise, as evidenced by improved alertness, swallow function, and clinical swallow safety, in order to support adequate nutrition and hydration. Goal status: New SPEECH PLAN OF CARE Treatment Frequency: As needed Treatment Duration: 4 weeks
[2025-08-11] MEDS: METOPROLOL TARTRATE 25 MG TABLET PO SCH (11:57)
--- NOTE | 2025-08-11 12:03 | ADVANCE CARE PLANNING NOTE ---
Advance Care Planning Planning Encounter Date: 08/11/25 Purpose: Establish further goals of care. Discuss Hospice. Parties in Attendance: Patient, patient's daughter, patient's . Decisional Capacity of the Patient: Not decisional at this time. Diagnosis for Encounter (1) Chronic kidney disease, stage 4 (severe): Encounter Plan: Patient is a 85-year-old male with a history of bladder cancer s/p radical cystectomy with ileal conduit in place, rheumatoid arthritis, atrial fibrillation, TAVR, chronic kidney disease stage IV who presented initially for altered mentation. He has had multiple admissions in the last year for weakness, UTIs, altered mental status. 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 With the progression of his rheumatoid arthritis, and his chronic back problems, he was unable to lift the heavy ceramics required for his work. This is what really brought him tyler. He also enjoys spending time with his family. He has 2 daughters, 1 who lives in [place] and 1 who lives in [place]. Patient's , and daughter were spoken with at bedside. They have seen Mr. Donahue slowly deteriorate over the last 1 to 2 years. He has a extensive cardiac history, and had a TAVR completed in August. Following this, he has had multiple admissions to the hospital, where he seems to be getting worse. At this time, he is altered and confused. When he was more with it, he did expressed that he felt that he was at the end of his life, and he did not want any heroic measures done. His and his daughters are very well aware of his wishes, and are in agreement. They would like a hospice informational. He is DNR/DNI/comfort measures. KARL was left at bedside, they would like to review this further. Hospice consult is placed. Code Status: Do Not Attempt Resuscitation Time spent on advance care plannin
--- NOTE | 2025-08-11 12:03 | PROVIDER PROGRESS NOTE ---
Subjective Subjective Subjective: Patient is confused at times. He is falling asleep midsentence, and then waking up and speaking nonsensically. He is able to answer some questions appropriately, and is still following commands. He denies any fevers or chills. His and daughter are at bedside. They are interested in hospice. See ACP conversation from today. Current Medications Current Medications Current Medications: Current Medications Generic Name Dose Route Start Last Admin Trade Name Freq PRN Reason Stop Dose Admin Acetaminophen 650 mg 08/08/25 17:36 08/11/25 08:09 Acetaminophen 325 Mg Tablet PO 650 mg Q4HR PRN Administration Pain or Fever > 38C (100.4F) Amlodipine Besylate 10 mg 08/09/25 09:00 08/11/25 08:12 Amlodipine 5 Mg Tablet PO 10 mg DAILY EMILY Administration Apixaban 2.5 mg 08/08/25 21:00 08/11/25 08:09 Apixaban 2.5 Mg Tablet PO 2.5 mg BID EMILY Administration Duloxetine HCl 40 mg 08/08/25 21:00 08/10/25 20:57 Duloxetine 20 Mg Capsule PO Not Given HS EMILY Gabapentin 600 mg 08/08/25 21:00 08/10/25 20:57 Gabapentin 300 Mg Capsule PO Not Given QPM EMILY Hydroxyzine Pamoate 25 mg 08/08/25 17:02 Hydroxyzine Pamoate 25 Mg Capsule PO HS PRN for itching at bedtime Lactated Ringer's 1,000 mls @ 75 mls/hr 08/11/25 08:00 08/11/25 07:37 Lr IV 08/11/25 17:00 75 mls/hr .[id number] EMILY Administration Metoprolol Tartrate 25 mg 08/11/25 12:00 08/11/25 11:57 Metoprolol Tartrate 25 Mg Tablet PO 25 mg Q6HR EMILY Administration Ondansetron HCl 4 mg 08/08/25 14:39 Ondansetron Odt 4 Mg Tablet TL Q6HR PRN Nausea / Vomiting Ondansetron HCl 4 mg 08/08/25 14:39 Ondansetron 4 Mg/2 Ml Vial IVP Q6HR PRN Nausea / Vomiting Pantoprazole Sodium 40 mg 08/09/25 07:00 08/11/25 06:58 Pantoprazole 40 Mg Tablet PO 40 mg QDAC EMILY Administration Prednisone 5 mg 08/09/25 09:00 08/11/25 08:12 Prednisone 5 Mg Tablet PO 5 mg DAILY EMILY Administration Sodium Chloride 10 ml 08/08/25 14:39 Sodium Chloride Flush 0.9% 10 Ml Syringe IVP PRN PRN NEEDED PER PROVIDER ORDERS Sodium Chloride 10 ml 08/08/25 17:00 08/11/25 08:13 Sodium Chloride Flush 0.9% 10 Ml Syringe IVP 10 ml 0100,0900,1700 EMILY Administration Sodium Zirconium Cyclosilicate 10 gm 08/11/25 09:00 08/11/25 08:17 Sodium Zirconium Cyclosilicate 5 Gm Packet PO 08/11/25 21:01 10 gm BID EMILY Administration Tramadol HCl 50 mg 08/08/25 18:14 Tramadol 50 Mg Tablet PO Q12H PRN pain Objective Vital Signs/Intake & Output Reviewed Vital Signs: Yes Vital Signs: Vital Signs x48h Temp Pulse Pulse Resp BP BP Pulse Ox 08/11/25 11:57 117 H 108/65 08/11/25 08:09 111 H 122/93 H 08/11/25 07:47 97.9 F 125 H 16 128/89 94 08/11/25 04:04 97.9 F 99 18 123/87 96 Intake & Output: Intake & Output 08/08/25 08/09/25 08/10/25 08/11/25 23:59 23:59 23:59 23:59 Intake Total 50 / 50 1370 / 1370 160 / 160 240 / 240 Output Total 300 / 300 845 / 845 925 / 925 320 / 320 Balance -250 / -250 525 / 525 -765 / -765 -80 / -80 Weight (kg) 65.5 kg Objective Comments/Other: GEN: No acute distress. Frail-appearing. HEENT: NC/AT, normal appearance of external ears and nose. Hearing baseline. Cardiac: Rapid and irregular. No murmurs appreciated. Mildly edematous, 1+ pitting edema to his bilateral lower extremities. Discoloration of bilateral feet, left > right. DP and PT pulses intat. Pulm: Lungs CTA bilaterally, no cough, no wheezes. No adventitial lung sounds. Abdomen: Soft, nontender, nondistended. No rebound or guarding Extremities: Moves all 4 extremities equally. Normal tone. Slighit tremor noted of right upper arm. Neuro: Face symmetric, CN II through XII intact grossly. No focal neurologic deficits. Following commands. Psych: Confused, altered. Able to tell me his name. Tells me his 's name. Unable to form complete sentences. Lab Results 08/11/25 04:07 08/11/25 04:07 Other Labs: Lab Results x24hrs 08/11/25 Range/Units 04:07 WBC 10.6 (4.8-10.8) x10^3/uL RBC 4.56 L (4.70-6.10) 10^6/uL Hgb 13.7 L (14.0-18.0) g/dL Hct 46.4 (42.0-52.0) % MCV 101.8 H (80.0-94.0) fL MCH 30.0 (27.0-31.0) pg MCHC 29.5 L (32.0-36.0) g/dL RDW 19.6 H (12.0-15.0) % Plt Count 180 (130-450) 10^3/uL MPV 10.9 (7.4-11.4) fL Sodium 148 H (135-145) mmol/L Potassium 5.1 H (3.5-4.5) mmol/L Chloride 113 H (101-111) mmol/L Carbon Dioxide 24 (21-32) mmol/L Anion Gap 11.0 (6-13) BUN 76 H (6-20) mg/dL Creatinine 2.9 H (0.6-1.3) mg/dL Estimated GFR (MDRD) 21 L (>89) Glucose 110 H (74-104) mg/dL Calcium 9.5 (8.5-10.3) mg/dL Magnesium 3.0 H (1.7-2.3) mg/dL Sepsis Event Note (H) Evaluation Current Stage of Sepsis: Severe sepsis Possible source of Sepsis: positive Genitourinary Sepsis Criteria Sepsis Criteria: Recorded Heart Rate greater than 90 bpm, WBC count greater than 12,000 or less than 4000 and Renal: urine output less than 0.5ml/kg/hr for 2 hours or creatinine gr Assessment/Plan Problem List (1) Acute dehydration: (2) Frequent falls: (3) T12 vertebral fracture: Qualifiers: Encounter type: initial encounter Fracture morphology: other fracture Fracture type: closed Qualified Code(s): S22.088A - Other fracture of T11-T12 vertebra, initial encounter for closed fracture (4) L2 vertebral fracture: Impression: The following plan is for the above for assessments: Patient presents with for generalized decline. He was just admitted here 2 days prior to re- admission, discharged home after treatment for a urinary tract infection. Since being discharged, he has been increasingly lethargic, and has had frequent falls, as well as worsened mentation at home. Has not been eating or drinking well. Abdomen/pelvis CT show T12 fracture, as well as L2 transverse fracture. Continue pain control with tramadol as needed, will escalate as necessary. Patient is now NPO after speech evauation today Patient was altered, but overall goals of care discussion was had with and daughter at bedside. See ACP conversation. She is interested in speaking with hospice. Altered mentation could be due to the following: delirium in setting of likely underlying progressive neurological dysfunction, urinary tract infection, linezolid associated encephalopathy. CT head has been negative. MRI is unable to be completed at this facility due to pacemaker. No focal neurological deficits noted. Continue frequent reorientation, family at bedside, lights on during the day. Completed linezolid course; will see if stopping this helps with improvement in mentation. Could also be attributed to uremia; patient has stage IV kidney disease which is progressing. Qualifiers: Encounter type: initial encounter Fracture morphology: unspecified fracture morphology Fracture type: closed Qualified Code(s): S32.029A - Unspecified fracture of second lumbar vertebra, initial encounter for closed fracture (5) UTI (urinary tract infection): Impression: Completed Zyvox that patient was sent home with to complete course for Enterococcus urinary tract infection. Qualifiers: Urinary tract infection type: acute pyelonephritis Qualified Code(s): N 10 - Acute pyelonephritis (6) Atrial fibrillation: Impression: Patient presented with rapid ventricular response. Improved with 1 dose of IV metoprolol. Continue oral metoprolol tartrate 25mg every 6 hours at this time. Continue cardiac telemetry monitoring. Continue Eliquis 2.5 mg twice a day. Qualifiers: Atrial fibrillation type: persistent (not longstanding) Qualified Code(s): I48.19 - Other persistent atrial fibrillation; I48.1 - Persistent atrial fibrillation (7) Chronic kidney disease, stage 4 (severe): Impression: Patient's creatinine around baseline now after some IVF. Hold Entresto at this time due to BRITTANY. (8) Congestive heart failure: Impression: Patient with history of heart failure with reduced ejection fraction. Continue metoprolol. Jardiance held at last visit due to his frequent urinary tract infections. 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 He is s/p ileal conduit. Now in remission, per . He follows locally with urology, last saw Dr. Russo in March. Dr. Russo's note also recommends since his progressive kidney dysfunction. Dr. Russo was who sent his nephrology referral. (10) Rheumatoid arthritis: Impression: Patient with history of rheumatoid arthritis. He is on leflunomide and prednisone 5 mg daily. Holding leflunomide in the setting of active infection. Reasonable to continue prednisone 5 mg as he has been on this chronically. (11) Depression: Impression: Continue duloxetine. (12) HTN (hypertension): Impression: Continue metoprolol, amlodipine.
[2025-08-12 02:51] LABS: ALT ALANINE AMINOTRANSFERASE 99.0 IU/L (10-60); AST ASPARTATE AMINOTRANSFERASE 100.0 IU/L (10-42); BUN - BLOOD UREA NITROGEN 80.0 mg/dL (6-20); CARBON DIOXIDE - CO2 22.0 mmol/L (21-32); CREATININE 3.0 mg/dL (0.6-1.3); GFR - MDRD 20.0 (>89)
[2025-08-12] MEDS: DEXTROSE 5% 1,000 ML IV SCH (08:05)
--- NOTE | 2025-08-12 09:28 | PROVIDER PROGRESS NOTE ---
Subjective Subjective Subjective: Today, patient appears more somnolent. He is responsive to verbal stimuli and physical stimuli, but answers at 1-2 words. He is unable to tell me his name. Overnight, he was also placed on oxygen. I spoke with patient's daughters, and son-in-law at bedside. We discussed next steps if his creatinine were to worsen. They would not want him transferred for dialysis. If his kidneys continue to worsen, they would like him to be made comfort care/hospice. Current Medications Current Medications Current Medications: Current Medications Generic Name Dose Route Start Last Admin Trade Name Freq PRN Reason Stop Dose Admin Acetaminophen 650 mg 08/08/25 17:36 08/11/25 18:35 Acetaminophen 325 Mg Tablet PO 650 mg Q4HR PRN Administration Pain or Fever > 38C (100.4F) Amlodipine Besylate 10 mg 08/09/25 09:00 08/12/25 08:06 Amlodipine 5 Mg Tablet PO 10 mg DAILY EMILY Administration Apixaban 2.5 mg 08/08/25 21:00 08/12/25 08:05 Apixaban 2.5 Mg Tablet PO 2.5 mg BID EMILY Administration Duloxetine HCl 40 mg 08/08/25 21:00 08/11/25 20:35 Duloxetine 20 Mg Capsule PO Not Given HS EMILY Gabapentin 600 mg 08/08/25 21:00 08/11/25 23:37 Gabapentin 300 Mg Capsule PO Not Given QPM EMILY Hydroxyzine Pamoate 25 mg 08/08/25 17:02 08/11/25 19:54 Hydroxyzine Pamoate 25 Mg Capsule PO 25 mg HS PRN Administration for itching at bedtime Dextrose 1,000 mls @ 75 mls/hr 08/12/25 08:00 08/12/25 08:05 D5w IV 75 mls/hr .[id number] EMILY Administration Metoprolol Tartrate 25 mg 08/11/25 12:00 08/12/25 06:07 Metoprolol Tartrate 25 Mg Tablet PO 25 mg Q6HR EMILY Administration Olanzapine 2.5 mg 08/11/25 20:00 08/11/25 19:54 Olanzapine Odt 5 Mg Tablet TL 2.5 mg BID@0900,2000 EMILY Administration Ondansetron HCl 4 mg 08/08/25 14:39 Ondansetron Odt 4 Mg Tablet TL Q6HR PRN Nausea / Vomiting Ondansetron HCl 4 mg 08/08/25 14:39 Ondansetron 4 Mg/2 Ml Vial IVP Q6HR PRN Nausea / Vomiting Pantoprazole Sodium 40 mg 08/09/25 07:00 08/12/25 06:08 Pantoprazole 40 Mg Tablet PO 40 mg QDAC EMILY Administration Prednisone 5 mg 08/09/25 09:00 08/12/25 08:05 Prednisone 5 Mg Tablet PO 5 mg DAILY EMILY Administration Sodium Bicarbonate 50 meq 08/12/25 09:26 Sodium Bicarbonate Abboject 50 Meq/50 Ml Syringe IVP 08/12/25 09:27 ONCE ONE Sodium Chloride 10 ml 08/08/25 14:39 Sodium Chloride Flush 0.9% 10 Ml Syringe IVP PRN PRN NEEDED PER PROVIDER ORDERS Sodium Chloride 10 ml 08/08/25 17:00 08/12/25 08:06 Sodium Chloride Flush 0.9% 10 Ml Syringe IVP 10 ml 0100,0900,1700 EMILY Administration Sodium Zirconium Cyclosilicate 10 gm 08/12/25 21:00 Sodium Zirconium Cyclosilicate 5 Gm Packet PO BID EMILY Tramadol HCl 50 mg 08/08/25 18:14 08/12/25 08:05 Tramadol 50 Mg Tablet PO 50 mg Q12H PRN Administration pain Objective Vital Signs/Intake & Output Reviewed Vital Signs: Yes Vital Signs: Vital Signs x48h Temp Pulse Pulse Resp BP BP Pulse Ox 08/12/25 08:29 97.5 F L 115 H 20 94/67 94 08/12/25 06:07 110 H 125/93 H 08/12/25 04:50 97 08/12/25 04:00 96.8 F L 110 H 20 125/93 H 85 L O2 Flow Rate 08/12/25 08:29 2 08/12/25 06:07 08/12/25 04:50 2 08/12/25 04:00 Intake & Output: Intake & Output 08/09/25 08/10/25 08/11/25 08/12/25 23:59 23:59 23:59 23:59 Intake Total 1370 / 1370 160 / 160 1240 / 1240 784 / 784 Output Total 845 / 845 925 / 925 450 / 450 200 / 200 Balance 525 / 525 -765 / -765 790 / 790 584 / 584 Objective General Appearance: positive Mild distress and Anxious; negative Alert Eyes Bilateral: positive Normal inspection, PERRL and EOMI ENT: positive ENT inspection nml and Pharynx nml Neck: positive Nml inspection, Thyroid nml and No JVD Respiratory: positive Chest non-tender, Rales (Noted throughout. ) and Rhonchi; negative No respiratory distress Cardiovascular: positive Irregularly irregular and Tachycardia; negative Regular rate & rhythm Abdomen: positive Non-tender, No organomegaly, Nml bowel sounds, No distention and Other (Ileal conduit in place, urostomy bag with clear urine ) Skin: positive Color nml, No rash, Warm and Other (Multiple bruises noted on bilateral upper and lower extremities) Extremities: positive Non-tender and Full ROM Neurologic/Psychiatric: positive Disoriented to place, Disoriented to time and Other (Awakens to voice, turns toward verbal stimuli. Follows commands intermittently.) Lab Results 08/11/25 04:07 08/12/25 13:14 Other Labs: Lab Results x24hrs 08/12/25 Range/Units 02:13 Sodium 150 H (135-145) mmol/L Potassium 4.8 H (3.5-4.5) mmol/L Chloride 113 H (101-111) mmol/L Carbon Dioxide 22 (21-32) mmol/L Anion Gap 15.0 H (6-13) BUN 80 H* (6-20) mg/dL Creatinine 3.0 H (0.6-1.3) mg/dL Estimated GFR (MDRD) 20 L (>89) Glucose 116 H (74-104) mg/dL Calcium 9.6 (8.5-10.3) mg/dL Magnesium 2.9 H (1.7-2.3) mg/dL Total Bilirubin 2.4 H (0.2-1.0) mg/dL AST 100 H (10-42) IU/L ALT 99 H (10-60) IU/L Alkaline Phosphatase 238 H (42-121) IU/L Total Protein 5.7 L (6.4-8.9) g/dL Albumin 3.5 (3.2-5.5) g/dL Globulin 2.2 (2.1-4.2) g/dL Albumin/Globulin Ratio 1.6 (1.0-2.2) Sepsis Event Note (H) Evaluation Current Stage of Sepsis: Severe sepsis Possible source of Sepsis: positive Genitourinary Sepsis Criteria Sepsis Criteria: Recorded Heart Rate greater than 90 bpm, WBC count greater than 12,000 or less than 4000 and Renal: urine output less than 0.5ml/kg/hr for 2 hours or creatinine gr Assessment/Plan Problem List (1) Acute on chronic kidney failure: Impression: Patient's baseline creatinine is around 2.3-2.6. Steadily increasing here, now 3.0. Abdomen/pelvis CT completed on admission shows no hydronephrosis. Patient is borderline oliguric, and made about 355 c in the last 12 hours (~30 cc/hr). He has been receiving gentle IV fluid rehydration over the last few days with LR. This morning, he is hypernatremic with worsening BRITTANY, and received some D5 fluids. He has some signs of fluid overload including increasing oxygen requirements, diffuse crackles. He is now on 3 L. If oxygenation worsens, likely will require Lasix challenge. Dialsyis is not within goals of care for the patient. He has stage IV kidney disease. Continue sodium bicarbonate and Lokelma. Qualifiers: Acute renal failure type: unspecified Chronic kidney disease stage: s tage 4 (GFR 15-29) Qualified Code(s): N17.9 - Acute kidney failure, unspecified; N18.4 - Chronic kidney disease, stage 4 (severe) (2) Acute hypoxic respiratory failure: Impression: Likely due to fluid overload in setting of congestive heart failure, chronic kidney disease. IV fluids stopped. Continue to monitor, may require Lasix challenge. (3) Acute metabolic encephalopathy: Impression: Patient continues to be altered. Altered mentation is likely due to worsening uremia in setting of acute on chronic kidney disease. Other differential include delirium in setting of likely underlying dementia, linezolid associated encephalopathy, hypernatremia, Zyprexa withdrawal. CT head has been negative. MRI is unable to be completed at this facility due to pacemaker. No focal neurological deficits noted. Continue frequent reorientation, family at bedside, lights on during the day. Completed linezolid course. Patient is now NPO after speech evauation. (4) Hypernatremia: Impression: Likely due to IV fluids. Received D5W this morning. Continue to trend. (5) Frequent falls: (6) T12 vertebral fracture: Qualifiers: Encounter type: initial encounter Fracture morphology: other fracture Fracture type: closed Qualified Code(s): S22.088A - Other fracture of T11-T12 vertebra, initial encounter for closed fracture (7) L2 vertebral fracture: Impression: The following plan is for the above for assessments: Patient presents with for generalized decline. He was just admitted here 2 days prior to re- admission, discharged home after treatment for a urinary tract infection. Since being discharged, he has been increasingly lethargic, and has had frequent falls, as well as worsened mentation at home. Has not been eating or drinking well. Abdomen/pelvis CT show T12 fracture, as well as L2 transverse fracture. Continue pain control with tramadol as needed, will escalate as necessary. Qualifiers: Encounter type: initial encounter Fracture morphology: unspecified fracture morphology Fracture type: closed Qualified Code(s): S32.029A - Unspecified fracture of second lumbar vertebra, initial encounter for closed fracture (8) UTI (urinary tract infection): Impression: Completed Zyvox that patient was sent home with to complete course for Enterococcus urinary tract infection. Qualifiers: Urinary tract infection type: acute pyelonephritis Qualified Code(s): N 10 - Acute pyelonephritis (9) Atrial fibrillation: Impression: Patient presented with rapid ventricular response. Intermittent. Oral metoprolol switched to IV metoprolol. Continue cardiac telemetry monitoring. Continue Eliquis 2.5 mg twice a day. Qualifiers: Atrial fibrillation type: persistent (not longstanding) Qualified Code(s): I48.19 - Other persistent atrial fibrillation; I48.1 - Persistent atrial fibrillation (10) Congestive heart failure: Impression: Patient with history of heart failure with reduced ejection fraction. Continue metoprolol. Jardiance held at last visit due to his frequent urinary tract infections. 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 He is s/p ileal conduit. Now in remission, per . He follows locally with urology, last saw Dr. Russo in March. Dr. Russo's note also recommends since his progressive kidney dysfunction. Dr. Russo was who sent his nephrology referral. (12) Rheumatoid arthritis: Impression: Patient with history of rheumatoid arthritis. He is on leflunomide and prednisone 5 mg daily. Holding leflunomide in the setting of active infection. Continue prednisone 5 mg as he has been on this chronically. (13) Depression: Impression: Continue duloxetine. (14) HTN (hypertension): Impression: Continue metoprolol. Amlodipine held due to borderline blood pressures.
--- NOTE | 2025-08-12 10:38 | Speech Therapy Plan of Care ---
DIAGNOSIS Date of Service Date of Service: 08/12/25 Diagnosis: WEAKNESS MEDICAL/SURGICAL PAST HISTORY Past History Medical History Insomnia Diabetes mellitus CAD (coronary artery disease) Stomach cancer Pacemaker Aortic valve stenosis Lumbar spinal stenosis Macular degeneration Hypermetropia Asthma BPPV (benign paroxysmal positional vertigo) Hyperlipidemia History of transcatheter aortic valve replacement (TAVR) Midline sternotomy scar Decompensated heart failure Surgical History History of appendectomy History of ileal conduit History of total cystectomy History of lumbar laminectomy L2 and L3 Hx of CABG Status post transcatheter aortic valve replacement SPEECH ASSESSMENT Assessment: Subjective Mr. Byrd is a pleasantly confused 85 y/o male with history of heart failure with reduced ejection fraction (HFrEF); Jardiance held at last visit due to recurrent urinary tract infections. Medical history also significant for metastatic bladder cancer status post ileal conduit. Patient presented to ED with spouse on 08/08 for generalized functional decline. He was admitted two days prior for treatment of a urinary tract infection and discharged home; since discharge, spouse reports increasing lethargy, frequent falls, worsened mentation, and poor oral intake. RN reports patient was observed coughing/choking with thin liquids at bedside prior to [employer]ESS[employer] evaluation. MD placed patient on minced and moist solids with mildly thick (nectar) liquids. Patient unable to provide reliable subjective report due to altered mental status. Objective Mental Status / Behavior: Patient seen in bed. Drowsy with eyes frequently closed; confused with fluctuating level of alertness and inconsistent ability to follow simple one- step commands. Oriented to self and month. Speech intermittently garbled with noted confabulations. RN and LAMINATOR [employer]FORMS present. Evaluation briefly paused to allow LAMINATOR [employer]FORMS to collect urine sample via ileal conduit; evaluation then resumed. Oral Mechanism Examination: Limited due to fluctuating arousal, confusion, and inability to reliably follow commands. Formal assessment of strength, range of motion, and coordination not possible. PO Trials: PO trials limited to mildly thick (nectar) liquids only due to impaired mental status and safety concerns. Patient unable to feed self and required 100% assistance. No solid trials attempted due to high aspiration risk in the setting of reduced alertness and impaired swallow initiation. Clinical Swallow Findings: Moderately delayed swallow initiation Suspected premature bolus spillage to the level of the valleculae prior to swallow Swallow palpation suggests reduced strength with suspected incomplete bolus clearance Clinical signs concerning for penetration and possible silent aspiration, given delayed swallow initiation, reduced airway protective response, and weak/delayed cough Weak, delayed cough observed following trials Assessment Patient presents with moderatesevere oropharyngeal dysphagia. Aspiration risk is high due to decreased arousal, altered mentation, inconsistent command following, and significant medical complexity. Current cognitive and alertness status significantly compromise swallow safety and airway protection during oral intake. An instrumental swallow study (MBSS) is not appropriate at this time due to fluctuating alertness, inconsistent command following, and limited ability to safely and meaningfully participate, which would significantly reduce diagnostic reliability. Prognosis for return to oral intake is guarded and dependent on improvement in mental status and medical stability. Plan Recommend NPO at this time, including medications Recommend alternative means of nutrition, hydration, and medication administration Maintain strict aspiration precautions and close nursing monitoring [employer] to follow for ongoing dysphagia management and reassessment as mental status and medical condition improve CAREGIVER/PATIENT GOALS Patient/Caregiver Goals: Unable to verbalize. SPEECH SHORT TERM GOALS Dysphagia: ST short term goal: Patient will safely tolerate the least restrictive diet and liquid consistency, without overt signs or symptoms of aspiration or respiratory compromise, as evidenced by improved alertness, swallow function, and clinical swallow safety, in order to support adequate nutrition and hydration. Goal status: New SPEECH PLAN OF CARE Treatment Frequency: As needed Treatment Duration: 4 weeks
[2025-08-12] MEDS: SODIUM BICARBONATE IV ONE (11:02)
[2025-08-12] MEDS: DEXTROSE 5% IV ONE (11:02)
[2025-08-12] MEDS: SODIUM BICARBONATE ABBOJECT 50 MEQ/50 ML SYRINGE IVP ONE (11:13)
[2025-08-12 14:00] LABS: BUN - BLOOD UREA NITROGEN 89.0 mg/dL (6-20); CARBON DIOXIDE - CO2 26.0 mmol/L (21-32); CREATININE 3.1 mg/dL (0.6-1.3); GFR - MDRD 19.0 (>89)
[2025-08-12] MEDS: FUROSEMIDE 40 MG/4 ML VIAL IVP ONE (14:45)
[2025-08-12] MEDS: METOPROLOL 5 MG/5 ML VIAL IVP SCH (15:02)
[2025-08-12 16:40] VITALS: O2SAT 96
[2025-08-12 19:26] VITALS: BP 126/86; TEMP 96.8
[2025-08-12] MEDS ORDERED: ATROPINE 1% OPHTH DROPS 2 ML SL PRN (20:42)
[2025-08-12] MEDS ORDERED: CARBOXYMETHYLCELLULOSE OPHTH DROPS EACHEYE PRN (20:42)
[2025-08-12] MEDS ORDERED: SODIUM ZIRCONIUM CYCLOSILICATE 5 GM PACKET PO SCH (21:00)
[2025-08-12] MEDS: HALOPERIDOL 5 MG/ML VIAL IVP PRN ×2 (21:25→21:53)
[2025-08-12] MEDS: SCOPOLAMINE PATCH TOP SCH (21:25)
[2025-08-12] MEDS: HYDROmorphone 0.5 MG/0.5 ML SYRINGE IVP PRN (21:35)
--- NOTE | 2025-08-13 09:30 | PROVIDER PROGRESS NOTE ---
Subjective Subjective Subjective: Family including 2 daughters, son-in-law, as well as his had a family meeting yesterday, and would like to pursue comfort care and hospice. Patient appears comfortable today. Not grimacing. Patient is imminently dying. Current Medications Current Medications Current Medications: Current Medications Generic Name Dose Route Start Last Admin Trade Name Freq PRN Reason Stop Dose Admin Acetaminophen 650 mg 08/08/25 17:36 08/11/25 18:35 Acetaminophen 325 Mg Tablet PO 650 mg Q4HR PRN Administration Pain or Fever > 38C (100.4F) Atropine Sulfate 1 - 4 drops 08/12/25 20:42 Atropine 1% Ophth Drops 2 Ml SL Q2H PRN Excessive secretions Carboxymethylcellulose 1 drops 08/12/25 20:42 Carboxymethylcellulose Ophth Drops EACHEYE QID PRN Dry Eye Gabapentin 600 mg 08/08/25 21:00 08/12/25 20:28 Gabapentin 300 Mg Capsule PO Not Given QPM EMILY Glycopyrrolate 0.2 mg 08/12/25 20:42 Glycopyrrolate 1 Mg/5 Ml Vial SUBQ Q4H PRN Excessive secretions Haloperidol 2 mg 08/12/25 21:25 08/12/25 21:53 Haloperidol 5 Mg/Ml Vial IVP 2 mg Q6H PRN Administration Nausea / Vomiting Hydromorphone HCl 0.5 mg 08/13/25 07:33 Hydromorphone 0.5 Mg/0.5 Ml Syringe IVP Q2H PRN Severe Pain (Level 7-10) Hydroxyzine Pamoate 25 mg 08/08/25 17:02 08/12/25 19:20 Hydroxyzine Pamoate 25 Mg Capsule PO 25 mg HS PRN Administration for itching at bedtime Morphine Sulfate 10 mg 08/13/25 07:33 Morphine Toya 10 Mg/0.5 Ml Oral Syringe PO Q2HR PRN Moderate Pain (Level 4-6) Olanzapine 2.5 mg 08/11/25 20:00 08/12/25 19:21 Olanzapine Odt 5 Mg Tablet TL 2.5 mg BID@0900,2000 EMILY Administration Ondansetron HCl 4 mg 08/08/25 14:39 Ondansetron Odt 4 Mg Tablet TL Q6HR PRN Nausea / Vomiting Ondansetron HCl 4 mg 08/08/25 14:39 Ondansetron 4 Mg/2 Ml Vial IVP Q6HR PRN Nausea / Vomiting Scopolamine HBr 1 patch 08/12/25 21:00 08/12/25 21:25 Scopolamine Patch TOP 1 patch Q3D EMILY Administration Sodium Chloride 10 ml 08/08/25 14:39 Sodium Chloride Flush 0.9% 10 Ml Syringe IVP PRN PRN NEEDED PER PROVIDER ORDERS Tramadol HCl 50 mg 08/08/25 18:14 08/12/25 08:05 Tramadol 50 Mg Tablet PO 50 mg Q12H PRN Administration pain Objective Vital Signs/Intake & Output Reviewed Vital Signs: Yes Vital Signs: Vital Signs x48h Temp Pulse Pulse Resp BP BP Pulse Ox 08/12/25 08:29 97.5 F L 115 H 20 94/67 94 08/12/25 06:07 110 H 125/93 H 08/12/25 04:50 97 08/12/25 04:00 96.8 F L 110 H 20 125/93 H 85 L O2 Flow Rate 08/12/25 08:29 2 08/12/25 06:07 08/12/25 04:50 2 08/12/25 04:00 Intake & Output: Intake & Output 08/10/25 08/11/25 08/12/25 08/13/25 23:59 23:59 23:59 23:59 Intake Total 160 / 160 1240 / 1240 1262 / 1262 Output Total 925 / 925 450 / 450 661 / 661 250 / 250 Balance -765 / -765 790 / 790 601 / 601 -250 / -250 Objective General Appearance: positive No acute distress and Lethargic; negative Alert, Mild distress or Anxious Eyes Bilateral: positive Other (Closed, comfortable) ENT: positive ENT inspection nml Neck: positive Nml inspection, Thyroid nml and No JVD Respiratory: positive Chest non-tender and Rales (Noted throughout. ); negative No respiratory distress or Rhonchi Cardiovascular: positive Irregularly irregular and Tachycardia; negative Regular rate & rhythm Abdomen: positive Non-tender, No organomegaly, Nml bowel sounds, No distention and Other (Ileal conduit in place, urostomy bag with clear urine ) Skin: positive Dry, Pallor and Other (Multiple bruises noted on bilateral upper and lower extremities) Extremities: positive Non-tender and Full ROM Neurologic/Psychiatric: positive Disoriented to place, Disoriented to time and Other (Comfortable, somnolent.) Lab Results 08/11/25 04:07 08/12/25 13:14 Other Labs: Lab Results x24hrs 08/12/25 Range/Units 13:14 Sodium 149 H (135-145) mmol/L Potassium 5.2 H (3.5-4.5) mmol/L Chloride 113 H (101-111) mmol/L Carbon Dioxide 26 (21-32) mmol/L Anion Gap 10.0 (6-13) BUN 89 H* (6-20) mg/dL Creatinine 3.1 H (0.6-1.3) mg/dL Estimated GFR (MDRD) 19 L (>89) Glucose 117 H (74-104) mg/dL Calcium 9.0 (8.5-10.3) mg/dL Sepsis Event Note (H) Evaluation Current Stage of Sepsis: Severe sepsis Possible source of Sepsis: positive Genitourinary Sepsis Criteria Sepsis Criteria: Recorded Heart Rate greater than 90 bpm, WBC count greater than 12,000 or less than 4000 and Renal: urine output less than 0.5ml/kg/hr for 2 hours or creatinine gr Assessment/Plan Problem List (1) Comfort measures only status: Impression: Family including 2 daughters, son-in-law, and elected to make the patient comfort care. This is in setting of chronic kidney disease, dementia, multiple fractures, rheumatoid arthritis, CHF, TAVR, atrial fibrillation. Comfort medications placed including IV Dilaudid, Ativan, atropine, Haldol, glycopyrrolate as needed. Support provided to family at bedside. Patient does appear to be imminently dying. (2) Acute on chronic kidney failure: Impression: Patient's baseline creatinine is around 2.3-2.6. Steadily increased to 3.0. Abdomen/pelvis CT completed on admission shows no hydronephrosis. Patient is anuric-oliguric now. He has been receiving gentle IV fluid rehydration over the last few days with LR. He had some signs of fluid overload including increasing oxygen requirements, diffuse crackles. He completed Lasix challenge with minimal output. Dialsyis is not within goals of care for the patient. Family would not like transfer for nephrology evaluation. Comfort measures only as above. Qualifiers: Acute renal failure type: unspecified Chronic kidney disease stage: s tage 4 (GFR 15-29) Qualified Code(s): N17.9 - Acute kidney failure, unspecified; N18.4 - Chronic kidney disease, stage 4 (severe)
[2025-08-13] MEDS: MORPHINE SOL 10 MG/0.5 ML ORAL SYRINGE PO PRN (09:44)
[2025-08-13] MEDS: HYDROmorphone 0.5 MG/0.5 ML SYRINGE IVP PRN (11:05)
[2025-08-14] MEDS: SODIUM CHLORIDE FLUSH 0.9% 10 ML SYRINGE IVP PRN (06:16)
--- NOTE | 2025-08-14 08:48 | PROVIDER PROGRESS NOTE ---
Subjective Subjective Subjective: Family including 2 daughters, son-in-law, as well as his had a family meeting and would like to pursue comfort care and hospice. Patient appears comfortable today. Not grimacing. Does not appear in pain or anxious. Patient is imminently dying. Current Medications Current Medications Current Medications: Current Medications Generic Name Dose Route Start Last Admin Trade Name Freq PRN Reason Stop Dose Admin Atropine Sulfate 1 - 4 drops 08/12/25 20:42 Atropine 1% Ophth Drops 2 Ml SL Q2H PRN Excessive secretions Carboxymethylcellulose 1 drops 08/12/25 20:42 Carboxymethylcellulose Ophth Drops EACHEYE QID PRN Dry Eye Glycopyrrolate 0.2 mg 08/12/25 20:42 Glycopyrrolate 1 Mg/5 Ml Vial SUBQ Q4H PRN Excessive secretions Haloperidol 2 mg 08/12/25 21:25 08/12/25 21:53 Haloperidol 5 Mg/Ml Vial IVP 2 mg Q6H PRN Administration Nausea / Vomiting Hydromorphone HCl 0.5 mg 08/13/25 07:33 08/14/25 06:15 Hydromorphone 0.5 Mg/0.5 Ml Syringe IVP 0.5 mg Q2H PRN Administration Severe Pain (Level 7-10) Hydroxyzine Pamoate 25 mg 08/08/25 17:02 08/12/25 19:20 Hydroxyzine Pamoate 25 Mg Capsule PO 25 mg HS PRN Administration for itching at bedtime Morphine Sulfate 10 mg 08/13/25 07:33 08/13/25 11:44 Morphine Toya 10 Mg/0.5 Ml Oral Syringe PO 10 mg Q2HR PRN Administration Moderate Pain (Level 4-6) Olanzapine 2.5 mg 08/11/25 20:00 08/14/25 08:23 Olanzapine Odt 5 Mg Tablet TL 2.5 mg BID@0900,2000 EMILY Administration Ondansetron HCl 4 mg 08/08/25 14:39 Ondansetron Odt 4 Mg Tablet TL Q6HR PRN Nausea / Vomiting Ondansetron HCl 4 mg 08/08/25 14:39 Ondansetron 4 Mg/2 Ml Vial IVP Q6HR PRN Nausea / Vomiting Scopolamine HBr 1 patch 08/12/25 21:00 08/12/25 21:25 Scopolamine Patch TOP 1 patch Q3D EMILY Administration Sodium Chloride 10 ml 08/08/25 14:39 08/14/25 06:16 Sodium Chloride Flush 0.9% 10 Ml Syringe IVP 10 ml PRN PRN Administration NEEDED PER PROVIDER ORDERS Tramadol HCl 50 mg 08/08/25 18:14 08/12/25 08:05 Tramadol 50 Mg Tablet PO 50 mg Q12H PRN Administration pain Objective Vital Signs/Intake & Output Reviewed Vital Signs: Yes Vital Signs: Vital Signs x48h Temp Pulse Pulse Resp BP BP Pulse Ox 08/12/25 08:29 97.5 F L 115 H 20 94/67 94 08/12/25 06:07 110 H 125/93 H 08/12/25 04:50 97 08/12/25 04:00 96.8 F L 110 H 20 125/93 H 85 L O2 Flow Rate 08/12/25 08:29 2 08/12/25 06:07 08/12/25 04:50 2 08/12/25 04:00 Intake & Output: Intake & Output 08/11/25 08/12/25 08/13/25 08/14/25 23:59 23:59 23:59 23:59 Intake Total 1240 / 1240 1262 / 1262 0 / 0 Output Total 450 / 450 661 / 661 400 / 400 225 / 225 Balance 790 / 790 601 / 601 -400 / -400 -225 / -225 Objective General Appearance: positive No acute distress and Lethargic; negative Alert, Mild distress or Anxious Eyes Bilateral: positive Other (Closed, comfortable) ENT: positive ENT inspection nml Neck: positive Nml inspection, Thyroid nml and No JVD Respiratory: positive Chest non-tender and Rales (Noted throughout. ); negative No respiratory distress or Rhonchi Cardiovascular: positive Irregularly irregular and Tachycardia; negative Regular rate & rhythm Abdomen: positive Non-tender, No organomegaly, Nml bowel sounds, No distention and Other (Ileal conduit in place, urostomy bag with clear urine ) Skin: positive Dry, Pallor and Other (Multiple bruises noted on bilateral upper and lower extremities) Extremities: positive Non-tender and Full ROM Neurologic/Psychiatric: positive Disoriented to place, Disoriented to time and Other (Comfortable, somnolent.) Lab Results 08/11/25 04:07 08/12/25 13:14 Other Labs: Lab Results x24hrs 08/12/25 Range/Units 13:14 Sodium 149 H (135-145) mmol/L Potassium 5.2 H (3.5-4.5) mmol/L Chloride 113 H (101-111) mmol/L Carbon Dioxide 26 (21-32) mmol/L Anion Gap 10.0 (6-13) BUN 89 H* (6-20) mg/dL Creatinine 3.1 H (0.6-1.3) mg/dL Estimated GFR (MDRD) 19 L (>89) Glucose 117 H (74-104) mg/dL Calcium 9.0 (8.5-10.3) mg/dL Sepsis Event Note (H) Evaluation Current Stage of Sepsis: Severe sepsis Possible source of Sepsis: positive Genitourinary Sepsis Criteria Sepsis Criteria: Recorded Heart Rate greater than 90 bpm, WBC count greater than 12,000 or less than 4000 and Renal: urine output less than 0.5ml/kg/hr for 2 hours or creatinine gr Assessment/Plan Problem List (1) Comfort measures only status: Impression: Family including 2 daughters, son-in-law, and elected to make the patient comfort care. This is in setting of chronic kidney disease, dementia, multiple fractures, rheumatoid arthritis, CHF, TAVR, atrial fibrillation. Comfort medications placed including IV Dilaudid, Ativan, atropine, Haldol, glycopyrrolate as needed. Support provided to family at bedside. Patient does appear to be imminently dying. (2) Acute on chronic kidney failure: Impression: Patient's baseline creatinine is around 2.3-2.6. Steadily increased to 3.0. Abdomen/pelvis CT completed on admission shows no hydronephrosis. Patient is anuric-oliguric now. He has been receiving gentle IV fluid rehydration over the last few days with LR. He had some signs of fluid overload including increasing oxygen requirements, diffuse crackles. He completed Lasix challenge with minimal output. Dialsyis is not within goals of care for the patient. Family would not like transfer for nephrology evaluation. Comfort measures only as above. Qualifiers: Acute renal failure type: unspecified Chronic kidney disease stage: s tage 4 (GFR 15-29) Qualified Code(s): N17.9 - Acute kidney failure, unspecified; N18.4 - Chronic kidney disease, stage 4 (severe)
[2025-08-14] MEDS: GLYCOPYRROLATE 1 MG/5 ML VIAL SUBQ PRN (13:22)
--- NOTE | 2025-08-14 14:47 | Discharge Summary ---
"Discharge Summary Admit Date: 08/08/25 Discharge Date: 08/14/25 Discharging Provider: Dr. Yokasta Luna Discharge Facility Name: Patient DIAGNOSES Discharge Diagnoses with Status of Each Condition: Comfort measures only status Family including 2 daughters, son-in-law, and elected to make the patient comfort care. This is in setting of chronic kidney disease, dementia, multiple fractures, rheumatoid arthritis, CHF, TAVR, atrial fibrillation. Comfort medications placed including IV Dilaudid, Ativan, atropine, Haldol, glycopyrrolate as needed. Support provided to family at bedside. Patient peacefully. Acute on chronic kidney failure: Patient's baseline creatinine is around 2.3-2.6. Steadily increased to 3.0. Abdomen/pelvis CT completed on admission shows no hydronephrosis. Patient is anuric-oliguric now. He has been receiving gentle IV fluid rehydration over the last few days with LR. He had some signs of fluid overload including increasing oxygen requirements, diffuse crackles. He completed Lasix challenge with minimal output. Dialsyis is not within goals of care for the patient. Family would not like transfer for nephrology evaluation. Comfort measures only as above. HPI History of Present Illness: Patient is a 85-year-old male with a history of atrial fibrillation, CKD stage 3B, bladder cancer s/p radical cystectomy with ileal conduit in place, in remission, hypertension, rheumatoid arthritis, chronic back pain s/p fusion, heart failure with reduced ejection fraction who presents with confusion, as well as a generalized decline in overall functional status. He was just here, and discharged 2 days ago. At that time, he was treated for an Enterococcus UTI, as well as sepsis. He was discharged on Zyvox, which the states that he has been taking as prescribed. His describes an overall decline since December of this year. He has been hospitalized about 5 or 6 times, each for varying reasons. Usually, it is for lethargy and confusion. He is often hydrated, treated for urinary tract infection, and then insists on going home. states as soon as he gets home, he is fatigued, tired, and falls frequently. This time around, he was falling asleep on the couch. He would walk a few steps, and then get tired and sit down, and then passed out. She recalls multiple episodes of him falling off the side of the bed. The states that he has expressed feelings of hopelessness, and a depressed mood with his generalized decline. He has inquired about with dignity. He has also expressed interest with hospice. We also talked about alternative options including assisted living. His thinks that this would be a great idea for him, but he has expressed some resistance in the past when he is more lucid. At this time, patient is confused, able to tell me his name and not much more. He appears to be in discomfort and pain. Medical history includes atrial fibrillation, CKD stage IV, bladder cancer s/p radical cystectomy with ileal conduit in place, currently in remission, hypertension, rheumatoid arthritis, chronic back pain s/p fusion, depression. Medications include amlodipine, Eliquis, duloxetine, gabapentin, metoprolol, omeprazole, prednisone. He has no drug allergies, but some side effects listed. Surgical history includes spinal fusion, ileal conduit placement. Denies any alcohol, tobacco, recreational drug use. Lives with . 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 POLST was reviewed with , as patient is altered, and he is still DNR. CONSULTS | PROCEDURES Consultations: Hospice Procedures: Abdomen/pelvis CT/acute T12 superior endplate compression fracture, left L2 transverse process fracture, cardiomegaly. Chest CTacute T12 superior endplate compression fracture, small left pleural effusion. Cervical spine CT12/19no acute displaced fracture or traumatic subluxation. Head CTno acute intracranial [id number]. HOSPITAL COURSE Hospital Course: Patient is a 85-year-old male with a history of atrial fibrillation, CKD stage 3B, bladder cancer s/p radical cystectomy with ileal conduit in place, in remission, hypertension, rheumatoid arthritis, chronic back pain s/p fusion, heart failure with reduced ejection fraction who presents with confusion, as well as a generalized decline in overall functional status. He was just here, and discharged 2 days ago. At that time, he was treated for an Enterococcus UTI, as well as sepsis. He was discharged on Zyvox, which the states that he has been taking as prescribed. His describes an overall decline since December of this year. He has been hospitalized about 5 or 6 times, each for varying reasons. Usually, it is for lethargy and confusion. He is often hydrated, treated for urinary tract infection, and then insists on going home. states as soon as he gets home, he is fatigued, tired, and falls frequently. During the course of his stay, his kidney function worsened, and he became progressively anuric. His mentation worsened due to uremia. We discussed overall goals of care. Dialysis is certainly not within his goals of cares. Family including 2 daughters, son-in-law, had a family meeting, and opted for comfort care. Comfort care medications were ordered. He passed peacefully here. His was informed of his passing. ALLERGIES Allergies Allergy/AdvReac Type Severity Reaction Status Date / Time adalimumab Allergy Mild Rash Verified 08/08/25 11:06 atorvastatin AdvReac Mild gi upset Verified 08/08/25 11:06 pravastatin AdvReac Mild myalgia Verified 08/08/25 11:06 rosuvastatin AdvReac Mild myalgia Verified 08/08/25 11:06 MEDICATIONS Ambulatory Orders Medication Instructions Recorded Confirmed duloxetine 20 mg capsule,delayed 40 mg PO HS 04/18/24 08/08/25 release leflunomide 10 mg tablet 10 mg PO DAILY 04/18/2407/21 Held on 08/06/25. Instructions: Resume on 08/11/25. Please resume after completion of antibiotic course. apixaban 2.5 mg tablet (Eliquis) 2.5 mg PO BID #60 tab s 04/20/24 08/08/25 furosemide 40 mg tablet 40 mg PO DAILY edema, CHF #3 0 tabs 04/20/24 08/08/25 empagliflozin 10 mg tablet 10 mg PO DAILY 06/12/24 (Jardiance) Held on 08/06/25. Instructions: Resume on 08/20/25. Please hold until further discussion with PCP - this can cause frequent UTIs. omeprazole 20 mg capsule,delayed 20 mg PO DAILY 08/08/25 release metoprolol succinate 50 mg 50 mg PO DAILY #30 tabs 08/08/25 tablet,extended release 24 hr gabapentin 600 mg tablet 600 mg PO QPM 05/24/2508/08 prednisone 5 mg tablet 5 mg PO DAILY 05/24/2508/08 sacubitril 24 mg-valsartan 26 mg 0.5 tab PO BID 08/08/25 tablet (Entresto) tramadol 50 mg tablet 50 mg PO Q6H PRN pain 08/08/25 vit C 250 mg-vit E 90 mg-zinc 40 1 tab PO BID 06/27/25 08/08/25 mg-copper 1 [id number] capsule (PreserVision AREDS-2) amlodipine 10 mg tablet 10 mg PO DAILY 08/04/2507/21 hydroxyzine HCl 25 mg tablet 25 mg PO HS PRN for itchi ng at 08/04/25 08/08/25 bedtime linezolid 600 mg tablet 600 mg PO BID 5 days #9 tabs 08/06/25 08/08/25 PHYSICAL EXAM AT DISCHARGE Vital Signs: Vital Signs x48h Resp 08/14/25 12:30 12 Patient passed. LABS 08/11/25 04:07 08/12/25 13:14 SEPSIS Sepsis Criteria: Renal: urine output less than 0.5ml/kg/hr for 2 hours or creatinine gr TIME SPENT Time Spent in Discharge (Minutes): 20 Discharge Plan Discharge Patient Disposition: 20 Print Language: Italian"
--- NOTE | 2025-08-14 20:06 | XRAY Report ---
PROCEDURE: XR Chest 1V INDICATIONS: DEONDRE TECHNIQUE: One view of the chest was acquired. COMPARISON: August 04, 2025 FINDINGS: Surgical changes and devices: Status post median sternotomy. Left anterior chest wall cardiac pacing device. Lungs and pleura: Moderate interval progression in diffuse increased prominence of the pulmonary vasculature and now moderate bilateral pleural effusions. No evidence of pneumothorax. Mediastinum: Mediastinal contours appear normal. Heart size is normal. Bones and chest wall: No suspicious bony lesions. Overlying soft tissues appear unremarkable. IMPRESSION: Interval progression in diffuse increased prominence of the pulmonary vasculature and now moderate bilateral pleural effusions. Reviewed by: Hair Osuna MD on 08/14/2025 8:03 PM PST Approved by: Hair Osuna MD on 08/14/2025 8:03 PM PST Station ID: [id number]
== END 2025-08-14 14:43 | disposition expired | DRG 871 ==
LOC: ED 10:52 → MS3 10:52 → MS2 08-09 17:20
PROVIDERS: ADMIT Internal Medicine; ATTEND Internal Medicine